=== PATIENT | female | born 1940 | race Caucasian/White ===

== ENCOUNTER → 2021-09-03 | Outpatient (CLI) | payer MEDICARE, OTHER ==
--- NOTE | 2021-09-03 11:10 | Diagnostic Imaging Report ---
Indication: Abdominal aortic aneurysm screening The proximal aorta measures 2.5 x 2.8 cm. The mid aorta measures 2.6 x 1.7 cm. The distal aorta measures 1.6 x 1.6 cm. Iliac arteries measure approximately 1 cm. There is mild atherosclerotic disease present. There is no aneurysm, stenosis or dissection seen. IMPRESSION: There is no aneurysm present. Dictated by: Dictated on workstation # [id number]
--- NOTE | 2021-09-03 12:27 | Diagnostic Imaging Report ---
CT CHEST WO TECHNIQUE: Multiple contiguous axial images were obtained through the chest without the use of intravenous contrast. All CT scans use one or more of the following dose optimizing techniques: automated exposure control, MA and/or KvP adjustment based on a patient size and exam type, or iterative reconstruction. INDICATION: Shortness of breath and COPD COMPARISON: None available. FINDINGS: Lungs and airway: Severe centrilobular emphysema is present. Near total consolidation the left lower lobe with volume loss associated with the pleural effusion is likely due to compressive atelectasis. The lingula also has some compressive atelectasis within it. Minimal subpleural atelectasis in right lung base. No suspicious pulmonary nodules. Smooth septal lines within the lung bases are likely due to interstitial edema. Pleura: Moderate sized left and small right pleural effusion. No features of loculation. Heart and mediastinum: Thyroid is normal. No supraclavicular or axillary lymphadenopathy. There are a few mildly enlarged mediastinal lymph nodes, with passenger relations representative being a 1.2 cm lower right paratracheal lymph node. Assessment for hilar lymphadenopathy is limited without IV contrast. Heart is mildly enlarged without pericardial effusion. Normal caliber thoracic aorta. Upper abdomen: No features of acute abnormality in the upper abdomen. Cholecystectomy. Musculoskeletal: Multiple old healed left-sided rib fractures are present. No acute rib fracture on either side. Instrumented posterior fusion in the thoracic spine. Underlying infection. IMPRESSION: 1. Moderate left and small right pleural effusions are nonloculated. 2. There is associated atelectasis within the lingula and majority of the left lower lobe from the pleural effusion. Mild pulmonary edema is present. 3. There are a few mildly enlarged mediastinal lymph nodes which are likely reactive in nature. 4. Severe emphysema. Dictated by: Dictated on workstation # [id number]
== END ==
LOC: RAD 09:52
PROVIDERS: ATTEND Family Medicine
DX: Z13.6 Encounter for screening for cardiovascular disorders (principal); J43.9 Emphysema, unspecified; J90 Pleural effusion, not elsewhere classified; J98.11 Atelectasis; J81.1 Chronic pulmonary edema; R59.0 Localized enlarged lymph nodes
CPT/HCPCS: 71250; 76775

== ENCOUNTER 2021-09-22 13:51 | Inpatient (IN) | payer MEDICARE, OTHER ==
[~2021-09-22] VITALS: Ht 160 cm; Wt 52.7 kg
--- OUTSIDE RECORDS SUMMARY | 2021-09-22 13:58 | XMS REPORT | CCD ---
Author Author Tere Leonard Organization Pippa Leonard MD, [facility] Address [address] [place] [address] Phone Care Team Providers Care Resin Coater Name Role Phone Pippa Leonard PP Unavailable CCM Unavailable Summary Purpose Interface Exchange Insurance Providers Payer name Policy type / Coverage type Covered republican ID Effective Begin Date Effective End Date WPS Medicare Part B Medicare Part B [id number] Unknown Unkno wn humana Gold Choice Medicare Part B [id number] Unknown Unknow n Family history Mother Diagnosis Age At Onset Heart Attack Unknown Arthritis Unknown Osteoporosis Unknown Alcoholism Unknown Sister Diagnosis Age At Onset Hypertension Unknown Stroke Unknown Hyperlipidemia Unknown Arthritis Unknown Father Diagnosis Age At Onset Alcoholism Unknown Brother Diagnosis Age At Onset Hyperlipidemia Unknown Asthma Unknown Arthritis Unknown Hypertension Unknown Social History Social History Element Codes Description Effective Dates Marital status Unknown 08/19/2021 Number of children Unknown 7 08/19/2021 Employment Unknown Retired 08/19/[address]: 4244076 Quit over 10 years ago 2020 Allergies, Adverse Reactions, Alerts Substance Reaction Codes Entered Date Inactivated Date Status MORPHINE SULFATE RxNorm: 6648743 08/19/2021 No Inactive Da te Active Problems Condition Codes Effective Dates Condition Status Centrilobular emphysema ICD-10: J43.2 ICD-9: 492.8 08/19/2021 Active Cough in adult ICD-10: R05.9 ICD-9: 786.2 08/19/2021 Active Essential (primary) hypertension ICD-10: I10 ICD-9: 401.1 08/19/2021 Active Medications Medication Codes Instructions Start Date Stop Date Status Fill Instructions Yupelri 175 mcg/3 mL solution for nebulization RxNorm: 05647 84 1 inhale Inhalation every day 08/22/2021 09/20/2021 Active qty suffici ent for 1 month supply Yupelri 175 mcg/3 mL solution for nebulization RxNorm: 34035 84 1 inhale Inhalation every day 08/22/2021 08/22/2021 Inactive magnesium oxide 500 mg capsule RxNorm: 421963 1 Capsule(s) Oral every day 08/19/2021 No Stop Date Active Jesus Alberto 128 5 % eye drops RxNorm: 247529 1 Drop(s) ophthal tenzin (eye) two times a day 08/19/2021 No Stop Date Active Potassium gluconate 99 mg RxNorm: 1 Oral 08/19/2021 No Stop Date Active valsartan 160 mg tablet RxNorm: 453927 Take 1 Tablet(s) Oral ev marybel day 08/19/2021 12/16/2021 Active furosemide 40 mg tablet RxNorm: 566763 1 Tablet(s) Oral every day 1 10/19/2020 No Stop Date Active oxybutynin chloride ER 10 mg tablet,extended release 24 hr R xNorm: 136995 1 Tablet(s) Oral every day 08/19/2021 No Stop Date Active Calcium RxNorm: 1 Oral every day 08/19/2021 No Stop Date Active vitamin E 400 unit capsule RxNorm: 673938 1 Capsule(s) Oral lakisha ry day 08/19/2021 No Stop Date Active Combivent Respimat 20 mcg-100 mcg/actuation solution f or inhalation RxNorm: 3665521 2 Inhalation three times a day 08/19/2021 No Stop Date Active Ecotrin Low Strength 81 mg tablet,enteric coated RxNorm: 118 9781 1 Tablet(s) Oral every day 08/19/2021 No Stop Date Active simvastatin 20 mg tablet RxNorm: 993644 1 Tablet(s) Oral every day 08/19/2021 No Stop Date Active metoprolol succinate ER 25 mg tablet,extended release 24 hr RxNorm: 588402 1/2 Tablet(s) Oral every day 08/19/2021 08/19/2021 Inactive lisinopril 20 mg tablet RxNorm: 951171 1/2 Tablet(s) Oral every day 08/19/2021 08/19/2021 Inactive PreserVision AREDS oral RxNorm: 539593 oral 08/19/2021 Active Medication Administered No Medication Administered data Immunizations No Immunization data Results No Results data Procedures No Procedures data Vital Signs Date Vital 08/19/2021 Blood Pressure 1: 144/88 Code: 8480-6 BMI: 22.5 Code: 85431-8 Heart Rate 1: 74 bpm Height: 5'3" Code: 8302-2 SpO2: 92% Temperature: 3 6.2 (C) / 97.2 (F) Weight: 129 lbs Code: 17088-6 Functional Status No Functional Status data Reason For Visit Reason For Visit Effective Dates Notes headache 08/19/2021 Encounters Encounter Performer Location Codes Date () OFFICE VISIT, NEW - LEVEL 4 Diagnosis: Essential (primary) hypertension[ICD10: I10] Diagnosis: Centrilobular emphysema[ICD10: J43.2] Diagnosis: Cough in adult[ICD10: R05.9] Pippa Leonard MD, Melissa CPT-4: [id number] 08/19/2021 Plan of Care Planned Activity Notes Codes Status Date Visit Plan: Cough - Chronic - worsening per patient and her DTR - I have recommended as follows: - stop the lisinopril - this may be contributing to your cough - it will take about 2 weeks for the cough to go away or improve - and about another 2 weeks to resolve completely. COPD with Emphysema - recommended pt needs to use continuous oxygen - Oxygen concentrator for continuous use at 2.5 liters - pt is mobile and needs the continuous oxygen when using your home oxygen concentrator - you will need to bump up the oxygen at home to 3 liters and then at night go back down to 2 liters of oxygen continuously Extensive history of Tobaccoism - pt no longer smoking - - however with her extensive history - I want her to be set up for the CT of the chest and Abd aortic US. 08/19/2021 Appointment: Pippa Leonard WPtel[id number] [facility] Patient 08/19/2021 Patient Education: Patient Medication Summary Completed 08/19/2021 Instructions Comment oxygen concentrator for continuous use a t 2.5 liters - pt is mobile and needs the continuous oxygen when using your home oxygen concentrator - you will need to bump up the oxygen at home to 3 liters and then at night go back down to 2 liters of oxygen continuously stop the lisinopril - this may be contributing to your cough - it will take about 2 weeks for the cough to go away or improve - and about another 2 weeks to resolve completely. We will get you set up for CT of the Chest and Abd aorta ultrasound . Cough - Chronic - worsening per maria eugenia fuentes and her DTR - I have recommended as follows: - stop the lisinopril - this may be contributing to your cough - it will take about 2 weeks for the cough to go away or improve - and about another 2 weeks to resolve completely. COPD with Emphysema - recommended pt needs to use continuous oxygen - Oxygen concentrator for continuous use at 2.5 liters - pt is mobile and needs the continuous oxygen when using your home oxygen concentrator - you will need to bump up the oxygen at home to 3 liters and then at night go back down to 2 liters of oxygen continuously Extensive history of Tobaccoism - pt no longer smoking - - however with her extensive history - I want her to be set up for the CT of the chest and Abd aortic US. Medical Equipment No Medical Equipment data Health Concerns Section Health Concerns data not found Goals Section Goals data not found Interventions Section Interventions data not found Health Status Evaluations/Outcomes Section Health Status Evaluations/Outcomes data not found Advance Directives No Advance Directive data
[2021-09-22 14:42] LABS: BASOPHILS % (AUTO) 1 % (0-10); EOSINOPHILS # (AUTO) 0.2 10^3/uL (0.0-0.3); EOSINOPHILS % (AUTO) 3 % (0-10); HEMATOCRIT 43 % (35-52); HEMOGLOBIN 13.6 g/dL (11.5-16.0); LYMPHOCYTES # (AUTO) 1.1 X 10^3 (1.0-4.0); LYMPHOCYTES % (AUTO) 20 % (12-44); MEAN CORPUSCULAR HEMOGLOBIN 29 pg (25-34); MEAN CORPUSCULAR HGB CONC 32 g/dL (32-36); MEAN CORPUSCULAR VOLUME 92 fL (80-99); MEAN PLATELET VOLUME 10.1 fL (9.0-12.2); MONOCYTES # (AUTO) 0.4 X 10^3 (0.0-1.0); MONOCYTES % (AUTO) 8 % (0-12); NEUTROPHILS # (AUTO) 3.9 X 10^3 (1.8-7.8); NEUTROPHILS % (AUTO) 69 % (42-75); PLATELET COUNT 189 10^3/uL (130-400); WHITE BLOOD COUNT 5.7 10^3/uL (4.3-11.0)
[2021-09-22] MEDS: dilTIAZem DRIP PRE-MIX 125 ML IV SCH (14:48)
[2021-09-22 15:07] LABS: INR 1.1 (0.8-1.4); PROTHROMBIN TIME PATIENT 14.9 SEC (12.2-14.7)
[2021-09-22 15:08] LABS: ALBUMIN 3.6 GM/DL (3.2-4.5); POTASSIUM 3.1 MMOL/L (3.6-5.0)
[2021-09-22 15:09] LABS: CALCIUM 8.8 MG/DL (8.5-10.1)
[2021-09-22 15:10] LABS: TOTAL PROTEIN 6.4 GM/DL (6.4-8.2)
[2021-09-22 15:12] LABS: BILIRUBIN,TOTAL 1.8 MG/DL (0.1-1.0)
[2021-09-22 15:14] LABS: CREATININE SERUM 0.96 MG/DL (0.60-1.30)
[2021-09-22 15:17] LABS: MAGNESIUM 2.2 MG/DL (1.6-2.4)
--- NOTE | 2021-09-22 15:26 | Diagnostic Imaging Report ---
HISTORY: Chest pain, weakness. COMPARISON: CT from 09/03/2021. TECHNIQUE: Frontal view of the chest. FINDINGS: There is a moderate left pleural effusion which appears similar to the prior CT given differences in modality. There is a small right pleural effusion. There is bibasilar atelectasis. The cardiac silhouette is partially obscured. No pneumothorax is seen. Fusion hardware is seen in the thoracolumbar spine. There is diffuse osteopenia. IMPRESSION: 1. Moderate left and small right pleural effusions with associated atelectasis. Dictated by: Dictated on workstation # [id number]
[2021-09-22 15:59] LABS: BILIRUBIN,URINE NEGATIVE (NEGATIVE); CLARITY,URINE CLEAR; COLOR,URINE ORANGE; GLUCOSE, URINE (UA) NEGATIVE (NEGATIVE); KETONES,URINE NEGATIVE (NEGATIVE); LEUKOCYTE ESTERASE ,URINE 1+ (NEGATIVE); NITRITE,URINE NEGATIVE (NEGATIVE); PROTEIN,URINE 1+ (NEGATIVE)
[2021-09-22 16:09] LABS: BACTERIA,URINE TRACE /HPF; RENAL EPITHELIAL CELLS,URINE 0-2 /HPF
[2021-09-22] MEDS ORDERED: KCL 10 MEQ TAB (MICRO K) PO ONE ×2 (17:00→18:30)
[2021-09-22] MEDS ORDERED: APIXABAN 2.5 MG (ELIQUIS) TABLET PO ONE (17:15)
[2021-09-22] MEDS ORDERED: cefTRIAXone 1 GM PRE-MIX 50 ML IV STA (18:21)
--- NOTE | 2021-09-22 18:28 | ED General ---
General Chief Complaint: Respiratory Problems Stated Complaint: WEAKNESS,SOB Nursing Triage Note: PT TO RM 5 VIA WC. PT REPORTS SOA, COUGH, AND "HEART FLUTTERS WHEN I COUGH AND LAY DOWN" X 1 MONTH. PT WEARS 3L NC AT ALL TIMES D/T COPD AND CHF. PT CALLED DR. STANFORD OFFICE WHO ADVISED HER TO GO TO ED FOR FURTHER EVALUATION. PT A&OX4, DENIES PAIN. Source of Information: Patient Exam Limitations: No Limitations History of Present Illness Date Seen by Provider: Sep 22, 2021 Time Seen by Provider: 14:08 Initial Comments This 80-year-old woman presents to the emergency room with complaints of shortness of breath, fluttering palpitations, and fatigue worsened from baseline over the past month. She has COPD and usually wears oxygen at 3 L. She was noted to have hypoxia with oxygen saturations in the low 80s on her usual 3 L by nasal cannula on arrival. She has had some nausea as well. Shortness of air is exacerbated by ambulation. 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 Dr. Leonard is her primary care provider. She is noted to have atrial fibrillation with RVR on the monitor with a heart rate in the 130s. She has no prior history of atrial fibrillation and is not anticoagulated. Allergies and Home Medications Allergies Coded Allergies: bacitracin (Verified Allergy, Severe, 09/22/21) morphine (Verified Allergy, Severe, 09/22/21) nickel (Verified Allergy, Severe, 09/22/21) Patient Home Medication List Home Medication List Reviewed: Yes Review of Systems Review of Systems Constitutional: see HPI EENTM: no symptoms reported Respiratory: see HPI Cardiovascular: see HPI Gastrointestinal: no symptoms reported : No Musculoskeletal: no symptoms reported Skin: no symptoms reported Psychiatric/Neurological: No Symptoms Reported Hematologic/Lymphatic: No Symptoms Reported Immunological/Allergic: no symptoms reported Past Htnlgrf-Ibuwnc-Seikrp Hx Patient Social History Tobacco Use?: No Smoking Status: Former Smoker Use of E-Cig and/or Vaping dev: No Substance use?: No Alcohol Use?: No Immunizations Up To Date Influenza Vaccine Up-to-Date: Yes; Up-to-Date First/Initial COVID19 Vaccinat: 2020 Second COVID19 Vaccination Javier: 2020 COVID19 Vaccine 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 oz. 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 as Tested Skin: Normal Color, Warm/Dry Focused Exam Lactate Level 09/22/21 14:30: Lactic Acid Level 1.01 Lactic Acid Level Laboratory Tests Test 09/22/21 14:30 Lactic Acid Level 1.01 MMOL/L (0.50-2.00) Progress/Results/Core Measures Suspected Sepsis SIRS Temperature: Pulse: 148 Respiratory Rate: 24 Laboratory Tests 09/22/21 14:30: White Blood Count 5.7 Blood Pressure 144 /132 Mean: 136 09/22/21 14:30: Lactic Acid Level 1.01 Laboratory Tests 09/22/21 14:30: Creatinine 0.96, INR Comment 1.1, Platelet Count 189, Total Bilirubin 1.8H Results/Orders Lab Results Laboratory Tests Test 09/22/21 14:20 09/22/21 14:30 09/22/21 15:51 Range/Units Influenza Type A (RT-PCR) Not Detected Not Detecte Influenza Type B (RT-PCR) Not Detected Not Detecte SARS-CoV-2 RNA (RT-PCR) Not Detected Not Detecte White Blood Count 5.7 4.3-11.0 10^3/uL Red Blood Count 4.64 3.80-5.11 10^6/uL Hemoglobin 13.6 11.5-16.0 g/dL Hematocrit 43 35-52 % Mean Corpuscular Volume 92 80-99 fL Mean Corpuscular Hemoglobin 29 25-34 pg Mean Corpuscular Hemoglobin Concent 32 32-36 g/dL Red Cell Distribution Width 15.0 H 10.0-14.5 % Platelet Count 189 130-400 10^3/uL Mean Platelet Volume 10.1 9.0-12.2 fL Immature Granulocyte % (Auto) 0 % Neutrophils (%) (Auto) 69 42-75 % Lymphocytes (%) (Auto) 20 12-44 % Monocytes (%) (Auto) 8 0-12 % Eosinophils (%) (Auto) 3 0-10 % Basophils (%) (Auto) 1 0-10 % Neutrophils # (Auto) 3.9 1.8-7.8 X 10^3 Lymphocytes # (Auto) 1.1 1.0-4.0 X 10^3 Monocytes # (Auto) 0.4 0.0-1.0 X 10^3 Eosinophils # (Auto) 0.2 0.0-0.3 10^3/uL Basophils # (Auto) 0.0 0.0-0.1 10^3/uL Immature Granulocyte # (Auto) 0.0 0.0-0.1 10^3/uL Prothrombin Time 14.9 H 12.2-14.7 SEC INR Comment 1.1 0.8-1.4 Activated Partial Thromboplast Time 30 24-35 SEC Sodium Level 141 135-145 MMOL/L Potassium Level 3.1 L 3.6-5.0 MMOL/L Chloride Level 100 98-107 MMOL/L Carbon Dioxide Level 30 21-32 MMOL/L Anion Gap 11 5-14 MMOL/L Blood Urea Nitrogen 15 7-18 MG/DL Creatinine 0.96 0.60-1.30 MG/DL Estimat Glomerular Filtration Rate 56 BUN/Creatinine Ratio 16 Glucose Level 119 H 70-105 MG/DL Lactic Acid Level 1.01 0.50-2.00 MMOL/L Calcium Level 8.8 8.5-10.1 MG/DL Corrected Calcium 9.1 8.5-10.1 MG/DL Magnesium Level 2.2 1.6-2.4 MG/DL Total Bilirubin 1.8 H 0.1-1.0 MG/DL Aspartate Amino Transf (AST/SGOT) 33 5-34 U/L Alanine Aminotransferase (ALT/SGPT) 29 0-55 U/L Alkaline Phosphatase 106 40-136 U/L Myoglobin 42.5 10.0-92.0 NG/ML Troponin I < 0.028 <0.028 NG/ML C-Reactive Protein High Sensitivity 0.07 0.00-0.50 MG/DL B-Type Natriuretic Peptide 326.1 H <100.0 PG/ML Total Protein 6.4 6.4-8.2 GM/DL Albumin 3.6 3.2-4.5 GM/DL Procalcitonin 0.02 <0.10 NG/ML Urine Color ORANGE Urine Clarity CLEAR Urine pH 6.0 5-9 Urine Specific [place] 1.020 1.016-1.022 Urine Protein 1+ H NEGATIVE Urine Glucose (UA) NEGATIVE NEGATIVE Urine Ketones NEGATIVE NEGATIVE Urine Nitrite NEGATIVE NEGATIVE Urine Bilirubin NEGATIVE NEGATIVE Urine Urobilinogen 0.2 < = 1.0 MG/DL Urine Leukocyte Esterase 1+ H NEGATIVE Urine RBC (Auto) NEGATIVE NEGATIVE Urine RBC NONE /HPF Urine WBC 5-10 H /HPF Urine Squamous Epithelial Cells 2-5 /HPF Urine Renal Epithelial Cells 0-2 /HPF Urine Crystals NONE /LPF Urine Bacteria TRACE /HPF Urine Casts NONE /LPF Urine Mucus SMALL H /LPF Urine Culture Indicated YES My Orders Orders - OMID YOU MD Cbc With Automated Diff (09/22/21 14:08) Comprehensive Metabolic Panel (09/22/21 14:08) Hs C Reactive Protein (09/22/21 14:08) Magnesium (09/22/21 14:08) Ua Culture If Indicated (09/22/21 14:08) Ed Iv/Invasive Line Start (09/22/21 14:08) Procalcitonin (Pct) (09/22/21 14:08) Influenza A And B By Pcr (09/22/21 14:08) Covid 19 Inhouse Test (09/22/21 14:08) Chest 1 View, Ap/Pa Only (09/22/21 14:37) Ekg Tracing (09/22/21 14:37) Myoglobin Serum (09/22/21 14:37) Protime With Inr (09/22/21 14:37) Partial Thromboplastin Time (09/22/21 14:37) O2 (09/22/21 14:37) Monitor-Rhythm Ecg Trace Only (09/22/21 14:37) Lipid Panel (09/23/21 06:00) Troponin I Jessica (09/22/21 14:37) Diltiazem Drip Pre-Mix (Cardizem Drip Pr (09/22/21 14:45) Diltiazem Injection (Cardizem Injection) (09/22/21 14:45) Blood Culture (09/22/21 14:39) Sputum Culture (09/22/21 14:39) Vital Signs Adult Sepsis Patie Q15M (09/22/21 14:39) Remove Rings In Anticipation O (09/22/21 14:39) Lactic Acid Analyzer (09/22/21 14:39) Bnp Rapides (09/22/21 14:39) Urine Culture (09/22/21 15:51) Potassium Chloride (Tablet) (Klor Con Ta (09/22/21 17:00) Apixaban Tablet (Eliquis Tablet) (09/22/21 17:15) Ceftriaxone 1 Gm Pre-Mix (Rocephin 1 Gm (09/22/21 18:21) Potassium Chloride (Tablet) (Klor Con Ta (09/22/21 18:30) Medications Given in ED Current Medications Medications Dose Ordered Sig/Matias Route Start Time Stop Time Status Last Admin Dose Admin Apixaban 2.5 mg ONCE ONCE PO 09/22/21 17:15 09/22/21 17:16 DC 09/22/21 21:00 2.5 MG Diltiazem HCl 5 mg ONCE ONCE IVP 09/22/21 14:45 09/22/21 14:46 DC 09/22/21 14:46 5 MG Vital Signs/I&O 09/22/21 09/22/21 09/22/21 09/22/21 14:03 14:03 14:10 15:48 Temp 36.4 Pulse 148 Resp 24 B/P (MAP) 144/132 (136) Pulse Ox 92 94 95 O2 Delivery OxyMask Nasal Cannula High Flow N/C Vapotherm O2 Flow Rate 15.00 3.00 35.00 FiO2 80 Capillary Refill : Less Than 3 Seconds Blood Pressure Mean: 136 Progress Note : Progress Note Patient was started on Cardizem with good results and good rate control. She was also started on Vapotherm for her hypoxia. This resolved her tachypnea and relaxed her breathing. She was started on Eliquis 2.5 mg for stroke prophylaxis. Potassium was replaced orally. Patient was treated for finding of urinary tract infection. ECG Initial ECG Impression Date: Sep 22, 2021 Initial ECG Impression Time: 14:31 Initial ECG Rate: 136 Initial ECG Rhythm: A Fib/Flutter Initial ECG Impression: Atrial Fibrillation w/RVR Comment Atrial fibrillation with RVR. No ST elevation or depression. Diagnostic Imaging Diagonstic Imaging: Xray Plain Films/CT/US/NM/MRI: chest Comments NAME: JESSE MONREAL [facility] REC#: [id number] PT STATUS: REG ER : 1940 PHYSICIAN: OMID YOU MD ADMIT DATE: 09/22/21/ER Signed Date of Exam:09/22/21 CHEST 1 VIEW, AP/PA ONLY HISTORY: Chest pain, weakness. COMPARISON: CT from 09/03/2021. TECHNIQUE: Frontal view of the chest. FINDINGS: There is a moderate left pleural effusion which appears similar to the prior CT given differences in modality. There is a small right pleural effusion. There is bibasilar atelectasis. The cardiac silhouette is partially obscured. No pneumothorax is seen. Fusion hardware is seen in the thoracolumbar spine. There is diffuse osteopenia. IMPRESSION: 1. Moderate left and small right pleural effusions with associated atelectasis. Dictated by: Dictated on workstation # [id number] Dict: 09/22/21 1523 Trans: 09/22/21 1641 [id number] Interpreted by: SHIN ROSENTHAL MD Electronically signed by: SHIN ROSENTHAL MD 09/22/21 1641 Departure Communication (Admissions) Time/Spoke to Admitting Phy: 17:23 Dr. Leonard Time/Spoke to Consulting Phy: 17:15 Dr. Dill Impression Primary Impression: Atrial fibrillation with RVR Additional Impressions: Hypokalemia Hypoxia Urinary tract infection Qualified Codes: N39.0 - Urinary tract infection, site not specified Disposition: ADMITTED INPATIENT Condition: Improved Admissions Decision to Admit Reason: Admit from ER (General) Decision to Admit/Date: Sep 22, 2021 Time/Decision to Admit Time: 14:15 Departure-Patient Inst. Referrals: ALTAGRACIA LEONARD MD (PCP/Family) Primary Care Physician Copy Copies To 1: ALTAGRACIA LEONARD MD, JOSHUA T MD Sep 22, 2021 18:28
[2021-09-22 20:23] VITALS: BP 128/92
[2021-09-22 20:50] VITALS: BP 144/132
[2021-09-22] MEDS ORDERED: RT-ALBUTEROL/IPRATROPIUM 3 ML (DUONEB) VIAL ONE (21:13)
[2021-09-22] MEDS ORDERED: ONDANSETRON 4 MG/2 ML (SDV) Z0FRAN IV PRN (21:15)
[2021-09-22] MEDS: LACTATED RINGERS 1,000 ML IV SCH (21:46)
[2021-09-23] MEDS: dilTIAZem DRIP PRE-MIX 125 ML IV SCH ×2 (04:53→15:18)
[2021-09-23] MEDS: LACTATED RINGERS 1,000 ML IV SCH (05:57)
[2021-09-23 06:33] LABS: TRIGLYCERIDES 77 MG/DL (<150); VLDL CHOLESTEROL 15 MG/DL (5-40)
[2021-09-23 06:38] LABS: CHOLESTEROL 122 MG/DL (< 200)
[2021-09-23 06:39] LABS: HDL CHOLESTEROL 39 MG/DL (40-60)
--- NOTE | 2021-09-23 07:13 | Diagnostic Imaging Report ---
INDICATION: Atrial fibrillation with rapid ventricular response, hypoxia. TECHNIQUE: Single view chest 3:51 AM. CORRELATION STUDY: 09/22/2021 FINDINGS: Heart size enlarged. Vasculature is increased with perihilar edema. Moderate left pleural effusion and small right pleural effusion, stable. Associated infiltrate or edema about both lung bases appears slightly increased at the right lung base. IMPRESSION: 1. Cardiac enlargement with increasing severity pulmonary vascular congestion and perihilar edema. 2. Moderate left and small right pleural effusion. Increasing edema or infiltrate at the right lung base. Dictated by: Dictated on workstation # [id number]
[2021-09-23] MEDS ORDERED: RT-ALBUTEROL/IPRATROPIUM 3 ML (DUONEB) VIAL INH SCH (08:00)
[2021-09-23 08:32] VITALS: BP 114/93
--- NOTE | 2021-09-23 08:36 | Consultation-Cardiology ---
HPI-Cardiology Cardiology Consultation: Date of Consultation 09/23/21 Time Seen by a Provider: 08:20 Date of Admission 09-22-21 Attending Physician Altagracia Leonard MD Admitting Physician Altagracia Leonard MD Consulting Physician Joaquin Dill MD HPI: Chief Complaint: A-fib with RVR (newly diagnosed) Ms. Monreal is an 80 yr old female admitted to [facility] from the ED with increasing SOB. She reports she moved to the area about 6 months ago from [place] to be closer to family. She reports she drove herself. She states she recently lost 20-30 lbs since moving to the area d/t decreased appetite. She reports increasing SOB over the course of the last week with freq cough of thick sputum. No c/o CP. She reports she has had palpitations for "quite some time" unable to specify, but reports they have been much worse over the last month, lasting for several minutes and worse with exertion. She reports increasing bilat LE swelling. She reports she saw a processing assistant in [place] who told her she had CHF, but she never f/u with him. She reports diarrhea and GERD. No report of fever or chills. She feels her breathing is better this morning. Review of Systems-Cardiology Review of Systems Constitutional: No chills, No fever; malaise Eyes: No vision change Ears/Nose/Throat: No epistaxis, No recent hearing loss Respiratory: As described under HPI Cardiovascular: As described under HPI Gastrointestinal: As described under HPI Genitourinary: No dysuria, No hematuria : No Musculoskeletal: back pain (chronic) Skin: No rash on exposed areas, No ulcerations on exposed areas Psychiatric/Neurological: No anxiety, No depression, No seizure, No focal weakness Hematologic: No bleeding abnormalities IFJ-Sbqpvy-Rkfdbi Hx Patient Social History Smoking Status: Former Smoker Have you traveled recently?: No Alcohol Use?: No Pt feels they are or have been: No Past Medical History PMH As described under Assessment. Family Medical History Family Medical History: She reports her mother had heart disease, but does not know the details. She reports her brother had CHF. Allergies and Home Medications Allergies Coded Allergies: bacitracin (Verified Allergy, Severe, 09/22/21) morphine (Verified Allergy, Severe, 09/22/21) nickel (Verified Allergy, Severe, 09/22/21) Patient Home Medication List Aspirin (Aspirin EC) 81 Mg Tablet.dr, 81 MG PO DAILY, (Reported) Entered as Reported by: JUAN FRANCISCO HUA on 09/23/211138 Last Action: Reviewed Calcium Carbonate (Calcium) 600 Mg Tablet, 600 MG PO BID, (Reported) Entered as Reported by: JUAN FRANCISCO HUA on 09/23/211138 Last Action: Reviewed Fluticasone Propionate (Fluticasone Propionate) 16 Gm [place].susp, 2 SPRAYS NSEACH DAILY, (Reported) Entered as Reported by: JUAN FRANCISCO HUA on 09/23/211138 Last Action: Reviewed Oxybutynin Chloride (Oxybutynin Chloride ER) 10 Mg Tab.er.24, 10 MG PO DAILY, (Reported) Entered as Reported by: JUAN FRANCISCO HUA on 09/23/211138 Last Action: Reviewed Revefenacin (Yupelri) 175 Mcg/3 Ml Vial.neb, 3 ML NEB DAILY, (Reported) Entered as Reported by: JUAN FRANCISCO HUA on 09/23/211138 Last Action: Reviewed Simvastatin (Simvastatin) 20 Mg Tablet, 20 MG PO DAILY, (Reported) Entered as Reported by: JUAN FRANCISCO HUA on 09/23/211138 Last Action: Reviewed Sodium Chloride (Jesus Alberto-128) 15 Ml Drops, 1-2 DROPS OU BID, (Reported) Entered as Reported by: JUAN FRANCISCO HUA on 09/23/211138 Last Action: Reviewed Valsartan (Valsartan) 160 Mg Tablet, 160 MG PO DAILY, (Reported) Entered as Reported by: JUAN FRANCISCO HUA on 09/23/211138 Last Action: Reviewed Vit C/E/Zn/Coppr/Lutein/Zeaxan (Preservision Areds 2 Softgel) 1 Each Capsule, 1 EACH PO BID, (Reported) Entered as Reported by: JUAN FRANCISCO HUA on 09/23/211138 Last Action: Reviewed Physical Exam-Cardiology Physical Exam Vital Signs/I&O 09/24/21 09/24/21 09/24/21 09/24/21 20:00 21:28 21:41 23:59 Pulse Ox 86 90 O2 Delivery Vapotherm Vapotherm Vapotherm Vapotherm O2 Flow Rate 30.00 30.00 40.00 40.00 100.00 FiO2 100 100 100 09/25/21 09/25/21 09/25/21 09/25/21 00:00 01:00 03:16 04:00 Temp 36.3 36.9 Pulse 120 100 76 Resp 22 21 B/P (MAP) 138/100 108/89 Pulse Ox 87 89 89 O2 Delivery Vapotherm Vapotherm Vapotherm O2 Flow Rate 40.00 40.00 40.00 100.00 100.00 FiO2 100 09/25/21 09/25/21 04:00 07:50 Temp 36.9 Pulse 109 Resp 21 B/P (MAP) 128/81 Pulse Ox 90 91 O2 Delivery Vapotherm Vapotherm O2 Flow Rate 40.00 40.00 100.00 FiO2 100 09/25/21 00:00 Intake Total 2800 ml Output Total 550 ml Balance 2250 ml Capillary Refill : Less Than 3 Seconds Constitutional: AAO x 3, well-developed, well-nourished HEENT: PERRL, hearing is well preserved, oral hygience is good Neck: No carotid bruit; carotid pulses are 2 + bilaterally Respiratory: No accessory muscle use, No respiratory distress; chest expansion is symmetric, chest is bilaterally symmetric, rhonchi (scattered), other (coarse lower lobes bilat) Cardiovascular: irregularly irregular; No JVD; S1 and S2, systolic murmur Gastrointestinal: No tender; soft, round, audible bowel sounds Extremities: other (mild LE swelling bilat) Neurologic/Psychiatric: grossly intact (moves all extremities) Skin: No rash on exposed areas, No ulcerations on exposed areas Data Review Labs Laboratory Tests 09/25/21 04:50: Sodium Level 135, Potassium Level 4.3, Chloride Level 98, Carbon Dioxide Level 24, Anion Gap 13, Blood Urea Nitrogen 15, Creatinine 0.82, Estimat Glomerular Filtration Rate 67, BUN/Creatinine Ratio 18, Glucose Level 110H, Calcium Level 8.9, Magnesium Level 2.0 Microbiology 09/22/21 Urine Culture - Final, Complete 3 or more isolates 09/22/21 Blood Culture - Preliminary, Resulted No growth Radiology NAME: JESSE MONREAL Jacob [facility] REC#: [id number] PT STATUS: ADM IN : 1940 PHYSICIAN: ALTAGRACIA LEONARD MD ADMIT DATE: 09/22/21/[facility] Draft Date of Exam:09/23/21 CHEST 1 VIEW, AP/PA ONLY INDICATION: Atrial fibrillation with rapid ventricular response, hypoxia. TECHNIQUE: Single view chest 3:51 AM. CORRELATION STUDY: 09/22/2021 FINDINGS: Heart size enlarged. Vasculature is increased with perihilar edema. Moderate left pleural effusion and small right pleural effusion, stable. Associated infiltrate or edema about both lung bases appears slightly increased at the right lung base. IMPRESSION: 1. Cardiac enlargement with increasing severity pulmonary vascular congestion and perihilar edema. 2. Moderate left and small right pleural effusion. Increasing edema or infiltrate at the right lung base. Dictated on workstation # [id number] Dict: 09/23/21699 Trans: 09/23/21712 [facility] [id number] Interpreted by: VICKY NI DO Electronically signed by: ECG Impression ECG Initial ECG Impression: Atrial Fibrillation A/P-Cardiology Assessment/Admission Diagnosis UTI - management per medical services Pneumonia - management per medical services A-fib with RVR - diagnosed on EKG of 09-22-21 in the ED - undetermined length of time - rate controlled on Cardizem gtt - OAC initiated Reports h/o CHF (dx following stress test in [place] 2-3 yrs ago) HTN HLD GERD COPD 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 Chronic back pain - h/o extensive back surgeries in 2014 following a fall Discussion and Recomendations A-fib with RVR of undetermined length of time - rate controlled on Cardizem gtt - change to oral - continue OAC with Eliquis - low dose d/t weight of 60kg and age greater than 78 yrs Echocardiogram today Acute on chronic CHF - tx with diuretics Replace electrolytes as indicated Management of pneumonia and UTI per medical services Further recs will be based on her hospital course We would like to thank medical services for this consult EVANGELISTA REDD Sep 23, 2021 08:36
[2021-09-23] MEDS ORDERED: FUROSEMIDE 40 MG/4 ML INJ (LASIX) IVP NR (08:55)
[2021-09-23] MEDS ORDERED: KCL 20 MEQ TAB (K-DUR) PO NR ×2 (09:01→12:00)
--- NOTE | 2021-09-23 09:17 | History & Physical ---
History of Present Illness History of Present Illness Reason for visit/HPI PT IS AN 80 Y/O FEMALE WHO IS A NEW PATIENT TO MY PRACTICE. JESSE MOVED FROM [facility] TO [place] IN THE PAST FEW MONTHS. SHE HAS CHRONIC COPD AND IS OXYGEN DEPENDENT WITH A 3 LITER OXYGEN REQUIREMENT AT BASELINE. PT'S DTR CALLED THE OFFICE WITH REPORT THAT HER MOM WAS COMPLAINING OF SEVERE SHORTNESS OF BREATH, CHEST DISCOMFORT, AND PALPITATIONS IN HER CHEST. THEY WERE ADVISED TO TAKE HER TO THE ER FOR ACUTE EVALUATION FOR HER LUNGS AND HEART. SHE WAS FOUND TO BE IN NEW ONSET ATRIAL FIBRILLATION WITH RESPIRATORY DISTRESS. PT WAS ADMITTED TO THE CARDIAC STEPDOWN UNIT AND CARDIOLOGY WAS CONSULTED ON THE PT ON ADMISSION. Date of Admission Sep 22, 2021 at 18:23 Date Seen by a Provider: Sep 23, 2021 Time Seen by a Provider: 09:00 I consulted on this patient on 09/23/21 09:17 Attending Physician Altagracia Leonard MD Admitting Physician Altagracia Leonard MD Consult CARDIOLOGY Allergies and Home Medications Allergies Coded Allergies: bacitracin (Verified Allergy, Severe, 09/22/21) morphine (Verified Allergy, Severe, 09/22/21) nickel (Verified Allergy, Severe, 09/22/21) Patient Home Medication List Home Medication List Reviewed: Yes Aspirin (Aspirin EC) 81 Mg Tablet.dr, 81 MG PO DAILY, (Reported) Entered as Reported by: JUAN FRANCISCO HUA on 09/23/211138 Last Action: Held Calcium Carbonate (Calcium) 600 Mg Tablet, 600 MG PO BID, (Reported) Entered as Reported by: JUAN FRANCISCO HUA on 09/23/211138 Last Action: Held Fluticasone Propionate (Fluticasone Propionate) 16 Gm [place].susp, 2 SPRAYS NSEACH DAILY, (Reported) Entered as Reported by: JUAN FRANCISCO HUA on 09/23/211138 Last Action: Held Oxybutynin Chloride (Oxybutynin Chloride ER) 10 Mg Tab.er.24, 10 MG PO DAILY, (Reported) Entered as Reported by: JUAN FRANCISCO HUA on 09/23/211138 Last Action: Held Revefenacin (Yupelri) 175 Mcg/3 Ml Vial.neb, 3 ML NEB DAILY, (Reported) Entered as Reported by: JUAN FRANCISCO HUA on 09/23/211138 Last Action: Held Simvastatin (Simvastatin) 20 Mg Tablet, 20 MG PO DAILY, (Reported) Entered as Reported by: JUAN FRANCISCO HUA on 09/23/211138 Last Action: Held Sodium Chloride (Jesus Alberto-128) 15 Ml Drops, 1-2 DROPS OU BID, (Reported) Entered as Reported by: JUAN FRANCISCO HUA on 09/23/211138 Last Action: Held Valsartan (Valsartan) 160 Mg Tablet, 160 MG PO DAILY, (Reported) Entered as Reported by: JUAN FRANCISCO HUA on 09/23/211138 Last Action: Held Vit C/E/Zn/Coppr/Lutein/Zeaxan (Preservision Areds 2 Softgel) 1 Each Capsule, 1 EACH PO BID, (Reported) Entered as Reported by: JUAN FRANCISCO HUA on 09/23/211138 Last Action: Held Past Faezfba-Rkwghc-Dsetyu Hx Patient Social History Living Status: MOVED TO [facility] IN 2020 Employed/Student: retired Tobacco Use?: No Tobacco type used: Cigarettes (PREVIOUSLY OVER 50PACK YEAR HX OF SMOKING) Smoking Status: Former Smoker Use of E-Cig and/or Vaping dev: No Substance use?: No Alcohol Use?: No Pt feels they are or have been: No Immunizations Up To Date First/Initial COVID19 Vaccinat: 2020 Second COVID19 Vaccination Javier: 2020 Current Status Advance Directives: Yes Communicates: Verbally Primary Language: Danish Preferred Spoken Language: Danish Is interpretation needed?: No Sensory deficits: Vision impairment, Hearing impairment Implanted or Applied Medical D: Other (OXYGEN) Past Medical History Surgeries: Joint Replacement (Hip), Orthopedic (Bunionectomy, trauma surgery for fractured ribs and spine) COPD Currently Using CPAP: No Currently Using BIPAP: No High Cholesterol, Hypertension Sexually Transmitted Disease: No HIV/AIDS: No Arthritis, Fractures Are Your Blood Sugars Over 250: No Loss of Vision: Denies Hearing Impairment: Denies URGE INCONTINENCE Family Medical History Reviewed and Corrections made Hypertension Review of Systems Constitutional: No chills, No diaphoresis, No fever; malaise, weakness EENTM: no symptoms reported Respiratory: cough, dyspnea on exertion, orthopnea, short of breath Cardiovascular: palpitations Gastrointestinal: No abdominal pain, No constipation, No diarrhea Genitourinary: frequency Musculoskeletal: muscle weakness Skin: no symptoms reported Psychiatric/Neurological: Anxiety, Weakness Physical Exam Vital Signs Vital Signs - First Documented 09/22/21 15:48 FiO2 80 Capillary Refill : Less Than 3 Seconds Height, Weight, BMI Height: '" Weight: lbs. oz. kg; 23.47 BMI Method: General Appearance: Moderate Distress, Thin HEENT: PERRL/EOMI, Pharynx Normal Neck: Full Range of Motion, Non Tender, Supple Respiratory: Chest Non Tender, Accessory Muscle Use, Decreased Breath Sounds, Wheezing Cardiovascular: No Edema, Normal Peripheral Pulses, Systolic Murmur, Irregularly Irregular Gastrointestinal: Normal Bowel Sounds, No Organomegaly, No Pulsatile Mass, Non Tender, Soft Rectal: Deferred Extremity: Normal Capillary Refill, Non Tender, No Calf Tenderness, Pedal Edema (TRACE AT ANKLES) Neurologic/Psychiatric: Alert, Oriented x3, No Motor/Sensory Deficits, 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 Skin: Normal Color, Warm/Dry Lymphatic: No Adenopathy Assessment/Plan Assessment and Plan Problems: (1) Atrial fibrillation with RVR Status: Acute Assessment & Plan: - CONSULT PLACED TO CARDIOLOGY - PT ON CARDIZEM DRIP, ANTICOAGULATION, AND WILL CONTINUE WITH TELEMETRY. (2) Urinary tract infection Status: Acute Assessment & Plan: ON ROCEPHIN, MONITOR CULTURE FOR SENSITIVITY (3) Hypokalemia Status: Acute Assessment & Plan: REPLACE PER PROTOCOL MONITOR LABS IN MORNING. (4) Hypoxia Status: Acute Assessment & Plan: DUE TO COPD, OXYGEN SUPPORT WITH VAPOTHERM (5) COPD with acute exacerbation Assessment & Plan: DUE TO COPD, OXYGEN SUPPORT WITH VAPOTHERM MAT PROTOCOL, VAPOTHERM TO BE WEANED ABLE, MONITOR SYMPTOMS CLOSELY (6) Oxygen dependent Status: Chronic (7) Hyperlipidemia Assessment & Plan: HOLD CURRENT HOME REGIMEN AT THIS TIME Admission Diagnosis ACUTE ATRIAL FIBRILLATION URINARY TRACT INFECTION RESPIRATORY FAILURE CHRONIC OXYGEN DEPENDENCE COPD EXACERBATION HYPERLIPIDEMIA HYPOKALEMIA Admission Status: Inpatient Order (span 2 midnights) Reason for Inpatient Admission: INPT ADMISSiON for COPD EXACERBATION AND ACUTE AFIB NEW ONSET - WILL REQUIRE AT LEAST 72 OR MORE HOURS BEFORE STABILITY IS ATTAINED. Problem Qualifiers (1) Urinary tract infection: Urinary tract infection type: site unspecified Hematuria presence: without hematuria Qualified Codes: N39.0 - Urinary tract infection, site not specified ALTAGRACIA LEONARD MD Sep 23, 2021 09:17
[2021-09-23] MEDS: APIXABAN 2.5 MG (ELIQUIS) TABLET PO SCH ×2 (09:39→20:39)
[2021-09-23] MEDS ORDERED: RT-ALBUTEROL SULF 2.5 MG/3 ML PRE-MIX VIAL INH PRN (10:00)
[2021-09-23] MEDS ORDERED: FLUT16SP22 NSEACH (11:39)
[2021-09-23] MEDS ORDERED: ASPI-1238 PO (11:39)
[2021-09-23] MEDS ORDERED: SODI15DR7 OU (11:39)
[2021-09-23] MEDS ORDERED: SIMV20TA26 PO (11:39)
[2021-09-23] MEDS ORDERED: CALC600T91 PO (11:39)
[2021-09-23] MEDS ORDERED: VALS160T29 PO (11:39)
[2021-09-23] MEDS ORDERED: OXYB10TA29 PO (11:39)
[2021-09-23] MEDS ORDERED: REVE175V NEB (11:39)
[2021-09-23] MEDS ORDERED: VIT1CAPS44 PO (11:39)
[2021-09-23] MEDS: RT-ALBUTEROL/IPRATROPIUM 3 ML (DUONEB) VIAL INH SCH ×4 (11:46→23:10)
--- NOTE | 2021-09-23 13:33 | Consultation-Cardiology ---
HPI-Cardiology Cardiology Consultation: Date of Consultation 09/23/21 Time Seen by a Provider: 11:15 Date of Admission Attending Physician Pippa Leonard MD Admitting Physician Pippa Leonard MD Consulting Physician EKATERINA CALLES MD, MA, FACP, FACC, FSCAI, CCDS HPI: Chief Complaint: Reason for Cardiology consult: A-fib with RVR (newly diagnosed) Ms. Corrales is an 80 yr old female admitted to [facility] from the ED with increasing SOB. She reports she moved to the area about 6 months ago from [place] to be closer to family. She reports she drove herself. She states she recently lost 20-30 lbs since moving to the area d/t decreased appetite. She reports increasing SOB over the course of the last week with freq cough of thick sputum. No c/o CP. She reports she has had palpitations for "quite some time" unable to specify, but reports they have been much worse over the last month, lasting for several minutes and worse with exertion. She reports increasing bilat LE swelling. 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 She reports diarrhea and GERD. No report of fever or chills. She feels her breathing is better this morning. Review of Systems-Cardiology Review of Systems Constitutional: No chills, No fever; malaise Eyes: No vision change Ears/Nose/Throat: No epistaxis, No recent hearing loss Respiratory: As described under HPI Cardiovascular: As described under HPI Gastrointestinal: As described under HPI Genitourinary: No dysuria, No hematuria : No Musculoskeletal: back pain (chronic) Skin: No rash on exposed areas, No ulcerations on exposed areas Psychiatric/Neurological: No anxiety, No depression, No seizure, No focal weakness Hematologic: No bleeding abnormalities KXC-Obidcb-Crqrmz Hx Patient Social History Smoking Status: Former Smoker Have you traveled recently?: No Alcohol Use?: No Pt feels they are or have been: No Past Medical History PMH As described under Assessment. Family Medical History Family Medical History: She reports her mother had heart disease, but does not know the details. She reports her brother had CHF. Allergies and Home Medications Allergies Coded Allergies: bacitracin (Verified Allergy, Severe, 09/22/21) morphine (Verified Allergy, Severe, 09/22/21) nickel (Verified Allergy, Severe, 09/22/21) Patient Home Medication List Home Medication List Reviewed: Yes Aspirin (Aspirin EC) 81 Mg Tablet.dr, 81 MG PO DAILY, (Reported) Entered as Reported by: JUAN FRANCISCO HUA on 09/23/211138 Last Action: Reviewed Calcium Carbonate (Calcium) 600 Mg Tablet, 600 MG PO BID, (Reported) Entered as Reported by: JUAN FRANCISCO HUA on 09/23/211138 Last Action: Reviewed Fluticasone Propionate (Fluticasone Propionate) 16 Gm [place].susp, 2 SPRAYS NSEACH DAILY, (Reported) Entered as Reported by: JUAN FRANCISCO HUA on 09/23/211138 Last Action: Reviewed Oxybutynin Chloride (Oxybutynin Chloride ER) 10 Mg Tab.er.24, 10 MG PO DAILY, (Reported) Entered as Reported by: JUAN FRANCISCO HUA on 09/23/211138 Last Action: Reviewed Revefenacin (Yupelri) 175 Mcg/3 Ml Vial.neb, 3 ML NEB DAILY, (Reported) Entered as Reported by: JUAN FRANCISCO HUA on 09/23/211138 Last Action: Reviewed Simvastatin (Simvastatin) 20 Mg Tablet, 20 MG PO DAILY, (Reported) Entered as Reported by: JUAN FRANCISCO HUA on 09/23/211138 Last Action: Reviewed Sodium Chloride (Jesus Alberto-128) 15 Ml Drops, 1-2 DROPS OU BID, (Reported) Entered as Reported by: JUAN FRANCISCO HUA on 09/23/211138 Last Action: Reviewed Valsartan (Valsartan) 160 Mg Tablet, 160 MG PO DAILY, (Reported) Entered as Reported by: JUAN FRANCISCO HUA on 09/23/211138 Last Action: Reviewed Vit C/E/Zn/Coppr/Lutein/Zeaxan (Preservision Areds 2 Softgel) 1 Each Capsule, 1 EACH PO BID, (Reported) Entered as Reported by: JUAN FRANCISCO HUA on 09/23/211138 Last Action: Reviewed Physical Exam-Cardiology Physical Exam Vital Signs/I&O 09/23/21 09/23/21 09/23/21 09/23/21 02:00 03:03 04:00 04:00 Temp 37.1 Pulse 94 Resp 24 B/P (MAP) 105/72 Pulse Ox 93 94 94 O2 Delivery Vapotherm Vapotherm Vapotherm Vapotherm O2 Flow Rate 20.00 20.00 20.00 85.00 85.00 FiO2 70 85 09/23/21 09/23/21 09/23/21 09/23/21 07:00 08:00 08:00 08:26 Temp 37.0 Pulse 100 95 Resp 22 B/P (MAP) 114/93 Pulse Ox 92 92 O2 Delivery Vapotherm Vapotherm Vapotherm O2 Flow Rate 20.00 20.00 20.00 85.00 FiO2 80 80 09/23/21 09/23/21 09/23/21 09/23/21 08:32 08:34 11:46 11:50 Temp 37.0 Pulse 104 Pulse Ox 92 93 O2 Delivery Vapotherm Vapotherm Vapotherm O2 Flow Rate 20.00 20.00 20.00 80.00 70.00 FiO2 80 80 09/23/21 09/23/21 09/23/21 12:00 12:00 12:30 Temp 37.0 Pulse 112 96 Resp 20 B/P (MAP) 108/82 O2 Delivery Vapotherm Vapotherm O2 Flow Rate 20.00 20.00 70.00 FiO2 70 09/23/21 00:00 Intake Total 120 ml Balance 120 ml Capillary Refill : Less Than 3 Seconds Constitutional: AAO x 3, well-developed, well-nourished HEENT: PERRL, hearing is well preserved, oral hygience is good Neck: No carotid bruit; carotid pulses are 2 + bilaterally Respiratory: No accessory muscle use, No respiratory distress; chest expansion is symmetric, chest is bilaterally symmetric, rhonchi (scattered), other (coarse lower lobes bilat) Cardiovascular: irregularly irregular; No JVD; S1 and S2, systolic murmur Gastrointestinal: No tender; soft, round, audible bowel sounds Extremities: other (mild LE swelling bilat) Neurologic/Psychiatric: grossly intact (moves all extremities) Skin: No rash on exposed areas, No ulcerations on exposed areas Data Review Labs Laboratory Tests 09/22/21 14:20: Influenza Type A (RT-PCR) Not Detected, Influenza Type B (RT-PCR) Not Detected, SARS-CoV-2 RNA (RT-PCR) Not Detected 09/22/21 14:30: White Blood Count 5.7, Red Blood Count 4.64, Hemoglobin 13.6, Hematocrit 43, Mean Corpuscular Volume 92, Mean Corpuscular Hemoglobin 29, Mean Corpuscular Hemoglobin Concent 32, Red Cell Distribution Width 15.0H, Platelet Count 189, Mean Platelet Volume 10.1, Immature Granulocyte % (Auto) 0, Neutrophils (%) (Auto) 69, Lymphocytes (%) (Auto) 20, Monocytes (%) (Auto) 8, Eosinophils (%) (Auto) 3, Basophils (%) (Auto) 1, Neutrophils # (Auto) 3.9, Lymphocytes # (Auto) 1.1, Monocytes # (Auto) 0.4, Eosinophils # (Auto) 0.2, Basophils # (Auto) 0.0, Immature Granulocyte # (Auto) 0.0, Prothrombin Time 14.9H, INR Comment 1.1, Activated Partial Thromboplast Time 30, Sodium Level 141, Potassium Level 3.1L, Chloride Level 100, Carbon Dioxide Level 30, Anion Gap 11, Blood Urea Nitrogen 15, Creatinine 0.96, Estimat Glomerular Filtration Rate 56, BUN/Creatinine Ratio 16, Glucose Level 119H, Lactic Acid Level 1.01, Calcium Level 8.8, Corrected Calcium 9.1, Magnesium Level 2.2, Total Bilirubin 1.8H, Aspartate Amino Transf (AST/SGOT) 33, Alanine Aminotransferase (ALT/SGPT) 29, Alkaline Phosphatase 106, Myoglobin 42.5, Troponin I < 0.028, C-Reactive Protein High Sensitivity 0.07, B- Type Natriuretic Peptide 326.1H, Total Protein 6.4, Albumin 3.6, Procalcitonin 0.02 09/22/21 15:51: Urine Color ORANGE, Urine Clarity CLEAR, Urine pH 6.0, Urine Specific [place] 1.020, Urine Protein 1+H, Urine Glucose (UA) NEGATIVE, Urine Ketones NEGATIVE, Urine Nitrite NEGATIVE, Urine Bilirubin NEGATIVE, Urine Urobilinogen 0.2, Urine Leukocyte Esterase 1+H, Urine RBC (Auto) NEGATIVE, Urine RBC NONE, Urine WBC 5- 10H, Urine Squamous Epithelial Cells 2-5, Urine Renal Epithelial Cells 0-2, Urine Crystals NONE, Urine Bacteria TRACE, Urine Casts NONE, Urine Mucus SMALLH, Urine Culture Indicated YES 09/23/21 05:38: Triglycerides Level 77, Cholesterol Level 122, LDL Cholesterol Direct 76, VLDL Cholesterol 15, HDL Cholesterol 39L Microbiology 09/22/21 Urine Culture - Final, Complete 3 or more isolates A/P-Cardiology Assessment/Admission Diagnosis A-fib with RVR - diagnosed on EKG of 09-22-21 in the ED, age unknown - rate controlled on Cardizem gtt - OAC initiated UTI - management per Medical services Pneumonia - management per Medical services Reports h/o CHF (dx following stress test in [place] 2-3 yrs ago) HTN HLD GERD COPD 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 Chronic back pain - h/o extensive back surgeries in 2014 following a fall Discussion and Recomendations - AF rate controlled on Cardizem gtt - change to oral - Continue OAC with Eliquis - low dose d/t weight of 60kg and age greater than 78 yrs - Echocardiogram today - Acute on chronic CHF - tx with diuretics - Replace electrolytes as indicated - Management of pneumonia and UTI per Medical services - Further recs will be based on her hospital course - We would like to thank Medical services for this consult EKATERINA CALLES MD FACP FAC CCDS Sep 23, 2021 13:33
[2021-09-23] MEDS: cefTRIAXone 1 GM/50 ML (PRE-MIX) IV SCH (18:16)
[2021-09-24 06:43] LABS: CALCIUM 8.8 MG/DL (8.5-10.1)
[2021-09-24 06:47] LABS: CREATININE SERUM 0.8 MG/DL (0.60-1.30)
[2021-09-24] MEDS: RT-ALBUTEROL/IPRATROPIUM 3 ML (DUONEB) VIAL INH SCH ×2 (07:08→10:31)
[2021-09-24] MEDS: APIXABAN 2.5 MG (ELIQUIS) TABLET PO SCH ×2 (08:25→20:15)
[2021-09-24] MEDS ORDERED: dilTIAZem120 MG (CARDIZEM CD) CAP PO ONE (09:00)
--- NOTE | 2021-09-24 09:12 | Progress Note - Cardiology ---
Cardiology SOAP Progress Note Subjective: Shortness of breath improved but not resolved No cp or palp or syncope No n/v/d Gen malaise present Objective: I&O/Vital Signs 09/23/21 09/23/21 09/24/21 09/24/21 23:11 23:33 00:00 01:00 Temp 37.1 Pulse 112 111 Resp 25 B/P (MAP) 107/89 Pulse Ox 89 88 O2 Delivery Vapotherm Vapotherm Vapotherm O2 Flow Rate 20.00 30.00 20.00 100.00 FiO2 70 70 09/24/21 09/24/21 09/24/21 09/24/21 04:00 04:00 07:00 07:09 Temp 36.4 Pulse 109 Pulse Ox 94 O2 Delivery Vapotherm Vapotherm O2 Flow Rate 30.00 30.00 FiO2 100 100 09/24/21 00:00 Intake Total 1440 ml Output Total 1950 ml Balance -510 ml Constitutional: AAO x 3, well-developed, well-nourished Respiratory: No accessory muscle use, No respiratory distress; chest expansion is symmetric, chest is bilaterally symmetric, rhonchi (scattered), other (coarse lower lobes bilat) Cardiovascular: irregularly irregular; No JVD; S1 and S2, systolic murmur Gastrointestional: No tender; soft, round, audible bowel sounds Extremities: other (mild LE swelling bilat) Neurologic/Psychiatric: grossly intact (moves all extremities) Skin: No rash on exposed areas, No ulcerations on exposed areas Results/Procedures: Labs Laboratory Tests 09/24/21 06:00: Sodium Level 136, Potassium Level 4.0, Chloride Level 101, Carbon Dioxide Level 23, Anion Gap 12, Blood Urea Nitrogen 16, Creatinine 0.80, Estimat Glomerular Filtration Rate 69, BUN/Creatinine Ratio 20, Glucose Level 108H, Calcium Level 8.8, Magnesium Level 2.0 Microbiology 09/22/21 Urine Culture - Final, Complete 3 or more isolates 09/22/21 Blood Culture - Preliminary, Resulted No growth Laboratory Tests 09/22/21 14:30 09/24/21 06:00 A/P: Assessment: A-fib with RVR - diagnosed on EKG of 09-22-21 in the ED, age unknown - Oral long-acting dilt for vent rate control and apixaban for stroke prophylaxis 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 Raise dilt - Acute on chronic systolic and diastolic CHF - tx with diuretics - Low bp does not allow JACK-inhib or ARB or beta-shantanu - Replace electrolytes as indicated - Management of pneumonia and UTI per Medical services EKATERINA CALLES MD FACP FAC CCDS Sep 24, 2021 09:12
[2021-09-24] MEDS ORDERED: KCL 10 MEQ TAB (MICRO K) PO ONE (09:15)
[2021-09-24] MEDS ORDERED: FUROSEMIDE 40 MG (LASIX) TAB PO ONE (09:15)
[2021-09-24] MEDS: RT-LEVALBUTEROL (XOPENEX) 1.25 MG/3 ML NEB NON-FORMULARY INH SCH ×2 (14:57→21:28)
[2021-09-24] MEDS: cefTRIAXone 1 GM/50 ML (PRE-MIX) IV SCH (17:46)
[2021-09-25] MEDS: RT-LEVALBUTEROL (XOPENEX) 1.25 MG/3 ML NEB NON-FORMULARY INH SCH ×4 (02:10→18:37)
[2021-09-25 05:38] LABS: POTASSIUM 4.3 MMOL/L (3.6-5.0)
[2021-09-25 05:39] LABS: CALCIUM 8.9 MG/DL (8.5-10.1)
[2021-09-25 05:44] LABS: CREATININE SERUM 0.82 MG/DL (0.60-1.30)
[2021-09-25] MEDS: KCL 10 MEQ TAB (MICRO K) PO SCH (06:50)
[2021-09-25] MEDS: FUROSEMIDE 40 MG (LASIX) TAB PO SCH (08:25)
[2021-09-25] MEDS: APIXABAN 2.5 MG (ELIQUIS) TABLET PO SCH ×2 (08:25→20:35)
--- NOTE | 2021-09-25 08:38 | Progress Note - Cardiology ---
Cardiology SOAP Progress Note Subjective: Sitting up on the side of the bed HR in the 110's She feels her breathing is better Denies any palpitations Reports LE swelling Objective: I&O/Vital Signs 09/25/21 09/25/21 09/25/21 09/25/21 03:16 04:00 04:00 07:50 Temp 36.9 36.9 Pulse 76 109 Resp 21 21 B/P (MAP) 108/89 128/81 Pulse Ox 89 89 90 91 O2 Delivery Vapotherm Vapotherm Vapotherm Vapotherm O2 Flow Rate 40.00 40.00 40.00 40.00 100.00 100.00 FiO2 100 100 09/25/21 09/25/21 09/25/21 09/25/21 08:25 08:29 09:58 10:53 Pulse 113 Pulse Ox 93 91 90 O2 Delivery Vapotherm Vapotherm Vapotherm O2 Flow Rate 40.00 40.00 40.00 95.00 FiO2 100 100 09/25/21 09/25/21 09/25/21 09/25/21 11:56 12:00 12:04 13:00 Temp 36.6 Pulse 101 97 Resp 24 B/P (MAP) 118/79 Pulse Ox 93 91 90 O2 Delivery Vapotherm Vapotherm Vapotherm O2 Flow Rate 40.00 40.00 90.00 FiO2 90 09/25/21 14:34 Pulse 95 Resp 33 Pulse Ox 90 O2 Flow Rate 100.00 09/25/21 00:00 Intake Total 2800 ml Output Total 550 ml Balance 2250 ml Constitutional: AAO x 3, well-developed, well-nourished Respiratory: No accessory muscle use, No respiratory distress; chest expansion is symmetric, chest is bilaterally symmetric, rhonchi (scattered), other (coarse lower lobes bilat) Cardiovascular: irregularly irregular; No JVD; S1 and S2, systolic murmur Gastrointestional: No tender; soft, round, audible bowel sounds Extremities: other (mild LE swelling bilat) Neurologic/Psychiatric: grossly intact (moves all extremities) Skin: No rash on exposed areas, No ulcerations on exposed areas Results/Procedures: Labs Laboratory Tests 09/25/21 04:50: Sodium Level 135, Potassium Level 4.3, Chloride Level 98, Carbon Dioxide Level 24, Anion Gap 13, Blood Urea Nitrogen 15, Creatinine 0.82, Estimat Glomerular Filtration Rate 67, BUN/Creatinine Ratio 18, Glucose Level 110H, Calcium Level 8.9, Magnesium Level 2.0, Thyroid Stimulating Hormone (TSH) 3.43, Free Thyroxine 1.08 Microbiology 09/22/21 Urine Culture - Final, Complete 3 or more isolates 09/22/21 Blood Culture - Preliminary, Resulted No growth A/P: Assessment: A-fib with RVR - diagnosed on EKG of 09-22-21 in the ED, age unknown - Oral long-acting dilt for vent rate control and apixaban for stroke prophylaxis 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 - Echo on 09/23/21: LVEF 45-50%, mod to sev biatrial enlargement, mod to severe MR & TR, pulm htn with PASP approx 70 mmHg UTI - management per Medical services Pneumonia - management per Medical services HTN HLD GERD COPD 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
--- NOTE | 2021-09-25 08:45 | Progress Note ---
Subjective Subjective Date Seen by Provider: Sep 24, 2021 Time Seen by Provider: 08:55 LATE ENTRY NOTE PATIENT REPORTS THAT SHE IS BREATHING BETTER TODAY - BUT ALSO INSISTS THAT SHE IS BREATHING BETTER WHEN SEATED RATHER THAN RECLINING. Review of Systems General: Fatigue, Malaise Pulmonary: Dyspnea, Cough Gastrointestinal: No: Nausea, Vomiting, Abdominal Pain, Diarrhea, Constipation, Melena Neurological: Weakness Objective Exam Vital Signs Vital Signs Date Time Temp Pulse Resp B/P (MAP) Pulse Ox O2 Delivery O2 Flow Rate FiO2 09/25/21 08:29 93 Vapotherm 40.00 100 09/25/21 08:25 113 09/25/21 07:50 36.9 109 21 128/81 91 Vapotherm 40.00 100.00 09/25/21 04:00 90 Vapotherm 40.00 100 09/25/21 04:00 36.9 76 21 108/89 89 Vapotherm 40.00 100.00 09/25/21 03:16 89 Vapotherm 40.00 100 09/25/21 01:00 100 09/25/21 00:00 36.3 120 22 138/100 87 Vapotherm 40.00 100.00 09/24/21 23:59 90 Vapotherm 40.00 100 09/24/21 21:41 Vapotherm 40.00 100.00 09/24/21 21:28 86 Vapotherm 30.00 100 09/24/21 20:00 Vapotherm 30.00 100 09/24/21 19:38 36.8 116 22 117/81 91 Vapotherm 30.00 100.00 09/24/21 19:00 108 09/24/21 16:00 36.6 09/24/21 16:00 Vapotherm 30.00 100 09/24/21 14:58 88 Vapotherm 30.00 100 09/24/21 12:19 134 09/24/21 12:00 Vapotherm 30.00 100 09/24/21 12:00 36.7 135 23 122/84 93 Vapotherm 30.00 100.00 09/24/21 10:33 90 Vapotherm 30.00 100 I & O 09/25/21 06:59 Intake Total 3400 ml Output Total 550 ml Balance 2850 ml General Appearance: No Apparent Distress, WD/WN HEENT: PERRL/EOMI, Normal ENT Inspection Neck: Normal Inspection Respiratory: Lungs Clear, Normal Breath Sounds, No Accessory Muscle Use, Other (Tachypnea) Cardiovascular: No Edema, No Murmur, Irregularly Irregular, Tachycardia Gastrointestinal: Non Tender, Soft; No Distended Extremity: Normal Inspection, No Pedal Edema Neurologic/Psychiatric: Alert, Oriented x3, No Motor/Sensory Deficits, 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, 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 Skin: Normal Color, Warm/Dry Results Lab Laboratory Tests 09/25/21 04:50: Sodium Level 135, Potassium Level 4.3, Chloride Level 98, Carbon Dioxide Level 24, Anion Gap 13, Blood Urea Nitrogen 15, Creatinine 0.82, Estimat Glomerular Filtration Rate 67, BUN/Creatinine Ratio 18, Glucose Level 110H, Calcium Level 8.9, Magnesium Level 2.0 Microbiology 09/22/21 Urine Culture - Final, Complete 3 or more isolates 09/22/21 Blood Culture - Preliminary, Resulted No growth Assessment/Plan Assessment/Plan Assessment and Plan ACUTE ATRIAL FIBRILLATION URINARY TRACT INFECTION RESPIRATORY FAILURE CHRONIC OXYGEN DEPENDENCE COPD EXACERBATION HYPERLIPIDEMIA HYPOKALEMIA Problems: (1) Atrial fibrillation with RVR Assessment & Plan: DEFER TO DR. CALLES PT IS CURRENTLY ON CARDIZEM PT IS ON ANTICOAGULATION RATE IS STILL NOT OPTIMALLY CONTROLLED (2) Urinary tract infection Qualifiers: Qualified Codes: N39.0 - Urinary tract infection, site not specified Assessment & Plan: PT ON ROCEPHIN WAITING ON CULTURE/SENSITIVITY (3) COPD with acute exacerbation Assessment & Plan: PT ON VAPOTHERM AT 30LPM AND 100% - WILL NEED TO CONTINUE TO ATTEMPT WEANING, PT APPEARS VERY FATIGUED THIS MORNING. CHANGE MAT PROTOCOL TO QID INHALED NEBS (4) Oxygen dependent (5) Hypoxia ALTAGRACIA GILL MD Sep 25, 2021 08:45
--- NOTE | 2021-09-25 08:47 | Progress Note ---
Subjective Subjective Date Seen by Provider: Sep 25, 2021 Time Seen by Provider: 08:40 PT REPORTS THAT SHE IS FEELING BETTER TODAY - SHE FEELS THAT HER BREATHING IS BETTER THIS MORNING, SHE FEELS LIKE HER HEART RATE IS SLIGHTLY IMPROVED WELL. SHE DENIES ABDOMINAL PAIN, DIZZINESS, NAUSEA Review of Systems General: Fatigue, Malaise HEENT: No Head Aches, No Dysphasia Pulmonary: Dyspnea, Cough Cardiovascular: Palpitations Gastrointestinal: No: Nausea, Vomiting, Abdominal Pain, Diarrhea, Constipation Neurological: Weakness Objective Exam Vital Signs Vital Signs Date Time Temp Pulse Resp B/P (MAP) Pulse Ox O2 Delivery O2 Flow Rate FiO2 09/25/21 08:29 93 Vapotherm 40.00 100 09/25/21 08:25 113 09/25/21 07:50 36.9 109 21 128/81 91 Vapotherm 40.00 100.00 09/25/21 04:00 90 Vapotherm 40.00 100 09/25/21 04:00 36.9 76 21 108/89 89 Vapotherm 40.00 100.00 09/25/21 03:16 89 Vapotherm 40.00 100 09/25/21 01:00 100 09/25/21 00:00 36.3 120 22 138/100 87 Vapotherm 40.00 100.00 09/24/21 23:59 90 Vapotherm 40.00 100 09/24/21 21:41 Vapotherm 40.00 100.00 09/24/21 21:28 86 Vapotherm 30.00 100 09/24/21 20:00 Vapotherm 30.00 100 09/24/21 19:38 36.8 116 22 117/81 91 Vapotherm 30.00 100.00 09/24/21 19:00 108 09/24/21 16:00 36.6 09/24/21 16:00 Vapotherm 30.00 100 09/24/21 14:58 88 Vapotherm 30.00 100 09/24/21 12:19 134 09/24/21 12:00 Vapotherm 30.00 100 09/24/21 12:00 36.7 135 23 122/84 93 Vapotherm 30.00 100.00 09/24/21 10:33 90 Vapotherm 30.00 100 I & O 09/25/21 07:00 Intake Total 3400 ml Output Total 550 ml Balance 2850 ml General Appearance: Mild Distress, Thin HEENT: PERRL/EOMI, Normal ENT Inspection Neck: Normal Inspection Respiratory: Decreased Breath Sounds, Wheezing, Other (Tachypnea) Cardiovascular: No Edema, No Murmur, Irregularly Irregular, Tachycardia Gastrointestinal: Non Tender, Soft; No Distended Extremity: Normal Inspection, No Pedal Edema Neurologic/Psychiatric: Alert, Oriented x3, No Motor/Sensory Deficits, 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 Skin: Normal Color, Warm/Dry Results Lab Laboratory Tests 09/25/21 04:50: Sodium Level 135, Potassium Level 4.3, Chloride Level 98, Carbon Dioxide Level 24, Anion Gap 13, Blood Urea Nitrogen 15, Creatinine 0.82, Estimat Glomerular Filtration Rate 67, BUN/Creatinine Ratio 18, Glucose Level 110H, Calcium Level 8.9, Magnesium Level 2.0 Microbiology 09/22/21 Urine Culture - Final, Complete 3 or more isolates 09/22/21 Blood Culture - Preliminary, Resulted No growth Assessment/Plan Assessment/Plan Admission Dx ACUTE ATRIAL FIBRILLATION URINARY TRACT INFECTION RESPIRATORY FAILURE CHRONIC OXYGEN DEPENDENCE COPD EXACERBATION HYPERLIPIDEMIA HYPOKALEMIA Assessment and Plan ACUTE ATRIAL FIBRILLATION URINARY TRACT INFECTION RESPIRATORY FAILURE CHRONIC OXYGEN DEPENDENCE COPD EXACERBATION HYPERLIPIDEMIA HYPOKALEMIA ACUTE ATRIAL FIBRILLATION - PT ON CARDIZEM, ANTICOAGULATION - DEFER TO DR. CALLES - CARDIOLOGY - RATE IMPROVED SLIGHTLY THIS MORNING URINARY TRACT INFECTION - PT ON ROCEPHIN, WAITING ON CULTURE AND SENSITIVITY RESPIRATORY FAILURE WITH CHRONIC OXYGEN DEPENDENCE AND COPD EXACERBATION - PT ON VAPOTHERM AT 40LPM AND 100%, ADDED STEROIDS, ADVAIR, AND CONTINUE WITH SUPPORtive CARE, PT IS NOT WANTING TO BE PLACED ON BIPAP OR CPAP IF IT CAN BE AVOIDED. - PHONE CALL FROM STAFF THIS AFTERNOON - PT WAS PLACED ON BIPAP DUE TO HER RESPIRATORY DISTRESS. HYPERLIPIDEMIA - HOLD HOME MEDS FOR NOW HYPOKALEMIA - PT ON REPLACEMENT PROTOCOL DISCUSSED WITH PT AND HER FAMILY ([place]) SHE IS STILL VERY TENUOUS, HOWEVER HER COLOR IS BETTER FOR NOW, BUT HER OXYGEN NEED IS HIGHER - SHE IS STILL IN A MORE CRITICAL PHaSE OF ILLNESS, HOPEFULLY WITH IMPROVED HEART RATE WE WILL ALSO SEE PULMONARY IMPROVEMENT. ALTAGRACIA GILL MD Sep 25, 2021 08:47
[2021-09-25] MEDS ORDERED: ADVAIR HFA 115/21 MCG INHALER 8 GM IH SCH (09:00)
[2021-09-25] MEDS ORDERED: methylPREDNISolone 40 MG/ML (Solu-MEDROL) VIAL IV SCH (09:00)
[2021-09-25 09:25] LABS: FREE T4 (FREE THYROXINE) 1.08 NG/DL (0.70-1.48)
[2021-09-25] MEDS: methylPREDNISolone 40 MG/ML (Solu-MEDROL) VIAL IV SCH ×3 (10:51→23:31)
--- NOTE | 2021-09-25 12:03 | Progress Note - Cardiology ---
Cardiology SOAP Progress Note Subjective: Shortness of breath better but not resolved No cp or palp or syncope No swelling No n/v/d Gen malaise and weakness present Objective: I&O/Vital Signs 09/25/21 09/25/21 09/25/21 09/25/21 01:00 03:16 04:00 04:00 Temp 36.9 Pulse 100 76 Resp 21 B/P (MAP) 108/89 Pulse Ox 89 89 90 O2 Delivery Vapotherm Vapotherm Vapotherm O2 Flow Rate 40.00 40.00 40.00 100.00 FiO2 100 100 09/25/21 09/25/21 09/25/21 09/25/21 07:50 08:25 08:29 09:58 Temp 36.9 Pulse 109 113 Resp 21 B/P (MAP) 128/81 Pulse Ox 91 93 91 O2 Delivery Vapotherm Vapotherm Vapotherm O2 Flow Rate 40.00 40.00 40.00 100.00 FiO2 100 100 09/25/21 09/25/21 10:53 11:56 Pulse Ox 90 93 O2 Delivery Vapotherm Vapotherm O2 Flow Rate 40.00 40.00 95.00 90.00 09/25/21 00:00 Intake Total 2800 ml Output Total 550 ml Balance 2250 ml Constitutional: AAO x 3, well-developed, well-nourished Respiratory: No accessory muscle use, No respiratory distress; chest expansion is symmetric, chest is bilaterally symmetric, rhonchi (scattered), other (coarse lower lobes bilat) Cardiovascular: irregularly irregular; No JVD; S1 and S2, systolic murmur Gastrointestional: No tender; soft, round, audible bowel sounds Extremities: other (mild LE swelling bilat) Neurologic/Psychiatric: grossly intact (moves all extremities) Skin: No rash on exposed areas, No ulcerations on exposed areas Results/Procedures: Labs Laboratory Tests 09/25/21 04:50: Sodium Level 135, Potassium Level 4.3, Chloride Level 98, Carbon Dioxide Level 24, Anion Gap 13, Blood Urea Nitrogen 15, Creatinine 0.82, Estimat Glomerular Filtration Rate 67, BUN/Creatinine Ratio 18, Glucose Level 110H, Calcium Level 8.9, Magnesium Level 2.0, Thyroid Stimulating Hormone (TSH) 3.43, Free Thyroxine 1.08 Microbiology 09/22/21 Urine Culture - Final, Complete 3 or more isolates 09/22/21 Blood Culture - Preliminary, Resulted No growth Laboratory Tests 09/24/21 06:00 09/25/21 04:50 A/P: Assessment: A-fib with RVR - diagnosed on EKG of 09-22-21 in the ED, age unknown - Oral long-acting dilt for vent rate control and apixaban for stroke prophylaxis 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 - Echo on 09/23/21: LVEF 45-50%, mod to sev biatrial enlargement, mod to severe MR & TR, pulm htn with PASP approx 70 mmHg UTI - management per Medical services Pneumonia - management per Medical services HTN HLD GERD COPD 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 Chronic back pain - h/o extensive back surgeries in 2014 following a fall Plan: - Complex management due to multiple comorbidities - AF ventricular rate remains not well controlled - Cardizem increased on 09/24/21, add beta-shantanu on 09/25/21 - Acute on chronic systolic and diastolic CHF - tx with diuretics - Low bp does not allow JACK-inhib or ARB or beta-shantanu - Replace electrolytes as indicated - Management of pneumonia and UTI per Medical services EKATERINA CALLES MD FACP FAC CCDS Sep 25, 2021 12:03
[2021-09-25 14:34] VITALS: BP 118/79
[2021-09-25] MEDS ORDERED: LORazepam INJ 2 MG/ML (ATIVAN) VIAL IVP PRN (15:00)
[2021-09-25] MEDS ORDERED: LORazepam INJ 2 MG/ML (ATIVAN) VIAL ONE (15:13)
[2021-09-25] MEDS: cefTRIAXone 1 GM/50 ML (PRE-MIX) IV SCH (18:05)
[2021-09-25] MEDS: RT-LEVALBUTEROL (XOPENEX) 1.25 MG/3 ML NEB NON-FORMULARY INH PRN ×2 (18:37→19:26)
[2021-09-25] MEDS ORDERED: dilTIAZem120 MG (CARDIZEM CD) CAP PO SCH (21:00)
[2021-09-26] MEDS: RT-LEVALBUTEROL (XOPENEX) 1.25 MG/3 ML NEB NON-FORMULARY INH SCH ×4 (02:36→21:20)
[2021-09-26 05:18] LABS: HEMATOCRIT 41 % (35-52); HEMOGLOBIN 13.6 g/dL (11.5-16.0); MEAN CORPUSCULAR HEMOGLOBIN 29 pg (25-34); MEAN CORPUSCULAR HGB CONC 33 g/dL (32-36); MEAN CORPUSCULAR VOLUME 89 fL (80-99); MEAN PLATELET VOLUME 10.2 fL (9.0-12.2); PLATELET COUNT 186 10^3/uL (130-400); WHITE BLOOD COUNT 4.7 10^3/uL (4.3-11.0)
[2021-09-26 05:34] LABS: ALBUMIN 3.6 GM/DL (3.2-4.5); POTASSIUM 3.9 MMOL/L (3.6-5.0)
[2021-09-26 05:36] LABS: CALCIUM 9.3 MG/DL (8.5-10.1)
[2021-09-26 05:37] LABS: TOTAL PROTEIN 6.6 GM/DL (6.4-8.2)
[2021-09-26 05:39] LABS: BILIRUBIN,TOTAL 1.9 MG/DL (0.1-1.0)
[2021-09-26 05:40] LABS: CREATININE SERUM 0.8 MG/DL (0.60-1.30)
[2021-09-26] MEDS: methylPREDNISolone 40 MG/ML (Solu-MEDROL) VIAL IV SCH (05:57)
[2021-09-26] MEDS: KCL 10 MEQ TAB (MICRO K) PO SCH (05:57)
[2021-09-26] MEDS: RT--FLUTICASONE/SALMETEROL 113-14 (AIRDUO RespiCLICK) IH SCH ×2 (07:53→21:21)
[2021-09-26] MEDS: FUROSEMIDE 40 MG (LASIX) TAB PO SCH (09:20)
[2021-09-26] MEDS: APIXABAN 2.5 MG (ELIQUIS) TABLET PO SCH (09:20)
[2021-09-26] MEDS ORDERED: DIGOXIN 0.25 MG/ML (LANOXIN) 2 ML AMP IV NR ×2 (09:44→12:00)
--- NOTE | 2021-09-26 09:53 | Diagnostic Imaging Report ---
EXAMINATION: Chest 1 view HISTORY: Hypoxia. COMPARISON: 09/23/2021 FINDINGS: There is stable moderate left and small right pleural effusions with overlying atelectasis or pneumonia. No pneumothorax. Heart size is normal. There is a thoracic spine fusion. IMPRESSION: 1. Stable moderate left and small right pleural effusions with overlying atelectasis or pneumonia. Dictated by: Dictated on workstation # [id number]
--- NOTE | 2021-09-26 10:09 | Progress Note ---
Subjective Subjective Date Seen by Provider: Sep 26, 2021 Time Seen by Provider: 08:30 PT'S DTR IS IN THE ROOM TODAY. PT REPORTS THAT SHE IS FEELING BETTER THIS MORNING THAN YESTERDAY AFTERNOON. STAFF REPORTS THAT THE PATIENT WAS EXTREMELY RESISTANT TO KEEPING ON THE BIPAP YESTERDAY. AT ONE POINT SHE STATED THAT SHE JUST DID NOT CARE. THIS MORNING THE PATIENT REPORTS THAT PART OF THE REASON FOR NOT WANTING TO WEAR THE MASK WAS THAT HER NOSE WAS RUNNING AND HER MOUTH WAS DRY FROM THE MASK. SHE DENIES CHEST PAIN, BUT CAN FEEL THE PALPITATIONS, SHE IS ALSO COMPLAINING OF CONSTIPATION. Review of Systems General: Fatigue, Malaise HEENT: No Head Aches, No Dysphasia; Post Nasal Drip; No Sore Throat; Other (DRY MOUTH) Pulmonary: Dyspnea, Cough Cardiovascular: Palpitations Gastrointestinal: Constipation; No: Nausea, Vomiting, Abdominal Pain, Diarrhea Neurological: Weakness Objective Exam Vital Signs Vital Signs Date Time Temp Pulse Resp B/P (MAP) Pulse Ox O2 Delivery O2 Flow Rate FiO2 09/26/21 08:00 36.6 106 24 107/78 90 Vapotherm 40.00 100.00 09/26/21 07:53 90 Vapotherm 40.00 100 09/26/21 07:00 119 09/26/21 04:00 90 18 97/73 89 Vapotherm 40.00 100.00 09/26/21 04:00 84 Vapotherm 40.00 100 09/26/21 02:37 82 Vapotherm 40.00 100 09/26/21 01:00 98 09/26/21 00:00 35.9 104 22 116/81 83 Vapotherm 40.00 100.00 09/25/21 23:59 84 Vapotherm 40.00 100 09/25/21 20:01 94 22 87 Vapotherm 40.00 100.00 09/25/21 20:00 95 NIV Bilevel 100 09/25/21 20:00 36.6 102 28 128/81 87 09/25/21 19:27 91 Vapotherm 40.00 100 09/25/21 19:00 106 09/25/21 16:30 95 NIV Bilevel 100 09/25/21 16:00 NIV Bilevel 100.00 09/25/21 16:00 37.0 09/25/21 16:00 87 22 91/55 94 Vapotherm 40.00 90.00 09/25/21 15:00 96 22 94 Vapotherm 40.00 90.00 09/25/21 14:34 95 33 90 100.00 09/25/21 14:00 80 29 84 Vapotherm 40.00 90.00 09/25/21 13:00 111 33 87 Vapotherm 40.00 90.00 09/25/21 13:00 97 09/25/21 12:04 90 Vapotherm 40.00 90 09/25/21 12:00 36.6 101 24 118/79 91 Vapotherm 09/25/21 11:56 93 Vapotherm 40.00 90.00 09/25/21 10:53 90 Vapotherm 40.00 95.00 I & O 09/26/21 07:00 Intake Total 1475 ml Balance 1475 ml General Appearance: Mild Distress, Thin HEENT: PERRL/EOMI, Normal ENT Inspection (WITH EXCEPTION OF DRIPPING NOSE) Neck: Normal Inspection Respiratory: Decreased Breath Sounds, Wheezing, Other (TACHYPNEA) Cardiovascular: No Murmur, Irregularly Irregular, Tachycardia, Other (1+ PITTING AT ANKLES) Gastrointestinal: Normal Bowel Sounds, Non Tender, Soft; No Distended, No Tenderness Rectal: Deferred Extremity: Normal Inspection, Non Tender, Pedal Edema (1+ PITTING) Neurologic/Psychiatric: Alert, Oriented x3, No Motor/Sensory Deficits, 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 Skin: Normal Color, Warm/Dry Lymphatic: No Adenopathy Results Lab Laboratory Tests 09/26/21 04:52: White Blood Count 4.7, Red Blood Count 4.62, Hemoglobin 13.6, Hematocrit 41, Mean Corpuscular Volume 89, Mean Corpuscular Hemoglobin 29, Mean Corpuscular Hemoglobin Concent 33, Red Cell Distribution Width 15.1H, Platelet Count 186, Mean Platelet Volume 10.2, Sodium Level 133L, Potassium Level 3.9, Chloride Level 96L, Carbon Dioxide Level 23, Anion Gap 14, Blood Urea Nitrogen 16, Creatinine 0.80, Estimat Glomerular Filtration Rate 69, BUN/Creatinine Ratio 20, Glucose Level 151H, Calcium Level 9.3, Corrected Calcium 9.6, Total Bilirubin 1.9H, Aspartate Amino Transf (AST/SGOT) 61H, Alanine Aminotransferase (ALT/SGPT) 52, Alkaline Phosphatase 111, Total Protein 6.6, Albumin 3.6 Microbiology 09/22/21 Urine Culture - Final, Complete 3 or more isolates 09/22/21 Blood Culture - Preliminary, Resulted No growth Assessment/Plan Assessment/Plan Admission Dx ACUTE ATRIAL FIBRILLATION URINARY TRACT INFECTION RESPIRATORY FAILURE CHRONIC OXYGEN DEPENDENCE COPD EXACERBATION HYPERLIPIDEMIA HYPOKALEMIA Assessment and Plan ACUTE ATRIAL FIBRILLATION URINARY TRACT INFECTION RESPIRATORY FAILURE CHRONIC OXYGEN DEPENDENCE COPD EXACERBATION HYPERLIPIDEMIA HYPOKALEMIA ACUTE ATRIAL FIBRILLATION - DEFER TO DR. CALLES - CARDIOLOGY - DISCUSSED WITH DR. CALLES THIS MORNING - DUE TO PT NOT IMPROVING ON MULTIPLE DIFFERENT TREATMENT REGIMENS, WILL ADD IV DIGOXIN THIS MORNING AND TRANSITION TO ORAL DIGOXIN WHEN ABLE. - RATE CONTINUES TO BE UNCONTROLLED URINARY TRACT INFECTION - PT ON ROCEPHIN, URINE SHOWED MORE THAN THREE ISOLATES, FINISH ROCEPHIN DOSING TOMORROW. RESPIRATORY FAILURE WITH CHRONIC OXYGEN DEPENDENCE AND COPD EXACERBATION PT ON VAPOTHERM AT 40LPM AND 100% CONSULT PLACED TO TELE PULMONARY CONSULT SERVICE PT ON SOLUMEDROL AT 80MG IV Q6 HOURS, ADVAIR, XOPENEX NEBULIZER TREATMENT PT HAS AGREED TO A MODIFIED BIPAP SCHEDULE - SHE IS WILLING TO USE THE MACHINE FOR 2 HOURS AT A TIME - HOPEFULLY THIS WILL ALLOW HER TO HAVE IMPROVED PULMONARY FUNCTION WITH SOME REST OF RESPIRATORY MUSCLES TO PREVENT MUSCLE FATIGUE FROM WORSENING HER PULMONARY PICTURE. HYPERLIPIDEMIA - HOLD HOME MEDS FOR NOW HYPOKALEMIA - PT ON REPLACEMENT PROTOCOL DISCUSSED WITH PT AND HER DTR - JESSE IS STILL VERY TENUOUS, HER OXYGEN NEED IS HIGHER THAN ON ADMISSION, AND SHE IS STILL IN A CRITICAL PHASE OF ILLNESS, HOPEFULLY WITH IMPROVED HEART RATE WE WILL ALSO SEE PULMONARY IMPROVEMENT. PT IS AT A HIGH RISK OF IN HOSPITAL DUE TO HER PULMONARY STATUS. Problems: (1) Atrial fibrillation with RVR (2) Urinary tract infection Qualifiers: Qualified Codes: N39.0 - Urinary tract infection, site not specified (3) COPD with acute exacerbation (4) Oxygen dependent (5) Hypoxia Admission Dx ACUTE ATRIAL FIBRILLATION URINARY TRACT INFECTION RESPIRATORY FAILURE CHRONIC OXYGEN DEPENDENCE COPD EXACERBATION HYPERLIPIDEMIA HYPOKALEMIA Clinical Quality Measures Admission Status Admission Dx ACUTE ATRIAL FIBRILLATION URINARY TRACT INFECTION RESPIRATORY FAILURE CHRONIC OXYGEN DEPENDENCE COPD EXACERBATION HYPERLIPIDEMIA HYPOKALEMIA ALTAGRACIA GILL MD Sep 26, 2021 10:09
[2021-09-26] MEDS ORDERED: KCL 20 MEQ TAB (K-DUR) PO PRN (12:00)
--- NOTE | 2021-09-26 12:04 | Pulmonary Consultation ---
History of Present Illness History of Present Illness Date Seen by Provider: Sep 26, 2021 Time Seen by Provider: 11:59 Date of Admission 09/25/21 Reason for Visit: dyspnea History of Present Illness She is a 80-year-old female with a past medical history of hypertension, congestive heart failure, questionable COPD he apparently moved from [facility] to this area to live with her family. Lately she has been experiencing worsening shortness of breath associated with some weight gain and the leg edema. She was told in [place] that she had a congestive heart failure. She does not know what medications were prescribed for that but review of medications shows that she is on valsartan, furosemide Combivent simvastatin metoprolol lisinopril she is not sure whether she has any atrial fibrillation before. Now in the emergency room she is found to have atrial fibrillation with rapid ventricular rate and she was not on any anticoagulant therapy. She is admitted to cardiac floor and started on Cardizem drip. She is also started on Lasix and the steroids. Pulmonary consultation is requested today. I have made a video visit interviewed the patient with telemetry ICU camera in the presence of the nurse. She has a occasional paroxysmal nocturnal dyspnea. Also has a wheezing on and off. Review of her legs revealed a moderate edema bilaterally. I have reviewed her chest x-ray which showed bilateral pleural effusion left more than the right. Upon auscultating the patient with the echo she has a bilateral diminished breath sounds at the bases with a few rales present. Rest of the exam is per RN. She apparently quit smoking about 10 years ago. Echocardiogram revealed a severe pulmonary hypertension associated with moderate to severe mitral, moderate to severe tricuspid regurgitation and biatrial enlargement. IVC is dilated most likely due to venous hypertension. Patient is seen by cardiology service and managing the atrial fibrillation and anticoagulant therapy. Allergies and Home Medications Allergies Coded Allergies: bacitracin (Verified Allergy, Severe, 09/22/21) morphine (Verified Allergy, Severe, 09/22/21) nickel (Verified Allergy, Severe, 09/22/21) Home Medications Aspirin 81 Mg Tablet.dr, 81 MG PO DAILY, (Reported) Calcium Carbonate 600 Mg Tablet, 600 MG PO BID, (Reported) Fluticasone Propionate 16 Gm Barrett.susp, 2 SPRAYS NSEACH DAILY, (Reported) Oxybutynin Chloride 10 Mg Tab.er.24, 10 MG PO DAILY, (Reported) Revefenacin 175 Mcg/3 Ml Vial.neb, 3 ML NEB DAILY, (Reported) Simvastatin 20 Mg Tablet, 20 MG PO DAILY, (Reported) Sodium Chloride 15 Ml Drops, 1-2 DROPS OU BID, (Reported) Valsartan 160 Mg Tablet, 160 MG PO DAILY, (Reported) Vit C/E/Zn/Coppr/Lutein/Zeaxan 1 Each Capsule, 1 EACH PO BID, (Reported) Past Medical/Social/Family Hx Patient Social History Living Status: MOVED TO [facility] IN 2020 Employed/Student: retired Tobacco Use?: No Tobacco type used: Cigarettes (PREVIOUSLY OVER 50PACK YEAR HX OF SMOKING) Smoking Status: Former Smoker Use of E-Cig and/or Vaping dev: No Substance use?: No Alcohol Use?: No Pt stated abuse/neglect: No Immunizations Up To Date Influenza Vaccine Up-to-Date: Yes; Up-to-Date First/Initial COVID19 Vaccinat: 2020 Second COVID19 Vaccination Javier: 2020 Current Status Advance Directives: Yes Communicates: Verbally Primary Language: Uruguayan Preferred Spoken Language: Uruguayan Is interpretation needed?: No Sensory deficits: Vision impairment, Hearing impairment Implanted or Applied Medical D: Other (OXYGEN) Past Medical History URGE INCONTINENCE Review of Systems Constitutional: see HPI Other ros per rn Sepsis Event Evaluation Height, Weight, BMI Height: '" Weight: lbs. oz. kg; 23.47 BMI Method: Exam Exam Patient acknowledged, consented, and participated in this virtual visit which was conducted using real time audio/video Vital Signs Date Time Temp Pulse Resp B/P (MAP) Pulse Ox O2 Delivery O2 Flow Rate FiO2 09/26/21 11:48 36.6 98 20 111/77 90 Vapotherm 40.00 100.00 09/26/21 08:00 36.6 106 24 107/78 90 Vapotherm 40.00 100.00 09/26/21 07:53 90 Vapotherm 40.00 100 09/26/21 07:00 119 09/26/21 04:00 90 18 97/73 89 Vapotherm 40.00 100.00 09/26/21 04:00 84 Vapotherm 40.00 100 09/26/21 02:37 82 Vapotherm 40.00 100 09/26/21 01:00 98 09/26/21 00:00 35.9 104 22 116/81 83 Vapotherm 40.00 100.00 09/25/21 23:59 84 Vapotherm 40.00 100 09/25/21 20:01 94 22 87 Vapotherm 40.00 100.00 09/25/21 20:00 95 NIV Bilevel 100 09/25/21 20:00 36.6 102 28 128/81 87 09/25/21 19:27 91 Vapotherm 40.00 100 09/25/21 19:00 106 09/25/21 16:30 95 NIV Bilevel 100 09/25/21 16:00 NIV Bilevel 100.00 09/25/21 16:00 37.0 09/25/21 16:00 87 22 91/55 94 Vapotherm 40.00 90.00 09/25/21 15:00 96 22 94 Vapotherm 40.00 90.00 09/25/21 14:34 95 33 90 100.00 09/25/21 14:00 80 29 84 Vapotherm 40.00 90.00 09/25/21 13:00 111 33 87 Vapotherm 40.00 90.00 09/25/21 13:00 97 09/25/21 12:04 90 Vapotherm 40.00 90 09/25/21 12:00 36.6 101 24 118/79 91 Vapotherm I & O 09/26/21 07:00 Intake Total 1475 ml Balance 1475 ml Height & Weight Height: '" Weight: lbs. oz. kg; 23.47 BMI Method: General Appearance: Mild Distress, Thin HEENT: PERRL/EOMI, Normal ENT Inspection (WITH EXCEPTION OF DRIPPING NOSE) Neck: Normal Inspection Respiratory: Decreased Breath Sounds, Wheezing, Other (TACHYPNEA) Cardiovascular: No Murmur, Irregularly Irregular, Tachycardia, Other (1+ PITTING AT ANKLES) Capillary Refill: Less Than 3 Seconds Extremity: Normal Inspection, Non Tender, Pedal Edema (1+ PITTING) Neurologic/Psychiatric: Alert, Oriented x3, No Motor/Sensory Deficits, 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 Skin: Normal Color, Warm/Dry Lymphatic: No Adenopathy Other comments PE PER RN. SHE HOW EVER HAS DECREASED BREATH SOUNDS AT BOTH BASES L>R, WITH FEW RALES Results Lab Laboratory Tests 09/25/21 04:50 09/26/21 04:52 Meds REVIEWED Radiology NAME: JESSE MONREAL [facility] REC#: [id number] PT STATUS: ADM IN : 1940 PHYSICIAN: ALTAGRACIA GILL MD ADMIT DATE: 09/22/21/[facility] Signed Date of Exam:09/26/21 CHEST 1 VIEW, AP/PA ONLY EXAMINATION: Chest 1 view HISTORY: Hypoxia. COMPARISON: 09/23/2021 FINDINGS: There is stable moderate left and small right pleural effusions with overlying atelectasis or pneumonia. No pneumothorax. Heart size is normal. There is a thoracic spine fusion. IMPRESSION: 1. Stable moderate left and small right pleural effusions with overlying atelectasis or pneumonia. Dictated by: Dictated on workstation # [id number] Dict: 09/26/2147 Trans: 09/26/2154 [id number] Interpreted by: JUAN ANTONIO VARGAS MD Electronically signed by: JUAN ANTONIO VARGAS MD 09/26/21 0954 Assessment/Plan Assessment/Plan 1. Patient has a severe pulmonary hypertension associated with moderate to severe mitral regurgitation, tricuspid regurgitation and biatrial enlargement. 2. Congestive heart failure with bilateral pleural effusion left more than the right. 3. Atrial fibrillation with rapid ventricular rate probably chronic being managed by cardiology service 4. She has possible underlying COPD which may be contributing to her pulmonary hypertension. Recommendations 1. I would suggest to optimize diuretic therapy with Lasix IV twice a day and monitor electrolytes and replace potassium as needed 2. Suggest to get a left thoracentesis is done after holding apixaban for 12 to 24 hours and send pleural fluid for cultures. 3. Decrease Solu-Medrol as she does not have much of her bronchospasm. 4. IV antibiotics in case patient has acute bronchitis. I doubt any pneumonia at this time. 5. Supplemental oxygen and bronchodilator therapy as needed. 6. I made a video visit and discussed with the patient and RN. Available data/labs/x-rays reviewed by me. 7.OAC per cardiology service Critical Care: Critically Ill Patient Time spent with patient (mins): 50 ARMEN RIZZO MD Sep 26, 2021 12:04
[2021-09-26] MEDS: SENNA W/DOCUSATE (SENOKOT S) TABLET PO SCH ×2 (12:23→20:58)
--- NOTE | 2021-09-26 13:03 | Progress Note - Cardiology ---
Cardiology SOAP Progress Note Subjective: Continues to have shortness of breath with minimal activity No cp or palp or syncope No n/v/d Gen malaise and weakness Objective: I&O/Vital Signs 09/26/21 09/26/21 09/26/21 09/26/21 02:37 04:00 04:00 07:00 Pulse 90 119 Resp 18 B/P (MAP) 97/73 Pulse Ox 82 84 89 O2 Delivery Vapotherm Vapotherm Vapotherm O2 Flow Rate 40.00 40.00 40.00 100.00 FiO2 100 100 09/26/21 09/26/21 09/26/21 07:53 08:00 11:48 Temp 36.6 36.6 Pulse 106 98 Resp 24 20 B/P (MAP) 107/78 111/77 Pulse Ox 90 90 90 O2 Delivery Vapotherm Vapotherm Vapotherm O2 Flow Rate 40.00 40.00 40.00 100.00 100.00 FiO2 100 09/26/21 00:00 Intake Total 1150 ml Balance 1150 ml Constitutional: AAO x 3, well-developed, well-nourished Respiratory: No accessory muscle use, No respiratory distress; chest expansion is symmetric, chest is bilaterally symmetric, rhonchi (scattered), other (coarse lower lobes bilat) Cardiovascular: irregularly irregular; No JVD; S1 and S2, systolic murmur Gastrointestional: No tender; soft, round, audible bowel sounds Extremities: other (mild LE swelling bilat) Neurologic/Psychiatric: grossly intact (moves all extremities) Skin: No rash on exposed areas, No ulcerations on exposed areas Results/Procedures: Labs Laboratory Tests 09/26/21 04:52: White Blood Count 4.7, Red Blood Count 4.62, Hemoglobin 13.6, Hematocrit 41, Mean Corpuscular Volume 89, Mean Corpuscular Hemoglobin 29, Mean Corpuscular Hemoglobin Concent 33, Red Cell Distribution Width 15.1H, Platelet Count 186, Mean Platelet Volume 10.2, Sodium Level 133L, Potassium Level 3.9, Chloride Level 96L, Carbon Dioxide Level 23, Anion Gap 14, Blood Urea Nitrogen 16, Creatinine 0.80, Estimat Glomerular Filtration Rate 69, BUN/Creatinine Ratio 20, Glucose Level 151H, Calcium Level 9.3, Corrected Calcium 9.6, Total Bilirubin 1.9H, Aspartate Amino Transf (AST/SGOT) 61H, Alanine Aminotransferase (ALT/SGPT) 52, Alkaline Phosphatase 111, Total Protein 6.6, Albumin 3.6 Microbiology 09/22/21 Urine Culture - Final, Complete 3 or more isolates 09/22/21 Blood Culture - Preliminary, Resulted No growth Laboratory Tests 09/25/21 04:50 09/26/21 04:52 A/P: Assessment: A-fib with RVR - diagnosed on EKG of 09-22-21 in the ED, age unknown - Oral long-acting dilt for vent rate control and apixaban for stroke prophylaxis 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 - Echo on 09/23/21: LVEF 45-50%, mod to sev biatrial enlargement, mod to severe MR & TR, pulm htn with PASP approx 70 mmHg UTI - management per Medical services Pneumonia - management per Medical services HTN HLD GERD COPD 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 Chronic back pain - h/o extensive back surgeries in 2014 following a fall Plan: - Complex management due to multiple comorbidities - AF ventricular rate remains not well controlled - Cardizem increased on 09/24/21 - Acute on chronic systolic and diastolic CHF - tx with diuretics - Low bp does not allow JACK-inhib or ARB or beta-shantanu - Add dig for better vent rate control - Replace electrolytes as indicated - Management of pneumonia and UTI per Medical services - Discussed with EKATERINA Sinha am, MD FACP [facility] Sep 26, 2021 13:03
--- NOTE | 2021-09-26 13:18 | Consultation - Surgery ---
MICHELA KENT 09/26/21 1318: History of Present Illness History of Present Illness Patient Consulted On(shelby/time) 09/26/21 13:05 Date Seen by Provider: Sep 26, 2021 Time Seen by Provider: 12:28 Reason for Visit: dyspnea History of Present Illness Previous HPI from ED: This 80-year-old woman presents to the emergency room with complaints of shortness of breath, fluttering palpitations, and fatigue worsened from baseline over the past month. She has COPD and usually wears oxygen at 3 L. She was noted to have hypoxia with oxygen saturations in the low 80s on her usual 3 L by nasal cannula on arrival. She has had some nausea as well. Shortness of air is exacerbated by ambulation. 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 Dr. Leonard is her primary care provider. She is noted to have atrial fibrillation with RVR on the monitor with a heart rate in the 130s. She has no prior history of atrial fibrillation and is not anticoagulated. Today surgery was consulted for possible thoracentesis due to developing pleural effusion. Pt was sitting up in bed and enjoying her lunch when I arrived, she is in a very pleasant mood. Pt states that her breathing is much better today compared to when she first arrived at the ED 4 days ago, but states that she just can not take a full breath and feels restricted in her chest. She also states that she can feel a fullness in her lower lung area on the right side, she had a thoracentesis done in 2013 due to a plural effusion which developed during her post-op recovery from spine surgery. She states that this feels the same today, as when she had the same issue in 2013. She very favorable towards a thoracentesis and feels that the procedure will help her to return home more quickly. Pt also states that she sahu lie down on her right side at night and that it makes it very difficult for her to breath. She also states that just before coming to the ED she was having to sleep upright to help with her breathing. She states that she does not feel any plural pain, but does complain of mild abdominal pain which she localizes just above and to the right of her umbilicus, she states that she felt this pain prior to arrival and believes it to be a pulled muscle. She states that she lives a very active lifestyle which includes gardening and is frequently getting up and down, she feels that this caused the onset of her abd pain. Pt is urinating normally & frequently using the bedside commode and states that she is having a little constipation, but recently received a laxative and feels that it is working. Pt has an Incentive spirometer at bedside but state that she has only used it once and does not like it. She states that using it makes her cough, and would be more likely to use it if it didn't make her cough. She also complains of mild sore throat which she attributes to her breathing treatments. Allergies and Home Medications Allergies Coded Allergies: bacitracin (Verified Allergy, Severe, 09/22/21) morphine (Verified Allergy, Severe, 09/22/21) nickel (Verified Allergy, Severe, 09/22/21) Patient Home Medication List Aspirin (Aspirin EC) 81 Mg Tablet.dr, 81 MG PO DAILY, (Reported) Entered as Reported by: JUAN FRANCISCO HUA on 09/23/211138 Last Action: Held Calcium Carbonate (Calcium) 600 Mg Tablet, 600 MG PO BID, (Reported) Entered as Reported by: JUAN FRANCISCO HUA on 09/23/211138 Last Action: Held Fluticasone Propionate (Fluticasone Propionate) 16 Gm [place].susp, 2 SPRAYS NSEACH DAILY, (Reported) Entered as Reported by: JUAN FRANCISCO HUA on 09/23/211138 Last Action: Held Oxybutynin Chloride (Oxybutynin Chloride ER) 10 Mg Tab.er.24, 10 MG PO DAILY, (Reported) Entered as Reported by: JUAN FRANCISCO HUA on 09/23/211138 Last Action: Held Revefenacin (Yupelri) 175 Mcg/3 Ml Vial.neb, 3 ML NEB DAILY, (Reported) Entered as Reported by: JUAN FRANCISCO HUA on 09/23/211138 Last Action: Held Simvastatin (Simvastatin) 20 Mg Tablet, 20 MG PO DAILY, (Reported) Entered as Reported by: JUAN FRANCISCO HUA on 09/23/211138 Last Action: Held Sodium Chloride (Jesus Alberto-128) 15 Ml Drops, 1-2 DROPS OU BID, (Reported) Entered as Reported by: JUAN FRANCISCO HUA on 09/23/211138 Last Action: Held Valsartan (Valsartan) 160 Mg Tablet, 160 MG PO DAILY, (Reported) Entered as Reported by: JUAN FRANCISCO HUA on 09/23/211138 Last Action: Held Vit C/E/Zn/Coppr/Lutein/Zeaxan (Preservision Areds 2 Softgel) 1 Each Capsule, 1 EACH PO BID, (Reported) Entered as Reported by: JUAN FRANCISCO HUA on 09/23/211138 Last Action: Held Past Yqxvkss-Jxhgpv-Kzgbzb Hx Patient Social History Smoking Status: Former Smoker Alcohol Use?: No Have you traveled recently?: No Surgeries History of Surgeries: Yes Surgeries: Joint Replacement (Hip), Orthopedic (Bunionectomy, trauma surgery for fractured ribs and spine) Respiratory History of Respiratory Disorde: Yes Respiratory Disorders: COPD Cardiovascular History of Cardiac Disorders: Yes (Congestive heart failure) Cardiac Disorders: High Cholesterol, Hypertension Neurological History of Neurological Disord: No Reproductive System : No Hx Reproductive Disorders: No Sexually Transmitted Disease: No HIV/AIDS: No Genitourinary History of Genitourinary Disor: No Gastrointestinal History of Gastrointestinal Di: No Musculoskeletal History of Musculoskeletal Dis: Yes Musculoskeletal Disorders: Arthritis, Fractures Endocrine History of Endocrine Disorders: No HEENT History of HEENT Disorders: No Loss of Vision: Denies Hearing Impairment: Denies Cancer History of Cancer: No Family Medical History Significant Family History: Heart Disease (Mom & Brother), COPD (Brother), Hypertension Review of Systems-General Constitutional: No chills, No diaphoresis, No dizziness, No fever; malaise; No weakness EENTM: No ear pain, No blurred vision, No double vision, No mouth pain, No mouth swelling, No throat pain, No throat swelling Respiratory: dyspnea on exertion; No hemoptysis; orthopnea; No phlegm; short of breath; No wheezing Cardiovascular: No chest pain; edema, palpitations (Chronic A-Fib); No syncope Gastrointestinal: abdominal pain (MSK pain to right of umbilicus); No diarrhea, No dysphagia, No hematemesis; loss of appetite; No melena; nausea; No vomiting Genitourinary: No discharge, No dysuria; frequency; No hematuria, No incontinence, No pain Musculoskeletal: No back pain, No gout, No joint pain, No joint swelling; muscle pain (abdominal); No muscle twitching, No muscle weakness, No neck pain Skin: No change in color, No change in hair/nails, No dryness, No pruritus, No rash Psychiatric/Neurological: Denies Headache, Denies Numbness, Denies Paresthesia, Denies Tingling, Denies Tremors, Denies Weakness Physical Exam-General Problems Physical Exam Vital Signs Vital Signs - First Documented 09/22/21 15:48 FiO2 80 Capillary Refill : Less Than 3 Seconds General Appearance: WD/WN, no apparent distress Eyes: Bilateral Eye PERRL, Bilateral Eye EOMI HEENT: PERRL/EOMI, pharynx normal Neck: non-tender, full range of motion, supple Respiratory: chest non-tender, lungs clear, no respiratory distress, no accessory muscle use, decreased breath sounds (Right base and middle lobe); No crackles, No rhonchi, No wheezing Cardiovascular: no gallop, no murmur, irregularly irregular Peripheral Pulses: 2+ Carotid (R), 2+ Carotid (L) Gastrointestinal: normal bowel sounds, non tender, soft, no organomegaly, no pulsatile mass Back: no CVA tenderness, no vertebral tenderness Extremities: normal range of motion, non-tender, no calf tenderness, normal capillary refill, pedal edema Neurologic/Psychiatric: 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, no motor/sensory deficits, alert, normal mood/affect, oriented x 3 Reflexes: 2+ Bicep (R), 2+ Bicep (L) Skin: normal color, warm/dry Lymphatic: no adenopathy (cervical and axillary) Data Review Labs Laboratory Tests 09/26/21 04:52: White Blood Count 4.7, Red Blood Count 4.62, Hemoglobin 13.6, Hematocrit 41, Mean Corpuscular Volume 89, Mean Corpuscular Hemoglobin 29, Mean Corpuscular Hemoglobin Concent 33, Red Cell Distribution Width 15.1H, Platelet Count 186, Mean Platelet Volume 10.2, Sodium Level 133L, Potassium Level 3.9, Chloride Level 96L, Carbon Dioxide Level 23, Anion Gap 14, Blood Urea Nitrogen 16, Creatinine 0.80, Estimat Glomerular Filtration Rate 69, BUN/Creatinine Ratio 20, Glucose Level 151H, Calcium Level 9.3, Corrected Calcium 9.6, Total Bilirubin 1.9H, Aspartate Amino Transf (AST/SGOT) 61H, Alanine Aminotransferase (ALT/SGPT) 52, Alkaline Phosphatase 111, Total Protein 6.6, Albumin 3.6 Microbiology 09/22/21 Urine Culture - Final, Complete 3 or more isolates 09/22/21 Blood Culture - Preliminary, Resulted No growth Radiology [facility]. [place], [place] NAME: JESSE MONREAL [facility] REC#: [id number] PT STATUS: ADM IN : 1940 PHYSICIAN: ALTAGRACIA LEONARD MD ADMIT DATE: 09/22/21/[facility] Signed Date of Exam:09/26/21 CHEST 1 VIEW, AP/PA ONLY EXAMINATION: Chest 1 view HISTORY: Hypoxia. COMPARISON: 09/23/2021 FINDINGS: There is stable moderate left and small right pleural effusions with overlying atelectasis or pneumonia. No pneumothorax. Heart size is normal. There is a thoracic spine fusion. IMPRESSION: 1. Stable moderate left and small right pleural effusions with overlying atelectasis or pneumonia. Dictated by: Dictated on workstation # [id number] Dict: 09/26/21 0947 Trans: 09/26/21 0954 [id number] Interpreted by: JUAN ANTONIO VARGAS MD Electronically signed by: JUAN ANTONIO VARGAS MD 09/26/21 0954 Assessment/Plan Assessment/Plan Assessment/Plan COPD exacerbation - O2 dependent - 3L baseline CHF UTI Chronic A-Fib Developing plural effusion Plan: Sierial CXR demonstrates developing B/L plural effusions which is complicated by cardiomegaly resulting in deminished left sided lung volume. U/S chest to asses if enough fluid is present to justify thoracentesis - otherwise supportive care with ambulation and use of incentive spiriometry. Being followed by cardiology and medicine MADDIE LIRIANO DO 09/26/211914: History of Present Illness History of Present Illness History of Present Illness Patient is a 1-year-old female who has been having issues with respiratory status. Patient has had increasing dyspnea and had to be admitted inpatient has bilateral pleural effusions that are been stable at this time. Patient continues to have issues with BiPAP and compliance. Patient states that any activity causes worsening of her breathing. Laying still does help some but difficulty taking deep breath. Patient had ultrasound demonstrating bilateral pleural effusions. Patient is on anticoagulation which currently on hold. Patient currently denies any nausea vomiting fever sweats chills or chest pain at this time. Allergies and Home Medications Allergies Coded Allergies: bacitracin (Verified Allergy, Severe, 09/22/21) morphine (Verified Allergy, Severe, 09/22/21) nickel (Verified Allergy, Severe, 09/22/21) Patient Home Medication List Home Medication List Reviewed: Yes Aspirin (Aspirin EC) 81 Mg Tablet.dr, 81 MG PO DAILY, (Reported) Entered as Reported by: JUAN FRANCISCO HUA on 09/23/211138 Last Action: Held Calcium Carbonate (Calcium) 600 Mg Tablet, 600 MG PO BID, (Reported) Entered as Reported by: JUAN FRANCISCO HUA on 09/23/211138 Last Action: Held Fluticasone Propionate (Fluticasone Propionate) 16 Gm [place].susp, 2 SPRAYS NSEACH DAILY, (Reported) Entered as Reported by: JUAN FRANCISCO HUA on 09/23/211138 Last Action: Held Oxybutynin Chloride (Oxybutynin Chloride ER) 10 Mg Tab.er.24, 10 MG PO DAILY, (Reported) Entered as Reported by: JUAN FRANCISCO HUA on 09/23/211138 Last Action: Held Revefenacin (Yupelri) 175 Mcg/3 Ml Vial.neb, 3 ML NEB DAILY, (Reported) Entered as Reported by: JUAN FRANCISCO HUA on 09/23/211138 Last Action: Held Simvastatin (Simvastatin) 20 Mg Tablet, 20 MG PO DAILY, (Reported) Entered as Reported by: JUAN FRANCISCO HUA on 09/23/211138 Last Action: Held Sodium Chloride (Jesus Alberto-128) 15 Ml Drops, 1-2 DROPS OU BID, (Reported) Entered as Reported by: JUAN FRANCISCO HUA on 09/23/211138 Last Action: Held Valsartan (Valsartan) 160 Mg Tablet, 160 MG PO DAILY, (Reported) Entered as Reported by: JUAN FRANCISCO HUA on 09/23/211138 Last Action: Held Vit C/E/Zn/Coppr/Lutein/Zeaxan (Preservision Areds 2 Softgel) 1 Each Capsule, 1 EACH PO BID, (Reported) Entered as Reported by: JUAN FRANCISCO HUA on 09/23/211138 Last Action: Held Past Lxcaeax-Xytxfc-Ioisvx Hx Reviewed Nursing Assessment Reviewed/Agree w Nursing PMH: Yes Family Medical History Significant Family History: Heart Disease (Mom & Brother), COPD (Brother), Hypertension Review of Systems-General Constitutional: No chills, No diaphoresis, No dizziness, No weakness EENTM: No ear pain, No blurred vision, No double vision, No mouth pain, No mouth swelling, No throat pain, No throat swelling Respiratory: No hemoptysis; short of breath; No wheezing Cardiovascular: edema, palpitations (Chronic A-Fib); No syncope Gastrointestinal: No diarrhea; loss of appetite; No melena, No vomiting Genitourinary: No dysuria Musculoskeletal: No back pain, No joint pain, No joint swelling, No muscle twitching, No muscle weakness, No neck pain Skin: No change in color, No pruritus, No rash Psychiatric/Neurological: Denies Headache, Denies Weakness All Other Systems Reviewed Negative Unless Noted: Yes (Negative excepted noted.) Physical Exam-General Problems Physical Exam General Appearance: no apparent distress, other (elderly appearing) HEENT: PERRL/EOMI, normal ENT inspection Neck: non-tender, full range of motion, supple Respiratory: chest non-tender, other (difficulty taking deep breath) Cardiovascular: No no gallop; irregularly irregular Gastrointestinal: non tender, soft Rectal: deferred Back: no CVA tenderness, no vertebral tenderness Extremities: normal range of motion, non-tender Neurologic/Psychiatric: no motor/sensory deficits, alert, normal mood/affect Skin: normal color, warm/dry Lymphatic: no adenopathy (cervical and axillary) Assessment/Plan Assessment/Plan Assessment/Plan COPD exacerbation - O2 dependent - 3L baseline CHF UTI Chronic A-Fib Bilateral plural effusion Current anticoagulation Patient with bilateral pleural effusions. Patient with difficulty breathing which I think is partly due to the bilateral effusions. Patient if we drain 1 would likely benefit. We discussed risk and benefits and she understands and wishes to proceed. Anticoagulant is on hold. We will plan on thoracentesis to marquez left or right depending on which one has the better pocket. Patient understands higher risk due to anticoagulation even though it is on hold. Continue current medical management. Supervisory-Addendum Brief Verification & Attestation Participated in pt care: history, MDM, physical Personally performed: exam, history, MDM, supervision of care Care discussed with: Medical Student Procedures: n/a Results interpretation: Verified all documentation Verification and Attestation of Medical Student E/M Service A medical student performed and documented this service in my presence. I reviewed and verified all information documented by the medical student and made modifications to such information, when appropriate. I personally performed the physical exam and medical decision making. Maddie Liriano, Sep 26, 2021,19:20 MICHELA KENT Sep 26, 2021 13:18 MADDIE LIRIANO DO Sep 26, 2021 19:15
--- NOTE | 2021-09-26 14:38 | Diagnostic Imaging Report ---
INDICATION: Pleural effusions. FINDINGS: Sonographic interrogation of the right and left chest was performed. There appears to be a moderate amount of bilateral effusions, slightly greater on the left. IMPRESSION: Bilateral pleural effusions. Dictated by: Dictated on workstation # [id number]
[2021-09-26] MEDS: FUROSEMIDE 40 MG/4 ML INJ (LASIX) IVP SCH (17:10)
[2021-09-26] MEDS: cefTRIAXone 1 GM/50 ML (PRE-MIX) IV SCH (17:11)
[2021-09-27] MEDS: RT-LEVALBUTEROL (XOPENEX) 1.25 MG/3 ML NEB NON-FORMULARY INH SCH ×4 (02:39→21:18)
[2021-09-27 04:51] LABS: POTASSIUM 3.2 MMOL/L (3.6-5.0)
[2021-09-27 04:52] LABS: CALCIUM 8.7 MG/DL (8.5-10.1)
[2021-09-27 04:57] LABS: CREATININE SERUM 0.92 MG/DL (0.60-1.30)
[2021-09-27 04:59] LABS: MAGNESIUM 2.2 MG/DL (1.6-2.4)
[2021-09-27] MEDS ORDERED: NS IV 500 ML 500 ML ONE (05:37)
[2021-09-27] MEDS: POTASSIUM CL 10MEQ/50ML IVPB 50 ML IV SCH ×2 (05:50→06:01)
[2021-09-27] MEDS: FUROSEMIDE 40 MG/4 ML INJ (LASIX) IVP SCH ×2 (06:01→18:00)
[2021-09-27] MEDS: KCL 10 MEQ TAB (MICRO K) PO SCH (06:01)
[2021-09-27] MEDS: RT--FLUTICASONE/SALMETEROL 113-14 (AIRDUO RespiCLICK) IH SCH ×2 (07:43→21:18)
--- NOTE | 2021-09-27 07:44 | Progress Note - Surgery ---
JOSUESAMINAMICHELA JESUS 09/27/21 0744: Subjective Date Seen by a Provider: Sep 27, 2021 Time Seen by a Provider: 07:16 Subjective/Events-last exam When I visited the pt today she was sleeping in bed and roused easily. She states that she continues to feel better and breath better. She also states that she was able to sleep on her right side last night without causing breathing difficulty. She confirms using her ICS more regularly yesterday. Her lung sounds also are improved over yesterday. She remains constipated but feels the a BM is coming soon. Encouraged the pt to ambulate today as tolerated and request assistance as needed. Pt is still anticipating a throacentesis planned for later today. (Yoandy held for today) Also discussed her new chronic A-fib and the need for longterm anti- coagulation, pt understands and agrees. She reports no new changes or concerns overnight. Review of Systems General: No Chills, No Night Sweats, No Fatigue, No Malaise; Appetite HEENT: No Head Aches, No Visual Changes, No Eye Pain, No Dysphasia, No Sore Throat Pulmonary: Dyspnea; No Cough, No Pleuritic Chest Pain Cardiovascular: No: Chest Pain, Palpitations, Orthopnea, Paroxysmal Noc. Dyspnea, Edema, Lt Headedness Gastrointestinal: Constipation; No: Nausea, Vomiting, Abdominal Pain, Diarrhea, Melena, Hematochezia Genitourinary: No Dysuria; Frequency; No Incontinence, No Hematuria Musculoskeletal: No: neck pain, shoulder pain, back pain, hand pain, leg pain, foot pain Neurological: No: Weakness, Numbness, Change in speech, Confusion, Seizures Objective Exam Vital Signs Date Time Temp Pulse Resp B/P (MAP) Pulse Ox O2 Delivery O2 Flow Rate FiO2 09/27/21 04:00 36.6 78 19 113/74 86 Vapotherm 40.00 80.00 09/27/21 04:00 86 Vapotherm 40.00 80 09/27/21 02:40 70 Vapotherm 40.00 80 09/27/21 02:31 80 09/27/21 00:00 36.7 98 24 100/88 90 Vapotherm 40.00 80.00 09/26/21 23:59 91 Vapotherm 40.00 80 09/26/21 21:21 97 Vapotherm 40.00 80 09/26/21 20:00 92 Vapotherm 40.00 80 09/26/21 20:00 36.6 76 22 135/65 85 Vapotherm 40.00 80.00 09/26/21 19:12 Vapotherm 40.00 80.00 09/26/21 19:00 70 09/26/21 16:12 36.6 74 18 106/70 90 Vapotherm 40.00 90.00 09/26/21 15:27 90 Vapotherm 40.00 90 09/26/21 15:20 Vapotherm 40.00 90.00 09/26/21 14:25 89 Vapotherm 40.00 95 09/26/21 13:00 94 09/26/21 12:00 90 Vapotherm 40.00 95 09/26/21 11:48 36.6 98 20 111/77 90 Vapotherm 40.00 100.00 09/26/21 08:00 92 Vapotherm 40.00 100 09/26/21 08:00 36.6 106 24 107/78 90 Vapotherm 40.00 100.00 09/26/21 07:53 90 Vapotherm 40.00 100 I & O 09/27/21 06:59 Intake Total 1730 ml Output Total 1740 ml Balance -10 ml Capillary Refill : Less Than 3 Seconds General Appearance: No Apparent Distress, WD/WN HEENT: PERRL/EOMI, Pharynx Normal Neck: Full Range of Motion, Non Tender, Supple Respiratory: Chest Non Tender, Lungs Clear, Normal Breath Sounds, No Accessory Muscle Use, No Respiratory Distress Cardiovascular: No Gallop, No Murmur, Normal Peripheral Pulses, Irregularly Irregular (chronic A-Fib) Peripheral Pulses: 2+ Radial Pulses (R), 2+ Radial Pulses (L) Gastrointestinal: normal bowel sounds, non tender, soft, no organomegaly, no pulsatile mass Extremity: Normal Capillary Refill, Normal Range of Motion, Non Tender, No Calf Tenderness, Pedal Edema (1+ PITTING) Neurologic/Psychiatric: Alert, Oriented x3, No Motor/Sensory Deficits, 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, 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 as Tested Skin: Normal Color, Warm/Dry Lymphatic: No Adenopathy (cervical and axillary) Results Lab Laboratory Tests 09/27/21 04:28: Sodium Level 137, Potassium Level 3.2L, Chloride Level 98, Carbon Dioxide Level 26, Anion Gap 13, Blood Urea Nitrogen 26H, Creatinine 0.92, Estimat Glomerular Filtration Rate 58, BUN/Creatinine Ratio 28, Glucose Level 133H, Calcium Level 8.7, Magnesium Level 2.2 Microbiology 09/22/21 Urine Culture - Final, Complete 3 or more isolates 09/22/21 Blood Culture - Preliminary, Resulted No growth Assessment/Plan Assessment/Plan Assessment/Plan COPD exacerbation - O2 dependent - 3L baseline CHF UTI Chronic A-Fib Bilateral plural effusion Current anticoagulation Plan: Thoracentesis today to sided with largest pocket - anticoagulant is on hold. Patient understands higher risk due to anticoagulation even though it is on hold. Continue current medical management. MADDIE HILL DO 09/27/21 1327: Subjective Subjective/Events-last exam Patient breathing easier she states. Still difficulty though overall. Patient on Vapotherm. Patient without any other complaints at this time. Denies nausea vomiting fever sweats chills or chest pain. Objective Exam General Appearance: No Apparent Distress, WD/WN, Chronically ill HEENT: PERRL/EOMI, Normal ENT Inspection Neck: Full Range of Motion Respiratory: Chest Non Tender, No Accessory Muscle Use, No Respiratory Distress Cardiovascular: No JVD, Irregularly Irregular Gastrointestinal: non tender, soft Extremity: Non Tender, Pedal Edema (1+ PITTING) Neurologic/Psychiatric: Alert, Oriented x3 Skin: Normal Color, Warm/Dry Lymphatic: No Adenopathy (cervical and axillary) Assessment/Plan Assessment/Plan Assessment/Plan COPD exacerbation - O2 dependent - 3L baseline CHF UTI Chronic A-Fib Bilateral plural effusion Current anticoagulation Patient discussed risk and benefits of thoracentesis. She understands and wishes to proceed. This will help her overall breathing. Ultrasound used to guide. Left side the largest. Procedure left ultrasound-guided thoracentesis Ultrasound used to isolate the largest pocket of effusion on the left chest. The areas marked the area was prepped and draped in a sterile fashion timeout was performed 3 mL of 1% lidocaine was used anesthetize the area. 11 blade scalpel was used to make a small skin incision. The safety centesis needle and catheter were then advanced through the incision into the left chest until straw-colored fluid was withdrawn. The needle was removed and the catheter was advanced. A total of 1000 mL of straw-colored fluid was withdrawn and the cath eter was removed. Sterile bandage was applied. Patient tolerated procedure well with any complications chest x-ray pending. Supervisory-Addendum Brief Verification & Attestation Participated in pt care: history, MDM, physical Personally performed: exam, history, MDM, supervision of care Care discussed with: Medical Student Procedures: other (Performed by me) Results interpretation: Verified all documentation Verification and Attestation of Medical Student E/M Service A medical student performed and documented this service in my presence. I reviewed and verified all information documented by the medical student and made modifications to such information, when appropriate. I personally performed the physical exam and medical decision making. Maddie Hill, Sep 27, 2021,13:27 MICHELA KENT Sep 27, 2021 07:44 MADDIE HILL DO Sep 27, 2021 13:27
[2021-09-27] MEDS ORDERED: KCL 20 MEQ TAB (K-DUR) PO ONE (08:00)
[2021-09-27] MEDS: SENNA W/DOCUSATE (SENOKOT S) TABLET PO SCH ×2 (08:31→20:12)
[2021-09-27] MEDS: methylPREDNISolone 40 MG/ML (Solu-MEDROL) VIAL IV SCH (08:32)
[2021-09-27] MEDS: DIGOXIN 0.25 MG (LANOXIN) TAB PO SCH (08:32)
--- NOTE | 2021-09-27 09:05 | Cardiology Progress Note ---
Subjective Date Seen by Provider: Sep 27, 2021 Time Seen by Provider: 09:02 Subjective/Events-last exam Patient is laying down in bed, feeling better, maintained on Vapotherm Review of Systems General: No Chills, No Night Sweats, No Fatigue, No Malaise, No Appetite, No Other HEENT: No Head Aches, No Visual Changes, No Eye Pain, No Ear Pain, No Dysphasia, No Sinus Congestion, No Post Nasal Drip, No Sore Throat, No Other Pulmonary: Dyspnea; No Cough, No Pleuritic Chest Pain, No Other Cardiovascular: No: Chest Pain, Palpitations, Orthopnea, Paroxysmal Noc. Dyspnea, Edema, Lt Headedness, Other Objective-Cardiology Exam Last Set of Vital Signs Vital Signs 09/27/21 09/27/21 07:44 08:25 Temp 36.5 Pulse 77 Resp 16 B/P (MAP) 121/62 Pulse Ox 86 O2 Delivery Nasal Cannula O2 Flow Rate 40.00 FiO2 80 I&O l Intake and Output 09/27/21 00:00 Intake Total 2055 ml Output Total 990 ml Balance 1065 ml Intake Oral 2055 ml Output Urine Total 990 ml # Voids 6 # Bowel Movements 1 General: Alert, Oriented X3, Cooperative HEENT: Atraumatic, PERRLA Neck: Supple, No JVD, No Thyromegaly Lungs: Normal Air Movement, Other (Bilateral rhonchi) Heart: Regular Rate, Normal S1, Normal S2, No Murmurs Abdomen: Normal Bowel Sounds, Soft, No Tenderness, No Hepatosplenomegaly, No Masses Extremities: No Clubbing, No Cyanosis, No Edema, Normal Pulses, No Tenderness/Swelling Skin: No Rashes, No Breakdown, No Significant Lesion Neuro: Normal Gait, Normal Speech, Strength at 5/5 X4 Ext, Normal Tone, Sensation Intact Psych/Mental Status: Mental Status NL, Mood NL Results Lab Laboratory Tests 09/27/21 04:28 A/P-Cardiology Admission Diagnosis Acute respiratory failure Atrial fibrillation Pneumonia Urinary tract infection Assessment/Plan Acute respiratory failure maintained on Vapotherm. 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
--- NOTE | 2021-09-27 10:31 | Progress Note ---
Subjective Subjective Date Seen by Provider: Sep 27, 2021 Time Seen by Provider: 10:00 PT REPORTS THAT SHE IS FEELING ABOUT THE SAME YESTERDAY - SHE REPORTS THAT SHE WAS ABLE TO SLEEP ON HER RIGHT SIDE FOR THE FIRST TIME IN WEEKS AND THAT MADE HER FEEL LIKE SHE WAS IMPROVING. PER STAFF, THE PATIENT CONTINUED TO REFUSE TO USE BIPAP YESTERDAY. Review of Systems General: No Chills, No Night Sweats; Fatigue; No Malaise, No Appetite HEENT: No Head Aches, No Visual Changes, No Eye Pain, No Ear Pain, No Dysphasia, No Sinus Congestion, No Post Nasal Drip, No Sore Throat Pulmonary: Dyspnea, Cough; No Pleuritic Chest Pain Cardiovascular: No: Chest Pain, Palpitations, Orthopnea, Paroxysmal Noc. Dyspnea, Edema, Lt Headedness Gastrointestinal: Constipation; No: Nausea, Vomiting, Abdominal Pain, Diarrhea, Melena Genitourinary: No Dysuria; Frequency; No Incontinence, No Hematuria Musculoskeletal: No: neck pain, shoulder pain, back pain, hand pain Neurological: Weakness; No: Numbness, Confusion All Other Systems Reviewed All Other Systems Reviewed: Yes (Negative excepted noted.) Objective Exam Vital Signs Vital Signs Date Time Temp Pulse Resp B/P (MAP) Pulse Ox O2 Delivery O2 Flow Rate FiO2 09/27/21 09:00 86 Vapotherm 40.00 80 09/27/21 08:25 36.5 77 16 121/62 86 Nasal Cannula 09/27/21 07:44 89 Vapotherm 40.00 80 09/27/21 07:00 71 09/27/21 04:00 36.6 78 19 113/74 86 Vapotherm 40.00 80.00 09/27/21 04:00 86 Vapotherm 40.00 80 09/27/21 02:40 70 Vapotherm 40.00 80 09/27/21 02:31 80 09/27/21 00:00 36.7 98 24 100/88 90 Vapotherm 40.00 80.00 09/26/21 23:59 91 Vapotherm 40.00 80 09/26/21 21:21 97 Vapotherm 40.00 80 09/26/21 20:00 92 Vapotherm 40.00 80 09/26/21 20:00 36.6 76 22 135/65 85 Vapotherm 40.00 80.00 09/26/21 19:12 Vapotherm 40.00 80.00 09/26/21 19:00 70 09/26/21 16:12 36.6 74 18 106/70 90 Vapotherm 40.00 90.00 09/26/21 15:27 90 Vapotherm 40.00 90 09/26/21 15:20 Vapotherm 40.00 90.00 09/26/21 14:25 89 Vapotherm 40.00 95 09/26/21 13:00 94 09/26/21 12:00 90 Vapotherm 40.00 95 09/26/21 11:48 36.6 98 20 111/77 90 Vapotherm 40.00 100.00 I & O 09/27/21 07:00 Intake Total 1730 ml Output Total 1740 ml Balance -10 ml General Appearance: No Apparent Distress, WD/WN Eyes: Bilateral Eye PERRL, Bilateral Eye EOMI HEENT: PERRL/EOMI, Pharynx Normal Neck: Full Range of Motion, Non Tender, Supple Respiratory: Chest Non Tender, Decreased Breath Sounds, Wheezing Cardiovascular: No Gallop, No Murmur, Normal Peripheral Pulses, Irregularly Irregular (chronic A-Fib) Gastrointestinal: Normal Bowel Sounds, Non Tender, Soft; No Distended, No Tenderness Rectal: Deferred Extremity: Normal Capillary Refill, Normal Range of Motion, Non Tender, No Calf Tenderness, Pedal Edema (1+ PITTING) Neurologic/Psychiatric: Alert, Oriented x3, No Motor/Sensory Deficits, 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 Reflexes: 2+ Bicep (R), 2+ Bicep (L) Skin: Normal Color, Warm/Dry Lymphatic: No Adenopathy (cervical and axillary) Results Lab Laboratory Tests 09/27/21 04:28: Sodium Level 137, Potassium Level 3.2L, Chloride Level 98, Carbon Dioxide Level 26, Anion Gap 13, Blood Urea Nitrogen 26H, Creatinine 0.92, Estimat Glomerular Filtration Rate 58, BUN/Creatinine Ratio 28, Glucose Level 133H, Calcium Level 8.7, Magnesium Level 2.2 Microbiology 09/22/21 Urine Culture - Final, Complete 3 or more isolates 09/22/21 Blood Culture - Preliminary, Resulted No growth Assessment/Plan Assessment/Plan Admission Dx ACUTE ATRIAL FIBRILLATION URINARY TRACT INFECTION RESPIRATORY FAILURE CHRONIC OXYGEN DEPENDENCE COPD EXACERBATION HYPERLIPIDEMIA HYPOKALEMIA Assessment and Plan ACUTE ATRIAL FIBRILLATION URINARY TRACT INFECTION RESPIRATORY FAILURE CHRONIC OXYGEN DEPENDENCE COPD EXACERBATION HYPERLIPIDEMIA HYPOKALEMIA ACUTE ATRIAL FIBRILLATION - DEFER TO DR. CALLES - CARDIOLOGY - PT WAS STARTED ON DIGOXIN YESTERDAY WITH EXCELLENT RESULTS FROM A RATE CONTROL PERSPECTIVE, CONTINUE REGIMEN AND MONITOR DIG LEVEL NEXT WEEK. URINARY TRACT INFECTION - PT ON ROCEPHIN, URINE SHOWED MORE THAN THREE ISOLATES, FINISHED ROCEPHIN DOSING 09/27/2021 RESPIRATORY FAILURE WITH CHRONIC OXYGEN DEPENDENCE AND COPD EXACERBATION AND PLEURAL EFFUSION PT ON VAPOTHERM AT 40LPM AND 80% (DOWN FROM 40LPM AND 100% ON 09/26/2021) CONSULT PLACED TO TELE PULMONARY CONSULT SERVICE PT ON SOLUMEDROL AT 80MG IV Q6 HOURS, - DECREASED TO 40MG DAILY BY PULMONOLOGY ON 09/26/2021, ADVAIR, XOPENEX NEBULIZER TREATMENT THORACENTESIS TODAY, MONITOR CXR HYPERLIPIDEMIA - HOLD HOME MEDS FOR NOW HYPOKALEMIA - PT ON REPLACEMENT PROTOCOL DISCUSSED WITH PT AND HER DTR ON 09/26/2021- JESSE IS STILL VERY TENUOUS, HER OXYGEN NEED IS HIGHER THAN ON ADMISSION, AND SHE IS STILL IN A CRITICAL PHASE OF ILLNESS, HOPEFULLY WITH IMPROVED HEART RATE WE WILL ALSO SEE PULMONARY IMPROVEMENT. PT IS AT A HIGH RISK OF IN HOSPITAL DUE TO HER PULMONARY STATUS. Problems: (1) Atrial fibrillation with RVR (2) Urinary tract infection Qualifiers: Qualified Codes: N39.0 - Urinary tract infection, site not specified (3) COPD with acute exacerbation (4) Oxygen dependent (5) Hypoxia Admission Dx ACUTE ATRIAL FIBRILLATION URINARY TRACT INFECTION RESPIRATORY FAILURE CHRONIC OXYGEN DEPENDENCE COPD EXACERBATION HYPERLIPIDEMIA HYPOKALEMIA Clinical Quality Measures Admission Status Admission Dx ACUTE ATRIAL FIBRILLATION URINARY TRACT INFECTION RESPIRATORY FAILURE CHRONIC OXYGEN DEPENDENCE COPD EXACERBATION HYPERLIPIDEMIA HYPOKALEMIA ALTAGRACIA GILL MD Sep 27, 2021 10:31
--- NOTE | 2021-09-27 12:42 | Diagnostic Imaging Report ---
CHEST 1 VIEW, AP/PA ONLY Indication: Surveillance imaging post thoracentesis. Comparison: 09/26/2021 Findings: Left-sided pleural effusion has significantly decreased in size. No left-sided pneumothorax. Small right pleural effusion is unchanged. Stable mild enlargement of cardiac silhouette. Right basilar pulmonary opacities persist. Improved aeration left lung base. Impression: 1. No pneumothorax status post left-sided thoracentesis. Dictated by: Dictated on workstation # [id number]
--- NOTE | 2021-09-27 13:32 | Diagnostic Imaging Report ---
[facility] [id number] INDICATION: Bilateral pleural effusions COMPARISON: Chest radiograph of 09/26/2021 .FINDINGS AND IMPRESSION: Left-sided pleural effusion is present. This was marked for thoracentesis. Postthoracentesis demonstrates minimal residual fluid. Please see procedure report for details. Dictated by: Dictated on workstation # [id number]
[2021-09-27 13:46] LABS: GLUCOSE,BODY FLUID 137 MG/DL; LDH,BODY FLUID 75 U/L; TOTAL PROTEIN,BODY FLUID 1.5 G/DL
[2021-09-27 14:07] LABS: BODY FLUID COLOR YELLOW; BODY FLUID SOURCE PLEURAL
[2021-09-27 14:08] LABS: BF OTHER CELLS 81 %; BODY FLUID APPEARENCE CLEAR; BODY FLUID RBC COUNT 372 /uL; BODY FLUID WBC TOTAL COUNT 157 /uL; LYMPHOCYTES,BODY FLUID 6 %
[2021-09-27 14:17] LABS: BODY FLUID PH 7.5
[2021-09-27 15:35] VITALS: BP 114/93
--- NOTE | 2021-09-27 17:37 | Pulmonary Progress Note ---
Subjective Date Seen by a Provider: Sep 27, 2021 Time Seen by a Provider: 16:30 Subjective/Events-last exam Patient earlier today underwent a left thoracentesis and removed around 1000 cc of fluid. Patient states that she is breathing better. Postprocedure chest x- ray showed right-sided moderate pleural effusion left side is almost resolved. Pleural fluid analysis suggestive so for of transudate. Cultures are pending. I have made a video visit and discussed with the patient and her RN. Via telemetry ICU camera I made assessment. On listening to the lungs with the EKO of the left side breath sounds improved and right side base decreased breath sounds present. Review of Systems ROS PER RN Sepsis Event Evaluation Height, Weight, BMI Height: '" Weight: lbs. oz. kg; 23.47 BMI Method: Exam Exam Patient acknowledged, consented, and participated in this virtual visit which was conducted using real time audio/video Vital Signs Date Time Temp Pulse Resp B/P (MAP) Pulse Ox O2 Delivery O2 Flow Rate FiO2 09/27/21 16:00 36.1 69 25 109/53 95 Vapotherm 40.00 80.00 09/27/21 15:35 37.0 104 92 80 09/27/21 15:15 89 Vapotherm 40.00 80 09/27/21 13:00 83 09/27/21 12:14 36.7 73 23 124/74 87 Nasal Cannula 09/27/21 11:15 90 Vapotherm 40.00 80 09/27/21 09:00 86 Vapotherm 40.00 80 09/27/21 08:25 36.5 77 16 121/62 86 Nasal Cannula 09/27/21 07:44 89 Vapotherm 40.00 80 09/27/21 07:00 71 09/27/21 04:00 36.6 78 19 113/74 86 Vapotherm 40.00 80.00 09/27/21 04:00 86 Vapotherm 40.00 80 09/27/21 02:40 70 Vapotherm 40.00 80 09/27/21 02:31 80 09/27/21 00:00 36.7 98 24 100/88 90 Vapotherm 40.00 80.00 09/26/21 23:59 91 Vapotherm 40.00 80 09/26/21 21:21 97 Vapotherm 40.00 80 09/26/21 20:00 92 Vapotherm 40.00 80 09/26/21 20:00 36.6 76 22 135/65 85 Vapotherm 40.00 80.00 09/26/21 19:12 Vapotherm 40.00 80.00 09/26/21 19:00 70 I & O 09/27/21 07:00 Intake Total 1730 ml Output Total 1740 ml Balance -10 ml Height & Weight Height: '" Weight: lbs. oz. kg; 23.47 BMI Method: General Appearance: No Apparent Distress, WD/WN, Chronically ill HEENT: PERRL/EOMI, Normal ENT Inspection Neck: Full Range of Motion Respiratory: Chest Non Tender, No Accessory Muscle Use, No Respiratory Distress Cardiovascular: No JVD, Irregularly Irregular Capillary Refill: Less Than 3 Seconds Peripheral Pulses: 2+ Radial Pulses (R), 2+ Radial Pulses (L) Gastrointestinal: non tender, soft Extremity: Non Tender, Pedal Edema (1+ PITTING) Neurologic/Psychiatric: Alert, Oriented x3 Skin: Normal Color, Warm/Dry Lymphatic: No Adenopathy (cervical and axillary) Other comments PE PER RN Results Lab Laboratory Tests 09/26/21 04:52 09/27/21 04:28 Radiology NAME: JESSE MONREAL [facility] REC#: [id number] PT STATUS: ADM IN : 1940 PHYSICIAN: MADDIE LIRIANO DO ADMIT DATE: 09/22/21/[facility] Signed Date of Exam:09/27/21 CHEST 1 VIEW, AP/PA ONLY CHEST 1 VIEW, AP/PA ONLY Indication: Surveillance imaging post thoracentesis. Comparison: 09/26/2021 Findings: Left-sided pleural effusion has significantly decreased in size. No left-sided pneumothorax. Small right pleural effusion is unchanged. Stable mild enlargement of cardiac silhouette. Right basilar pulmonary opacities persist. Improved aeration left lung base. Impression: 1. No pneumothorax status post left-sided thoracentesis. Dictated by: Dictated on workstation # [id number] Dict: 09/27/21 1238 Trans: 09/27/21 1452 CVB [id number] Interpreted by: RUBEN MARTIN MD Electronically signed by: RUBEN MARTIN MD 09/27/21 4843 Assessment/Plan Assessment/Plan 1. Patient has a severe pulmonary hypertension associated with moderate to severe mitral regurgitation, tricuspid regurgitation and biatrial enlargement. 2. Congestive heart failure with bilateral pleural effusion left more than the right.S/P LEFT THORACENTESIS 3. Atrial fibrillation with rapid ventricular rate now controlled, probably chronic being managed by cardiology service 4. She has possible underlying COPD which may be contributing to her pulmonary hypertension. Recommendations 1. I would suggest to optimize diuretic therapy with Lasix IV twice a day and monitor electrolytes and replace potassium as needed 2. may resume eliquis this evening 3. Decrease Solu-Medrol as she does not have much of her bronchospasm. 4. IV antibiotics in case patient has acute bronchitis. I doubt any pneumonia at this time. 5. Supplemental oxygen and bronchodilator therapy as needed. 6. will repeat cxr on wednesday, if right pleural continues have significantly suggest rt thoracentesis also. 7. treatment plan discussed with patient in detail. Critical Care: Critically Ill Patient Time spent with patient (mins): 20 AMREN RIZZO MD Sep 27, 2021 17:37
[2021-09-28] MEDS: RT-LEVALBUTEROL (XOPENEX) 1.25 MG/3 ML NEB NON-FORMULARY INH SCH ×2 (02:10→09:00)
[2021-09-28 04:55] LABS: HEMATOCRIT 39 % (35-52); HEMOGLOBIN 12.7 g/dL (11.5-16.0); MEAN CORPUSCULAR HEMOGLOBIN 30 pg (25-34); MEAN CORPUSCULAR HGB CONC 33 g/dL (32-36); MEAN CORPUSCULAR VOLUME 90 fL (80-99); MEAN PLATELET VOLUME 9.9 fL (9.0-12.2); PLATELET COUNT 175 10^3/uL (130-400); WHITE BLOOD COUNT 7.9 10^3/uL (4.3-11.0)
[2021-09-28 05:07] LABS: ALBUMIN 3.3 GM/DL (3.2-4.5)
[2021-09-28 05:08] LABS: POTASSIUM 3.2 MMOL/L (3.6-5.0)
[2021-09-28 05:09] LABS: CALCIUM 8.4 MG/DL (8.5-10.1)
[2021-09-28 05:10] LABS: TOTAL PROTEIN 5.9 GM/DL (6.4-8.2)
[2021-09-28 05:12] LABS: BILIRUBIN,TOTAL 1.4 MG/DL (0.1-1.0)
[2021-09-28 05:14] LABS: CREATININE SERUM 0.9 MG/DL (0.60-1.30)
[2021-09-28 05:16] LABS: MAGNESIUM 2.2 MG/DL (1.6-2.4)
--- NOTE | 2021-09-28 05:34 | Diagnostic Imaging Report ---
HISTORY: COPD, pleural effusions, dyspnea TECHNIQUE: Frontal view of the chest COMPARISON: 09/27/2021 FINDINGS: There is a small right pleural effusion with right basilar airspace consolidation. The cardiac silhouette is normal in size. There is aortic atherosclerosis. There are old left-sided rib fractures. No pneumothorax is seen. There is diffuse osteopenia. Lumbar fusion hardware is noted. IMPRESSION: 1. Small right pleural effusion with right basilar airspace opacity. Overall aeration appears similar to the prior exam. Dictated by: Dictated on workstation # [id number]
--- NOTE | 2021-09-28 05:52 | Progress Note - Surgery ---
[facility] 09/28/21 0552: Subjective Date Seen by a Provider: Sep 28, 2021 Time Seen by a Provider: 06:30 Subjective/Events-last exam POD Day 1 S/P Left Thoracentesis Patient saturating at 96% on vapotherm (80% and 40LPM) MICHAEL, Afebrile Patient reports feeling much better and being able to take deeper breaths. She states that she feels as if she will be able to walk around the hospital During conversation she would saturate down to 87% Has minimal tenderness at the thoracentesis site. Review of Systems General: No Chills, No Other (fevers) Pulmonary: No Dyspnea; Cough Cardiovascular: No: Chest Pain, Palpitations Gastrointestinal: No: Nausea, Vomiting Objective Exam Vital Signs Date Time Temp Pulse Resp B/P (MAP) Pulse Ox O2 Delivery O2 Flow Rate FiO2 09/28/21 04:00 36.8 70 14 110/56 96 Vapotherm 40.00 80.00 09/28/21 02:10 93 Vapotherm 40.00 80 09/28/21 01:00 80 09/28/21 01:00 82 09/28/21 00:00 36.4 84 24 90/67 93 Vapotherm 40.00 80.00 09/27/21 21:18 93 Vapotherm 40.00 80 09/27/21 21:00 92 Vapotherm 40.00 80 09/27/21 20:00 36.6 63 26 100/62 90 Vapotherm 40.00 80.00 09/27/21 19:00 80 09/27/21 16:00 36.1 69 25 109/53 95 Vapotherm 40.00 80.00 09/27/21 15:35 37.0 104 92 80 09/27/21 15:15 89 Vapotherm 40.00 80 09/27/21 13:00 83 09/27/21 12:14 36.7 73 23 124/74 87 Nasal Cannula 09/27/21 11:15 90 Vapotherm 40.00 80 09/27/21 09:00 86 Vapotherm 40.00 80 09/27/21 08:25 36.5 77 16 121/62 86 Nasal Cannula 09/27/21 07:44 89 Vapotherm 40.00 80 09/27/21 07:00 71 I & O 09/28/21 07:00 Intake Total 1350 ml Output Total 2550 ml Balance -1200 ml Capillary Refill : Less Than 3 Seconds General Appearance: No Apparent Distress, WD/WN, Chronically ill HEENT: Normal ENT Inspection (No scleral injection, gross deformities of ears or nose) Neck: Full Range of Motion Respiratory: Chest Non Tender, No Accessory Muscle Use, No Respiratory Distress, Other (Requiring Oxygen) Cardiovascular: No JVD, Irregularly Irregular Peripheral Pulses: 2+ Radial Pulses (R), 2+ Radial Pulses (L) Gastrointestinal: non tender, soft Extremity: Non Tender, Pedal Edema (1+ PITTING) Neurologic/Psychiatric: Alert, Oriented x3 Skin: Normal Color, Warm/Dry Lymphatic: No Adenopathy Results Lab Laboratory Tests 09/28/21 04:23: White Blood Count 7.9, Red Blood Count 4.29, Hemoglobin 12.7, Hematocrit 39, Mean Corpuscular Volume 90, Mean Corpuscular Hemoglobin 30, Mean Corpuscular Hemoglobin Concent 33, Red Cell Distribution Width 15.1H, Platelet Count 175, Mean Platelet Volume 9.9, Sodium Level 137, Potassium Level 3.2L, Chloride Level 97L, Carbon Dioxide Level 30, Anion Gap 10, Blood Urea Nitrogen 28H, Creatinine 0.90, Estimat Glomerular Filtration Rate 60, BUN/Creatinine Ratio 31, Glucose Level 129H, Calcium Level 8.4L, Corrected Calcium 9.0, Magnesium Level 2.2, Total Bilirubin 1.4H, Aspartate Amino Transf (AST/SGOT) 241H, Alanine Aminotransferase (ALT/SGPT) 268H, Alkaline Phosphatase 108, Total Protein 5.9L, Albumin 3.3 Microbiology 09/22/21 Urine Culture - Final, Complete 3 or more isolates 09/22/21 Blood Culture - Preliminary, Resulted No growth Assessment/Plan Assessment/Plan Assessment/Plan Left side pleural effusion appears stable S/P Left Side thoracentesis Right side pleural effusion COPD exacerbation - O2 dependent - 3L baseline CHF UTI Chronic A-Fib Continue to hold Eliquis AM chest x-ray on 09/29 Will possibly plan for Right side thoracentesis today (09/29) or tomorrow (09/30). MADDIE HILL DO 09/28/21 1106: Subjective Subjective/Events-last exam Breathing better. States back pain she was having is gone. More comfortable. Denies fever sweats chills or chest pain. Chest x ray better aeration of the left lung with small right effusion, no pneumo. Objective Exam General Appearance: No Apparent Distress, Chronically ill HEENT: PERRL/EOMI, Normal ENT Inspection (No scleral injection, gross deformiti es of ears or nose) Neck: Full Range of Motion, Non Tender Respiratory: Chest Non Tender, No Accessory Muscle Use, No Respiratory Distress, Other (Requiring Oxygen) Cardiovascular: No JVD, Irregularly Irregular Gastrointestinal: non tender, soft Extremity: Non Tender, Pedal Edema (1+ PITTING) Neurologic/Psychiatric: Alert, Oriented x3 Skin: Normal Color, Warm/Dry Lymphatic: No Adenopathy Assessment/Plan Assessment/Plan Assessment/Plan left pleural effusion resolved s/p u/s guided thoracentesis small right pleural effusion copd CHF UTI Chonic Afib. Patient breathing easier today and small right pleural effusion. On Vapotherm. Continue medical management. Continue to follow, if right effusion increases in size would do thoracentesis. Supervisory-Addendum Brief Verification & Attestation Participated in pt care: history, MDM, physical Personally performed: exam, history, MDM, supervision of care Care discussed with: Medical Student Procedures: n/a Results interpretation: Verified all documentation Verification and Attestation of Medical Student E/M Service A medical student performed and documented this service in my presence. I reviewed and verified all information documented by the medical student and made modifications to such information, when appropriate. I personally performed the physical exam and medical decision making. Maddie Hill, Sep 28, 2021,11:07 [facility] Sep 28, 2021 05:52 MADDIE HILL DO Sep 28, 2021 11:06
--- NOTE | 2021-09-28 05:57 | Cardiology Progress Note ---
Subjective Date Seen by Provider: Sep 28, 2021 Time Seen by Provider: 05:55 Subjective/Events-last exam Patient was seen at bedside, complaining of dyspnea, had thoracentesis done yesterday Review of Systems General: No Chills, No Night Sweats; Fatigue, Malaise; No Appetite, No Other HEENT: No Head Aches, No Visual Changes, No Eye Pain, No Ear Pain, No Dysphasia, No Sinus Congestion, No Post Nasal Drip, No Sore Throat, No Other Pulmonary: Dyspnea; No Cough, No Pleuritic Chest Pain, No Other Cardiovascular: No: Chest Pain, Palpitations, Orthopnea, Paroxysmal Noc. Dyspnea, Edema, Lt Headedness, Other Objective-Cardiology Exam Last Set of Vital Signs Vital Signs 09/28/21 09/28/21 02:10 04:00 Temp 36.8 Pulse 70 Resp 14 B/P (MAP) 110/56 Pulse Ox 96 O2 Delivery Vapotherm O2 Flow Rate 40.00 80.00 FiO2 80 I&O Intake and Output 09/28/21 00:00 Intake Total 1050 ml Output Total 2575 ml Balance -1525 ml Intake Oral 950 ml IV Total 100 ml Output Urine Total 2575 ml General: Alert, Oriented X3, Cooperative HEENT: Atraumatic, PERRLA Neck: Supple, No JVD, No Thyromegaly Lungs: Normal Air Movement, Other (Bilateral rhonchi) Heart: Regular Rate, Normal S1, Normal S2, No Murmurs Abdomen: Normal Bowel Sounds, Soft, No Tenderness, No Hepatosplenomegaly, No Masses Extremities: No Clubbing, No Cyanosis, No Edema, Normal Pulses, No Tenderness/Swelling Skin: No Rashes, No Breakdown, No Significant Lesion Neuro: Normal Gait, Normal Speech, Strength at 5/5 X4 Ext, Normal Tone, Sensation Intact Psych/Mental Status: Mental Status NL, Mood NL Results Lab Laboratory Tests 09/28/21 04:23 A/P-Cardiology Admission Diagnosis Acute respiratory failure Atrial fibrillation Pneumonia Urinary tract infection Assessment/Plan Acute respiratory failure maintained on Vapotherm. 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
[2021-09-28] MEDS ORDERED: KCL 20 MEQ TAB (K-DUR) PO ONE (06:00)
[2021-09-28] MEDS: FUROSEMIDE 40 MG/4 ML INJ (LASIX) IVP SCH ×2 (06:18→16:31)
[2021-09-28] MEDS: KCL 10 MEQ TAB (MICRO K) PO SCH (06:18)
[2021-09-28] MEDS: methylPREDNISolone 40 MG/ML (Solu-MEDROL) VIAL IV SCH (08:42)
[2021-09-28] MEDS: SENNA W/DOCUSATE (SENOKOT S) TABLET PO SCH ×2 (08:42→21:34)
[2021-09-28] MEDS: DIGOXIN 0.25 MG (LANOXIN) TAB PO SCH (08:42)
[2021-09-28] MEDS: RT--FLUTICASONE/SALMETEROL 113-14 (AIRDUO RespiCLICK) IH SCH ×2 (09:00→21:03)
--- NOTE | 2021-09-28 09:18 | Progress Note ---
Subjective Subjective Date Seen by Provider: Sep 28, 2021 Time Seen by Provider: 09:18 PT REPORTS THAT SINCE SHE REFUSED HER XOPENEX, HER NASAL DRAINAGE IS MUCH IMPROVED. SHE STATES THAT SHE IS BREATHING BETTER. SHE DENIES CHEST PAIN, SHE DOES HAVE A COUGH. SHE DENIES ABDOMINAL PAIN, NAUSEA, DIZZINESS. Review of Systems General: No Chills; Fatigue HEENT: No Head Aches, No Visual Changes, No Eye Pain, No Ear Pain, No Dysphasia, No Sinus Congestion, No Post Nasal Drip, No Sore Throat, No Other Pulmonary: No Dyspnea; Cough Cardiovascular: No: Chest Pain, Palpitations Gastrointestinal: No: Nausea, Vomiting Genitourinary: No Dysuria; Frequency; No Incontinence, No Hematuria Musculoskeletal: No: neck pain, shoulder pain, back pain, hand pain Neurological: Weakness; No: Numbness, Confusion All Other Systems Reviewed All Other Systems Reviewed: Yes (Negative excepted noted.) Objective Exam Vital Signs Vital Signs Date Time Temp Pulse Resp B/P (MAP) Pulse Ox O2 Delivery O2 Flow Rate FiO2 09/28/21 08:54 94 Vapotherm 40.00 80 09/28/21 08:00 36.8 80 21 127/80 96 Nasal Cannula 09/28/21 07:00 63 09/28/21 04:00 36.8 70 14 110/56 96 Vapotherm 40.00 80.00 09/28/21 02:10 93 Vapotherm 40.00 80 09/28/21 01:00 80 09/28/21 01:00 82 09/28/21 00:00 36.4 84 24 90/67 93 Vapotherm 40.00 80.00 09/27/21 21:18 93 Vapotherm 40.00 80 09/27/21 21:00 92 Vapotherm 40.00 80 09/27/21 20:00 36.6 63 26 100/62 90 Vapotherm 40.00 80.00 09/27/21 19:00 80 09/27/21 16:00 36.1 69 25 109/53 95 Vapotherm 40.00 80.00 09/27/21 15:35 37.0 104 92 80 09/27/21 15:15 89 Vapotherm 40.00 80 09/27/21 13:00 83 09/27/21 12:14 36.7 73 23 124/74 87 Nasal Cannula 09/27/21 11:15 90 Vapotherm 40.00 80 l I & O 09/28/21 07:00 Intake Total 1350 ml Output Total 2550 ml Balance -1200 ml General Appearance: No Apparent Distress, WD/WN, Chronically ill Eyes: Bilateral Eye PERRL, Bilateral Eye EOMI HEENT: Normal ENT Inspection (No scleral injection, gross deformities of ears or nose) Neck: Full Range of Motion Respiratory: Chest Non Tender, No Accessory Muscle Use, No Respiratory Distress, Decreased Breath Sounds (BASES), Other (Requiring Oxygen) Cardiovascular: No JVD, Irregularly Irregular Gastrointestinal: Normal Bowel Sounds, Non Tender, Soft; No Distended, No Tenderness Rectal: Deferred Extremity: Non Tender, Pedal Edema (1+ PITTING) Neurologic/Psychiatric: Alert, Oriented x3 Reflexes: 2+ Bicep (R), 2+ Bicep (L) Skin: Normal Color, Warm/Dry Lymphatic: No Adenopathy Results Lab Laboratory Tests 09/28/21 04:23: White Blood Count 7.9, Red Blood Count 4.29, Hemoglobin 12.7, Hematocrit 39, Mean Corpuscular Volume 90, Mean Corpuscular Hemoglobin 30, Mean Corpuscular Hemoglobin Concent 33, Red Cell Distribution Width 15.1H, Platelet Count 175, Mean Platelet Volume 9.9, Sodium Level 137, Potassium Level 3.2L, Chloride Level 97L, Carbon Dioxide Level 30, Anion Gap 10, Blood Urea Nitrogen 28H, Creatinine 0.90, Estimat Glomerular Filtration Rate 60, BUN/Creatinine Ratio 31, Glucose Level 129H, Calcium Level 8.4L, Corrected Calcium 9.0, Magnesium Level 2.2, Total Bilirubin 1.4H, Aspartate Amino Transf (AST/SGOT) 241H, Alanine Aminotransferase (ALT/SGPT) 268H, Alkaline Phosphatase 108, Total Protein 5.9L, Albumin 3.3 Microbiology 09/27/21 Gram Stain - Final, Resulted 09/27/21 Body Fluid Culture - Preliminary, Resulted No growth 09/22/21 Urine Culture - Final, Complete 3 or more isolates 09/22/21 Blood Culture - Preliminary, Resulted No growth Assessment/Plan Assessment/Plan Admission Dx ACUTE ATRIAL FIBRILLATION URINARY TRACT INFECTION RESPIRATORY FAILURE CHRONIC OXYGEN DEPENDENCE COPD EXACERBATION HYPERLIPIDEMIA HYPOKALEMIA Assessment and Plan ACUTE ATRIAL FIBRILLATION URINARY TRACT INFECTION RESPIRATORY FAILURE CHRONIC OXYGEN DEPENDENCE COPD EXACERBATION HYPERLIPIDEMIA HYPOKALEMIA MUSCLE WEAKNESS CONSTIPATION ACUTE ATRIAL FIBRILLATION - DEFER TO DR. CALLES - CARDIOLOGY - PT WAS STARTED ON DIGOXIN YESTERDAY WITH EXCELLENT RESULTS FROM A RATE CONTROL PERSPECTIVE, CONTINUE REGIMEN AND MONITOR DIG LEVEL NEXT WEEK. URINARY TRACT INFECTION - PT ON ROCEPHIN, URINE SHOWED MORE THAN THREE ISOLATES, FINISHED ROCEPHIN DOSING 09/27/2021 RESPIRATORY FAILURE WITH CHRONIC OXYGEN DEPENDENCE AND COPD EXACERBATION AND PLEURAL EFFUSION PT ON VAPOTHERM AT 40LPM AND 80% (DOWN FROM 40LPM AND 100% ON 09/26/2021) - WEAK ABLE CONSULT PLACED TO TELE PULMONARY CONSULT SERVICE PT ON SOLUMEDROL AT 80MG IV Q6 HOURS, - DECREASED TO 40MG DAILY BY PULMONOLOGY ON 09/26/2021, ADVAIR, - CHANGED TO ALBUTEROL NEBULIZER TREATMENT (PT REFUSED XOPENEX DUE TO NASAL DISCHARGE) THORACENTESIS ON 09/27/2021 - CXR (REPORT FROM 09/28/2021 - 1. Small right pleural effusion with right basilar airspace opacity. Overall aeration appears similar to the prior exam. MUSCLE WEAKNESS - PHYSICAL THERAPY CONSULT TOMORROW CONSTIPATION - SENNA S AND MIRALAX TODAY HYPERLIPIDEMIA - HOLD HOME MEDS FOR NOW HYPOKALEMIA - PT ON REPLACEMENT PROTOCOL PT IS AT A HIGH RISK OF IN HOSPITAL DUE TO HER PULMONARY STATUS. Problems: (1) Atrial fibrillation with RVR (2) Urinary tract infection Qualifiers: Qualified Codes: N39.0 - Urinary tract infection, site not specified (3) COPD with acute exacerbation (4) Oxygen dependent (5) Hypoxia Admission Dx ACUTE ATRIAL FIBRILLATION URINARY TRACT INFECTION RESPIRATORY FAILURE CHRONIC OXYGEN DEPENDENCE COPD EXACERBATION HYPERLIPIDEMIA HYPOKALEMIA Clinical Quality Measures Admission Status Admission Dx ACUTE ATRIAL FIBRILLATION URINARY TRACT INFECTION RESPIRATORY FAILURE CHRONIC OXYGEN DEPENDENCE COPD EXACERBATION HYPERLIPIDEMIA HYPOKALEMIA ALTAGRACIA GILL MD Sep 28, 2021 09:18
[2021-09-28] MEDS: FLUTICASONE NASAL SPRAY (FLONASE) 16 GM BTL NS SCH (11:15)
[2021-09-28] MEDS ORDERED: SENNA W/DOCUSATE (SENOKOT S) TABLET PO PRN (11:30)
[2021-09-28] MEDS ORDERED: SENNA W/DOCUSATE (SENOKOT S) TABLET PO ONE (11:30)
[2021-09-28] MEDS ORDERED: RT-ALBUTEROL SULF 2.5 MG/3 ML PRE-MIX VIAL INH PRN (14:15)
[2021-09-28] MEDS: RT-ALBUTEROL SULF 2.5 MG/3 ML PRE-MIX VIAL INH SCH ×2 (15:33→21:03)
[2021-09-28] MEDS: polyethylene glycoL POWDER 17 GM (MIRALAX) PACK PO SCH (21:34)
[2021-09-29] MEDS: RT-ALBUTEROL SULF 2.5 MG/3 ML PRE-MIX VIAL INH SCH ×3 (02:15→21:33)
[2021-09-29 05:24] LABS: ALBUMIN 3.6 GM/DL (3.2-4.5)
[2021-09-29 05:25] LABS: POTASSIUM 3.8 MMOL/L (3.6-5.0)
[2021-09-29 05:26] LABS: CALCIUM 8.9 MG/DL (8.5-10.1)
[2021-09-29 05:27] LABS: TOTAL PROTEIN 6.5 GM/DL (6.4-8.2)
[2021-09-29 05:29] LABS: BILIRUBIN,TOTAL 1.4 MG/DL (0.1-1.0)
[2021-09-29 05:31] LABS: CREATININE SERUM 0.99 MG/DL (0.60-1.30)
--- NOTE | 2021-09-29 06:50 | Diagnostic Imaging Report ---
INDICATION: Pleural effusion, cardiac enlargement. COMPARISON: 09/28/2021. FINDINGS: Single view of the chest demonstrates persistent but decreasing right-sided effusion with dependent atelectasis. Minimal atelectasis seen in the left base. The heart remains enlarged. There is no pulmonary edema. No pneumothorax. IMPRESSION: Persistent but decreasing right-sided effusion. Dictated by: Dictated on workstation # [id number]
--- NOTE | 2021-09-29 07:20 | Progress Note - Surgery ---
MICHELA KENT 09/29/21 0720: Subjective Date Seen by a Provider: Sep 29, 2021 Time Seen by a Provider: 06:46 Subjective/Events-last exam Today when I visited the pt she was sleeping in bed and roused easily. She states that breathing has become much easier for her now and is asking about when she can go home. She did have a short coughing spell, which sounded loose, but did not produce sputum. She does demonstrate the ability to take a nice deep breath. She is currently on 30/70 vapotherm, with O2 saturation at 97% while talking with me in the room. She did complain about upper respiratory irritation during her breathing treatments and has refused some of them. She is not experiencing any pain and reports uncomplicated urination and bowel function. She reports a normal appetite and no difficulty with foods. I encouraged the pt to continue using her ICS, 10x every 1hr, and explain the importance of this exercise, she acknowledges the importance and agrees to use it. Review of Systems General: No Chills, No Night Sweats, No Fatigue, No Malaise, No Appetite HEENT: No Head Aches, No Visual Changes, No Dysphasia, No Sore Throat Pulmonary: No Dyspnea; Cough; No Pleuritic Chest Pain Cardiovascular: No: Chest Pain, Orthopnea, Paroxysmal Noc. Dyspnea, Lt Headedness Gastrointestinal: No: Nausea, Vomiting, Abdominal Pain, Diarrhea, Constipation Genitourinary: No Dysuria, No Incontinence, No Retention Musculoskeletal: No: neck pain, shoulder pain, back pain, hand pain, leg pain, foot pain Neurological: No: Weakness, Numbness, Confusion, Seizures Objective Exam Vital Signs Date Time Temp Pulse Resp B/P (MAP) Pulse Ox O2 Delivery O2 Flow Rate FiO2 09/29/21 04:00 36.5 68 22 116/68 96 Vapotherm 30.00 70.00 09/29/21 02:15 93 Vapotherm 30.00 70 09/29/21 01:01 81 09/29/21 00:00 36.4 83 22 126/74 97 Vapotherm 30.00 70.00 09/28/21 21:03 91 Vapotherm 30.00 70 09/28/21 21:00 94 Vapotherm 40.00 80 09/28/21 20:00 36.4 87 25 106/64 93 Vapotherm 30.00 70.00 09/28/21 19:00 84 09/28/21 16:00 36.6 86 18 115/60 96 Vapotherm 40.00 80.00 09/28/21 15:34 93 Vapotherm 30.00 70 09/28/21 12:48 89 09/28/21 12:00 36.4 92 16 142/81 94 Nasal Cannula 09/28/21 08:54 94 Vapotherm 40.00 80 09/28/21 08:00 36.8 80 21 127/80 96 Nasal Cannula I & O 09/29/21 07:00 Intake Total 1685 ml Output Total 2375 ml Balance -690 ml Capillary Refill : Less Than 3 Seconds General Appearance: No Apparent Distress, WD/WN, Chronically ill HEENT: PERRL/EOMI, Pharynx Normal Neck: Full Range of Motion, Non Tender, Supple Respiratory: Chest Non Tender, Lungs Clear, Normal Breath Sounds, No Accessory Muscle Use, No Respiratory Distress, Other (Requiring Oxygen) Cardiovascular: No Gallop, No Murmur, Normal Peripheral Pulses, Irregularly Irregular Peripheral Pulses: 2+ Radial Pulses (R), 2+ Radial Pulses (L) Gastrointestinal: non tender, soft, no organomegaly Extremity: Normal Capillary Refill, Normal Range of Motion, Non Tender, No Calf Tenderness, Pedal Edema (1+ PITTING) Neurologic/Psychiatric: Alert, Oriented x3, No Motor/Sensory Deficits, 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, 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 Skin: Normal Color, Warm/Dry Lymphatic: No Adenopathy (cervical and axillary) Results Lab Laboratory Tests 09/29/21 04:47: Sodium Level 138, Potassium Level 3.8, Chloride Level 96L, Carbon Dioxide Level 28, Anion Gap 14, Blood Urea Nitrogen 32H, Creatinine 0.99, Estimat Glomerular Filtration Rate 54, BUN/Creatinine Ratio 32, Glucose Level 124H, Calcium Level 8.9, Corrected Calcium 9.2, Total Bilirubin 1.4H, Aspartate Amino Transf (AST/SGOT) 198H, Alanine Aminotransferase (ALT/SGPT) 309H, Alkaline Phosphatase 112, Total Protein 6.5, Albumin 3.6, Digoxin Level 0.85 Microbiology 09/27/21 Gram Stain - Final, Resulted 09/27/21 Body Fluid Culture - Preliminary, Resulted No growth 09/22/21 Urine Culture - Final, Complete 3 or more isolates 09/22/21 Blood Culture - Final, Complete No growth Assessment/Plan Assessment/Plan Assessment/Plan left pleural effusion resolved s/p u/s guided thoracentesis small right pleural effusion - reducing in size copd CHF UTI Chonic Afib. Plan: Restart Eliquis ICS use, PT&OT Patient breathing easier today and decreasing small right pleural effusion. On Vapotherm. Continue medical management. Continue to follow, if right effusion increases in size would do thoracentesis. MADDIE HILL DO 09/29/212041: Subjective Subjective/Events-last exam Patient breathing improving. Still on Vapotherm but decreasing needs. Patient breathing significantly easier she states. Able to take deep breaths better. Nonproductive cough. Patient chest x-ray demonstrating improvement of the right pleural effusion and resolution of the left after thoracentesis. Objective Exam General Appearance: No Apparent Distress, Chronically ill HEENT: PERRL/EOMI, Normal ENT Inspection Neck: Full Range of Motion, Non Tender Respiratory: Chest Non Tender, No Accessory Muscle Use, No Respiratory Distress Cardiovascular: No JVD, Irregularly Irregular Gastrointestinal: non tender, soft, no organomegaly Extremity: Non Tender, No Calf Tenderness Neurologic/Psychiatric: Alert, Oriented x3, 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 Skin: Normal Color, Warm/Dry Lymphatic: No Adenopathy (cervical and axillary) Assessment/Plan Assessment/Plan Assessment/Plan left pleural effusion resolved s/p u/s guided thoracentesis small right pleural effusion - reducing in size copd CHF UTI Chonic Afib. Patient breathing improved. Decreasing right pleural effusion. She does not need a right thoracentesis at this time and likely will not as long as it continues to improve. Will sign off please call if needed. Supervisory-Addendum Brief Verification & Attestation Participated in pt care: history, MDM, physical Personally performed: exam, history, MDM, supervision of care Care discussed with: Medical Student Procedures: n/a Results interpretation: Verified all documentation Verification and Attestation of Medical Student E/M Service A medical student performed and documented this service in my presence. I reviewed and verified all information documented by the medical student and made modifications to such information, when appropriate. I personally performed the physical exam and medical decision making. Maddie Hill, Sep 29, 2021,20:40 MICHELA KENT Sep 29, 2021 07:20 MADDIE HILL DO Sep 29, 2021 20:42
--- NOTE | 2021-09-29 08:45 | Progress Note - Cardiology ---
Cardiology SOAP Progress Note Subjective: Sitting up on the side of the bed HR improved She feels her breathing is doing better No c/o CP or palpitations Objective: I&O/Vital Signs 09/30/21 09/30/21 09/30/21 09/30/21 00:00 01:00 02:15 04:00 Temp 36.2 36.6 Pulse 78 82 67 Resp 14 17 B/P (MAP) 143/80 129/82 Pulse Ox 92 93 95 O2 Delivery Vapotherm Vapotherm Vapotherm O2 Flow Rate 30.00 30.00 30.00 70.00 70.00 FiO2 70 09/30/21 09/30/21 09/30/21 09/30/21 07:00 07:42 08:00 08:40 Temp 36.6 Pulse 70 74 Resp 23 B/P (MAP) 134/89 Pulse Ox 90 94 99 O2 Delivery Vapotherm Vapotherm O2 Flow Rate 30.00 30.00 25.00 70.00 70.00 FiO2 70 09/30/21 09/30/21 09/30/21 08:55 09:06 09:38 Pulse Ox 100 99 91 O2 Delivery Vapotherm O2 Flow Rate 20.00 15.00 15.00 60.00 50.00 FiO2 50 09/29/21 23:59 Intake Total 1350 ml Output Total 2400 ml Balance -1050 ml Constitutional: AAO x 3, well-developed, well-nourished Respiratory: No accessory muscle use, No respiratory distress; chest expansion is symmetric, chest is bilaterally symmetric, rhonchi (scattered), other (diminished lower lobes bilat) Cardiovascular: irregularly irregular; No JVD; S1 and S2, systolic murmur Gastrointestional: No tender; soft, round, audible bowel sounds Extremities: other (mild LE swelling bilat) Neurologic/Psychiatric: grossly intact (moves all extremities) Skin: No rash on exposed areas, No ulcerations on exposed areas Results/Procedures: Labs Laboratory Tests 09/30/21 04:59: Sodium Level 137, Potassium Level 4.2, Chloride Level 96L, Carbon Dioxide Level 29, Anion Gap 12, Blood Urea Nitrogen 30H, Creatinine 0.78, Estimat Glomerular Filtration Rate 71, BUN/Creatinine Ratio 38, Glucose Level 106H, Calcium Level 8.8, Corrected Calcium 9.2, Total Bilirubin 1.4H, Aspartate Amino Transf (AST/SGOT) 145H, Alanine Aminotransferase (ALT/SGPT) 287H, Alkaline Phosphatase 108, Total Protein 6.4, Albumin 3.5 Microbiology 09/27/21 Gram Stain - Final, Resulted 09/27/21 Body Fluid Culture - Preliminary, Resulted No growth 09/22/21 Urine Culture - Final, Complete 3 or more isolates 09/22/21 Blood Culture - Final, Complete No growth Procedures NAME: JESSE MONREAL [facility] REC#: [id number] PT STATUS: ADM IN : 1940 PHYSICIAN: ALTAGRACIA LEONARD MD ADMIT DATE: 09/22/21/[facility] Signed Date of Exam:09/29/21 CHEST 1 VIEW, AP/PA ONLY INDICATION: Pleural effusion, cardiac enlargement. COMPARISON: 09/28/2021. FINDINGS: Single view of the chest demonstrates persistent but decreasing right-sided effusion with dependent atelectasis. Minimal atelectasis seen in the left base. The heart remains enlarged. There is no pulmonary edema. No pneumothorax. IMPRESSION: Persistent but decreasing right-sided effusion. Dictated by: Dictated on workstation # [id number] Dict: 09/29/21 0634 Trans: 09/29/21 0741 [id number] Interpreted by: BROCK BENITES Electronically signed by: BROCK BENITES 09/29/21 0741 A/P: Assessment: A-fib with RVR - diagnosed on EKG of 09-22-21 in the ED, age unknown - Oral long-acting dilt for vent rate control and apixaban for stroke prop hylaxis 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 - Echo on 09/23/21: LVEF 45-50%, mod to sev biatrial enlargement, mod to severe MR & TR, pulm htn with PASP approx 70 mmHg UTI - management per Medical services Pneumonia - management per Medical services HTN HLD GERD COPD 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 Chronic back pain - h/o extensive back surgeries in 2014 following a fall Plan: - Complex management due to multiple comorbidities - AF ventricular rate improved with addition of Dig - Acute on chronic systolic and diastolic CHF - tx with diuretics - Low bp does not allow JACK-inhib or ARB or beta-shantanu - Replace electrolytes as indicated - S/P thoracentesis on 09-27-21 - restart OAC - Elevated liver enzymes - management per medical services - Change IV lasix to oral - Discussed with Dr Leonard this am EVANGELISTA REDD Sep 29, 2021 08:45
--- NOTE | 2021-09-29 08:50 | Progress Note ---
Subjective Subjective Date Seen by Provider: Sep 29, 2021 Time Seen by Provider: 08:30 PT CONTINUES TO FEEL IF SHE IS IMPROVING. SHE REPORTS THAT SHE FEELS BETTER, IS BREATHING EASIER AND HAS LESS DISCOMFORT WITH BREATHING THAN ON PREVIOUS DAYS. SHE DENIES ABDOMINAL PAIN OR NAUSEA. JESSE IS WANTING TO GO HOME SISI. Review of Systems General: No Chills, No Night Sweats; Fatigue; No Malaise, No Appetite HEENT: No Head Aches, No Visual Changes, No Dysphasia, No Sore Throat Pulmonary: No Dyspnea; Cough; No Pleuritic Chest Pain Cardiovascular: No: Chest Pain, Orthopnea, Paroxysmal Noc. Dyspnea, Lt Headedness Gastrointestinal: No: Nausea, Vomiting, Abdominal Pain, Diarrhea, Constipation Genitourinary: No Dysuria, No Incontinence, No Retention Musculoskeletal: No: neck pain, shoulder pain, back pain, hand pain, leg pain, foot pain Neurological: Weakness; No: Numbness, Confusion, Seizures All Other Systems Reviewed All Other Systems Reviewed: Yes (Negative excepted noted.) Objective Exam Vital Signs Vital Signs Date Time Temp Pulse Resp B/P (MAP) Pulse Ox O2 Delivery O2 Flow Rate FiO2 09/29/21 07:51 36.6 62 21 131/76 92 Vapotherm 30.00 70.00 09/29/21 07:00 76 09/29/21 04:00 36.5 68 22 116/68 96 Vapotherm 30.00 70.00 09/29/21 02:15 93 Vapotherm 30.00 70 09/29/21 01:01 81 09/29/21 00:00 36.4 83 22 126/74 97 Vapotherm 30.00 70.00 09/28/21 21:03 91 Vapotherm 30.00 70 09/28/21 21:00 94 Vapotherm 40.00 80 09/28/21 20:00 36.4 87 25 106/64 93 Vapotherm 30.00 70.00 09/28/21 19:00 84 09/28/21 16:00 36.6 86 18 115/60 96 Vapotherm 40.00 80.00 09/28/21 15:34 93 Vapotherm 30.00 70 09/28/21 12:48 89 09/28/21 12:00 36.4 92 16 142/81 94 Nasal Cannula 09/28/21 08:54 94 Vapotherm 40.00 80 I & O 09/29/21 07:00 Intake Total 1685 ml Output Total 2375 ml Balance -690 ml General Appearance: No Apparent Distress, WD/WN, Chronically ill Eyes: Bilateral Eye PERRL, Bilateral Eye EOMI HEENT: PERRL/EOMI, Pharynx Normal Neck: Full Range of Motion, Non Tender, Supple Respiratory: Chest Non Tender, No Respiratory Distress, Decreased Breath So unds, Other (Requiring Oxygen) Cardiovascular: No Gallop, No Murmur, Normal Peripheral Pulses, Irregularly Irregular Gastrointestinal: Normal Bowel Sounds, Non Tender, Soft; No Distended, No Tenderness Rectal: Deferred Extremity: Normal Capillary Refill, Normal Range of Motion, Non Tender, No Calf Tenderness, Pedal Edema (1+ PITTING) Neurologic/Psychiatric: Alert, Oriented x3, No Motor/Sensory Deficits, 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, 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 Reflexes: 2+ Bicep (R), 2+ Bicep (L) Skin: Normal Color, Warm/Dry Lymphatic: No Adenopathy (cervical and axillary) Results Lab Laboratory Tests 09/29/21 04:47: Sodium Level 138, Potassium Level 3.8, Chloride Level 96L, Carbon Dioxide Level 28, Anion Gap 14, Blood Urea Nitrogen 32H, Creatinine 0.99, Estimat Glomerular Filtration Rate 54, BUN/Creatinine Ratio 32, Glucose Level 124H, Calcium Level 8.9, Corrected Calcium 9.2, Total Bilirubin 1.4H, Aspartate Amino Transf (AST/SGOT) 198H, Alanine Aminotransferase (ALT/SGPT) 309H, Alkaline Phosphatase 112, Total Protein 6.5, Albumin 3.6, Digoxin Level 0.85 Microbiology 09/27/21 Gram Stain - Final, Resulted 09/27/21 Body Fluid Culture - Preliminary, Resulted No growth 09/22/21 Urine Culture - Final, Complete 3 or more isolates 09/22/21 Blood Culture - Final, Complete No growth Assessment/Plan Assessment/Plan Admission Dx ACUTE ATRIAL FIBRILLATION URINARY TRACT INFECTION RESPIRATORY FAILURE CHRONIC OXYGEN DEPENDENCE COPD EXACERBATION HYPERLIPIDEMIA HYPOKALEMIA Assessment and Plan ACUTE ATRIAL FIBRILLATION URINARY TRACT INFECTION RESPIRATORY FAILURE CHRONIC OXYGEN DEPENDENCE COPD EXACERBATION HYPERLIPIDEMIA HYPOKALEMIA MUSCLE WEAKNESS CONSTIPATION ELEVATED LIVER ENZYMES ACUTE ATRIAL FIBRILLATION - DEFER TO DR. CALLES - CARDIOLOGY - PT WAS STARTED ON DIGOXIN WITH EXCELLENT RESULTS FROM A RATE CONTROL PERSPECTIVE, CONTINUE REGIMEN - DIGOXIN LEVEL WITHIN THERAPEUTIC RANGE URINARY TRACT INFECTION - PT ON ROCEPHIN, URINE SHOWED MORE THAN THREE ISOLATES, FINISHED ROCEPHIN DOSING 09/27/2021 RESPIRATORY FAILURE WITH CHRONIC OXYGEN DEPENDENCE AND COPD EXACERBATION AND PLEURAL EFFUSION PT ON VAPOTHERM AT 40LPM AND 80% (DOWN FROM 40LPM AND 100% ON 09/26/2021) - WEAK ABLE CONSULT PLACED TO TELE PULMONARY CONSULT SERVICE PT ON SOLUMEDROL AT 80MG IV Q6 HOURS, - DECREASED TO 40MG DAILY BY PULMONOLOGY ON 09/26/2021, ADVAIR, - CHANGED TO ALBUTEROL NEBULIZER TREATMENT (PT REFUSED XOPENEX DUE TO NASAL DISCHARGE) THORACENTESIS ON 09/27/2021 MUSCLE WEAKNESS - PHYSICAL THERAPY CONSULT TOMORROW CONSTIPATION - SENNA S AND MIRALAX TODAY HYPERLIPIDEMIA - HOLD HOME MEDS FOR NOW HYPOKALEMIA - PT ON REPLACEMENT PROTOCOL ELEVATED LIVER ENZYMES - SLIGHTLY IMPROVED - SUSPECT DUE TO HYPOXIC LIVER INJURY/SHOCK. CONTINUE WITH SUPPORTIVE CARE AND MONITOR LABS. ADVISED PT WE WOULD NOT DISCHARGE TO HOME UNTIL HER OXYGEN REQUIREMENT IMPROVED. PT IS AT A HIGH RISK OF IN HOSPITAL DUE TO HER PULMONARY STATUS. Problems: (1) Atrial fibrillation with RVR (2) Urinary tract infection Qualifiers: Qualified Codes: N39.0 - Urinary tract infection, site not specified (3) COPD with acute exacerbation (4) Oxygen dependent (5) Hypoxia Admission Dx ACUTE ATRIAL FIBRILLATION URINARY TRACT INFECTION RESPIRATORY FAILURE CHRONIC OXYGEN DEPENDENCE COPD EXACERBATION HYPERLIPIDEMIA HYPOKALEMIA Clinical Quality Measures Admission Status Admission Dx ACUTE ATRIAL FIBRILLATION URINARY TRACT INFECTION RESPIRATORY FAILURE CHRONIC OXYGEN DEPENDENCE COPD EXACERBATION HYPERLIPIDEMIA HYPOKALEMIA ALTAGRACIA GILL MD Sep 29, 2021 08:50
[2021-09-29] MEDS: KCL 10 MEQ TAB (MICRO K) PO SCH (08:51)
[2021-09-29] MEDS: DIGOXIN 0.25 MG (LANOXIN) TAB PO SCH (08:52)
[2021-09-29] MEDS: methylPREDNISolone 40 MG/ML (Solu-MEDROL) VIAL IV SCH (08:52)
[2021-09-29] MEDS: FUROSEMIDE 40 MG/4 ML INJ (LASIX) IVP SCH ×2 (08:52→17:51)
[2021-09-29] MEDS: SENNA W/DOCUSATE (SENOKOT S) TABLET PO SCH ×2 (08:52→20:20)
[2021-09-29] MEDS: APIXABAN 2.5 MG (ELIQUIS) TABLET PO SCH ×2 (08:56→20:20)
--- NOTE | 2021-09-29 09:47 | Physical Therapy Evaluation ---
PT Evaluation-General Medical Diagnosis Admission Date Sep 22, 2021 at 18:23 Medical Diagnosis: COPD with acute exacerbation Onset Date: Sep 22, 2021 Therapy Diagnosis Therapy Diagnosis: SOB with activity Precautions Precautions/Isolations: Fall Prevention, Standard Precautions Referral Physician: Horacio Reason for Referral: Evaluation/Treatment Medical History Additional Medical History Past Medical History Surgeries: Joint Replacement (Hip), Orthopedic (Bunionectomy, trauma surgery for fractured ribs and spine) COPD Currently Using CPAP: No Currently Using BIPAP: No High Cholesterol, Hypertension Sexually Transmitted Disease: No HIV/AIDS: No Arthritis, Fractures Are Your Blood Sugars Over 250: No Loss of Vision: Denies Hearing Impairment: Denies Reviewed History: Yes Social History Current Living Status: Alone Entry Into Home: Stairs With Railing PT Steps Into Home: 2 Prior Prior Level of Function SCALE: Activities may be completed with or without assistive devices. 6-Vmiyiejgez-nuikzfz completes the activity by him/herself with no assistance from a helper. 5-Set-up or Clean-up Assistance-helper sets up or cleans up; patient completes activity. [place] assists only prior to or following the activity. 4-Supervision or Touching Assistance-helper provides verbal cues and/or touching/steadying and/or contact guard assistance as patient completes activity. Assistance may be provided throughout the activity or intermittently. 3-Partial/Moderate Assistance-helper does LESS THAN HALF the effort. [place] lifts, holds or supports trunk or limbs, but provides less than half the effort. 2-Substantial/Maximal Assistance-helper does MORE THAN HALF the effort. [place] lifts or holds trunk or limbs and provides more than half the effort. 2-Fnlfkczty-zvdwxq does ALL the effort. Patient does none of the effort to complete the activity. Or, the assistance of 2 or more helpers is required for the patient to complete the activity. If activity was not attempted, code reason: 7-Patient Refused. 9-Not Applicable-not attempted and the patient did not perform the activity before the current illness, exacerbation or injury. 10-Not Attempted due to Environmental Limitations-(lack of equipment, weather restraints, etc.). 88-Not Attempted due to Medical Conditions or Safety Concerns. Bed Mobility: 6 Transfers (B,C,W/C): 6 Gait: 6 Stairs: 6 Indoor Mobility (Ambulation): Independent Stairs: Independent PT Evaluation-Current Subjective Patient sitting EOB pre tx, agrees to PT, has no complaints of pain Pt/Family Goals "to go home" Objective Patient Orientation: Person, Place, Situation Attachments: Oxygen ROM/Strength ROM Lower Extremities WNL Strength Lower Extremities LLE (hip flexion 3+/5, knee flexion 4+/5, knee extension 4+/5, dorsiflexion 4+/5), RLE (hip flexion 3+/5, knee flexion 4+/5, knee extension 4+/5, dorsiflexion 4+/5) Sensory Vision: Wears Glasses Hearing: Functional Sensation Right Lower Extremit: Intact Sensation Left Lower Extremity: Intact Transfers Sit to Stand (QC): 6 Patient was able to stand for about 30 seconds, her O2 dropped to mid 80's with only this activity Balance Sitting Static: Normal Sitting Dynamic: Normal Standing Static: Normal Treatment BLE seated exercises x20 (AP, LAQ) Assessment/Needs Patient in bed post tx with nurse call, phone, tray, all needs met. Patient has SOB and drop in O2 with minimal activity. Rehab Potential: Fair PT Chcf Goals Preparing Box Tender Goals PT Preparing Box Tender Goals Time Frame: Oct 06, 2021 Roll Left & Right (QC): 6 Sit to Lying (QC): 6 Lying-Sitting on Side/Bed(QC): 6 Sit to Stand (QC): 6 Chair/Vyn-js-Vogjj Xfer(QC): 6 Walk 10 feet (QC): 6 Walk 50ft with 2 Turns (QC): 6 PT Plan Problem List Problem List: Activity Tolerance, Functional Strength, Safety, Balance, Gait, Transfer, ROM Treatment/Plan Treatment Plan: Continue Plan of Care Treatment Plan: Education, Functional Activity Laura, Functional Strength, Gait, Safety, Therapeutic Exercise, Transfers Treatment Duration: Oct 06, 2021 Frequency: 6 times per week Estimated Hrs Per Day: .25 hour per day Patient and/or Family Agrees t: Yes Safety Risks/Education Patient Education: Correct Positioning, Safety Issues Teaching Recipient: Patient Teaching Methods: Demonstration, Discussion Response to Teaching: Reinforcement Needed Discharge Recommendations Plan Patient will perform bed mobility and transfer training, balance and endurance training, functional strengthening, stair training, gait training, and educ ation, to improve functional mobility and independence at home. Therapy Discharge Recommendati: Scheduled Assistance, Home & Family Time/GCodes Time In: 904 Time Out: 914 Total Billed Treatment Time: 10 Total Billed Treatment 1 visit EVL 10' KHOA CHANDLER PT Sep 29, 2021 09:47
--- NOTE | 2021-09-29 16:12 | Pulmonary Progress Note ---
Subjective Date Seen by a Provider: Sep 29, 2021 Time Seen by a Provider: 16:07 Sepsis Event Evaluation Height, Weight, BMI Height: '" Weight: lbs. oz. kg; 25.19 BMI Method: Exam Exam PATIENT IS FEELING BETTER LESS DYSPNEA ON VT 30L 75% CAN AMBULATE IN ROOM MINIMAL COUGH APPETITE IS GOOD, PO INTAKE ADEQUATE Patient acknowledged, consented, and participated in this virtual visit which was conducted using real time audio/video Vital Signs Date Time Temp Pulse Resp B/P (MAP) Pulse Ox O2 Delivery O2 Flow Rate FiO2 09/29/21 15:19 66 93 70 09/29/21 13:54 93 Vapotherm 30.00 70 09/29/21 12:02 82 09/29/21 12:00 36.9 73 23 111/64 95 Vapotherm 30.00 70.00 09/29/21 09:33 93 Vapotherm 30.00 70 09/29/21 09:00 95 Vapotherm 30.00 09/29/21 07:51 36.6 62 21 131/76 92 Vapotherm 30.00 70.00 09/29/21 07:00 76 09/29/21 04:00 36.5 68 22 116/68 96 Vapotherm 30.00 70.00 09/29/21 02:15 93 Vapotherm 30.00 70 09/29/21 01:01 81 09/29/21 00:00 36.4 83 22 126/74 97 Vapotherm 30.00 70.00 09/28/21 21:03 91 Vapotherm 30.00 70 09/28/21 21:00 94 Vapotherm 40.00 80 09/28/21 20:00 36.4 87 25 106/64 93 Vapotherm 30.00 70.00 09/28/21 19:00 84 I & O 09/29/21 07:00 Intake Total 1685 ml Output Total 2375 ml Balance -690 ml Height & Weight Height: '" Weight: lbs. oz. kg; 25.19 BMI Method: General Appearance: No Apparent Distress, WD/WN, Chronically ill HEENT: PERRL/EOMI, Pharynx Normal Neck: Full Range of Motion, Non Tender, Supple Respiratory: Chest Non Tender, No Respiratory Distress, Decreased Breath Sounds, Other (Requiring Oxygen) Cardiovascular: No Gallop, No Murmur, Normal Peripheral Pulses, Irregularly Irregular Capillary Refill: Less Than 3 Seconds Peripheral Pulses: 2+ Radial Pulses (R), 2+ Radial Pulses (L) Gastrointestinal: non tender, soft, no organomegaly Extremity: Normal Capillary Refill, Normal Range of Motion, Non Tender, No Calf Tenderness, Pedal Edema (1+ PITTING) Neurologic/Psychiatric: Alert, Oriented x3, No Motor/Sensory Deficits, 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, 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 Patient has a severe pulmonary hypertension associated with moderate to severe mitral regurgitation, tricuspid regurgitation and biatrial enlargement. - cont diuretic therapy with Lasix IV - cards follow 2. Congestive heart failure with bilateral pleural effusion L>>R - S/P LEFT THORACENTESIS- transudate -RIGHT effusion is not enlarging on cxr 09/29 =- no need for thora , monitor 3. Atrial fibrillation with rapid ventricular rate now controlled, - managed by cardiology service - back on eliquis 4. She has possible underlying COPD which may be contributing to her pulmonary hypertension. - cont iv solumedrol for today - re-eval tomorrow OFF abx , follow Elv LFT - follow NELDA ESPINOZA MD Sep 29, 2021 16:12
--- NOTE | 2021-09-29 16:27 | Progress Note - Cardiology ---
Cardiology SOAP Progress Note Subjective: No cp or palp or syncope Gen weakness improving Shortness of breath improving No n/v/d Objective: I&O/Vital Signs 09/29/21 09/29/21 09/29/21 09/29/21 07:00 07:51 09:00 09:33 Temp 36.6 Pulse 76 62 Resp 21 B/P (MAP) 131/76 Pulse Ox 92 95 93 O2 Delivery Vapotherm Vapotherm Vapotherm O2 Flow Rate 30.00 30.00 30.00 70.00 FiO2 70 09/29/21 09/29/21 09/29/21 09/29/21 12:00 12:02 13:54 15:19 Temp 36.9 Pulse 73 82 66 Resp 23 B/P (MAP) 111/64 Pulse Ox 95 93 93 O2 Delivery Vapotherm Vapotherm O2 Flow Rate 30.00 30.00 70.00 FiO2 70 70 09/29/21 00:00 Intake Total 1185 ml Output Total 1575 ml Balance -390 ml Constitutional: AAO x 3, well-developed, well-nourished Respiratory: No accessory muscle use, No respiratory distress; chest expansion is symmetric, chest is bilaterally symmetric, rhonchi (scattered), other (diminished lower lobes bilat) Cardiovascular: irregularly irregular; No JVD; S1 and S2, systolic murmur Gastrointestional: No tender; soft, round, audible bowel sounds Extremities: other (mild LE swelling bilat) Neurologic/Psychiatric: grossly intact (moves all extremities) Skin: No rash on exposed areas, No ulcerations on exposed areas Results/Procedures: Labs Laboratory Tests 09/29/21 04:47: Sodium Level 138, Potassium Level 3.8, Chloride Level 96L, Carbon Dioxide Level 28, Anion Gap 14, Blood Urea Nitrogen 32H, Creatinine 0.99, Estimat Glomerular Filtration Rate 54, BUN/Creatinine Ratio 32, Glucose Level 124H, Calcium Level 8.9, Corrected Calcium 9.2, Total Bilirubin 1.4H, Aspartate Amino Transf (AST/SGOT) 198H, Alanine Aminotransferase (ALT/SGPT) 309H, Alkaline Phosphatase 112, Total Protein 6.5, Albumin 3.6, Digoxin Level 0.85 Microbiology 09/27/21 Gram Stain - Final, Resulted 09/27/21 Body Fluid Culture - Preliminary, Resulted No growth 09/22/21 Urine Culture - Final, Complete 3 or more isolates 09/22/21 Blood Culture - Final, Complete No growth Laboratory Tests 09/28/21 04:23 09/29/21 04:47 A/P: Assessment: A-fib with RVR - diagnosed on EKG of 09-22-21 in the ED, age unknown - Oral long-acting dilt for vent rate control and apixaban for stroke prophylaxis 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 - Echo on 09/23/21: LVEF 45-50%, mod to sev biatrial enlargement, mod to severe MR & TR, pulm htn with PASP approx 70 mmHg UTI - management per Medical services Pneumonia - management per Medical services HTN HLD GERD COPD 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 Chronic back pain - h/o extensive back surgeries in 2014 following a fall Plan: - Complex management due to multiple comorbidities - AF ventricular rate improved with addition of Dig - Acute on chronic systolic and diastolic CHF - tx with diuretics - Low bp does not allow JACK-inhib or ARB or beta-shantanu - Replace electrolytes as indicated - S/P thoracentesis on 09-27-21 - restart OAC - Elevated liver enzymes - management per medical services - Change IV lasix to oral EKATERINA CALLES MD FACP [facility] Sep 29, 2021 16:27
[2021-09-29] MEDS: polyethylene glycoL POWDER 17 GM (MIRALAX) PACK PO SCH (20:20)
[2021-09-29] MEDS: RT--FLUTICASONE/SALMETEROL 113-14 (AIRDUO RespiCLICK) IH SCH (21:33)
[2021-09-30] MEDS: RT-ALBUTEROL SULF 2.5 MG/3 ML PRE-MIX VIAL INH SCH ×4 (02:15→20:31)
[2021-09-30 05:35] LABS: ALBUMIN 3.5 GM/DL (3.2-4.5); POTASSIUM 4.2 MMOL/L (3.6-5.0)
[2021-09-30 05:37] LABS: CALCIUM 8.8 MG/DL (8.5-10.1)
[2021-09-30 05:38] LABS: TOTAL PROTEIN 6.4 GM/DL (6.4-8.2)
[2021-09-30 05:39] LABS: BILIRUBIN,TOTAL 1.4 MG/DL (0.1-1.0)
[2021-09-30 05:41] LABS: CREATININE SERUM 0.78 MG/DL (0.60-1.30)
[2021-09-30] MEDS: KCL 10 MEQ TAB (MICRO K) PO SCH (06:43)
[2021-09-30] MEDS: FUROSEMIDE 40 MG (LASIX) TAB PO SCH ×2 (06:43→17:47)
[2021-09-30] MEDS: DIGOXIN 0.25 MG (LANOXIN) TAB PO SCH (08:11)
[2021-09-30] MEDS: FLUTICASONE NASAL SPRAY (FLONASE) 16 GM BTL NS SCH (08:11)
[2021-09-30] MEDS: methylPREDNISolone 40 MG/ML (Solu-MEDROL) VIAL IV SCH (08:11)
[2021-09-30] MEDS: APIXABAN 2.5 MG (ELIQUIS) TABLET PO SCH ×2 (08:11→20:05)
[2021-09-30] MEDS: SENNA W/DOCUSATE (SENOKOT S) TABLET PO SCH ×2 (08:11→20:05)
--- NOTE | 2021-09-30 09:03 | Progress Note ---
Subjective Subjective PT CONTINUES TO FEEL IF SHE IS IMPROVING. SHE REPORTS THAT SHE FEELS BETTER, IS BREATHING EASIER AND HAS LESS DISCOMFORT WITH BREATHING THAN ON PREVIOUS DAYS. SHE REPORTS THAT SHE WAS ABLE TO MOVE IN THE ROOM WITH THERAPY WITHOUT HER OXYGEN DROPPING MUCH BELOW 95, HOWEVER THERAPY REPORTS DROPS TO THE 91% RANGE Review of Systems General: No Chills, No Night Sweats; Fatigue; No Malaise, No Appetite HEENT: No Head Aches, No Visual Changes, No Dysphasia, No Sore Throat Pulmonary: No Dyspnea; Cough; No Pleuritic Chest Pain Cardiovascular: No: Chest Pain, Orthopnea, Paroxysmal Noc. Dyspnea, Lt Headedness Gastrointestinal: No: Nausea, Vomiting, Abdominal Pain, Diarrhea, Constipation Genitourinary: No Dysuria, No Incontinence, No Retention Musculoskeletal: No: neck pain, shoulder pain, back pain, hand pain, leg pain, foot pain Neurological: Weakness; No: Numbness, Confusion, Seizures All Other Systems Reviewed All Other Systems Reviewed: Yes (Negative excepted noted.) Objective Exam Vital Signs Vital Signs Date Time Temp Pulse Resp B/P (MAP) Pulse Ox O2 Delivery O2 Flow Rate FiO2 09/30/21 08:48 99 Vapotherm 25.00 70.00 09/30/21 08:00 94 Vapotherm 30.00 70 09/30/21 07:42 36.6 74 23 134/89 90 Vapotherm 30.00 70.00 09/30/21 04:00 36.6 67 17 129/82 95 Vapotherm 30.00 70.00 09/30/21 02:15 93 Vapotherm 30.00 70 09/30/21 01:00 82 09/30/21 00:00 36.2 78 14 143/80 92 Vapotherm 30.00 70.00 09/29/21 21:33 90 Vapotherm 30.00 70 09/29/21 21:00 94 Vapotherm 30.00 70 09/29/21 20:00 36.6 69 18 138/75 95 Vapotherm 30.00 70.00 09/29/21 19:00 87 09/29/21 16:00 36.9 66 23 111/64 93 Vapotherm 30.00 30.00 09/29/21 15:19 66 93 70 09/29/21 13:54 93 Vapotherm 30.00 70 09/29/21 12:02 82 09/29/21 12:00 36.9 73 23 111/64 95 Vapotherm 30.00 70.00 09/29/21 09:33 93 Vapotherm 30.00 70 I & O 09/30/21 07:00 Intake Total 2000 ml Output Total 3225 ml Balance -1225 ml General Appearance: No Apparent Distress, Chronically ill Eyes: Bilateral Eye PERRL, Bilateral Eye EOMI HEENT: PERRL/EOMI, Normal ENT Inspection Neck: Full Range of Motion, Non Tender Respiratory: Chest Non Tender, No Accessory Muscle Use, No Respiratory Distress Cardiovascular: No JVD, Irregularly Irregular Gastrointestinal: Normal Bowel Sounds, Non Tender, Soft; No Distended, No Tenderness Rectal: Deferred Extremity: Non Tender, No Calf Tenderness Neurologic/Psychiatric: Alert, Oriented x3, 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 Reflexes: 2+ Bicep (R), 2+ Bicep (L) Skin: Normal Color, Warm/Dry Lymphatic: No Adenopathy (cervical and axillary) Results Lab Laboratory Tests 09/30/21 04:59: Sodium Level 137, Potassium Level 4.2, Chloride Level 96L, Carbon Dioxide Level 29, Anion Gap 12, Blood Urea Nitrogen 30H, Creatinine 0.78, Estimat Glomerular Filtration Rate 71, BUN/Creatinine Ratio 38, Glucose Level 106H, Calcium Level 8.8, Corrected Calcium 9.2, Total Bilirubin 1.4H, Aspartate Amino Transf (AST/SGOT) 145H, Alanine Aminotransferase (ALT/SGPT) 287H, Alkaline Phosphatase 108, Total Protein 6.4, Albumin 3.5 Microbiology 09/27/21 Gram Stain - Final, Resulted 09/27/21 Body Fluid Culture - Preliminary, Resulted No growth 09/22/21 Urine Culture - Final, Complete 3 or more isolates 09/22/21 Blood Culture - Final, Complete No growth Assessment/Plan Assessment/Plan Admission Dx ACUTE ATRIAL FIBRILLATION URINARY TRACT INFECTION RESPIRATORY FAILURE CHRONIC OXYGEN DEPENDENCE COPD EXACERBATION HYPERLIPIDEMIA HYPOKALEMIA Assessment and Plan ACUTE ATRIAL FIBRILLATION URINARY TRACT INFECTION RESPIRATORY FAILURE CHRONIC OXYGEN DEPENDENCE COPD EXACERBATION HYPERLIPIDEMIA HYPOKALEMIA MUSCLE WEAKNESS CONSTIPATION ELEVATED LIVER ENZYMES ACUTE ATRIAL FIBRILLATION - DEFER TO DR. CALLES - CARDIOLOGY - PT WAS STARTED ON DIGOXIN WITH EXCELLENT RESULTS FROM A RATE CONTROL PERSPECTIVE, CONTINUE REGIMEN - DIGOXIN LEVEL WITHIN THERAPEUTIC RANGE URINARY TRACT INFECTION - PT ON ROCEPHIN, URINE SHOWED MORE THAN THREE ISOLATES, FINISHED ROCEPHIN DOSING 09/27/2021 RESPIRATORY FAILURE WITH CHRONIC OXYGEN DEPENDENCE AND COPD EXACERBATION AND PLEURAL EFFUSION PT ON VAPOTHERM AT 40LPM AND 80% (DOWN FROM 40LPM AND 100% ON 09/26/2021) - WEAK ABLE CONSULT PLACED TO TELE PULMONARY CONSULT SERVICE PT ON SOLUMEDROL AT 80MG IV Q6 HOURS, - DECREASED TO 40MG DAILY BY PULMONOLOGY ON 09/26/2021, ADVAIR, - CHANGED TO ALBUTEROL NEBULIZER TREATMENT (PT REFUSED XOPENEX DUE TO NASAL DISCHARGE) THORACENTESIS ON 09/27/2021 MUSCLE WEAKNESS - PHYSICAL THERAPY CONSULT TOMORROW CONSTIPATION - SENNA S AND MIRALAX TODAY HYPERLIPIDEMIA - HOLD HOME MEDS FOR NOW HYPOKALEMIA - PT ON REPLACEMENT PROTOCOL ELEVATED LIVER ENZYMES - SLIGHTLY IMPROVED - SUSPECT DUE TO HYPOXIC LIVER INJURY/SHOCK. CONTINUE WITH SUPPORTIVE CARE AND MONITOR LABS. ADVISED PT WE WOULD NOT DISCHARGE TO HOME UNTIL HER OXYGEN REQUIREMENT IMPROVED. PT IS AT A HIGH RISK OF IN HOSPITAL DUE TO HER PULMONARY STATUS. Problems: (1) Atrial fibrillation with RVR (2) Urinary tract infection Qualifiers: Qualified Codes: N39.0 - Urinary tract infection, site not specified (3) COPD with acute exacerbation (4) Oxygen dependent (5) Hypoxia Admission Dx ACUTE ATRIAL FIBRILLATION URINARY TRACT INFECTION RESPIRATORY FAILURE CHRONIC OXYGEN DEPENDENCE COPD EXACERBATION HYPERLIPIDEMIA HYPOKALEMIA Clinical Quality Measures Admission Status Admission Dx ACUTE ATRIAL FIBRILLATION URINARY TRACT INFECTION RESPIRATORY FAILURE CHRONIC OXYGEN DEPENDENCE COPD EXACERBATION HYPERLIPIDEMIA HYPOKALEMIA ALTAGRACIA GILL MD Sep 30, 2021 09:03
[2021-09-30] MEDS: RT--FLUTICASONE/SALMETEROL 113-14 (AIRDUO RespiCLICK) IH SCH (09:38)
--- NOTE | 2021-09-30 09:50 | Progress Note - Cardiology ---
Cardiology SOAP Progress Note Subjective: Sitting up in bed States she feels much better No c/o CP, palpitations, syncope or near syncope Objective: I&O/Vital Signs 10/01/21 10/01/21 10/01/21 00:00 03:58 08:00 Temp 36.6 36.6 36.8 Pulse 91 60 61 Resp 17 17 18 B/P (MAP) 139/73 133/77 150/87 Pulse Ox 94 96 93 O2 Delivery High Flow N/C High Flow N/C High Flow N/C O2 Flow Rate 4.00 4.00 3.00 10/01/21 00:00 Intake Total 640 ml Balance 640 ml Constitutional: AAO x 3, well-developed, well-nourished Respiratory: No accessory muscle use, No respiratory distress; chest expansion is symmetric, chest is bilaterally symmetric, rhonchi (scattered), other (diminished lower lobes bilat) Cardiovascular: irregularly irregular; No JVD; S1 and S2, systolic murmur Gastrointestional: No tender; soft, round, audible bowel sounds Extremities: other (mild LE swelling bilat) Neurologic/Psychiatric: grossly intact (moves all extremities) Skin: No rash on exposed areas, No ulcerations on exposed areas Results/Procedures: Labs Laboratory Tests 10/01/21 05:46: Total Bilirubin 1.4H, Direct Bilirubin 0.5H, Indirect Bilirubin 0.9, Aspartate Amino Transf (AST/SGOT) 108H, Alanine Aminotransferase (ALT/SGPT) 251H, Alkaline Phosphatase 111, Total Protein 6.3L, Albumin 3.6 10/01/21 05:49: Sodium Level 139, Potassium Level 3.8, Chloride Level 96L, Carbon Dioxide Level 29, Anion Gap 14, Blood Urea Nitrogen 29H, Creatinine 0.88, Estimat Glomerular Filtration Rate 62, BUN/Creatinine Ratio 33, Glucose Level 102, Calcium Level 9.1, Digoxin Level 1.02 Microbiology 09/27/21 Gram Stain - Final, Complete 09/27/21 Body Fluid Culture - Final, Complete No growth 09/22/21 Urine Culture - Final, Complete 3 or more isolates 09/22/21 Blood Culture - Final, Complete No growth A/P: Assessment: A-fib with RVR - diagnosed on EKG of 09-22-21 in the ED, age unknown - Oral long-acting dilt for vent rate control and apixaban for stroke prophylaxis 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 - Echo on 09/23/21: LVEF 45-50%, mod to sev biatrial enlargement, mod to severe MR & TR, pulm htn with PASP approx 70 mmHg UTI - management per Medical services Pneumonia - management per Medical services HTN HLD GERD COPD 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 Chronic back pain - h/o extensive back surgeries in 2014 following a fall Plan: - Complex management due to multiple comorbidities - AF ventricular rate improved with addition of Dig - Acute on chronic systolic and diastolic CHF - tx with diuretics - Low bp does not allow JACK-inhib or ARB or beta-shantanu - Replace electrolytes as indicated - Continue OAC - Elevated liver enzymes - management per medical services - Change IV lasix to oral - Check dig level in the morning EVANGELISTA REDD Sep 30, 2021 09:49
--- NOTE | 2021-09-30 13:19 | Physical Therapy Daily Note ---
PT Daily Note-Current Subjective Pt sitting EOB upon my arrival. Pt denies pain and states "I am ready to go home!" Pt agreeable to treatment. Mental Status Patient Orientation: Person, Place, Situation Attachments: Oxygen, Coe Catheter, Other-See Comments, IV vapotherm Transfers SCALE: Activities may be completed with or without assistive devices. 3-Mgrvjtiyhb-ikfyafe completes the activity by him/herself with no assistance from a helper. 5-Set-up or Clean-up Assistance-helper sets up or cleans up; patient completes activity. [place] assists only prior to or following the activity. 4-Supervision or Touching Assistance-helper provides verbal cues and/or touching/steadying and/or contact guard assistance as patient completes activity. Assistance may be provided throughout the activity or intermittently. 3-Partial/Moderate Assistance-helper does LESS THAN HALF the effort. [place] lifts, holds or supports trunk or limbs, but provides less than half the effort. 2-Substantial/Maximal Assistance-helper does MORE THAN HALF the effort. [place] lifts or holds trunk or limbs and provides more than half the effort. 8-Xiqavfejj-vswdph does ALL the effort. Patient does none of the effort to complete the activity. Or, the assistance of 2 or more helpers is required for the patient to complete the activity. If activity was not attempted, code reason: 7-Patient Refused. 9-Not Applicable-not attempted and the patient did not perform the activity before the current illness, exacerbation or injury. 10-Not Attempted due to Environmental Limitations-(lack of equipment, weather restraints, etc.). 88-Not Attempted due to Medical Conditions or Safety Concerns. Transitions sit to stand easily Exercises Seated Therapy Exercises: Ankle pumps, Long arc quads Seated Reps: 20 Treatments Pt stood at bedside with FWW for support and performed walking in place 3 bouts 30 steps each with 1-2 min rest between bouts. O2 sats monitored 91%-100% th roughout standing ther ex. Assessment Current Status: Good Progress O2 sats >91% throughout the treatment session and without c/o fatigue. Pt resting on EOB with call light and all needs met post therapy. PT Machine Stemmer Goals Machine Stemmer Goals PT Machine Stemmer Goals Time Frame: Oct 06, 2021 Roll Left & Right (QC): 6 Sit to Lying (QC): 6 Lying-Sitting on Side/Bed(QC): 6 Sit to Stand (QC): 6 Chair/Ebb-rm-Ckcaj Xfer(QC): 6 Walk 10 feet (QC): 6 Walk 50ft with 2 Turns (QC): 6 PT Plan Treatment/Plan Treatment Plan: Continue Plan of Care Treatment Plan: Education, Functional Activity Laura, Functional Strength, Gait, Safety, Therapeutic Exercise, Transfers Treatment Duration: Oct 06, 2021 Frequency: 6 times per week Estimated Hrs Per Day: .25 hour per day Patient and/or Family Agrees t: Yes Time/GCodes Time In: 820 Time Out: 838 Total Billed Treatment Time: 18 Total Billed Treatment 1, ther ex 18' CHAO MORAN CPTA Sep 30, 2021 13:19
--- NOTE | 2021-09-30 14:42 | Progress Note - Cardiology ---
Cardiology SOAP Progress Note Subjective: No cp or palp or syncope or shortness of breath No n/v/d Feels tired and weak, but improving Objective: I&O/Vital Signs 09/30/21 09/30/21 09/30/21 09/30/21 04:00 07:00 07:42 08:00 Temp 36.6 36.6 Pulse 67 70 74 Resp 17 23 B/P (MAP) 129/82 134/89 Pulse Ox 95 90 94 O2 Delivery Vapotherm Vapotherm Vapotherm O2 Flow Rate 30.00 30.00 30.00 70.00 70.00 FiO2 70 09/30/21 09/30/21 09/30/21 09/30/21 08:40 08:55 09:06 09:38 Pulse Ox 99 100 99 91 O2 Delivery Vapotherm O2 Flow Rate 25.00 20.00 15.00 15.00 70.00 60.00 50.00 FiO2 50 09/30/21 11:19 Temp 36.8 Pulse 84 Resp 22 B/P (MAP) 130/57 Pulse Ox 94 O2 Delivery High Flow N/C O2 Flow Rate 5.00 09/30/21 00:00 Intake Total 1350 ml Output Total 2400 ml Balance -1050 ml Constitutional: AAO x 3, well-developed, well-nourished Respiratory: No accessory muscle use, No respiratory distress; chest expansion is symmetric, chest is bilaterally symmetric, rhonchi (scattered), other ( diminished lower lobes bilat) Cardiovascular: irregularly irregular; No JVD; S1 and S2, systolic murmur Gastrointestional: No tender; soft, round, audible bowel sounds Extremities: other (mild LE swelling bilat) Neurologic/Psychiatric: grossly intact (moves all extremities) Skin: No rash on exposed areas, No ulcerations on exposed areas Results/Procedures: Labs Laboratory Tests 09/30/21 04:59: Sodium Level 137, Potassium Level 4.2, Chloride Level 96L, Carbon Dioxide Level 29, Anion Gap 12, Blood Urea Nitrogen 30H, Creatinine 0.78, Estimat Glomerular Filtration Rate 71, BUN/Creatinine Ratio 38, Glucose Level 106H, Calcium Level 8.8, Corrected Calcium 9.2, Total Bilirubin 1.4H, Aspartate Amino Transf (AST/SGOT) 145H, Alanine Aminotransferase (ALT/SGPT) 287H, Alkaline Phosphatase 108, Total Protein 6.4, Albumin 3.5 Microbiology 09/27/21 Gram Stain - Final, Resulted 09/27/21 Body Fluid Culture - Preliminary, Resulted No growth 09/22/21 Urine Culture - Final, Complete 3 or more isolates 09/22/21 Blood Culture - Final, Complete No growth Laboratory Tests 09/29/21 04:47 09/30/21 04:59 A/P: Assessment: A-fib with RVR - diagnosed on EKG of 09-22-21 in the ED, age unknown - Oral long-acting dilt for vent rate control and apixaban for stroke prophylaxis 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 - Echo on 09/23/21: LVEF 45-50%, mod to sev biatrial enlargement, mod to severe MR & TR, pulm htn with PASP approx 70 mmHg UTI - management per Medical services Pneumonia - management per Medical services HTN HLD GERD COPD 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
--- NOTE | 2021-09-30 15:32 | Physical Therapy Daily Note ---
PT Daily Note-Current Subjective Patient sitting at edge of bed upon PT arrival, agreeable to treatment. Patient rates 0/10 pain. Mental Status Patient Orientation: Person, Place, Time, Situation Transfers SCALE: Activities may be completed with or without assistive devices. 6-Jtgnlmrnpj-szilygz completes the activity by him/herself with no assistance from a helper. 5-Set-up or Clean-up Assistance-helper sets up or cleans up; patient completes activity. [place] assists only prior to or following the activity. 4-Supervision or Touching Assistance-helper provides verbal cues and/or touching/steadying and/or contact guard assistance as patient completes ac tivity. Assistance may be provided throughout the activity or intermittently. 3-Partial/Moderate Assistance-helper does LESS THAN HALF the effort. [place] lifts, holds or supports trunk or limbs, but provides less than half the effort. 2-Substantial/Maximal Assistance-helper does MORE THAN HALF the effort. [place] lifts or holds trunk or limbs and provides more than half the effort. 9-Wtlgrbxqg-amayzj does ALL the effort. Patient does none of the effort to complete the activity. Or, the assistance of 2 or more helpers is required for the patient to complete the activity. If activity was not attempted, code reason: 7-Patient Refused. 9-Not Applicable-not attempted and the patient did not perform the activity before the current illness, exacerbation or injury. 10-Not Attempted due to Environmental Limitations-(lack of equipment, weather restraints, etc.). 88-Not Attempted due to Medical Conditions or Safety Concerns. Roll Left & Right (QC): 5 Sit to Lying (QC): 5 Lying to Sitting/Side of Bed(Q: 5 Sit to Stand (QC): 5 Chair/Rgj-bb-Bwgun Xfer(QC): 5 Gait Training Does the Patient Walk?: Yes Distance: 200 feet Walk 10 feet (QC): 4 Walk 50 ft with 2 Turns(QC): 4 Walk 150 ft (QC): 4 Gait Persons Needed: 1 Gait Assistive Device: FWW Assessment Current Status: Good Progress Patient tolerated treatment well. Demonstrates good improvement in gait distance and tolerance to activity. Patient performs all observed bed mobility and transfers with setup. Patient ambulates 200 feet with FWW with SBA and verbal cues for safety, progression, posture and conservation of energy. Patient in bed post treatment with all needs met, nursing notified, call light in hand. PT Economic Development Manager Goals Senior Care Goals PT Economic Development Manager Goals Time Frame: Oct 06, 2021 Roll Left & Right (QC): 6 Sit to Lying (QC): 6 Lying-Sitting on Side/Bed(QC): 6 Sit to Stand (QC): 6 Chair/Nuu-lo-Tfmwy Xfer(QC): 6 Walk 10 feet (QC): 6 Walk 50ft with 2 Turns (QC): 6 PT Plan Treatment/Plan Treatment Plan: Continue Plan of Care Treatment Plan: Education, Functional Activity Laura, Functional Strength, Gait, Safety, Therapeutic Exercise, Transfers Treatment Duration: Oct 06, 2021 Frequency: 6 times per week Estimated Hrs Per Day: .25 hour per day Patient and/or Family Agrees t: Yes Safety Risks/Education Patient Education: Gait Training Teaching Recipient: Patient Teaching Methods: Demonstration, Discussion Response to Teaching: Verbalize Understanding, Return Demonstration Time/GCodes Time In: 1452 Time Out: 1507 Total Billed Treatment Time: 15 Total Billed Treatment Visit, Gait JUAN ANTONIO REHMAN PT Sep 30, 2021 15:32
--- NOTE | 2021-09-30 16:24 | Pulmonary Progress Note ---
Subjective Date Seen by a Provider: Sep 30, 2021 Time Seen by a Provider: 10:40 Sepsis Event Evaluation Height, Weight, BMI Height: '" Weight: lbs. oz. kg; 25.19 BMI Method: Exam Exam Patient acknowledged, consented, and participated in this virtual visit which was conducted using real time audio/video Vital Signs Date Time Temp Pulse Resp B/P (MAP) Pulse Ox O2 Delivery O2 Flow Rate FiO2 09/30/21 15:14 High Flow N/C 4.00 09/30/21 15:08 94 High Flow N/C 5.00 09/30/21 11:19 36.8 84 22 130/57 94 High Flow N/C 5.00 09/30/21 09:38 91 Vapotherm 15.00 50 09/30/21 09:06 99 15.00 50.00 09/30/21 08:55 100 20.00 60.00 09/30/21 08:40 99 25.00 70.00 09/30/21 08:00 94 Vapotherm 30.00 70 09/30/21 07:42 36.6 74 23 134/89 90 Vapotherm 30.00 70.00 09/30/21 07:00 70 09/30/21 04:00 36.6 67 17 129/82 95 Vapotherm 30.00 70.00 09/30/21 02:15 93 Vapotherm 30.00 70 09/30/21 01:00 82 09/30/21 00:00 36.2 78 14 143/80 92 Vapotherm 30.00 70.00 09/29/21 21:33 90 Vapotherm 30.00 70 09/29/21 21:00 94 Vapotherm 30.00 70 09/29/21 20:00 36.6 69 18 138/75 95 Vapotherm 30.00 70.00 09/29/21 19:00 87 I & O 09/30/21 07:00 Intake Total 2000 ml Output Total 3225 ml Balance -1225 ml Height & Weight Height: '" Weight: lbs. oz. kg; 25.19 BMI Method: General Appearance: No Apparent Distress, Chronically ill HEENT: PERRL/EOMI, Normal ENT Inspection Neck: Full Range of Motion, Non Tender Respiratory: Chest Non Tender, No Accessory Muscle Use, No Respiratory Distress Cardiovascular: No JVD, Irregularly Irregular Capillary Refill: Less Than 3 Seconds Peripheral Pulses: 2+ Radial Pulses (R), 2+ Radial Pulses (L) Gastrointestinal: non tender, soft, no organomegaly Extremity: Non Tender, No Calf Tenderness Neurologic/Psychiatric: Alert, Oriented x3, 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 Skin: Normal Color, Warm/Dry Lymphatic: No Adenopathy (cervical and axillary) Results Lab Laboratory Tests 09/29/21 04:47 09/30/21 04:59 Assessment/Plan Assessment/Plan late entry , discussed with RN in 509 - patients is being transferred PATIENT IS FEELING BETTER LESS DYSPNEA OFF VT- ON 5L NC CAN AMBULATE IN ROOM MINIMAL COUGH GOOD APPETITE ,PO INTAKE ADEQUATE 1. Patient has a severe pulmonary hypertension associated with moderate to severe mitral regurgitation, tricuspid regurgitation and biatrial enlargement. - cont diuretic therapy with Lasix PO now - cards follow 2. Congestive heart failure with bilateral pleural effusion L>>R - S/P LEFT THORACENTESIS- transudate -RIGHT effusion is not enlarging on cxr 09/29 =- no need for thora , monitor 3. Atrial fibrillation with rapid ventricular rate now controlled, - managed by cardiology service - back on eliquis 4. She has possible underlying COPD which may be contributing to her pulmonary hypertension. - change iv solumedrol to prednisone 40 today OFF abx , follow Elv LFT - follow NELDA ESPINOZA MD Sep 30, 2021 16:24
[2021-09-30] MEDS: polyethylene glycoL POWDER 17 GM (MIRALAX) PACK PO SCH (19:45)
[2021-10-01] MEDS: RT-ALBUTEROL SULF 2.5 MG/3 ML PRE-MIX VIAL INH SCH ×2 (05:17→09:04)
[2021-10-01] MEDS: KCL 10 MEQ TAB (MICRO K) PO SCH (06:07)
[2021-10-01] MEDS: FUROSEMIDE 40 MG (LASIX) TAB PO SCH (06:07)
[2021-10-01 06:33] LABS: CALCIUM 9.1 MG/DL (8.5-10.1); CREATININE SERUM 0.88 MG/DL (0.60-1.30); POTASSIUM 3.8 MMOL/L (3.6-5.0)
[2021-10-01] MEDS ORDERED: predniSONE 20 MG TAB PO SCH (07:00)
[2021-10-01 08:24] LABS: ALBUMIN 3.6 GM/DL (3.2-4.5); BILIRUBIN,DIRECT 0.5 MG/DL (0.0-0.3); BILIRUBIN,INDIRECT 0.9 MG/DL; BILIRUBIN,TOTAL 1.4 MG/DL (0.1-1.0); TOTAL PROTEIN 6.3 GM/DL (6.4-8.2)
--- NOTE | 2021-10-01 08:28 | Discharge Summary ---
Diagnosis/Chief Complaint Date of Admission Sep 22, 2021 at 18:23 Date of Discharge Discharge Date: Oct 01, 2021 Discharge Time: 08:30 Admission Diagnosis Admission Diagnosis ACUTE ATRIAL FIBRILLATION URINARY TRACT INFECTION RESPIRATORY FAILURE CHRONIC OXYGEN DEPENDENCE COPD EXACERBATION HYPERLIPIDEMIA HYPOKALEMIA Assessment and Plan ACUTE ATRIAL FIBRILLATION URINARY TRACT INFECTION RESPIRATORY FAILURE CHRONIC OXYGEN DEPENDENCE COPD EXACERBATION HYPERLIPIDEMIA HYPOKALEMIA MUSCLE WEAKNESS CONSTIPATION Discharge Diagnosis ACUTE ATRIAL FIBRILLATION URINARY TRACT INFECTION RESPIRATORY FAILURE CHRONIC OXYGEN DEPENDENCE COPD EXACERBATION HYPERLIPIDEMIA HYPOKALEMIA Assessment and Plan ACUTE ATRIAL FIBRILLATION URINARY TRACT INFECTION RESPIRATORY FAILURE CHRONIC OXYGEN DEPENDENCE COPD EXACERBATION HYPERLIPIDEMIA HYPOKALEMIA MUSCLE WEAKNESS CONSTIPATION Reason Hospital Visit PT IS AN 80 Y/O FEMALE WHO IS A NEW PATIENT TO MY PRACTICE. JESSE MOVED FROM [facility] TO [facility] IN THE PAST FEW MONTHS. SHE HAS CHRONIC COPD AND IS OXYGEN DEPENDENT WITH A 3 LITER OXYGEN REQUIREMENT AT BASELINE. PT'S DTR CALLED THE OFFICE WITH REPORT THAT HER MOM WAS COMPLAINING OF SEVERE SHORTNESS OF BREATH, CHEST DISCOMFORT, AND PALPITATIONS IN HER CHEST. THEY WERE ADVISED TO TAKE HER TO THE ER FOR ACUTE EVALUATION FOR HER LUNGS AND HEART. SHE WAS FOUND TO BE IN NEW ONSET ATRIAL FIBRILLATION WITH RESPIRATORY DISTRESS. PT WAS ADMITTED TO THE CARDIAC STEPDOWN UNIT AND CARDIOLOGY WAS CONSULTED ON THE PT ON ADMISSION. Discharge Summary Consultations dr. waldron Discharge Physical Examination Allergies: Coded Allergies: bacitracin (Verified Allergy, Severe, 09/22/21) morphine (Verified Allergy, Severe, 09/22/21) nickel (Verified Allergy, Severe, 09/22/21) Vitals & I&Os Vital Signs Date Time Temp Pulse Resp B/P (MAP) Pulse Ox O2 Delivery O2 Flow Rate FiO2 10/01/21 08:00 36.8 61 18 150/87 93 High Flow N/C 3.00 09/30/21 09:38 50 General Appearance: Alert, Oriented X3, Cooperative, No Acute Distress HEENT: Atraumatic, PERRLA, Mucous Memb Moist/[place] Respiratory: Clear to Auscultation, Other (diffusely decreased) Cardiovascular: Other (IRREGULARLY IRREGULAR RHYTHM BUT REGULAR RATE) Abdominal: Normal Bowel Sounds, Soft, No Tenderness Extremities: No Cyanosis, Normal Pulses Skin: No Rashes, No Breakdown, No Significant Lesion Neuro: Normal Speech, Cranial Nerves 3-12 NL Psych/Mental Status: Mental Status NL, Mood NL Hospital Course Was the Problem List Reviewed?: Yes ACUTE ATRIAL FIBRILLATION URINARY TRACT INFECTION RESPIRATORY FAILURE CHRONIC OXYGEN DEPENDENCE COPD EXACERBATION HYPERLIPIDEMIA HYPOKALEMIA Assessment and Plan ACUTE ATRIAL FIBRILLATION URINARY TRACT INFECTION RESPIRATORY FAILURE CHRONIC OXYGEN DEPENDENCE COPD EXACERBATION HYPERLIPIDEMIA HYPOKALEMIA MUSCLE WEAKNESS CONSTIPATION ACUTE ATRIAL FIBRILLATION - DEFER TO DR. WALDRON - CARDIOLOGY - PT WAS STARTED ON DIGOXIN WITH EXCELLENT RESULTS FROM A RATE CONTROL PERSPECTIVE, CONTINUE REGIMEN AND MONITOR DIG LEVEL NEXT WEEK. - PT ON ELIQUIS IN HOSPITAL, BUT TOO EXPENSIVE, DR. WALDRON OR HIS LINING CLEANER - EVANGELISTA, WILL SEND A SCRIPT FOR XARELTO 20MG HS TO [facility] URINARY TRACT INFECTION - PT ON ROCEPHIN, URINE SHOWED MORE THAN THREE ISOLATES, FINISHED ROCEPHIN DOSING 09/27/2021 RESPIRATORY FAILURE WITH CHRONIC OXYGEN DEPENDENCE AND COPD EXACERBATION AND PLEURAL EFFUSION PT ON VAPOTHERM AT 40LPM AND 80% (DOWN FROM 40LPM AND 100% ON 09/26/2021), WEANED FURTHER AND NOW ON 3 LITERS OF OXYGEN CONSULT PLACED TO TELE PULMONARY CONSULT SERVICE PT ON SOLUMEDROL AT 80MG IV Q6 HOURS, - DECREASED TO 40MG DAILY BY PULMONOLOGY ON 09/26/2021, ADVAIR, - CHANGED TO ALBUTEROL NEBULIZER TREATMENT (PT REFUSED XOPENEX DUE TO NASAL DISCHARGE) THORACENTESIS ON 09/27/2021 - DC ON HOME REGIMEN AND ADVAIR - TAPER DOWN OFF OF STEROIDS OVER THE NEXT 10 DAYS MUSCLE WEAKNESS - PHYSICAL THERAPY OUTPATIENT CONSTIPATION - SENNA S AND MIRALAX PRODUCED BOWEL MOVEMENT HYPERLIPIDEMIA - RESTARTED HOME MEDS ON DC HYPOKALEMIA - PT ON REPLACEMENT, MONITOR LABS IN 1 WK Pending Labs Laboratory Tests 10/01/21 05:46: Total Bilirubin 1.4, Direct Bilirubin 0.5, Indirect Bilirubin 0.9, Aspartate Amino Transf (AST/SGOT) 108, Alanine Aminotransferase (ALT/SGPT) 251, Alkaline Phosphatase 111, Total Protein 6.3, Albumin 3.6 10/01/21 05:49: Sodium Level 139, Potassium Level 3.8, Chloride Level 96, Carbon Dioxide Level 29, Anion Gap 14, Blood Urea Nitrogen 29, Creatinine 0.88, Estimat Glomerular Filtration Rate 62, BUN/Creatinine Ratio 33, Glucose Level 102, Calcium Level 9.1, Digoxin Level 1.02 Discharge Condition at discharge IMPROVED Instructions to patient/family Please see electronic discharge instructions given to patient. Discharge Medications Reviewed and agree with Discharge Medication list on patient's Discharge Instruction sheet ALTAGRACIA GILL MD Oct 01, 2021 08:28
[2021-10-01] MEDS ORDERED: FURO40TA4 PO (08:35)
[2021-10-01] MEDS ORDERED: PRD20T PO (08:35)
[2021-10-01] MEDS ORDERED: POTA-160 PO (08:35)
[2021-10-01] MEDS ORDERED: FLUT1AER4 IH (08:35)
[2021-10-01] MEDS ORDERED: DILT240C91 PO (08:35)
[2021-10-01] MEDS ORDERED: DIGO125T3 PO (08:35)
--- NOTE | 2021-10-01 08:36 | Discharge Inst-Simple/Standard ---
Discharge Inst-Standard Reconcile Patient Problems Problems Reviewed?: Yes Discharge Medications New, Converted or Re-Newed RX: Transmitted to Pharmacy Patient Instructions/Follow Up Plan of Care/Instructions/FU: 1 wk [facility] [address] waldron 1 wk with physical therapy as outpt to via [facility] Activity as Tolerated: Yes Discharge Diet: Regular Diet Health Concerns: afib copd Return to The Hospital For: any signs of uncontrolled heart rate, chest pain, worsening shortness of breath or any other acute concerns or lifethreatening illness or injury Medication List: Active Scripts Active Prednisone 20 Mg Tab 40 Mg PO UD 2 pills daily x 2 days then 1 pill daily x 2 days then 1/2 pill daily x 4 days then stop Digoxin 125 Mcg Tablet 125 Mcg PO DAILY Fluticasone-Salmeterol 113-14 (Fluticasone/Salmeterol) 1 Each Aer.pow.ba 0 Each IH RTBID Klor-Con 10 (Potassium Chloride) 10 Meq Tablet.er 10 Meq PO BID Furosemide 40 Mg Tablet 40 Mg PO DAILY@07,17 Diltiazem 24Hr ER (Diltiazem HCl) 240 Mg Cap.er.24h 240 Mg PO DAILY Reported Jesus Alberto-128 (Sodium Chloride) 15 Ml Drops 1-2 Drops OU BID Calcium (Calcium Carbonate) 600 Mg Tablet 600 Mg PO BID Preservision Areds 2 Softgel (Vit C/E/Zn/Coppr/Lutein/Zeaxan) 1 Each Capsule 1 Each PO BID Aspirin EC (Aspirin) 81 Mg Tablet.dr 81 Mg PO DAILY Simvastatin 20 Mg Tablet 20 Mg PO DAILY Oxybutynin Chloride ER (Oxybutynin Chloride) 10 Mg Tab.er.24 10 Mg PO DAILY Yupelri (Revefenacin) 175 Mcg/3 Ml Vial.neb 3 Ml NEB DAILY Fluticasone Propionate 16 Gm Cascade.susp 2 Sprays NSEACH DAILY Lab results: Laboratory Tests Test 10/01/21 05:46 10/01/21 05:49 Range/Units Total Bilirubin 1.4 H 0.1-1.0 MG/DL Direct Bilirubin 0.5 H 0.0-0.3 MG/DL Indirect Bilirubin 0.9 MG/DL Aspartate Amino Transf (AST/SGOT) 108 H 5-34 U/L Alanine Aminotransferase (ALT/SGPT) 251 H 0-55 U/L Alkaline Phosphatase 111 40-136 U/L Total Protein 6.3 L 6.4-8.2 GM/DL Albumin 3.6 3.2-4.5 GM/DL Sodium Level 139 135-145 MMOL/L Potassium Level 3.8 3.6-5.0 MMOL/L Chloride Level 96 L 98-107 MMOL/L Carbon Dioxide Level 29 21-32 MMOL/L Anion Gap 14 5-14 MMOL/L Blood Urea Nitrogen 29 H 7-18 MG/DL Creatinine 0.88 0.60-1.30 MG/DL Estimat Glomerular Filtration Rate 62 BUN/Creatinine Ratio 33 Glucose Level 102 70-105 MG/DL Calcium Level 9.1 8.5-10.1 MG/DL Digoxin Level 1.02 0.80-2.00 NG/ML My orders: Orders - ALTAGRACIA GILL MD Cpoe Transfer Order Process (09/30/21 09:01) Physical Therapy Order (09/30/21 09:01) Transfer - Bed/Room/Location (09/30/21 12:07) Patient Visit (09/30/21 ) Gait Training, Ea 15 Min (09/30/21 ) Liver Panel (10/01/21 08:03) Comprehensive Metabolic Panel (10/02/21 05:00) Chest Pa/Lat (2 View) (10/01/21 08:03) Attending Discharge Inpt/Inobs (10/01/21 08:28) ALTAGRACIA GILL MD Oct 01, 2021 08:36
[2021-10-01] MEDS ORDERED: RIVA20TA PO (08:42)
--- NOTE | 2021-10-01 08:49 | Progress Note - Cardiology ---
Cardiology SOAP Progress Note Subjective: Sitting up on the side of the bed Wants to go home today No c/o CP, palpitations Feels her breathing has improved a lot Objective: I&O/Vital Signs 10/01/21 10/01/21 10/01/21 00:00 03:58 08:00 Temp 36.6 36.6 36.8 Pulse 91 60 61 Resp 17 17 18 B/P (MAP) 139/73 133/77 150/87 Pulse Ox 94 96 93 O2 Delivery High Flow N/C High Flow N/C High Flow N/C O2 Flow Rate 4.00 4.00 3.00 10/01/21 00:00 Intake Total 640 ml Balance 640 ml Constitutional: AAO x 3, well-developed, well-nourished Respiratory: No accessory muscle use, No respiratory distress; chest expansion is symmetric, chest is bilaterally symmetric, rhonchi (scattered), other (diminished lower lobes bilat) Cardiovascular: irregularly irregular; No JVD; S1 and S2, systolic murmur Gastrointestional: No tender; soft, round, audible bowel sounds Extremities: other (mild LE swelling bilat) Neurologic/Psychiatric: grossly intact (moves all extremities) Skin: No rash on exposed areas, No ulcerations on exposed areas Results/Procedures: Labs Laboratory Tests 10/01/21 05:46: Total Bilirubin 1.4H, Direct Bilirubin 0.5H, Indirect Bilirubin 0.9, Aspartate Amino Transf (AST/SGOT) 108H, Alanine Aminotransferase (ALT/SGPT) 251H, Alkaline Phosphatase 111, Total Protein 6.3L, Albumin 3.6 10/01/21 05:49: Sodium Level 139, Potassium Level 3.8, Chloride Level 96L, Carbon Dioxide Level 29, Anion Gap 14, Blood Urea Nitrogen 29H, Creatinine 0.88, Estimat Glomerular Filtration Rate 62, BUN/Creatinine Ratio 33, Glucose Level 102, Calcium Level 9.1, Digoxin Level 1.02 Microbiology 09/27/21 Gram Stain - Final, Complete 09/27/21 Body Fluid Culture - Final, Complete No growth 09/22/21 Urine Culture - Final, Complete 3 or more isolates 09/22/21 Blood Culture - Final, Complete No growth Laboratory Tests 09/30/21 04:59 10/01/21 05:49 A/P: Assessment: A-fib with RVR - diagnosed on EKG of 09-22-21 in the ED, age unknown - Oral long-acting dilt for vent rate control and apixaban for stroke prophylaxis 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 - Echo on 09/23/21: LVEF 45-50%, mod to sev biatrial enlargement, mod to severe MR & TR, pulm htn with PASP approx 70 mmHg UTI - management per Medical services Pneumonia - management per Medical services HTN HLD GERD COPD 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 Chronic back pain - h/o extensive back surgeries in 2014 following a fall Plan: - Complex management due to multiple comorbidities - AF ventricular rate improved with addition of Dig - Chronic systolic and diastolic CHF - clinically compensated - continue diuretics - Intermittently low bp has not allow JACK-inhib or ARB or beta-shantanu - Replace electrolytes as indicated - Continue OAC - Plan is to discharge home today - advise out pt f/u in a week with Dig and BMP EVANGELISTA REDD Oct 01, 2021 08:49
[2021-10-01] MEDS: RT--FLUTICASONE/SALMETEROL 113-14 (AIRDUO RespiCLICK) IH SCH (09:05)
[2021-10-01] MEDS: APIXABAN 2.5 MG (ELIQUIS) TABLET PO SCH (09:22)
[2021-10-01] MEDS: DIGOXIN 0.25 MG (LANOXIN) TAB PO SCH (09:22)
[2021-10-01] MEDS: FLUTICASONE NASAL SPRAY (FLONASE) 16 GM BTL NS SCH (09:23)
[2021-10-01] MEDS: SENNA W/DOCUSATE (SENOKOT S) TABLET PO SCH (09:26)
--- NOTE | 2021-10-01 10:26 | Physical Therapy Daily Note ---
PT Daily Note-Current Subjective Pt sitting EOB upon arrival and agrees to PT. Says she is excited because she gets to go home today. No reported pain. Mental Status Patient Orientation: Person, Place, Time, Situation Attachments: Oxygen (2L) Transfers SCALE: Activities may be completed with or without assistive devices. 6-Wubgofiwzl-eewkmgl completes the activity by him/herself with no assistance from a helper. 5-Set-up or Clean-up Assistance-helper sets up or cleans up; patient completes activity. [place] assists only prior to or following the activity. 4-Supervision or Touching Assistance-helper provides verbal cues and/or touchi ng/steadying and/or contact guard assistance as patient completes activity. Assistance may be provided throughout the activity or intermittently. 3-Partial/Moderate Assistance-helper does LESS THAN HALF the effort. [place] lifts, holds or supports trunk or limbs, but provides less than half the effort. 2-Substantial/Maximal Assistance-helper does MORE THAN HALF the effort. [place] lifts or holds trunk or limbs and provides more than half the effort. 4-Ubyosbxpo-vqjvfq does ALL the effort. Patient does none of the effort to complete the activity. Or, the assistance of 2 or more helpers is required for the patient to complete the activity. If activity was not attempted, code reason: 7-Patient Refused. 9-Not Applicable-not attempted and the patient did not perform the activity before the current illness, exacerbation or injury. 10-Not Attempted due to Environmental Limitations-(lack of equipment, weather restraints, etc.). 88-Not Attempted due to Medical Conditions or Safety Concerns. Sit to Stand (QC): 6 Gait Training Does the Patient Walk?: Yes Distance: 400' Walk 10 feet (QC): 6 Walk 50 ft with 2 Turns(QC): 5 Walk 150 ft (QC): 5 Gait Assistive Device: FWW Pt able to ambulate independently but only requires cues for energy conservation and positioning within FWW during turns. Exercises Standing: Sit to Stand Standing Reps: 4 Treatments Pt performs sit to stand and then amb 400' in becerra and then TFs back to bed. Pt sitting EOB upon departure of PT all needs met and call light nearby. Assessment Current Status: Good Progress Pt able to amb independently besides requires cues for energy conservation and to stay within FWW while making turns. PT Fpc Goals Fpc Goals PT 411 Directory Assistance Operator Goals Time Frame: Oct 06, 2021 Roll Left & Right (QC): 6 Sit to Lying (QC): 6 Lying-Sitting on Side/Bed(QC): 6 Sit to Stand (QC): 6 Chair/Wqa-mq-Jtlzh Xfer(QC): 6 Walk 10 feet (QC): 6 Walk 50ft with 2 Turns (QC): 6 PT Plan Problem List Problem List: Activity Tolerance, Safety Treatment/Plan Treatment Plan: Continue Plan of Care Treatment Plan: Education, Functional Activity Laura, Functional Strength, Gait, Safety, Therapeutic Exercise, Transfers Treatment Duration: Oct 06, 2021 Frequency: 6 times per week Estimated Hrs Per Day: .25 hour per day Patient and/or Family Agrees t: Yes Safety Risks/Education Patient Education: Correct Positioning Teaching Recipient: Patient Teaching Methods: Discussion Time/GCodes Time In: 928 Time Out: 943 Total Billed Treatment Time: 15 Total Billed Treatment 1, GT KENDALL DAMON SQL SERVER DBA DEVELOPER Oct 01, 2021 10:26
[2021-10-01 12:45] VITALS: BP 104/66
--- NOTE | 2021-10-01 17:05 | Progress Note - Cardiology ---
Cardiology SOAP Progress Note Subjective: No cp or palp or syncope or shortness of breath No n/v/d No weakness or focal weakness No groin or leg discomfort or discoloration Objective: I&O/Vital Signs 10/01/21 10/01/21 10/01/21 10/01/21 08:00 08:00 09:05 12:00 Temp 36.8 37.0 Pulse 61 86 Resp 18 20 B/P (MAP) 150/87 104/66 Pulse Ox 93 94 94 94 O2 Delivery High Flow N/C High Flow N/C High Flow N/C High Flow N/C O2 Flow Rate 3.00 3.00 3.00 3.00 10/01/21 12:45 Temp 37.0 Pulse 86 Resp 20 B/P (MAP) 104/66 Pulse Ox 94 O2 Delivery High Flow N/C O2 Flow Rate 3.00 10/01/21 00:00 Intake Total 640 ml Balance 640 ml Constitutional: AAO x 3, well-developed, well-nourished Respiratory: No accessory muscle use, No respiratory distress; chest expansion is symmetric, chest is bilaterally symmetric, rhonchi (scattered), other (diminished lower lobes bilat) Cardiovascular: irregularly irregular; No JVD; S1 and S2, systolic murmur Gastrointestional: No tender; soft, round, audible bowel sounds Extremities: other (mild LE swelling bilat) Neurologic/Psychiatric: grossly intact (moves all extremities) Skin: No rash on exposed areas, No ulcerations on exposed areas Results/Procedures: Labs Laboratory Tests 10/01/21 05:46: Total Bilirubin 1.4H, Direct Bilirubin 0.5H, Indirect Bilirubin 0.9, Aspartate Amino Transf (AST/SGOT) 108H, Alanine Aminotransferase (ALT/SGPT) 251H, Alkaline Phosphatase 111, Total Protein 6.3L, Albumin 3.6 10/01/21 05:49: Sodium Level 139, Potassium Level 3.8, Chloride Level 96L, Carbon Dioxide Level 29, Anion Gap 14, Blood Urea Nitrogen 29H, Creatinine 0.88, Estimat Glomerular Filtration Rate 62, BUN/Creatinine Ratio 33, Glucose Level 102, Calcium Level 9.1, Digoxin Level 1.02 Microbiology 09/27/21 Gram Stain - Final, Complete 09/27/21 Body Fluid Culture - Final, Complete No growth 09/22/21 Urine Culture - Final, Complete 3 or more isolates 09/22/21 Blood Culture - Final, Complete No growth Laboratory Tests 09/30/21 04:59 10/01/21 05:49 A/P: Assessment: A-fib with RVR - diagnosed on EKG of 09-22-21 in the ED, age unknown - Oral long-acting dilt for vent rate control and apixaban for stroke prophylaxis 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 - Echo on 09/23/21: LVEF 45-50%, mod to sev biatrial enlargement, mod to severe MR & TR, pulm htn with PASP approx 70 mmHg UTI - management per Medical services Pneumonia - management per Medical services HTN HLD GERD COPD 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 Chronic back pain - h/o extensive back surgeries in 2014 following a fall Plan: - Complex management due to multiple comorbidities - AF ventricular rate improved with addition of Dig - Chronic systolic and diastolic CHF - clinically compensated - continue diuretics - Intermittently low bp has not allow JACK-inhib or ARB or beta-shantanu - Reduce dig to 0.125 mg daily - Continue OAC - I discussed the case with Dr Leonard whose plan is to discharge home today - advise out pt f/u in a week with Dig and BMP EKATERINA CALLES MD FACP FAC CCDS Oct 01, 2021 17:05
== END 2021-10-01 12:45 | disposition home or self-care (01) | DRG 308 ==
LOC: EDUNIT# 13:51 → ER 13:54 → CSD 18:23 → 4TH 09-30 11:00 → EDPENDDISTM 10-01 08:30
PROVIDERS: ADMIT Family Medicine; ATTEND Family Medicine
PROC: 0W9B3ZZ Drainage of Left Pleural Cavity, Percutaneous Approach (ICD-10-PCS; principal; 2021-09-27)
DX: I48.19 Other persistent atrial fibrillation (principal); K72.00 Acute and subacute hepatic failure without coma; I50.43 Acute on chronic combined systolic (congestive) and diastolic (congestive) heart failure; J18.9 Pneumonia, unspecified organism; J96.00 Acute respiratory failure, unspecified whether with hypoxia or hypercapnia; N39.0 Urinary tract infection, site not specified; J44.1 Chronic obstructive pulmonary disease with (acute) exacerbation; J90 Pleural effusion, not elsewhere classified; J44.0 Chronic obstructive pulmonary disease with (acute) lower respiratory infection; E87.6 Hypokalemia; Z99.81 Dependence on supplemental oxygen; E78.5 Hyperlipidemia, unspecified; Z96.649 Presence of unspecified artificial hip joint; E78.00 Pure hypercholesterolemia, unspecified; M19.90 Unspecified osteoarthritis, unspecified site; Z87.891 Personal history of nicotine dependence; Z79.82 Long term (current) use of aspirin; Z20.822 Contact with and (suspected) exposure to COVID-19; Z79.899 Other long term (current) drug therapy; I27.20 Pulmonary hypertension, unspecified; I08.1 Rheumatic disorders of both mitral and tricuspid valves; I11.0 Hypertensive heart disease with heart failure; M62.81 Muscle weakness (generalized); K59.00 Constipation, unspecified; K21.9 Gastro-esophageal reflux disease without esophagitis; G89.29 Other chronic pain; M54.9 Dorsalgia, unspecified
CPT/HCPCS: 36415; 71045; 76604; 76942; 80048; 80053; 80061; 80076; 80162; 81000; 82945; 83605; 83615; 83735; 83874; 83880; 83986; 84145; 84157; 84439; 84443; 84484; 85025; 85027; 85610; 85730; 86141; 87040; 87070; 87088; 87205; 87636; 88112; 88305; 89051; 93005; 93041; 93306; 94640; 94660; 94760; 96374; 96375

== ENCOUNTER 2021-10-02 14:50 | Outpatient (RCR) | payer MEDICARE, OTHER ==
[~2021-10-02 14:50] MED LIST: ASPI-1238 PO; CALC600T91 PO; DIGO125T3 PO; DILT240C91 PO; FLUT16SP22 NSEACH; FLUT1AER4 IH; FURO40TA4 PO; OXYB10TA29 PO; POTA-160 PO; PRD20T PO; REVE175V NEB; RIVA20TA PO; SIMV20TA26 PO; SODI15DR7 OU; VALS160T29 PO; VIT1CAPS44 PO
== END 2021-10-17 | disposition home or self-care (01) ==
PROVIDERS: ATTEND Family Medicine
DX: R53.1 Weakness (principal)

== ENCOUNTER → 2021-12-03 | Outpatient (CLI) | payer MEDICARE, OTHER ==
[~2021-12-03] VITALS: Ht 160 cm; Wt 52.7 kg
[~2021-12-03] MED LIST changes: +IRON DEXTRAN 1,000 MG/NS 250 ML IVPB IV ONE; +IRON DEXTRAN 25 MG/NS 6.25 ML TOTAL VOLUME IV ONE; +NS IV 1000 ML 1,000 ML IV SCH
[2021-12-03 16:00] VITALS: BP 84/64
== END ==
LOC: SDC 12:58
PROVIDERS: ATTEND Family Medicine
DX: D50.9 Iron deficiency anemia, unspecified (principal)

== ENCOUNTER 2022-03-06 15:01 | Outpatient (RCR) | payer MEDICARE, OTHER ==
[~2022-03-06 15:01] MED LIST changes: -IRON DEXTRAN 1,000 MG/NS 250 ML IVPB IV ONE; -IRON DEXTRAN 25 MG/NS 6.25 ML TOTAL VOLUME IV ONE; -NS IV 1000 ML 1,000 ML IV SCH
[2022-03-17] MEDS ORDERED: IPRA3AMP31 (09:53)
[2022-03-17] MEDS ORDERED: FURO40TA4 PO (10:04)
[2022-03-17] MEDS ORDERED: DIGO125T3 PO (10:04)
[2022-03-17] MEDS ORDERED: ALBU18HF2 PO (10:04)
[2022-03-17] MEDS ORDERED: PANT40TA52 PO (10:04)
[2022-03-17] MEDS ORDERED: DILT240C91 PO (10:04)
[2022-03-17] MEDS ORDERED: POTA10TA PO (10:04)
[2022-03-17] MEDS ORDERED: RIVA20TA PO (10:04)
[2022-03-17] MEDS ORDERED: VITA400C64 PO (10:10)
[2022-03-17] MEDS ORDERED: CHOL500050 PO (10:11)
[2022-03-17] MEDS ORDERED: REVE175V PO (10:37)
== END 2022-03-17 | disposition home or self-care (01) ==
PROVIDERS: ATTEND Family Medicine
DX: J44.9 Chronic obstructive pulmonary disease, unspecified (principal); I11.0 Hypertensive heart disease with heart failure; I50.9 Heart failure, unspecified; Z86.16 Personal history of COVID-19

== ENCOUNTER 2022-03-16 14:10 | Inpatient (IN) | payer MEDICARE, OTHER ==
[~2022-03-16] VITALS: Ht 152 cm; Wt 62.5 kg
[2022-03-16 14:43] LABS: BASOPHILS % (AUTO) 0 % (0-10); EOSINOPHILS # (AUTO) 0.2 10^3/uL (0.0-0.3); EOSINOPHILS % (AUTO) 3 % (0-10); HEMATOCRIT 42 % (35-52); HEMOGLOBIN 12.9 g/dL (11.5-16.0); LYMPHOCYTES % (AUTO) 13 % (12-44); MEAN CORPUSCULAR HEMOGLOBIN 29 pg (25-34); MEAN CORPUSCULAR HGB CONC 31 g/dL (32-36); MEAN CORPUSCULAR VOLUME 93 fL (80-99); MEAN PLATELET VOLUME 9.2 fL (9.0-12.2); MONOCYTES # (AUTO) 0.6 10^3/uL (0.0-1.0); MONOCYTES % (AUTO) 8 % (0-12); NEUTROPHILS # (AUTO) 5.7 10^3/uL (1.8-7.8); NEUTROPHILS % (AUTO) 76 % (42-75); PLATELET COUNT 339 10^3/uL (130-400); WHITE BLOOD COUNT 7.6 10^3/uL (4.3-11.0)
[2022-03-16 14:53] LABS: ALBUMIN 3.8 GM/DL (3.2-4.5); INR 1.9 (0.8-1.4); PROTHROMBIN TIME PATIENT 22.4 SEC (12.2-14.7)
[2022-03-16 14:54] LABS: POTASSIUM 3.5 MMOL/L (3.6-5.0)
[2022-03-16 14:55] LABS: CALCIUM 8.8 MG/DL (8.5-10.1)
[2022-03-16 14:56] LABS: TOTAL PROTEIN 6.5 GM/DL (6.4-8.2)
[2022-03-16 14:58] LABS: BILIRUBIN,TOTAL 1.3 MG/DL (0.1-1.0)
[2022-03-16 15:00] LABS: CREATININE SERUM 1.1 MG/DL (0.60-1.30)
[2022-03-16] MEDS ORDERED: FUROSEMIDE 40 MG/4 ML INJ (LASIX) IVP ONE (15:00)
--- NOTE | 2022-03-16 15:01 | Diagnostic Imaging Report ---
INDICATION: Chest pain. COMPARISON is made with prior exam of 09/29/2021 FINDINGS: There are bibasilar infiltrates. There is a left pleural effusion. There is cardiomegaly mild venous congestion. There is no pneumothorax. The mediastinum is unremarkable IMPRESSION: 1. Bibasilar infiltrates and left pleural effusion 2. Cardiomegaly and mild central pulmonary venous congestion. Dictated by: Dictated on workstation # [id number]
[2022-03-16 15:03] LABS: MAGNESIUM 2.2 MG/DL (1.6-2.4)
[2022-03-16 15:07] LABS: BILIRUBIN,URINE NEGATIVE (NEGATIVE); CLARITY,URINE CLEAR; COLOR,URINE YELLOW; GLUCOSE, URINE (UA) NEGATIVE (NEGATIVE); KETONES,URINE NEGATIVE (NEGATIVE); LEUKOCYTE ESTERASE ,URINE NEGATIVE (NEGATIVE); NITRITE,URINE NEGATIVE (NEGATIVE); PH,URINE 5.5 (5-9); PROTEIN,URINE NEGATIVE (NEGATIVE)
[2022-03-16 15:13] LABS: BACTERIA,URINE NEGATIVE /HPF
--- NOTE | 2022-03-16 15:29 | ED General ---
General Chief Complaint: Upper Extremity Stated Complaint: R SHOULD LUMP/PAIN History of Present Illness Date Seen by Provider: March 16, 2022 Time Seen by Provider: 14:50 Initial Comments 81 year old female with history of COPD, Afib w/ RVR, and heart failure presents to the ED for lump on right shoulder and acute worsening of pain. She reports chronic right shoulder pain which she gets steroid shots for, with the most recent injection being 1.5 years ago. Upon arrival to her room, it was reported by nursing that her O2 saturation was 83% on 4L 02, which she is chronically on at home. She was in afib with rvr at this time. When questioned by me she reports chronic shortness of breath, but acute worsening in the past 2 weeks. She denies recent sick exposures. She denies chest pain at rest or with exertion but does report leg pain,tingling, knee weakness with walking from her garage door to the car (approximately 20 steps). She denies recent fevers, chills, abdominal pain, nausea or vomiting, or recent sick exposures. (CONCETTA YU) Allergies and Home Medications Allergies Coded Allergies: bacitracin (Verified Allergy, Severe, 09/22/21) morphine (Verified Allergy, Severe, 09/22/21) nickel (Verified Allergy, Severe, 09/22/21) Patient Home Medication List Home Medication List Reviewed: Yes (NORMA PAPPAS MD) Albuterol Sulfate (Ventolin Hfa) 90 Mcg Hfa.aer.ad, 1 PUFF PO BID PRN for SHORTNESS OF BREATH, (Reported) Entered as Reported by: CRISTINE JOHNSON on 03/17/22 1004 Last Action: Reviewed Aspirin (Aspirin EC) 81 Mg Tablet.dr, 81 MG PO DAILY, (Reported) Entered as Reported by: JUAN FRANCISCO HUA on 09/23/21 113 Last Action: Reviewed Calcium Carbonate (Calcium) 600 Mg Tablet, 600 MG PO BID, (Reported) Entered as Reported by: JUAN FRANCISCO HUA on 09/23/211138 Last Action: Held Diltiazem HCl (Diltiazem 24Hr ER) 240 Mg Cap.er.24h, 240 MG PO DAILY, (Reported) Entered as Reported by: CRISTINE JOHNSON on 03/17/22 1004 Last Action: Reviewed Furosemide (Furosemide) 40 Mg Tablet, 40 MG PO DAILY, (Reported) Entered as Reported by: CRISTINE JOHNSON on 03/17/22 100 Last Action: Held Ipratropium/Albuterol Sulfate (Iprat-Albut 0.5-3(2.5) mg/3 ml) 0.5 Mg-3 Mg (2.5 Mg Base)/3 Ml Ampul.neb, 1 VIAL Q6H PRN for SHORTNESS OF BREATH, (Reported) Entered as Reported by: CRISTINE JOHNSON on 03/17/22 0953 Last Action: Reviewed Oxybutynin Chloride (Oxybutynin Chloride ER) 10 Mg Tab.er.24, 10 MG PO DAILY, (Reported) Entered as Reported by: JUAN FRANCISCO HUA on 09/23/211138 Last Action: Held Pantoprazole Sodium (Pantoprazole Sodium) 40 Mg Tablet.dr, 40 MG PO DAILY, (Reported) Entered as Reported by: CRISTINE JOHNSON on 03/17/221003 Last Action: Continued Potassium Chloride (K-Tab ER) 10 Meq Tablet.er, 10 MEQ PO BID, (Reported) Entered as Reported by: CRISTINE JOHNSON on 03/17/221003 Last Action: Held Revefenacin (Yupelri) 175 Mcg/3 Ml Vial.neb, 1 VIAL PO DAILY, (Reported) Entered as Reported by: CRISTINE JOHNSON on 03/17/22 1037 Last Action: Held Rivaroxaban (Xarelto) 20 Mg Tablet, 20 MG PO HS, (Reported) Entered as Reported by: CRISTINE JOHNSON on 03/17/221003 Last Action: Reviewed Simvastatin (Simvastatin) 20 Mg Tablet, 20 MG PO DAILY, (Reported) Entered as Reported by: JUAN FRANCISCO HUA on 09/23/211138 Last Action: Converted Sodium Chloride (Jesus Alberto-128) 15 Ml Drops, 1-2 DROPS OU BID, (Reported) Entered as Reported by: JUAN FRANCISCO HUA on 09/23/211138 Last Action: Held Vit C/E/Zn/Coppr/Lutein/Zeaxan (Preservision Areds 2 Softgel) 1 Each Capsule, 1 EACH PO BID, (Reported) Entered as Reported by: JUAN FRANCISCO HUA on 09/23/211138 Last Action: Held Review of Systems Review of Systems Constitutional: No chills, No fever, No malaise EENTM: No hearing loss, No vision loss, No throat pain Respiratory: No cough; dyspnea on exertion, short of breath Cardiovascular: No chest pain; palpitations (chronically) Gastrointestinal: No abdominal pain; constipation; No diarrhea, No nausea, No vomiting Genitourinary: No dysuria; frequency (normal); No hematuria Musculoskeletal: other (right sided shoulder pain) Skin: No change in color, No lesions, No rash Psychiatric/Neurological: No Symptoms Reported Hematologic/Lymphatic: No Symptoms Reported Immunological/Allergic: no symptoms reported (CONCETTA YU) Past Kxtoiyx-Qwsiwi-Dexlcs Hx Patient Social History Tobacco Use?: Yes Smoking Status: Former Smoker Use of E-Cig and/or Vaping dev: No Substance use?: No Alcohol Use?: No Pt feels they are or have been: No (CONCETTA YU) Immunizations Up To Date First/Initial COVID19 Vaccinat: 2020 Second COVID19 Vaccination Javier: 2020 (CONCETTA YU) Past Medical History Surgery/Hospitalization HX: COPD Surgeries: Yes Joint Replacement, Orthopedic Respiratory: Yes COPD Currently Using CPAP: No Currently Using BIPAP: No Cardiac: Yes (Congestive heart failure) High Cholesterol, Hypertension Neurological: No Reproductive Disorders: No Sexually Transmitted Disease: No HIV/AIDS: No Genitourinary: No Gastrointestinal: No Musculoskeletal: Yes Arthritis, Fractures Endocrine: No HEENT: No Loss of Vision: Denies Hearing Impairment: Denies Cancer: No (CONCETTA YU) Family Medical History Heart Disease, COPD, Hypertension (CONCETTA YU) Physical Exam Vital Signs Vital Signs - First Documented 03/16/22 14:18 Temp 36.1 Pulse 130 Resp 28 B/P (MAP) 125/77 (93) Pulse Ox 82 O2 Delivery Nasal Cannula O2 Flow Rate 4.00 (NORMA PAPPAS MD) Vital Signs Capillary Refill : Less Than 3 Seconds (CONCETTA YU) Height, Weight, BMI Height: '" Weight: lbs. oz. kg; 25.19 BMI Method: General Appearance: Mild Distress (appears short of breath while on 4L oxygen), Thin Eyes: Bilateral Eye PERRL, Bilateral Eye EOMI HEENT: PERRL/EOMI, Pharynx Normal Neck: Non Tender, Supple Respiratory: Chest Non Tender, No Accessory Muscle Use, Crackles (mild crackles present in RLL), Decreased Breath Sounds (RLL and LLL.); No Wheezing Cardiovascular: Normal Peripheral Pulses, Irregularly Irregular, Tachycardia Gastrointestinal: Normal Bowel Sounds, Non Tender, Soft Back: Normal Inspection, No Vertebral Tenderness Extremity: Normal Range of Motion, Pedal Edema (2+ pitting edema bilaterally), Other (tenderness to palpation at medial margin of scapular spine of right shoulder. No lumps, erythema, or dkin punctures apreciated on exam. pain with abduction against resistance of right arm.) Neurologic/Psychiatric: Alert, Oriented x3, No Motor/Sensory Deficits, 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 Skin: Normal Color, Warm/Dry Lymphatic: No Adenopathy (CONCETTA YU) Progress/Results/Core Measures Suspected Sepsis SIRS Temperature: Pulse: Respiratory Rate: Laboratory Tests 03/16/22 14:34: White Blood Count 7.6 Blood Pressure / Mean: Laboratory Tests 03/16/22 14:34: Creatinine 1.10, INR Comment 1.9H, Platelet Count 339, Total Bilirubin 1.3H (CONCETTA YU) Results/Orders Lab Results Laboratory Tests Test 03/16/22 14:34 03/16/22 15:03 Range/Units White Blood Count 7.6 4.3-11.0 10^3/uL Red Blood Count 4.49 3.80-5.11 10^6/uL Hemoglobin 12.9 11.5-16.0 g/dL Hematocrit 42 35-52 % Mean Corpuscular Volume 93 80-99 fL Mean Corpuscular Hemoglobin 29 25-34 pg Mean Corpuscular Hemoglobin Concent 31 L 32-36 g/dL Red Cell Distribution Width 16.0 H 10.0-14.5 % Platelet Count 339 130-400 10^3/uL Mean Platelet Volume 9.2 9.0-12.2 fL Immature Granulocyte % (Auto) 1 % Neutrophils (%) (Auto) 76 H 42-75 % Lymphocytes (%) (Auto) 13 12-44 % Monocytes (%) (Auto) 8 0-12 % Eosinophils (%) (Auto) 3 0-10 % Basophils (%) (Auto) 0 0-10 % Neutrophils # (Auto) 5.7 1.8-7.8 10^3/uL Lymphocytes # (Auto) 1.0 1.0-4.0 10^3/uL Monocytes # (Auto) 0.6 0.0-1.0 10^3/uL Eosinophils # (Auto) 0.2 0.0-0.3 10^3/uL Basophils # (Auto) 0.0 0.0-0.1 10^3/uL Immature Granulocyte # (Auto) 0.0 0.0-0.1 10^3/uL Prothrombin Time 22.4 H 12.2-14.7 SEC INR Comment 1.9 H 0.8-1.4 Activated Partial Thromboplast Time 36 H 24-35 SEC Sodium Level 140 135-145 MMOL/L Potassium Level 3.5 L 3.6-5.0 MMOL/L Chloride Level 102 98-107 MMOL/L Carbon Dioxide Level 23 21-32 MMOL/L Anion Gap 15 H 5-14 MMOL/L Blood Urea Nitrogen 26 H 7-18 MG/DL Creatinine 1.10 0.60-1.30 MG/DL Estimat Glomerular Filtration Rate 50 BUN/Creatinine Ratio 24 Glucose Level 132 H 70-105 MG/DL Calcium Level 8.8 8.5-10.1 MG/DL Corrected Calcium 9.0 8.5-10.1 MG/DL Magnesium Level 2.2 1.6-2.4 MG/DL Total Bilirubin 1.3 H 0.1-1.0 MG/DL Aspartate Amino Transf (AST/SGOT) 46 H 5-34 U/L Alanine Aminotransferase (ALT/SGPT) 110 H 0-55 U/L Alkaline Phosphatase 121 40-136 U/L Myoglobin 83.5 10.0-92.0 NG/ML Troponin I < 0.028 <0.028 NG/ML B-Type Natriuretic Peptide 361.2 H <100.0 PG/ML Total Protein 6.5 6.4-8.2 GM/DL Albumin 3.8 3.2-4.5 GM/DL Urine Color YELLOW Urine Clarity CLEAR Urine pH 5.5 5-9 Urine Specific [place] 1.015 L 1.016-1.022 Urine Protein NEGATIVE NEGATIVE Urine Glucose (UA) NEGATIVE NEGATIVE Urine Ketones NEGATIVE NEGATIVE Urine Nitrite NEGATIVE NEGATIVE Urine Bilirubin NEGATIVE NEGATIVE Urine Urobilinogen 0.2 < = 1.0 MG/DL Urine Leukocyte Esterase NEGATIVE NEGATIVE Urine RBC (Auto) NEGATIVE NEGATIVE Urine RBC NONE /HPF Urine WBC NONE /HPF Urine Crystals NONE /LPF Urine Bacteria NEGATIVE /HPF Urine Casts NONE /LPF Urine Mucus SMALL H /LPF Urine Culture Indicated NO (NORMA PAPPAS MD) My Orders Orders - NORMA PAPPAS MD Cbc With Automated Diff (03/16/22 14:28) Magnesium (03/16/22 14:28) Chest 1 View, Ap/Pa Only (03/16/22 14:28) Ekg Tracing (03/16/22 14:28) Comprehensive Metabolic Panel (03/16/22 14:28) Myoglobin Serum (03/16/22 14:28) Protime With Inr (03/16/22 14:28) Partial Thromboplastin Time (03/16/22 14:28) O2 (03/16/22 14:28) Monitor-Rhythm Ecg Trace Only (03/16/22 14:28) Ed Iv/Invasive Line Start (03/16/22 14:28) Troponin I [place] (03/16/22 14:28) Ua Culture If Indicated (03/16/22 14:28) Bnp Jessica (03/16/22 14:56) Furosemide Injection (Lasix Injection) (03/16/22 15:00) Diltiazem Injection (Cardizem Injection) (03/16/22 15:00) Tramadol Tablet (Ultram Tablet) (03/16/22 15:45) (NORMA PAPPAS MD) Medications Given in ED (NORMA PAPPAS MD) Vital Signs/I&O 03/16/22 03/16/22 14:18 14:20 Temp 36.1 Pulse 130 Resp 28 B/P (MAP) 125/77 (93) Pulse Ox 82 89 O2 Delivery Nasal Cannula Nasal Cannula O2 Flow Rate 4.00 4.00 (NORMA PAPPAS MD) Vital Signs/I&O Capillary Refill : Less Than 3 Seconds (CONCETTA YU) Progress Note : Progress Note 15:30 upon arrival patient was short of breath with diminished breath sounds and mild crackles on exam as well as pitting pedal edema. When paired with her history of heart failure of unknown EF at this time, this presentation was concerning for acute heart failure exacerbation and work up was started for this including EKG, Chest xray, CBC, Mag, myoglobin, troponin, coagulation studies, UA, and lipids. Her ekg and heart monitor has shown afib with RVR. Digoxin 20mg IV has been ordered since patient reports recently having digoxin discontinued by Dr. Dill and patient is tachycardic at this time. Chest x ray findings as well as elvated BNP were consistent with acute heart failure exacerbation and furosemide 40mg has been ordered for diuresis of excess fluid. No troponin elevation at this time. Will monitor vitals for now with inpatient admission likely. (CONCETTA YU) Progress Note #1: Time: 15:59 Progress Note #2: Time: 15:59 Progress Note I have seen and evaluated the patient, I have reviewed and agree with the medical student's documentation of history and physical examination. 81-year-old female who presents with right shoulder pain but also complains of worsening shortness of breath over the last 2 weeks with increasing edema. Profoundly hypoxic on her normal 4 L of oxygen per nasal cannula. Cardiac work- up ensued with a UA and BNP. BNP is found to be similar to most recent hospitalization in September 2021. She did have an echo at that time which showed systolic function reduced, moderate to severe tricuspid and mitral valve regurg. EF was 45 to 50%. No coronary artery disease history. She denies recent illnesses. She has had previous right shoulder injections for previous injury. 2+ pitting edema to her lower extremities. JVD noted on physical examination. Chest x-ray consistent with CHF with a moderate sized left pleural effusion. Daughter reports that she has had thoracentesis in the past. No history of malignancy. Former smoker having quit 10 years ago. Case was discussed with Dr. Blair who accepts the patient for inpatient admission to the ICU [facility]. She has had a 20 mg bolus of Cardizem which did result in a short run of 10 beats of V. tach that spontaneously resolved. Her heart rate is from 90-1 10 currently. Blood pressure is 120 systolic. I also talked to Dr. Voss about the case. She is a Dr. Dill patient. I advised him I gave her a second dose of her 40 mg of Lasix this afternoon. I advised him that I did give her the 20 mg of Cardizem. He did not indicate at this time starting a drip. I will go ahead and put her Cardizem per home med on her admitting orders. (NORMA PAPPAS MD) ECG Initial ECG Impression Date: March 16, 2022 Initial ECG Impression Time: 14:46 Initial ECG Rate: 131 Initial ECG Rhythm: A Fib/Flutter Initial ECG Impression: Atrial Fibrillation w/RVR (NORMA PAPPAS MD) Diagnostic Imaging Diagonstic Imaging: Xray Plain Films/CT/US/NM/MRI: chest Comments Preliminary Chest x ray report can be seen below: NAME: JESSE MONREAL [facility] REC#: [id number] PT STATUS: REG ER : 1940 PHYSICIAN: NORMA PAPPAS MD ADMIT DATE: 03/16/22/ER Draft Date of Exam:03/16/22 CHEST 1 VIEW, AP/PA ONLY INDICATION: Chest pain. COMPARISON is made with prior exam of 09/29/2021 FINDINGS: There are bibasilar infiltrates. There is a left pleural effusion. There is cardiomegaly mild venous congestion. There is no pneumothorax. The mediastinum is unremarkable IMPRESSION: 1. Bibasilar infiltrates and left pleural effusion 2. Cardiomegaly and mild central pulmonary venous congestion. Dictated on workstation # [id number] Dict: 03/16/22 1459 Trans: 03/16/22 1501 [facility] [id number] Interpreted by: ADONAY JOSHI MD Electronically signed by: (CONCETTA YU) Critical Care Note Critical Care Start Time: 14:50 Stop Time: 16:04 Total Time (minutes) 40 minutes critical care time in the evaluation and management of this 81-year-old with hypoxia, atrial fibrillation with rapid ventricular response. Time includes initial management of hypoxia with supplemental oxygen, administration of IV Cardizem to help with rate control. Review and interpretation of labs, review and interpretation of imaging studies. Review of the medical record, discussion with admitting provider as well as consulting retail assistant store manager. (NORMA PAPPAS MD) Departure Communication (Admissions) Time/Spoke to Admitting Phy: 15:[address] Blair Time/Spoke to Consulting Phy: 15:[address] Voss (NORMA PAPPAS MD) Impression Primary Impression: Acute exacerbation of CHF (congestive heart failure) Qualified Codes: I50.43 - Acute on chronic combined systolic (congestive) and diastolic (congestive) heart failure Additional Impressions: Hypoxia History of COPD Disposition: ADMITTED INPATIENT Condition: Critical Admissions Decision to Admit Reason: Admit from ER (General) Decision to Admit/Date: March 16, 2022 Time/Decision to Admit Time: 16:04 (NORMA PAPPAS MD) Departure-Patient Inst. Referrals: ALTAGRACIA GILL MD (PCP/Family) Primary Care Physician Verification and Attestation of Medical Student E/M Service A medical student performed and documented this service in my presence. I reviewed and verified all information documented by the medical student and made modifications to such information, when appropriate. I personally performed the physical exam and medical decision making. oNrma Pappas, Mar 18, 2022,06:39 (NORMA PAPPAS MD) Copy Copies To 1: ALTAGRACIA GILL MD, CARSON March 16, 2022 15:28 NORMA PAPPAS MD March 16, 2022 16:02
[2022-03-16] MEDS ORDERED: dilTIAZem DRIP PRE-MIX 125 ML IV ONE (16:42)
--- NOTE | 2022-03-16 16:43 | Tele-ICU Progress Note ---
Subjective Date Seen by a Provider: March 16, 2022 Time Seen by a Provider: 16:05 Subjective/Events-last exam This virtual visit was conducted using real time audio/video. Thank you for asking us to see this patient for respiratory insufficiency due to acute CHF exac., afib/RVR Recent events: Os sat 82% on 4 LPM in ER. PMH: COPD/ 4 L home O2, afib/RVR, HTN., HL. SH: smoking history: former FH: Non-contributory ROS: limited by patient's clinical condition, but as in HPI PE: VSS. HR 110-120 irreg. O2 sat 91% on 4 LPM NC. HEENT: No obvious masses, adenopathy or JVD. Chest: Dimished BS with crackles on auscultation. CV: Irreg. S1 S2 No murmur or added sounds. Abd: Non-tender. Bowel sounds Y. : Unremarkable. Coe Y. TUBE FITTER/psychiatric: Grossly intact. No obvious focal findings. Extremities: 1-2+ edema. Capillary refill < 3 seconds. Skin: unremarkable. Results: Elevated BUN 26, INR 1.9, BNP 361.2. Decreased K 3.5. CXR: Hyperinlated, cardiomegaly, bibasilar infilts., L pleural eff.. Available chart/ vitals / labs / images reviewed. Video assessment done using teleICU camera, rest of exam as per RN. A/P: Respiratory insufficiency: Continue present management with NC, PRN BDs Monitor for increasing oxygenation needs and/or need for intubation. Critical Care: critically ill patient. Cont. Lasix, dilt., coumadin. Discussed with FLY Reid. Asked RN to reach out to eICU if any questions or concerns later. Time spent with patient/coordination of care with other health professionals (mins): 27 Sepsis Event Evaluation Height, Weight, BMI Height: '" Weight: lbs. oz. kg; 22.00 BMI Method: Exam Exam Patient acknowledged, consented, and participated in this virtual visit which was conducted using real time audio/video Vital Signs Date Time Temp Pulse Resp B/P (MAP) Pulse Ox O2 Delivery O2 Flow Rate FiO2 03/16/22 14:20 89 Nasal Cannula 4.00 03/16/22 14:18 36.1 130 28 125/77 (93) 82 Nasal Cannula 4.00 Height & Weight Height: '" Weight: lbs. oz. kg; 22.00 BMI Method: General Appearance: Mild Distress (appears short of breath while on 4L oxygen), Thin HEENT: PERRL/EOMI, Pharynx Normal Neck: Non Tender, Supple Respiratory: Chest Non Tender, No Accessory Muscle Use, Crackles (mild crackles present in RLL), Decreased Breath Sounds (RLL and LLL.); No Wheezing Cardiovascular: Normal Peripheral Pulses, Irregularly Irregular, Tachycardia Capillary Refill: Less Than 3 Seconds Extremity: Normal Range of Motion, Pedal Edema (2+ pitting edema bilaterally), Other (tenderness to palpation at medial margin of scapular spine of right shoulder. No lumps, erythema, or dkin punctures apreciated on exam. pain with abduction against resistance of right arm.) Neurologic/Psychiatric: Alert, Oriented x3, No Motor/Sensory Deficits, 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 Skin: Normal Color, Warm/Dry Lymphatic: No Adenopathy Results Lab Laboratory Tests 03/16/22 14:34 Assessment/Plan Assessment/Plan See free text. Critical Care: Critically Ill Patient SUDHEER WILHELM MD March 16, 2022 16:43
[2022-03-16 16:59] VITALS: BP 125/77
[2022-03-16] MEDS: dilTIAZem DRIP PRE-MIX 125 ML IV SCH (17:03)
[2022-03-16] MEDS: KCL 10 MEQ TAB (MICRO K) PO SCH (17:35)
[2022-03-16] MEDS: RIVAROXABAN 20 MG TABLET (XARELTO) PO SCH (17:35)
[2022-03-16] MEDS: RT-ALBUTEROL/IPRATROPIUM 3 ML (DUONEB) VIAL INH SCH ×2 (19:14→21:48)
[2022-03-16] MEDS ORDERED: RT-ALBUTEROL/IPRATROPIUM 3 ML (DUONEB) VIAL INH PRN (20:00)
[2022-03-16] MEDS ORDERED: CATHETER FLUSH 10 ML SYR IVP PRN (23:00)
[2022-03-17] MEDS: RT-ALBUTEROL/IPRATROPIUM 3 ML (DUONEB) VIAL INH SCH ×6 (02:25→22:23)
[2022-03-17 04:53] LABS: BASOPHILS # (AUTO) 0.1 10^3/uL (0.0-0.1); BASOPHILS % (AUTO) 1 % (0-10); EOSINOPHILS # (AUTO) 0.3 10^3/uL (0.0-0.3); EOSINOPHILS % (AUTO) 4 % (0-10); HEMATOCRIT 39 % (35-52); LYMPHOCYTES # (AUTO) 1.3 10^3/uL (1.0-4.0); LYMPHOCYTES % (AUTO) 16 % (12-44); MEAN CORPUSCULAR HEMOGLOBIN 28 pg (25-34); MEAN CORPUSCULAR HGB CONC 31 g/dL (32-36); MEAN CORPUSCULAR VOLUME 93 fL (80-99); MEAN PLATELET VOLUME 9.3 fL (9.0-12.2); MONOCYTES # (AUTO) 0.7 10^3/uL (0.0-1.0); MONOCYTES % (AUTO) 9 % (0-12); NEUTROPHILS # (AUTO) 5.5 10^3/uL (1.8-7.8); NEUTROPHILS % (AUTO) 69 % (42-75); PLATELET COUNT 261 10^3/uL (130-400); WHITE BLOOD COUNT 7.9 10^3/uL (4.3-11.0)
[2022-03-17 05:18] LABS: ALBUMIN 3.4 GM/DL (3.2-4.5); POTASSIUM 3.5 MMOL/L (3.6-5.0)
[2022-03-17 05:19] LABS: CALCIUM 8.7 MG/DL (8.5-10.1)
[2022-03-17] MEDS: KCL 10 MEQ TAB (MICRO K) PO SCH ×3 (05:19→16:59)
[2022-03-17] MEDS: CATHETER FLUSH 10 ML SYR IVP SCH ×3 (05:19→22:54)
[2022-03-17 05:21] LABS: TOTAL PROTEIN 5.7 GM/DL (6.4-8.2)
[2022-03-17 05:22] LABS: BILIRUBIN,TOTAL 0.9 MG/DL (0.1-1.0)
[2022-03-17 05:24] LABS: CREATININE SERUM 1.06 MG/DL (0.60-1.30); PHOSPHORUS 4.6 MG/DL (2.3-4.7)
[2022-03-17 05:28] LABS: MAGNESIUM 2.1 MG/DL (1.6-2.4)
[2022-03-17] MEDS: FUROSEMIDE 40 MG/4 ML INJ (LASIX) IV SCH (05:28)
[2022-03-17] MEDS ORDERED: HYDROcodone/APAP 5 MG/325 MG (LORTAB) TAB PO ONE (05:30)
[2022-03-17] MEDS: ASPIRIN 81 MG CHEW (CHILDREN'S ASA) PO SCH (08:01)
--- NOTE | 2022-03-17 08:03 | Consultation-Cardiology ---
HPI-Cardiology Cardiology Consultation: Date of Consultation 03/17/22 Time Seen by a Provider: 08:30 Date of Admission 03-16-22 Attending Physician Pippa Leonard MD Admitting Physician Admitting Physician: Paola Blair MD Attending Physician: Paola Blair MD Consulting Physician Joaquin Dill MD HPI: Chief Complaint: Progressive dyspnea Progressive LE swelling Ms. Monreal is an 81 yr old female admitted to ICU 3 from the ED with c/o increasing SOB, palpitations and LE swelling. She reports she had been to [place] for a few days and had forgotten to take her diuretics with her. She reports upon returning home she noted her SOB to be increasingly worse. She reports bilat LE swelling and abd distention prompting her to come to the ED. She was found to be in a-fib with RVR. She was given Lasix IV and started on a Cardizem gtt. The Cardizem gtt was stopped overnight d/t low BP. She is currently a-fib rate in the 100's to 120's. LE swelling has resolved and her SOB is much better. No c/o n/v/d. No c/o fever or chills. No c/o CP. Review of Systems-Cardiology Review of Systems Constitutional: No chills, No fever; malaise Eyes: No vision change Ears/Nose/Throat: No epistaxis, No recent hearing loss Respiratory: As described under HPI Cardiovascular: As described under HPI Gastrointestinal: No constipation, No diarrhea, No nausea, No vomiting Genitourinary: No dysuria Musculoskeletal: back pain (chronic) Skin: No rash on exposed areas, No ulcerations on exposed areas Psychiatric/Neurological: No anxiety, No depression, No seizure, No focal weakness, No syncope Hematologic: No bleeding abnormalities ZHI-Kmfpij-Eunone Hx Patient Social History Smoking Status: Former Smoker Have you traveled recently?: Yes Alcohol Use?: No Pt feels they are or have been: No Past Medical History PMH As described under Assessment. Family Medical History Family Medical History: She reports her mother had heart disease, but does not know the details. She reports her brother had CHF. Allergies and Home Medications Allergies Coded Allergies: bacitracin (Verified Allergy, Severe, 09/22/21) morphine (Verified Allergy, Severe, 09/22/21) nickel (Verified Allergy, Severe, 09/22/21) Patient Home Medication List Albuterol Sulfate (Ventolin Hfa) 90 Mcg Hfa.aer.ad, 1 PUFF PO BID PRN for SHORTNESS OF BREATH, (Reported) Entered as Reported by: CRISTINE JOHNSON on 03/17/221003 Last Action: Reviewed Aspirin (Aspirin EC) 81 Mg Tablet.dr, 81 MG PO DAILY, (Reported) Entered as Reported by: JUAN FRANCISCO HUA on 09/23/211138 Last Action: Reviewed Calcium Carbonate (Calcium) 600 Mg Tablet, 600 MG PO BID, (Reported) Entered as Reported by: JUAN FRANCISCO HUA on 09/23/211138 Last Action: Reviewed Diltiazem HCl (Diltiazem 24Hr ER) 240 Mg Cap.er.24h, 240 MG PO DAILY, (Reported) Entered as Reported by: CRISTINE JOHNSON on 03/17/221003 Last Action: Reviewed Furosemide (Furosemide) 40 Mg Tablet, 40 MG PO DAILY, (Reported) Entered as Reported by: CRISTINE JOHNSON on 03/17/221003 Last Action: Reviewed Ipratropium/Albuterol Sulfate (Iprat-Albut 0.5-3(2.5) mg/3 ml) 0.5 Mg-3 Mg (2.5 Mg Base)/3 Ml Ampul.neb, 1 VIAL Q6H PRN for SHORTNESS OF BREATH, (Reported) Entered as Reported by: CRISTINE JOHNSON on 03/17/22 0953 Last Action: Reviewed Oxybutynin Chloride (Oxybutynin Chloride ER) 10 Mg Tab.er.24, 10 MG PO DAILY, (Reported) Entered as Reported by: JUAN FRANCISCO HUA on 09/23/211138 Last Action: Reviewed Pantoprazole Sodium (Pantoprazole Sodium) 40 Mg Tablet.dr, 40 MG PO DAILY, (R eported) Entered as Reported by: CRISTINE JOHNSON on 03/17/221003 Last Action: Reviewed Potassium Chloride (K-Tab ER) 10 Meq Tablet.er, 10 MEQ PO BID, (Reported) Entered as Reported by: CRISTINE JOHNSON on 03/17/221003 Last Action: Reviewed Revefenacin (Yupelri) 175 Mcg/3 Ml Vial.neb, 1 VIAL PO DAILY, (Reported) Entered as Reported by: CRISTINE JOHNSON on 03/17/22 1037 Last Action: Reviewed Rivaroxaban (Xarelto) 20 Mg Tablet, 20 MG PO HS, (Reported) Entered as Reported by: CRISTINE JOHNSON on 03/17/22 1004 Last Action: Reviewed Simvastatin (Simvastatin) 20 Mg Tablet, 20 MG PO DAILY, (Reported) Entered as Reported by: JUAN FRANCISCO HUA on 09/23/21 113 Last Action: Reviewed Sodium Chloride (Jesus Alberto-128) 15 Ml Drops, 1-2 DROPS OU BID, (Reported) Entered as Reported by: JUAN FRANCISCO HUA on 09/23/211138 Last Action: Reviewed Vit C/E/Zn/Coppr/Lutein/Zeaxan (Preservision Areds 2 Softgel) 1 Each Capsule, 1 EACH PO BID, (Reported) Entered as Reported by: JUAN FRANCISCO HUA on 09/23/211138 Last Action: Reviewed Physical Exam-Cardiology Physical Exam Vital Signs/I&O 03/17/22 03/17/22 03/17/22 03/17/22 01:04 01:30 02:25 02:30 Pulse 91 90 92 B/P (MAP) 86/59 98/61 104/72 Pulse Ox 91 93 90 95 O2 Delivery Nasal Cannula Nasal Cannula Nasal Cannula Nasal Cannula O2 Flow Rate 6.00 6.00 8.00 6.00 03/17/22 03/17/22 03/17/22 03/17/22 03:00 04:00 04:00 04:01 Temp 36.0 Pulse 104 108 B/P (MAP) 99/63 107/56 Pulse Ox 94 87 O2 Delivery Nasal Cannula Nasal Cannula Nasal Cannula O2 Flow Rate 6.00 6.00 6.00 03/17/22 03/17/22 03/17/22 03/17/22 04:44 05:00 06:00 07:00 Pulse 112 101 105 97 B/P (MAP) 110/73 113/87 Pulse Ox 95 90 92 O2 Delivery Nasal Cannula Nasal Cannula Nasal Cannula O2 Flow Rate 10.00 10.00 10.00 03/17/22 03/17/22 03/17/22 03/17/22 07:00 07:41 07:48 08:00 Temp 36.4 Pulse 110 107 B/P (MAP) 111/83 125/92 Pulse Ox 93 91 91 O2 Delivery Nasal Cannula Nasal Cannula Nasal Cannula Nasal Cannula O2 Flow Rate 10.00 10.00 10.00 10.00 03/17/22 03/17/22 03/17/22 03/17/22 09:00 09:12 10:00 11:00 Pulse 102 102 134 Resp 16 18 B/P (MAP) 132/88 122/65 115/93 Pulse Ox 95 93 94 92 O2 Delivery Nasal Cannula Nasal Cannula Nasal Cannula Nasal Cannula O2 Flow Rate 10.00 10.00 10.00 10.00 03/17/22 03/17/22 03/17/22 12:00 12:15 12:41 Pulse 125 125 120 Resp 26 38 B/P (MAP) 85/59 99/80 Pulse Ox 90 89 O2 Delivery Nasal Cannula Nasal Cannula O2 Flow Rate 10.00 10.00 03/17/22 00:00 Intake Total 980 ml Output Total 2575 ml Balance -1595 ml Capillary Refill : Less Than 3 Seconds Constitutional: AAO x 3, well-developed, well-nourished HEENT: PERRL, hearing is well preserved, oral hygience is good Neck: No carotid bruit; carotid pulses are 2 + bilaterally Respiratory: No accessory muscle use, No respiratory distress; chest expansion is symmetric, chest is bilaterally symmetric, lungs clear to auscultation Cardiovascular: irregularly irregular; No JVD, No edema; tachycardia, S1 and S2 Gastrointestinal: No tender; soft, round; No distended; audible bowel sounds Extremities: no lower extremity edema bilateral Neurologic/Psychiatric: grossly intact (moves all extremities) Skin: No rash on exposed areas, No ulcerations on exposed areas Data Review Labs Laboratory Tests 03/16/22 14:34: White Blood Count 7.6, Red Blood Count 4.49, Hemoglobin 12.9, Hematocrit 42, Mean Corpuscular Volume 93, Mean Corpuscular Hemoglobin 29, Mean Corpuscular Hemoglobin Concent 31L, Red Cell Distribution Width 16.0H, Platelet Count 339, Mean Platelet Volume 9.2, Immature Granulocyte % (Auto) 1, Neutrophils (%) (Auto) 76H, Lymphocytes (%) (Auto) 13, Monocytes (%) (Auto) 8, Eosinophils (%) (Auto) 3, Basophils (%) (Auto) 0, Neutrophils # (Auto) 5.7, Lymphocytes # (Auto) 1.0, Monocytes # (Auto) 0.6, Eosinophils # (Auto) 0.2, Basophils # (Auto) 0.0, Immature Granulocyte # (Auto) 0.0, Prothrombin Time 22.4H, INR Comment 1.9H, Activated Partial Thromboplast Time 36H, Sodium Level 140, Potassium Level 3.5L, Chloride Level 102, Carbon Dioxide Level 23, Anion Gap 15H, Blood Urea Nitrogen 26H, Creatinine 1.10, Estimat Glomerular Filtration Rate 50, BUN/Creatinine Ratio 24, Glucose Level 132H, Calcium Level 8.8, Corrected Calcium 9.0, Magnesi um Level 2.2, Total Bilirubin 1.3H, Aspartate Amino Transf (AST/SGOT) 46H, Alanine Aminotransferase (ALT/SGPT) 110H, Alkaline Phosphatase 121, Myoglobin 83.5, Troponin I < 0.028, B-Type Natriuretic Peptide 361.2H, Total Protein 6.5, Albumin 3.8 03/16/22 15:03: Urine Color YELLOW, Urine Clarity CLEAR, Urine pH 5.5, Urine Specific [place] 1.015L, Urine Protein NEGATIVE, Urine Glucose (UA) NEGATIVE, Urine Ketones NEGATIVE, Urine Nitrite NEGATIVE, Urine Bilirubin NEGATIVE, Urine Urobilinogen 0.2, Urine Leukocyte Esterase NEGATIVE, Urine RBC (Auto) NEGATIVE, Urine RBC NONE, Urine WBC NONE, Urine Crystals NONE, Urine Bacteria NEGATIVE, Urine Casts NONE, Urine Mucus SMALLH, Urine Culture Indicated NO 03/17/22 04:24: White Blood Count 7.9, Red Blood Count 4.23, Hemoglobin 12.0, Hematocrit 39, Mean Corpuscular Volume 93, Mean Corpuscular Hemoglobin 28, Mean Corpuscular Hemoglobin Concent 31L, Red Cell Distribution Width 16.0H, Platelet Count 261, Mean Platelet Volume 9.3, Immature Granulocyte % (Auto) 0, Neutrophils (%) (Auto) 69, Lymphocytes (%) (Auto) 16, Monocytes (%) (Auto) 9, Eosinophils (%) (Auto) 4, Basophils (%) (Auto) 1, Neutrophils # (Auto) 5.5, Lymphocytes # (Auto) 1.3, Monocytes # (Auto) 0.7, Eosinophils # (Auto) 0.3, Basophils # (Auto) 0.1, Immature Granulocyte # (Auto) 0.0, Sodium Level 142, Potassium Level 3.5L, Chloride Level 102, Carbon Dioxide Level 25, Anion Gap 15H, Blood Urea Nitrogen 25H, Creatinine 1.06, Estimat Glomerular Filtration Rate 52, BUN/Creatinine Ratio 24, Glucose Level 119H, Calcium Level 8.7, Corrected Calcium 9.2, Magnesium Level 2.1, Total Bilirubin 0.9, Aspartate Amino Transf (AST/SGOT) 34, Alanine Aminotransferase (ALT/SGPT) 86H, Alkaline Phosphatase 102, Total Protein 5.7L, Albumin 3.4, Phosphorus Level 4.6, Triglycerides Level 58, Cholesterol Level 130, LDL Cholesterol Direct 67, VLDL Cholesterol 12, HDL Cholesterol 51 Radiology NAME: JESSE MONREAL [facility] REC#: [id number] PT STATUS: ADM IN : 1940 PHYSICIAN: NORMA PAPPAS MD ADMIT DATE: 03/16/22/ICU Signed Date of Exam:03/16/22 CHEST 1 VIEW, AP/PA ONLY INDICATION: Chest pain. COMPARISON is made with prior exam of 09/29/2021 FINDINGS: There are bibasilar infiltrates. There is a left pleural effusion. There is cardiomegaly mild venous congestion. There is no pneumothorax. The mediastinum is unremarkable IMPRESSION: 1. Bibasilar infiltrates and left pleural effusion 2. Cardiomegaly and mild central pulmonary venous congestion. 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 - Echo on 09/23/21: LVEF 45-50%, mod to sev biatrial enlargement, mod to severe MR & TR, pulm htn with PASP approx 70 mmHg HTN - controlled - somewhat low BP - asymptomatic HLD - statin tx GI - GERD COPD - managed by PCP 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 Chronic back pain - h/o extensive back surgeries in 2015 following a fall Chronic, bilat leg swelling due to venous insuff - controlled with daytime use of compression stocking Discussion and Recomendations Acute on chronic systolic CHF - treat with diuretics A-fib with RVR - start oral cardizem (home dose) Restart Xarelto for stroke prophylaxis Discussed importance of compliance with medications Monitor lab closely Replace electrolytes as indicated Further recs will be based on her hospital course We would like to thank medical services for this consult EVANGELISTA REDD March 17, 2022 08:03
--- NOTE | 2022-03-17 08:33 | History & Physical ---
History of Present Illness History of Present Illness Reason for visit/HPI PT IS AN 81 Y/O FEMALE WHO IS KNOWN TO ME FROM CLINIC A NEW PATIENT. She reports that the only reason she came into the ER was for neck and upper back pain on the right - she was requesting a shot to her shoulder/neck region. She reports that she was up in [place] working on her family member's [employer] and she forgot her heart medications, and pulmonary medications. She reports that she started taking her meds when she got back home, but realized she made a mistake in not taking her meds due to feeling short of breath and having a rapid heart beat. She denies chest pain, abdominal pain, nausea, dizziness. Date of Admission March 16, 2022 at 16:05 Date Seen by a Provider: March 17, 2022 Time Seen by a Provider: 08:30 Attending Physician Altagracia Leonard MD Admitting Physician Altagracia Leonard MD Consult Cardiology - Dr. Fuentes LOZANO Allergies and Home Medications Allergies Coded Allergies: bacitracin (Verified Allergy, Severe, 09/22/21) morphine (Verified Allergy, Severe, 09/22/21) nickel (Verified Allergy, Severe, 09/22/21) Patient Home Medication List Home Medication List Reviewed: Yes Albuterol Sulfate (Ventolin Hfa) 90 Mcg Hfa.aer.ad, 1 PUFF PO BID PRN for SHORTNESS OF BREATH, (Reported) Entered as Reported by: CRISTINE JOHNSON on 03/17/22 100 Last Action: Reviewed Aspirin (Aspirin EC) 81 Mg Tablet.dr, 81 MG PO DAILY, (Reported) Entered as Reported by: JUAN FRANCISCO HUA on 09/23/21 113 Last Action: Reviewed Calcium Carbonate (Calcium) 600 Mg Tablet, 600 MG PO BID, (Reported) Entered as Reported by: JUAN FRANCISCO HUA on 09/23/21 113 Last Action: Held Diltiazem HCl (Diltiazem 24Hr ER) 240 Mg Cap.er.24h, 240 MG PO DAILY, (Reported) Entered as Reported by: CRISTINE JOHNSON on 03/17/22 100 Last Action: Reviewed Furosemide (Furosemide) 40 Mg Tablet, 40 MG PO DAILY, (Reported) Entered as Reported by: CRISTINE JOHNSON on 03/17/22 100 Last Action: Held Ipratropium/Albuterol Sulfate (Iprat-Albut 0.5-3(2.5) mg/3 ml) 0.5 Mg-3 Mg (2.5 Mg Base)/3 Ml Ampul.neb, 1 VIAL Q6H PRN for SHORTNESS OF BREATH, (Reported) Entered as Reported by: CRISTINE JOHNSON on 03/17/22 0953 Last Action: Reviewed Oxybutynin Chloride (Oxybutynin Chloride ER) 10 Mg Tab.er.24, 10 MG PO DAILY, (Reported) Entered as Reported by: JUAN FRANCISCO HUA on 09/23/211138 Last Action: Held Pantoprazole Sodium (Pantoprazole Sodium) 40 Mg Tablet.dr, 40 MG PO DAILY, (Reported) Entered as Reported by: CRISTINE JOHNSON on 03/17/22 100 Last Action: Continued Potassium Chloride (K-Tab ER) 10 Meq Tablet.er, 10 MEQ PO BID, (Reported) Entered as Reported by: CRISTINE JOHNSON on 03/17/221003 Last Action: Held Revefenacin (Yupelri) 175 Mcg/3 Ml Vial.neb, 1 VIAL PO DAILY, (Reported) Entered as Reported by: CRISTINE JOHNSON on 03/17/22 1037 Last Action: Held Rivaroxaban (Xarelto) 20 Mg Tablet, 20 MG PO HS, (Reported) Entered as Reported by: CRISTINE JOHNSON on 03/17/221003 Last Action: Reviewed Simvastatin (Simvastatin) 20 Mg Tablet, 20 MG PO DAILY, (Reported) Entered as Reported by: JUAN FRANCISCO HUA on 09/23/211138 Last Action: Converted Sodium Chloride (Jesus Alberto-128) 15 Ml Drops, 1-2 DROPS OU BID, (Reported) Entered as Reported by: JUAN FRANCISCO HUA on 09/23/211138 Last Action: Held Vit C/E/Zn/Coppr/Lutein/Zeaxan (Preservision Areds 2 Softgel) 1 Each Capsule, 1 EACH PO BID, (Reported) Entered as Reported by: JUAN FRANCISCO HUA on 09/23/211138 Last Action: Held Past Ctwjavt-Ehfztl-Gocbhw Hx Patient Social History Marrital Status: Number of Children: 7 Tobacco Use?: No Smoking Status: Former Smoker (1+ppd for over 40 years - quit in 2011) Use of E-Cig and/or Vaping dev: No Use of E-Cig and/or Vaping Ferny: Never a User Substance use?: No Alcohol Use?: No Pt feels they are or have been: No Immunizations Up To Date First/Initial COVID19 Vaccinat: 2020 Second COVID19 Vaccination Javier: 2020 Current Status Advance Directives: Yes Advance Directive Location: Family to bring in copy Communicates: Verbally Primary Language: Citizen Of [place] Preferred Spoken Language: Citizen Of [place] Is interpretation needed?: No Sensory deficits: Vision impairment Implanted or Applied Medical D: None Past Medical History Surgeries: Joint Replacement, Orthopedic (hip surgery Performed: 2010, bunionectomy 2011, carpal tunnel 1975) COPD Currently Using CPAP: No Currently Using BIPAP: No Atrial Fibrillation, High Cholesterol, Hypertension 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 Sexually Transmitted Disease: No HIV/AIDS: No Gastroesophageal Reflux Arthritis, Fractures Loss of Vision: Denies Hearing Impairment: Denies URGE INCONTINENCE Family Medical History Heart Disease, COPD, Hypertension Review of Systems Constitutional: No chills, No diaphoresis, No dizziness, No fever, No malaise, No weakness EENTM: No hearing loss, No throat pain Respiratory: dyspnea on exertion, orthopnea, short of breath, wheezing Cardiovascular: No chest pain, No palpitations, No syncope Gastrointestinal: No RUQ, No LUQ, No RLQ, No LLQ, No abdominal pain, No constipation, No diarrhea, No heartburn, No loss of appetite, No nausea Genitourinary: no symptoms reported Musculoskeletal: back pain, neck pain (on right) Skin: no symptoms reported; No dryness, No lesions, No rash Psychiatric/Neurological: No Symptoms Reported All Other Systems Reviewed Negative Unless Noted: Yes Physical Exam Vital Signs Vital Signs - First Documented 03/16/22 03/16/22 14:18 16:59 Temp 36.1 Pulse 130 Resp 28 B/P (MAP) 125/77 (93) Pulse Ox 82 O2 Delivery Nasal Cannula O2 Flow Rate 4.00 FiO2 36 Capillary Refill : Less Than 3 Seconds Height, Weight, BMI Height: '" Weight: lbs. oz. kg; 20.77 BMI Method: General Appearance: Mild Distress, Thin HEENT: PERRL/EOMI, Pharynx Normal Neck: Full Range of Motion, Supple, Other (ttp over right upper neck, upper shoulder and upper back region) Respiratory: Chest Non Tender, Crackles (in bases bilaterally), Decreased Breath Sounds, Wheezing Cardiovascular: Irregularly Irregular, Tachycardia Gastrointestinal: Normal Bowel Sounds, No Organomegaly, No Pulsatile Mass, Non Tender, Soft Rectal: Deferred Back: Other (tender to palpation over upper neck, trapezius muscle on right) Extremity: Normal Capillary Refill, Normal Inspection, Normal Range of Motion, Non Tender, No Calf Tenderness, No Pedal Edema Neurologic/Psychiatric: Alert, Oriented x3, No Motor/Sensory Deficits, 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 Skin: Normal Color, Warm/Dry Lymphatic: No Adenopathy Assessment/Plan Assessment and Plan Acute on chronic atrial fibrillation, rate uncontrolled Chronic NOAC anticoagulation Pneumonia Chronic COPD with exacerbation Chronic oxygen dependence Medication noncompliance Hypertension Esophageal reflux Urge incontinence Hypokalemia Elevated liver enzymes Acute on chronic atrial fibrillation, rate uncontrolled - pt is on Chronic NOAC anticoagulation with Xarelto - Pt on cardizem drip on admission - Consult to Dr. Dill - resume home regimen Pneumonia with Chronic COPD with exacerbation, Chronic oxygen dependence - pt to start on Rocephin and Azithromycin - MAT protocol - oxygen started, will taper back to home regimen as able. Medication noncompliance - pt inadvertently left her medications at home while on a trip. Hypertension - resume home regimen - monitor bp Esophageal reflux - resumed PPI therapy Urge incontinence - hold home medications - pt has shaikh in place Hypokalemia - replenish through icu protocols Elevated liver enzymes - improved with hydration - suspect shock from her rapid afib. Right upper back and shoulder pain - - prn tylenol and pain medication, use voltaren gel topically GI prophylaxis with PPI DVT prophylaxis with NOAC and scd's Admission Diagnosis Acute on chronic atrial fibrillation, rate uncontrolled Chronic NOAC anticoagulation Pneumonia Chronic COPD with exacerbation Chronic oxygen dependence Medication noncompliance Hypertension Esophageal reflux Urge incontinence Hypokalemia Elevated liver enzymes Admission Status: Inpatient Order (span 2 midnights) Reason for Inpatient Admission: inpatient admission for afib rvr, pneumonia, hypoxia, will require at least 2-3 midnights for medication adjustments and stabilization ALTAGRACIA LEONARD MD March 17, 2022 08:33
[2022-03-17] MEDS ORDERED: AZITHROMYCIN INJECTION 500 MG in NS (IVPB) 250 ML IV NR (09:19)
[2022-03-17] MEDS ORDERED: KCL 20 MEQ TAB (K-DUR) PO NR (09:22)
[2022-03-17] MEDS ORDERED: cefTRIAXone 1 GM PRE-MIX 50 ML IV NR (09:22)
[2022-03-17] MEDS ORDERED: IPRA3AMP31 (09:53)
--- NOTE | 2022-03-17 10:02 | Diagnostic Imaging Report ---
EXAMINATION: Chest, 2 views. HISTORY: Pneumonia. Chest pain. Followup. COMPARISON: 03/16/2022. FINDINGS: Stable moderate left pleural effusion. Persistent left basilar opacities are seen. There is improved aeration in the right lung base. No pneumothorax. Stable cardiac silhouette. There is calcified aortic atherosclerotic plaque. Posterior fusion changes are visualized in the lower thoracic spine extending into the lumbar spine. IMPRESSION: 1. Improved aeration in the right lung base which may represent improving atelectasis, infection, and/or edema. 2. Stable moderate left pleural effusion with left basilar opacities. Dictated by: Dictated on workstation # [id number]
[2022-03-17] MEDS ORDERED: FURO40TA4 PO (10:04)
[2022-03-17] MEDS ORDERED: ALBU18HF2 PO (10:04)
[2022-03-17] MEDS ORDERED: DIGO125T3 PO (10:04)
[2022-03-17] MEDS ORDERED: RIVA20TA PO (10:04)
[2022-03-17] MEDS ORDERED: DILT240C91 PO (10:04)
[2022-03-17] MEDS ORDERED: POTA10TA PO (10:04)
[2022-03-17] MEDS ORDERED: PANT40TA52 PO (10:04)
[2022-03-17] MEDS ORDERED: VITA400C64 PO (10:10)
[2022-03-17] MEDS ORDERED: CHOL500050 PO (10:11)
[2022-03-17] MEDS: DICLOFENAC 1% GEL 100 GM (VOLTAREN) TUBE TOP SCH ×4 (10:24→21:32)
[2022-03-17] MEDS ORDERED: dilTIAZem120 MG (CARDIZEM CD) CAP PO SCH (10:30)
[2022-03-17] MEDS ORDERED: REVE175V PO (10:37)
--- NOTE | 2022-03-17 10:48 | Consultation-Cardiology ---
HPI-Cardiology Cardiology Consultation: Date of Consultation 03/17/22 Time Seen by a Provider: 10:15 Date of Admission Attending Physician Pippa Leonard MD Admitting Physician Admitting Physician: Paola Blair MD Attending Physician: Paola Blair MD Consulting Physician EKATERINA CALLES MD, FACP, FACC HPI: Chief Complaint: Progressive dyspnea Progressive LE swelling Ms. Corrales is an 81 yr old female admitted to ICU 3 from the ED with c/o incre asing SOB, palpitations and LE swelling. She reports she had been to [place] for a few days and had forgotten to take her diuretics with her. She reports upon returning home she noted her SOB to be increasingly worse. She reports bilat LE swelling and abd distention prompting her to come to the ED. She was found to be in a-fib with RVR. She was given Lasix IV and started on a Cardizem gtt. The Cardizem gtt was stopped overnight d/t low BP. She is currently a-fib rate in the 100's to 120's. LE swelling has resolved and her SOB is much better. No c/o n/v/d. No c/o fever or chills. No c/o CP. Review of Systems-Cardiology Review of Systems Constitutional: No chills, No fever; malaise Eyes: No vision change Ears/Nose/Throat: No epistaxis, No recent hearing loss Respiratory: As described under HPI Cardiovascular: As described under HPI Gastrointestinal: No constipation, No diarrhea, No nausea, No vomiting Genitourinary: No dysuria Musculoskeletal: back pain (chronic) Skin: No rash on exposed areas, No ulcerations on exposed areas Psychiatric/Neurological: No anxiety, No depression, No seizure, No focal weakness, No syncope Hematologic: No bleeding abnormalities JRU-[id number]-Fexiue Hx Patient Social History Smoking Status: Former Smoker Have you traveled recently?: Yes Alcohol Use?: No Pt feels they are or have been: No Past Medical History PMH As described under Assessment. Family Medical History Family Medical History: She reports her mother had heart disease, but does not know the details. She reports her brother had CHF. Allergies and Home Medications Allergies Coded Allergies: bacitracin (Verified Allergy, Severe, 09/22/21) morphine (Verified Allergy, Severe, 09/22/21) nickel (Verified Allergy, Severe, 09/22/21) Patient Home Medication List Home Medication List Reviewed: Yes Albuterol Sulfate (Ventolin Hfa) 90 Mcg Hfa.aer.ad, 1 PUFF PO BID PRN for SHORTNESS OF BREATH, (Reported) Entered as Reported by: CRISTINE JOHNSON on 03/17/221003 Last Action: Reviewed Aspirin (Aspirin EC) 81 Mg Tablet.dr, 81 MG PO DAILY, (Reported) Entered as Reported by: JUAN FRANCISCO HUA on 09/23/211138 Last Action: Reviewed Calcium Carbonate (Calcium) 600 Mg Tablet, 600 MG PO BID, (Reported) Entered as Reported by: JUAN FRANCISCO HUA on 09/23/211138 Last Action: Reviewed Diltiazem HCl (Diltiazem 24Hr ER) 240 Mg Cap.er.24h, 240 MG PO DAILY, (Reported) Entered as Reported by: CRISTINE JOHNSON on 03/17/221003 Last Action: Reviewed Furosemide (Furosemide) 40 Mg Tablet, 40 MG PO DAILY, (Reported) Entered as Reported by: CRISTINE JOHNSON on 03/17/221003 Last Action: Reviewed Ipratropium/Albuterol Sulfate (Iprat-Albut 0.5-3(2.5) mg/3 ml) 0.5 Mg-3 Mg (2.5 Mg Base)/3 Ml Ampul.neb, 1 VIAL Q6H PRN for SHORTNESS OF BREATH, (Reported) Entered as Reported by: CRISTINE JOHNSON on 03/17/22 0953 Last Action: Reviewed Oxybutynin Chloride (Oxybutynin Chloride ER) 10 Mg Tab.er.24, 10 MG PO DAILY, (Reported) Entered as Reported by: JUAN FRANCISCO HUA on 09/23/211138 Last Action: Reviewed Pantoprazole Sodium (Pantoprazole Sodium) 40 Mg Tablet.dr, 40 MG PO DAILY, (Reported) Entered as Reported by: CRISTINE JOHNSON on 03/17/221003 Last Action: Reviewed Potassium Chloride (K-Tab ER) 10 Meq Tablet.er, 10 MEQ PO BID, (Reported) Entered as Reported by: CRISTINE JOHNSON on 03/17/221003 Last Action: Reviewed Revefenacin (Yupelri) 175 Mcg/3 Ml Vial.neb, 1 VIAL PO DAILY, (Reported) Entered as Reported by: CRISTINE JOHNSON on 03/17/22 1037 Last Action: New Order Rivaroxaban (Xarelto) 20 Mg Tablet, 20 MG PO HS, (Reported) Entered as Reported by: CRISTINE JOHNSON on 03/17/22 1004 Last Action: New Order Simvastatin (Simvastatin) 20 Mg Tablet, 20 MG PO DAILY, (Reported) Entered as Reported by: JUAN FRANCISCO HUA on 09/23/21 113 Last Action: Reviewed Sodium Chloride (Jesus Alberto-128) 15 Ml Drops, 1-2 DROPS OU BID, (Reported) Entered as Reported by: JUAN FRANCISCO HUA on 09/23/211138 Last Action: Reviewed Vit C/E/Zn/Coppr/Lutein/Zeaxan (Preservision Areds 2 Softgel) 1 Each Capsule, 1 EACH PO BID, (Reported) Entered as Reported by: JUAN FRANCISCO HUA on 09/23/211138 Last Action: Reviewed Physical Exam-Cardiology Physical Exam Vital Signs/I&O 03/16/22 03/16/22 03/17/22 03/17/22 23:00 23:59 00:00 00:15 Temp 36.5 Pulse 81 86 B/P (MAP) 107/74 98/53 Pulse Ox 90 92 O2 Delivery Nasal Cannula Nasal Cannula Nasal Cannula O2 Flow Rate 6.00 6.00 6.00 03/17/22 03/17/22 03/17/22 03/17/22 01:00 01:00 01:04 01:30 Pulse 99 101 91 90 B/P (MAP) 89/35 86/59 98/61 Pulse Ox 89 91 93 O2 Delivery Nasal Cannula Nasal Cannula Nasal Cannula O2 Flow Rate 6.00 6.00 6.00 03/17/22 03/17/22 03/17/22 03/17/22 02:25 02:30 03:00 04:00 Pulse 92 104 108 B/P (MAP) 104/72 99/63 107/56 Pulse Ox 90 95 94 87 O2 Delivery Nasal Cannula Nasal Cannula Nasal Cannula Nasal Cannula O2 Flow Rate 8.00 6.00 6.00 6.00 03/17/22 03/17/22 03/17/22 03/17/22 04:00 04:01 04:44 05:00 Temp 36.0 Pulse 112 101 B/P (MAP) 110/73 Pulse Ox 95 90 O2 Delivery Nasal Cannula Nasal Cannula Nasal Cannula O2 Flow Rate 6.00 10.00 10.00 03/17/22 03/17/22 03/17/22 03/17/22 06:00 07:00 07:00 07:41 Temp 36.4 Pulse 105 97 110 B/P (MAP) 113/87 111/83 Pulse Ox 92 93 91 O2 Delivery Nasal Cannula Nasal Cannula Nasal Cannula O2 Flow Rate 10.00 10.00 10.00 03/17/22 03/17/22 03/17/22 03/17/22 07:48 08:00 09:00 09:12 Pulse 107 102 B/P (MAP) 125/92 132/88 Pulse Ox 91 95 93 O2 Delivery Nasal Cannula Nasal Cannula Nasal Cannula Nasal Cannula O2 Flow Rate 10.00 10.00 10.00 10.00 03/17/22 00:00 Intake Total 980 ml Output Total 2575 ml Balance -1595 ml Capillary Refill : Less Than 3 Seconds Constitutional: AAO x 3, well-developed, well-nourished HEENT: PERRL, hearing is well preserved, oral hygience is good Neck: No carotid bruit; carotid pulses are 2 + bilaterally Respiratory: No accessory muscle use, No respiratory distress; chest expansion is symmetric, chest is bilaterally symmetric, lungs clear to auscultation Cardiovascular: irregularly irregular; No JVD, No edema; tachycardia, S1 and S2 Gastrointestinal: No tender; soft, round; No distended; audible bowel sounds Extremities: no lower extremity edema bilateral Neurologic/Psychiatric: grossly intact (moves all extremities) Skin: No rash on exposed areas, No ulcerations on exposed areas Data Review Labs Laboratory Tests 03/16/22 14:34: White Blood Count 7.6, Red Blood Count 4.49, Hemoglobin 12.9, Hematocrit 42, Mean Corpuscular Volume 93, Mean Corpuscular Hemoglobin 29, Mean Corpuscular Hemoglobin Concent 31L, Red Cell Distribution Width 16.0H, Platelet Count 339, Mean Platelet Volume 9.2, Immature Granulocyte % (Auto) 1, Neutrophils (%) (Auto) 76H, Lymphocytes (%) (Auto) 13, Monocytes (%) (Auto) 8, Eosinophils (%) (Auto) 3, Basophils (%) (Auto) 0, Neutrophils # (Auto) 5.7, Lymphocytes # (Auto) 1.0, Monocytes # (Auto) 0.6, Eosinophils # (Auto) 0.2, Basophils # (Auto) 0.0, Immature Granulocyte # (Auto) 0.0, Prothrombin Time 22.4H, INR Comment 1.9H, Activated Partial Thromboplast Time 36H, Sodium Level 140, Potassium Level 3.5L, Chloride Level 102, Carbon Dioxide Level 23, Anion Gap 15H, Blood Urea Nitrogen 26H, Creatinine 1.10, Estimat Glomerular Filtration Rate 50, BUN/Creatinine Ratio 24, Glucose Level 132H, Calcium Level 8.8, Corrected Calcium 9.0, Magnesium Level 2.2, Total Bilirubin 1.3H, Aspartate Amino Transf (AST/SGOT) 46H , Alanine Aminotransferase (ALT/SGPT) 110H, Alkaline Phosphatase 121, Myoglobin 83.5, Troponin I < 0.028, B-Type Natriuretic Peptide 361.2H, Total Protein 6.5, Albumin 3.8 03/16/22 15:03: Urine Color YELLOW, Urine Clarity CLEAR, Urine pH 5.5, Urine Specific [place] 1.015L, Urine Protein NEGATIVE, Urine Glucose (UA) NEGATIVE, Urine Ketones NEGATIVE, Urine Nitrite NEGATIVE, Urine Bilirubin NEGATIVE, Urine Urobilinogen 0.2, Urine Leukocyte Esterase NEGATIVE, Urine RBC (Auto) NEGATIVE, Urine RBC NONE, Urine WBC NONE, Urine Crystals NONE, Urine Bacteria NEGATIVE, Urine Casts NONE, Urine Mucus SMALLH, Urine Culture Indicated NO 03/17/22 04:24: White Blood Count 7.9, Red Blood Count 4.23, Hemoglobin 12.0, Hematocrit 39, Mean Corpuscular Volume 93, Mean Corpuscular Hemoglobin 28, Mean Corpuscular Hemoglobin Concent 31L, Red Cell Distribution Width 16.0H, Platelet Count 261, Mean Platelet Volume 9.3, Immature Granulocyte % (Auto) 0, Neutrophils (%) (Auto) 69, Lymphocytes (%) (Auto) 16, Monocytes (%) (Auto) 9, Eosinophils (%) (Auto) 4, Basophils (%) (Auto) 1, Neutrophils # (Auto) 5.5, Lymphocytes # (Auto) 1.3, Monocytes # (Auto) 0.7, Eosinophils # (Auto) 0.3, Basophils # (Auto) 0.1, Immature Granulocyte # (Auto) 0.0, Sodium Level 142, Potassium Level 3.5L, Chloride Level 102, Carbon Dioxide Level 25, Anion Gap 15H, Blood Urea Nitrogen 25H, Creatinine 1.06, Estimat Glomerular Filtration Rate 52, BUN/Creatinine Ratio 24, Glucose Level 119H, Calcium Level 8.7, Corrected Calcium 9.2, Magnesium Level 2.1, Total Bilirubin 0.9, Aspartate Amino Transf (AST/SGOT) 34, Alanine Aminotransferase (ALT/SGPT) 86H, Alkaline Phosphatase 102, Total Protein 5.7L, Albumin 3.4, Phosphorus Level 4.6, Triglycerides Level 58, Cholesterol Level 130, LDL Cholesterol Direct 67, VLDL Cholesterol 12, HDL Cholesterol 51 A/P-Cardiology Assessment/Admission Diagnosis A-fib with RVR - diagnosed on EKG of 09-22-21 in the ED, age unknown - Xarelto for stroke prophylaxis 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 Titrate as needed and as tolerated Restart Xarelto for stroke prophylaxis Discussed importance of compliance with medications Monitor lab closely Replace electrolytes as indicated Further recs will be based on her hospital course We would like to thank medical services for this consult EKATERINA CALLES MD FACP FAC CCDS March 17, 2022 10:48
--- NOTE | 2022-03-17 10:56 | Tele-ICU Progress Note ---
Subjective Date Seen by a Provider: March 17, 2022 Time Seen by a Provider: 10:55 Subjective/Events-last exam (Tele-ICU Physician , Progress Note ) Available chart/ vitals / labs / Images reviewed Video assessment done using teleICU camera, rest of exam as per RN Discussed with RN , EXAM PER RN Events overnight : Afebrile FiO2 - 10 L I/O = neg Drips: Pressors: , hemodynamically stable Consultants: Hospital course: (03/16) 81F Admitted with Acute CHF exac and Afib RVR. 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 Discussed with RN to reach out if any questions or concerns A total of 33 minutes of critical care time was devoted to this patient today, required to treat and/or prevent further deterioration of critical care condition ( as above) . Sepsis Event Evaluation Height, Weight, BMI Height: '" Weight: lbs. oz. kg; 20.77 BMI Method: Exam Exam Patient acknowledged, consented, and participated in this virtual visit which was conducted using real time audio/video Vital Signs Date Time Temp Pulse Resp B/P (MAP) Pulse Ox O2 Delivery O2 Flow Rate FiO2 03/17/22 10:00 102 16 122/65 94 Nasal Cannula 10.00 03/17/22 09:12 93 Nasal Cannula 10.00 03/17/22 09:00 102 132/88 95 Nasal Cannula 10.00 03/17/22 08:00 107 125/92 91 Nasal Cannula 10.00 03/17/22 07:48 Nasal Cannula 10.00 03/17/22 07:41 36.4 91 Nasal Cannula 10.00 03/17/22 07:00 110 111/83 93 Nasal Cannula 10.00 03/17/22 07:00 97 03/17/22 06:00 105 113/87 92 Nasal Cannula 10.00 03/17/22 05:00 101 110/73 90 Nasal Cannula 10.00 03/17/22 04:44 112 95 Nasal Cannula 10.00 03/17/22 04:01 36.0 03/17/22 04:00 Nasal Cannula 6.00 03/17/22 04:00 108 107/56 87 Nasal Cannula 6.00 03/17/22 03:00 104 99/63 94 Nasal Cannula 6.00 03/17/22 02:30 92 104/72 95 Nasal Cannula 6.00 03/17/22 02:25 90 Nasal Cannula 8.00 03/17/22 01:30 90 98/61 93 Nasal Cannula 6.00 03/17/22 01:04 91 86/59 91 Nasal Cannula 6.00 03/17/22 01:00 101 89/35 89 Nasal Cannula 6.00 03/17/22 01:00 99 03/17/22 00:15 86 98/53 92 Nasal Cannula 6.00 03/17/22 00:00 Nasal Cannula 6.00 03/16/22 23:59 36.5 03/16/22 23:00 81 107/74 90 Nasal Cannula 6.00 03/16/22 22:00 90 106/70 91 Nasal Cannula 6.00 03/16/22 21:49 92 Nasal Cannula 6.00 03/16/22 21:00 86 97/79 90 Nasal Cannula 6.00 03/16/22 20:00 Nasal Cannula 6.00 03/16/22 20:00 102 17 102/75 94 Nasal Cannula 6.00 03/16/22 20:00 37.0 03/16/22 19:00 95 03/16/22 19:00 95 22 118/73 89 Nasal Cannula 6.00 03/16/22 18:00 120 18 125/82 90 Nasal Cannula 6.00 03/16/22 17:47 90 Nasal Cannula 6.00 03/16/22 17:45 112 26 112/104 89 Nasal Cannula 4.00 03/16/22 17:15 Nasal Cannula 6.00 03/16/22 17:12 87 Nasal Cannula 5.00 03/16/22 17:00 24 107/89 89 Nasal Cannula 4.00 03/16/22 16:59 36.1 130 89 36 03/16/22 16:45 19 114/79 92 Nasal Cannula 8.00 03/16/22 16:43 98 03/16/22 16:30 119/89 92 Nasal Cannula 8.00 03/16/22 16:11 98 24 112/76 91 Nasal Cannula 03/16/22 14:20 89 Nasal Cannula 4.00 03/16/22 14:18 36.1 130 28 125/77 (93) 82 Nasal Cannula 4.00 I & O 03/17/22 07:00 Intake Total 1105 ml Output Total 2825 ml Balance -1720 ml Height & Weight Height: '" Weight: lbs. oz. kg; 20.77 BMI Method: General Appearance: Mild Distress (appears short of breath while on 4L oxygen), Thin HEENT: PERRL/EOMI, Pharynx Normal Neck: Non Tender, Supple Respiratory: Chest Non Tender, No Accessory Muscle Use, Crackles (mild crackles present in RLL), Decreased Breath Sounds (RLL and LLL.); No Wheezing Cardiovascular: Normal Peripheral Pulses, Irregularly Irregular, Tachycardia Capillary Refill: Less Than 3 Seconds Extremity: Normal Range of Motion, Pedal Edema (2+ pitting edema bilaterally), Other (tenderness to palpation at medial margin of scapular spine of right shoulder. No lumps, erythema, or dkin punctures apreciated on exam. pain with abduction against resistance of right arm.) Neurologic/Psychiatric: Alert, Oriented x3, No Motor/Sensory Deficits, 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 Skin: Normal Color, Warm/Dry Lymphatic: No Adenopathy Results Lab Laboratory Tests 03/16/22 14:34 03/17/22 04:24 Assessment/Plan Assessment/Plan ` NELDA ESPINOZA MD March 17, 2022 10:56
[2022-03-17] MEDS ORDERED: ONDANSETRON 4 MG/2 ML (SDV) Z0FRAN ONE (12:14)
[2022-03-17] MEDS ORDERED: fentaNYL INJ 100 MCG/2 ML AMP ONE (12:14)
[2022-03-17] MEDS ORDERED: fentaNYL INJ 100 MCG/2 ML AMP IVP ONE (12:15)
[2022-03-17] MEDS ORDERED: ONDANSETRON 4 MG/2 ML (SDV) Z0FRAN IVP PRN (12:15)
[2022-03-17] MEDS ORDERED: FUROSEMIDE 40 MG/4 ML INJ (LASIX) IVP ONE (14:30)
[2022-03-17] MEDS: ALPRAZolam 0.25 MG (XANAX) TAB PO PRN (16:55)
[2022-03-17] MEDS: RIVAROXABAN 20 MG TABLET (XARELTO) PO SCH (16:55)
[2022-03-17] MEDS: dilTIAZem DRIP PRE-MIX 125 ML IV SCH (18:48)
[2022-03-17] MEDS ORDERED: PANTOPRAZOLE 40 MG (PROTONIX) TAB PO ONE (21:29)
[2022-03-17] MEDS: PANTOPRAZOLE 40 MG (PROTONIX) TAB PO SCH (21:33)
[2022-03-17] MEDS: AtorvaSTATin TABLET 10 MG TABLET PO SCH (22:54)
[2022-03-18] MEDS: HYDROcodone/APAP 5 MG/325 MG (LORTAB) TAB PO PRN ×2 (00:52→18:56)
[2022-03-18] MEDS: RT-ALBUTEROL/IPRATROPIUM 3 ML (DUONEB) VIAL INH SCH ×6 (02:31→22:43)
[2022-03-18 04:30] LABS: BASOPHILS % (AUTO) 0 % (0-10); EOSINOPHILS # (AUTO) 0.4 10^3/uL (0.0-0.3); EOSINOPHILS % (AUTO) 5 % (0-10); HEMATOCRIT 40 % (35-52); LYMPHOCYTES # (AUTO) 1.1 10^3/uL (1.0-4.0); LYMPHOCYTES % (AUTO) 13 % (12-44); MEAN CORPUSCULAR HEMOGLOBIN 28 pg (25-34); MEAN CORPUSCULAR HGB CONC 30 g/dL (32-36); MEAN CORPUSCULAR VOLUME 94 fL (80-99); MEAN PLATELET VOLUME 9.6 fL (9.0-12.2); MONOCYTES # (AUTO) 0.7 10^3/uL (0.0-1.0); MONOCYTES % (AUTO) 8 % (0-12); NEUTROPHILS # (AUTO) 6.3 10^3/uL (1.8-7.8); NEUTROPHILS % (AUTO) 73 % (42-75); PLATELET COUNT 280 10^3/uL (130-400); WHITE BLOOD COUNT 8.5 10^3/uL (4.3-11.0)
[2022-03-18 04:42] LABS: ALBUMIN 3.4 GM/DL (3.2-4.5); POTASSIUM 4.3 MMOL/L (3.6-5.0)
[2022-03-18 04:44] LABS: CALCIUM 8.6 MG/DL (8.5-10.1)
[2022-03-18 04:45] LABS: TOTAL PROTEIN 5.7 GM/DL (6.4-8.2)
[2022-03-18 04:47] LABS: BILIRUBIN,TOTAL 0.8 MG/DL (0.1-1.0)
[2022-03-18 04:48] LABS: PHOSPHORUS 4.5 MG/DL (2.3-4.7)
[2022-03-18 04:51] LABS: MAGNESIUM 2.1 MG/DL (1.6-2.4)
[2022-03-18] MEDS: CATHETER FLUSH 10 ML SYR IVP SCH ×3 (06:04→23:16)
--- NOTE | 2022-03-18 07:56 | Diagnostic Imaging Report ---
INDICATION: Chest pain. Comparison with 03/16/2022. FINDINGS: Cardiomegaly again noted. Bilateral infiltrates remain present. Moderate left pleural effusion unchanged. IMPRESSION: Persistent bilateral infiltrates with moderate left pleural effusion and cardiomegaly. No significant overall change. Dictated by: Dictated on workstation # [id number]
[2022-03-18] MEDS: PANTOPRAZOLE 40 MG (PROTONIX) TAB PO SCH (08:03)
[2022-03-18] MEDS: FUROSEMIDE 40 MG/4 ML INJ (LASIX) IV SCH (08:03)
[2022-03-18] MEDS: ASPIRIN 81 MG CHEW (CHILDREN'S ASA) PO SCH (08:03)
[2022-03-18] MEDS: KCL 10 MEQ TAB (MICRO K) PO SCH ×2 (08:03→17:27)
[2022-03-18] MEDS: cefTRIAXone 1 GM PRE-MIX 50 ML IV SCH (08:04)
--- NOTE | 2022-03-18 08:29 | Progress Note - Cardiology ---
Cardiology SOAP Progress Note Subjective: Sitting up in bed Increasing SOB overnight Requiring Vapo-therm No c/o CP or palpitations Objective: I&O/Vital Signs 03/18/22 03/18/22 03/18/22 03/18/22 20:00 20:00 20:00 21:00 Temp 36.6 Pulse 101 85 Resp 17 14 B/P (MAP) 94/68 108/63 Pulse Ox 92 92 92 O2 Delivery Vapotherm Vapotherm Vapotherm O2 Flow Rate 20.00 20.00 20.00 90.00 90.00 03/18/22 03/18/22 03/18/22 03/18/22 22:00 22:43 23:00 23:59 Pulse 90 92 B/P (MAP) 90/44 97/60 Pulse Ox 93 90 94 92 O2 Delivery Vapotherm Vapotherm Vapotherm Vapotherm O2 Flow Rate 20.00 20.00 20.00 20.00 90.00 90.00 FiO2 90 03/19/22 03/19/22 03/19/22 03/19/22 00:00 00:00 01:00 01:00 Temp 36.6 Pulse 92 88 90 B/P (MAP) 85/50 109/60 Pulse Ox 91 91 O2 Delivery Vapotherm Vapotherm O2 Flow Rate 20.00 20.00 90.00 90.00 03/19/22 03/19/22 03/19/22 03/19/22 02:00 03:00 03:07 03:51 Temp 36.7 Pulse 96 84 92 B/P (MAP) 91/54 93/59 Pulse Ox 90 92 92 90 O2 Delivery Vapotherm Vapotherm Vapotherm O2 Flow Rate 20.00 20.00 20.00 90.00 90.00 FiO2 90 16 03/19/22 03/19/22 03/19/22 03/19/22 04:00 04:00 05:00 06:00 Pulse 90 84 89 Resp 22 B/P (MAP) 108/74 100/60 103/64 Pulse Ox 90 90 92 90 O2 Delivery Vapotherm Vapotherm Vapotherm Vapotherm O2 Flow Rate 20.00 20.00 20.00 20.00 90.00 90.00 90.00 FiO2 90 03/19/22 03/19/22 03/19/22 07:00 07:00 07:32 Temp 36.6 Pulse 105 81 B/P (MAP) 111/73 Pulse Ox 90 O2 Delivery Vapotherm O2 Flow Rate 20.00 90.00 03/19/22 00:00 Intake Total 800 ml Output Total 2325 ml Balance -1525 ml Constitutional: AAO x 3, well-developed, well-nourished Respiratory: No accessory muscle use, No respiratory distress; chest expansion is symmetric, chest is bilaterally symmetric, other (diminished lower lobes bilat) Cardiovascular: irregularly irregular; No JVD, No edema; tachycardia, S1 and S2 Gastrointestional: No tender; soft, round; No distended; audible bowel sounds Extremities: no lower extremity edema bilateral Neurologic/Psychiatric: grossly intact (moves all extremities) Skin: No rash on exposed areas, No ulcerations on exposed areas Results/Procedures: Labs Laboratory Tests 03/19/22 03:39: White Blood Count 6.7, Red Blood Count 3.98, Hemoglobin 11.4L, Hematocrit 37, Mean Corpuscular Volume 93, Mean Corpuscular Hemoglobin 29, Mean Corpuscular Hemoglobin Concent 31L, Red Cell Distribution Width 15.3H, Platelet Count 242, Mean Platelet Volume 9.2, Immature Granulocyte % (Auto) 0, Neutrophils (%) (Auto) 96H, Lymphocytes (%) (Auto) 3L, Monocytes (%) (Auto) 1, Eosinophils (%) (Auto) 0, Basophils (%) (Auto) 0, Neutrophils # (Auto) 6.4, Lymphocytes # (Auto) 0.2L, Monocytes # (Auto) 0.1, Eosinophils # (Auto) 0.0, Basophils # (Auto) 0.0, Immature Granulocyte # (Auto) 0.0, Neutrophils % (Manual) 94, Lymphocytes % (Manual) 6, Monocytes % (Manual) 0, Eosinophils % (Manual) 0, Band Neutrophils 0, Poikilocytosis SLIGHT, Basophilic Stippling SLIGHT, Anisocytosis SLIGHT, Elliptocytes SLIGHT, Sodium Level 138, Potassium Level 3.6, Chloride Level 96L, Carbon Dioxide Level 25, Anion Gap 17H, Blood Urea Nitrogen 26H, Creatinine 1.03, Estimat Glomerular Filtration Rate 54, BUN/Creatinine Ratio 25, Glucose Level 194H, Calcium Level 8.8, Corrected Calcium 9.4, Phosphorus Level 3.4, Magnesium Level 2.1, Total Bilirubin 0.7, Aspartate Amino Transf (AST/SGOT) 28, Alanine Aminotransferase (ALT/SGPT) 66H, Alkaline Phosphatase 108, Total Protein 5.7L, Albumin 3.3 Microbiology 03/16/22 MRSA Screen - Final, Complete MRSA not isolated A/P: Assessment: A-fib with RVR - diagnosed on EKG of 09-22-21 in the ED, age unknown - Xarelto for stroke prophylaxis - rate improved, but not well controlled - not a suitable candidate for BB d/t somewhat low BP - add Digoxin Pneumonia - management per medical services 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 - Echo on 09/23/21: LVEF 45-50%, mod to sev biatrial enlargement, mod to severe MR & TR, pulm htn with PASP approx 70 mmHg - Increase Lasix HTN - controlled - somewhat low BP - asymptomatic HLD - statin tx GI - GERD COPD - managed by PCP 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 Chronic back pain - h/o extensive back surgeries in 2014 following a fall Chronic, bilat leg swelling due to venous insuff - controlled with daytime use of compression stocking Plan: Acute on chronic systolic CHF - treat with diuretics - give additional Lasix today - requiring increasing oxygen demand - CXR shows pleural effusion - medical services advising thoracentesis A-fib with RVR - HR not well controlled despite increase dose of Cardizem - d/t somewhat low BP not a suitable candidate for BB tx - start Digoxin Continue Xarelto for stroke prophylaxis Monitor lab closely Replace electrolytes as indicated Spoke with Dr. Leonard this morning EVANGELISTA REDD Mar 18, 2022 08:29
[2022-03-18] MEDS ORDERED: FUROSEMIDE 40 MG/4 ML INJ (LASIX) IVP ONE (08:30)
[2022-03-18] MEDS ORDERED: DIGOXIN 0.25 MG/ML (LANOXIN) 2 ML AMP IV NR ×2 (08:48→11:00)
[2022-03-18] MEDS ORDERED: AZITHROMYCIN INJECTION 250 MG in NS (IVPB) 250 ML IV SCH (09:00)
--- NOTE | 2022-03-18 09:24 | Progress Note ---
Subjective Subjective Date Seen by Provider: Mar 18, 2022 Time Seen by Provider: 08:20 Pt had a rough night last night, increased shortness of breath, and was placed on vapotherm. She was upset and frustrated at being on vapotherm because "it runs down my face" when her nose gets wet from the high flow oxygen which is humidified. She continues to complain about pain in her neck/upper back. Review of Systems General: No Chills; Fatigue Pulmonary: Dyspnea, Cough Cardiovascular: No: Chest Pain, Palpitations Gastrointestinal: No: Nausea Musculoskeletal: neck pain Neurological: Weakness; No: Confusion All Other Systems Reviewed All Other Systems Reviewed: Yes Objective Exam Vital Signs Vital Signs Date Time Temp Pulse Resp B/P (MAP) Pulse Ox O2 Delivery O2 Flow Rate FiO2 03/18/22 07:18 90 Vapotherm 20.00 90 03/18/22 07:00 92 03/18/22 06:00 89 16 96/68 90 Vapotherm 20.00 90.00 03/18/22 05:00 86 18 99/71 95 Vapotherm 20.00 90.00 03/18/22 04:00 90 Vapotherm 20.00 90 03/18/22 04:00 92 18 110/84 94 Vapotherm 20.00 90.00 03/18/22 03:00 86 15 106/82 91 Vapotherm 20.00 90.00 03/18/22 02:32 93 Vapotherm 20.00 90 03/18/22 02:00 86 14 97/76 93 Vapotherm 20.00 90.00 03/18/22 01:00 99 19 117/91 90 Vapotherm 20.00 90.00 03/18/22 01:00 110 03/18/22 00:00 101 18 94/78 90 Vapotherm 20.00 90.00 03/17/22 23:59 89 Vapotherm 20.00 90 03/17/22 23:44 Vapotherm 20.00 90.00 03/17/22 23:34 82 High Flow N/C 12.00 03/17/22 23:00 111 17 99/62 91 High Flow N/C 12.00 03/17/22 22:36 36.7 03/17/22 22:23 92 High Flow N/C 12.00 03/17/22 22:00 96 18 91/67 91 High Flow N/C 12.00 03/17/22 21:00 91 15 97/65 92 High Flow N/C 12.00 03/17/22 20:06 36.7 03/17/22 20:00 101 16 94/64 90 High Flow N/C 12.00 03/17/22 20:00 90 High Flow N/C 12.00 03/17/22 19:45 100 22 105/86 High Flow N/C 12.00 03/17/22 19:00 92 High Flow N/C 10.00 03/17/22 19:00 92 03/17/22 18:00 123 19 100/67 Nasal Cannula 10.00 03/17/22 17:00 112 15 102/70 91 Nasal Cannula 10.00 03/17/22 16:22 Nasal Cannula 10.00 03/17/22 16:00 137 16 112/76 91 Nasal Cannula 10.00 03/17/22 15:48 36.6 03/17/22 15:00 124 15 110/79 92 Nasal Cannula 10.00 03/17/22 14:39 92 Nasal Cannula 10.00 03/17/22 14:00 125 16 107/77 91 Nasal Cannula 10.00 03/17/22 13:00 133 16 111/83 93 Nasal Cannula 10.00 03/17/22 12:41 120 03/17/22 12:40 Nasal Cannula 10.00 03/17/22 12:15 125 38 99/80 89 Nasal Cannula 10.00 03/17/22 12:00 125 26 85/59 90 Nasal Cannula 10.00 03/17/22 11:00 134 18 115/93 92 Nasal Cannula 10.00 03/17/22 10:00 102 16 122/65 94 Nasal Cannula 10.00 I & O 03/18/22 07:00 Intake Total 1480 ml Output Total 1735 ml Balance -255 ml General Appearance: Mild Distress, Thin Eyes: Bilateral Eye PERRL, Bilateral Eye EOMI HEENT: PERRL/EOMI, Pharynx Normal Neck: Full Range of Motion, Supple, Other (ttp over right upper neck, upper shoulder and upper back region) Respiratory: Chest Non Tender, Crackles (in bases bilaterally), Decreased Breath Sounds, Wheezing Cardiovascular: Irregularly Irregular, Tachycardia Gastrointestinal: Normal Bowel Sounds, No Organomegaly, No Pulsatile Mass, Non Tender, Soft Rectal: Deferred Back: Other (tender to palpation over upper neck, trapezius muscle on right) Extremity: Normal Capillary Refill, Normal Inspection, Normal Range of Motion, Non Tender, No Calf Tenderness, No Pedal Edema Neurologic/Psychiatric: Alert, Oriented x3, No Motor/Sensory Deficits, 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 Skin: Normal Color, Warm/Dry Lymphatic: No Adenopathy Results Lab Laboratory Tests 03/18/22 04:00: White Blood Count 8.5, Red Blood Count 4.26, Hemoglobin 12.0, Hematocrit 40, Mean Corpuscular Volume 94, Mean Corpuscular Hemoglobin 28, Mean Corpuscular Hemoglobin Concent 30L, Red Cell Distribution Width 15.7H, Platelet Count 280, Mean Platelet Volume 9.6, Immature Granulocyte % (Auto) 1, Neutrophils (%) (Auto) 73, Lymphocytes (%) (Auto) 13, Monocytes (%) (Auto) 8, Eosinophils (%) (Auto) 5, Basophils (%) (Auto) 0, Neutrophils # (Auto) 6.3, Lymphocytes # (Auto) 1.1, Monocytes # (Auto) 0.7, Eosinophils # (Auto) 0.4H, Basophils # (Auto) 0.0, Immature Granulocyte # (Auto) 0.0, Sodium Level 138, Potassium Level 4.3, Chloride Level 100, Carbon Dioxide Level 25, Anion Gap 13, Blood Urea Nitrogen 27H, Creatinine 1.00, Estimat Glomerular Filtration Rate 56, BUN/Creatinine Ratio 27, Glucose Level 115H, Calcium Level 8.6, Corrected Calcium 9.1, Phosphorus Level 4.5, Magnesium Level 2.1, Total Bilirubin 0.8, Aspartate Amino Transf (AST/SGOT) 33, Alanine Aminotransferase (ALT/SGPT) 75H, Alkaline Phosphatase 110, Total Protein 5.7L, Albumin 3.4 Microbiology 03/16/22 MRSA Screen - Final, Complete MRSA not isolated Assessment/Plan Assessment/Plan Admission Dx Acute on chronic atrial fibrillation, rate uncontrolled Chronic NOAC anticoagulation Pneumonia Chronic COPD with exacerbation Chronic oxygen dependence Medication noncompliance Hypertension Esophageal reflux Urge incontinence Hypokalemia Elevated liver enzymes Assessment and Plan Acute on chronic atrial fibrillation, rate uncontrolled Chronic NOAC anticoagulation Pneumonia Chronic COPD with exacerbation Chronic oxygen dependence Medication noncompliance Hypertension Esophageal reflux Urge incontinence Hypokalemia Elevated liver enzymes Acute on chronic atrial fibrillation, rate uncontrolled - pt is on Chronic NOAC anticoagulation with Xarelto - Pt on cardizem drip on admission - Consult to Dr. Dill - resume home regimen Pneumonia with Chronic COPD with exacerbation, Chronic oxygen dependence - pt to start on Rocephin and Azithromycin - MAT protocol - oxygen started, increased up to vapotherm, will continue for now. - add iv steroids Medication noncompliance - pt inadvertently left her medications at home while on a trip. Hypertension - resume home regimen - monitor bp Esophageal reflux - resumed PPI therapy Urge incontinence - hold home medications - pt has shaikh in place Hypokalemia - replenish through icu protocols Elevated liver enzymes - improved with hydration - suspect shock from her rapid afib. Right upper back and shoulder pain - - prn tylenol and pain medication, use voltaren gel topically GI prophylaxis with PPI DVT prophylaxis with NOAC and scd's Admission Dx Acute on chronic atrial fibrillation, rate uncontrolled Chronic NOAC anticoagulation Pneumonia Chronic COPD with exacerbation Chronic oxygen dependence Medication noncompliance Hypertension Esophageal reflux Urge incontinence Hypokalemia Elevated liver enzymes Clinical Quality Measures Admission Status Admission Dx Acute on chronic atrial fibrillation, rate uncontrolled Chronic NOAC anticoagulation Pneumonia Chronic COPD with exacerbation Chronic oxygen dependence Medication noncompliance Hypertension Esophageal reflux Urge incontinence Hypokalemia Elevated liver enzymes ALTAGRACIA GILL MD Mar 18, 2022 09:24
[2022-03-18] MEDS ORDERED: polyethylene glycoL POWDER 17 GM (MIRALAX) PACK PO ONE (09:30)
[2022-03-18] MEDS: ENOXAPARIN 40 MG/0.4 ML (LOVENOX) SYR SC SCH (09:51)
[2022-03-18] MEDS: methylPREDNISolone 125 MG (Solu-MEDROL) VIAL IVP SCH ×4 (09:51→23:15)
[2022-03-18] MEDS: SENNA W/DOCUSATE (SENOKOT S) TABLET PO SCH ×2 (09:51→19:58)
[2022-03-18] MEDS: DICLOFENAC 1% GEL 100 GM (VOLTAREN) TUBE TOP SCH ×4 (09:52→19:59)
[2022-03-18] MEDS: AZITHROMYCIN INJECTION 250 MG in NS (IVPB) 250 ML IV SCH (10:23)
--- NOTE | 2022-03-18 11:06 | Tele-ICU Progress Note ---
Subjective Date Seen by a Provider: Mar 18, 2022 Time Seen by a Provider: 11:06 Subjective/Events-last exam Tele-ICU Physician , Progress Note ) Available chart/ vitals / labs / Images reviewed Video assessment done using teleICU camera, rest of exam as per RN Discussed with RN , EXAM PER RN Events overnight : Increasing SOB overnight, Requiring Vapo-therm Afebrile FiO2 - VT 20 L 90% I/O = neg Drips: Pressors: , hemodynamically stable Consultants: Hospital course: (03/16) 81F Admitted with Acute CHF exac and Afib RVR. Hx COPD on 4L home O2 03/18- Increasing SOB overnight, Requiring Vapo-therm A/P A-fib with RVR - cardizem as per cards - Xarelto - replace K Acute resp failure ( on 10 L NC 03/17 - 03/18- Increasing SOB overnight, Requiring Vapo-therm VT 20 L 90% - LASIX to increase diuresis givenn PULM HTN - on IV steroid s - follow effusion size LEFT plural effusion - new comparing to 09/2021 - monitor , might need tap - follow closely with diuresis - XARELTO ON HOLD - ? 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 Discussed with RN to reach out if any questions or concerns A total of 33 minutes of critical care time was devoted to this patient today, required to treat and/or prevent further deterioration of critical care condition ( as above) . Sepsis Event Evaluation Height, Weight, BMI Height: '" Weight: lbs. oz. kg; 20.77 BMI Method: Exam Exam Patient acknowledged, consented, and participated in this virtual visit which was conducted using real time audio/video Vital Signs Date Time Temp Pulse Resp B/P (MAP) Pulse Ox O2 Delivery O2 Flow Rate FiO2 03/18/22 10:48 93 Vapotherm 20.00 90 03/18/22 10:00 111 26 99/89 91 Vapotherm 20.00 90.00 03/18/22 09:00 102 16 105/62 95 Vapotherm 20.00 90.00 03/18/22 08:00 114 18 100/69 93 Vapotherm 20.00 90.00 03/18/22 07:18 90 Vapotherm 20.00 90 03/18/22 07:00 92 03/18/22 07:00 81 13 98/60 91 Vapotherm 20.00 90.00 03/18/22 06:00 89 16 96/68 90 Vapotherm 20.00 90.00 03/18/22 05:00 86 18 99/71 95 Vapotherm 20.00 90.00 03/18/22 04:00 90 Vapotherm 20.00 90 03/18/22 04:00 92 18 110/84 94 Vapotherm 20.00 90.00 03/18/22 03:00 86 15 106/82 91 Vapotherm 20.00 90.00 03/18/22 02:32 93 Vapotherm 20.00 90 03/18/22 02:00 86 14 97/76 93 Vapotherm 20.00 90.00 03/18/22 01:00 99 19 117/91 90 Vapotherm 20.00 90.00 03/18/22 01:00 110 03/18/22 00:00 101 18 94/78 90 Vapotherm 20.00 90.00 03/17/22 23:59 89 Vapotherm 20.00 90 03/17/22 23:44 Vapotherm 20.00 90.00 03/17/22 23:34 82 High Flow N/C 12.00 03/17/22 23:00 111 17 99/62 91 High Flow N/C 12.00 03/17/22 22:36 36.7 03/17/22 22:23 92 High Flow N/C 12.00 03/17/22 22:00 96 18 91/67 91 High Flow N/C 12.00 03/17/22 21:00 91 15 97/65 92 High Flow N/C 12.00 03/17/22 20:06 36.7 03/17/22 20:00 101 16 94/64 90 High Flow N/C 12.00 03/17/22 20:00 90 High Flow N/C 12.00 03/17/22 19:45 100 22 105/86 High Flow N/C 12.00 03/17/22 19:00 92 High Flow N/C 10.00 03/17/22 19:00 92 03/17/22 18:00 123 19 100/67 Nasal Cannula 10.00 03/17/22 17:00 112 15 102/70 91 Nasal Cannula 10.00 03/17/22 16:22 Nasal Cannula 10.00 03/17/22 16:00 137 16 112/76 91 Nasal Cannula 10.00 03/17/22 15:48 36.6 03/17/22 15:00 124 15 110/79 92 Nasal Cannula 10.00 03/17/22 14:39 92 Nasal Cannula 10.00 03/17/22 14:00 125 16 107/77 91 Nasal Cannula 10.00 03/17/22 13:00 133 16 111/83 93 Nasal Cannula 10.00 03/17/22 12:41 120 03/17/22 12:40 Nasal Cannula 10.00 03/17/22 12:15 125 38 99/80 89 Nasal Cannula 10.00 03/17/22 12:00 125 26 85/59 90 Nasal Cannula 10.00 I & O 03/18/22 07:00 Intake Total 1480 ml Output Total 1735 ml Balance -255 ml Height & Weight Height: '" Weight: lbs. oz. kg; 20.77 BMI Method: General Appearance: Mild Distress, Thin HEENT: PERRL/EOMI, Pharynx Normal Neck: Full Range of Motion, Supple, Other (ttp over right upper neck, upper shoulder and upper back region) Respiratory: Chest Non Tender, Crackles (in bases bilaterally), Decreased Breath Sounds, Wheezing Cardiovascular: Irregularly Irregular, Tachycardia Capillary Refill: Less Than 3 Seconds Extremity: Normal Capillary Refill, Normal Inspection, Normal Range of Motion, Non Tender, No Calf Tenderness, No Pedal Edema Neurologic/Psychiatric: Alert, Oriented x3, No Motor/Sensory Deficits, 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 Skin: Normal Color, Warm/Dry Lymphatic: No Adenopathy Results Lab Laboratory Tests 03/16/22 14:34 5/31/22 04:24 03/18/22 04:00 Assessment/Plan Assessment/Plan ` NELDA ESPINOZA MD Mar 18, 2022 11:06
--- NOTE | 2022-03-18 14:10 | Progress Note - Cardiology ---
Cardiology SOAP Progress Note Subjective: Gen malaise and weakness present Shortness of breath better Feeling of palp at times No cp No n/v/d Objective: I&O/Vital Signs 03/18/22 03/18/22 03/18/22 03/18/22 02:32 03:00 04:00 04:00 Pulse 86 92 Resp 15 18 B/P (MAP) 106/82 110/84 Pulse Ox 93 91 94 90 O2 Delivery Vapotherm Vapotherm Vapotherm Vapotherm O2 Flow Rate 20.00 20.00 20.00 20.00 90.00 90.00 FiO2 90 90 03/18/22 03/18/22 03/18/22 03/18/22 05:00 06:00 07:00 07:00 Pulse 86 89 81 92 Resp 18 16 13 B/P (MAP) 99/71 96/68 98/60 Pulse Ox 95 90 91 O2 Delivery Vapotherm Vapotherm Vapotherm O2 Flow Rate 20.00 20.00 20.00 90.00 90.00 90.00 03/18/22 03/18/22 03/18/22 03/18/22 07:18 07:48 08:00 09:00 Pulse 114 102 Resp 18 16 B/P (MAP) 100/69 105/62 Pulse Ox 90 90 93 95 O2 Delivery Vapotherm Vapotherm Vapotherm Vapotherm O2 Flow Rate 20.00 20.00 20.00 20.00 90.00 90.00 FiO2 90 90 03/18/22 03/18/22 03/18/22 03/18/22 10:00 10:48 11:00 12:00 Pulse 111 99 123 Resp 26 20 25 B/P (MAP) 99/89 113/76 111/85 Pulse Ox 91 93 93 90 O2 Delivery Vapotherm Vapotherm Vapotherm Vapotherm O2 Flow Rate 20.00 20.00 20.00 20.00 90.00 90.00 90.00 FiO2 90 03/18/22 03/18/22 03/18/22 12:26 13:00 13:00 Pulse 111 124 Resp 23 B/P (MAP) 112/67 Pulse Ox 90 90 O2 Delivery Vapotherm Vapotherm O2 Flow Rate 20.00 20.00 90.00 FiO2 90 03/18/22 00:00 Intake Total 1270 ml Output Total 1275 ml Balance -5 ml Constitutional: AAO x 3, well-developed, well-nourished Respiratory: No accessory muscle use, No respiratory distress; chest expansion is symmetric, chest is bilaterally symmetric, other (diminished lower lobes bilat) Cardiovascular: irregularly irregular; No JVD, No edema; tachycardia, S1 and S2 Gastrointestional: No tender; soft, round; No distended; audible bowel sounds Extremities: no lower extremity edema bilateral Neurologic/Psychiatric: grossly intact (moves all extremities) Skin: No rash on exposed areas, No ulcerations on exposed areas Results/Procedures: Labs Laboratory Tests 03/18/22 04:00: White Blood Count 8.5, Red Blood Count 4.26, Hemoglobin 12.0, Hematocrit 40, Mean Corpuscular Volume 94, Mean Corpuscular Hemoglobin 28, Mean Corpuscular Hemoglobin Concent 30L, Red Cell Distribution Width 15.7H, Platelet Count 280, Mean Platelet Volume 9.6, Immature Granulocyte % (Auto) 1, Neutrophils (%) (Auto) 73, Lymphocytes (%) (Auto) 13, Monocytes (%) (Auto) 8, Eosinophils (%) (Auto) 5, Basophils (%) (Auto) 0, Neutrophils # (Auto) 6.3, Lymphocytes # (Auto) 1.1, Monocytes # (Auto) 0.7, Eosinophils # (Auto) 0.4H, Basophils # (Auto) 0.0, Immature Granulocyte # (Auto) 0.0, Sodium Level 138, Potassium Level 4.3, Chloride Level 100, Carbon Dioxide Level 25, Anion Gap 13, Blood Urea Nitrogen 27H, Creatinine 1.00, Estimat Glomerular Filtration Rate 56, BUN/Creatinine Ratio 27, Glucose Level 115H, Calcium Level 8.6, Corrected Calcium 9.1, Phosphorus Level 4.5, Magnesium Level 2.1, Total Bilirubin 0.8, Aspartate Amino Transf (AST/SGOT) 33, Alanine Aminotransferase (ALT/SGPT) 75H, Alkaline Phosp hatase 110, Total Protein 5.7L, Albumin 3.4 Microbiology 03/16/22 MRSA Screen - Final, Complete MRSA not isolated Laboratory Tests 03/16/22 14:34 03/17/22 04:24 03/18/22 04:00 A/P: Assessment: A-fib with RVR - diagnosed on EKG of 12-6-21 in the ED, age unknown - Xarelto for stroke prophylaxis - rate improved, but not well controlled - not a suitable candidate for BB d/t somewhat low BP - add Digoxin Pneumonia - management per medical services 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 - Echo on 09/23/21: LVEF 45-50%, mod to sev biatrial enlargement, mod to severe MR & TR, pulm htn with PASP approx 70 mmHg - Increase Lasix HTN - controlled - somewhat low BP - asymptomatic HLD - statin tx GI - GERD COPD - managed by PCP 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 Chronic back pain - h/o extensive back surgeries in 2014 following a fall Chronic, bilat leg swelling due to venous insuff - controlled with daytime use of compression stocking Plan: Acute on chronic systolic CHF - treat with diuretics - give additional Lasix today - requiring increasing oxygen demand - CXR shows pleural effusion - medical services advising thoracentesis A-fib with RVR - HR not well controlled despite increase dose of Cardizem - d/t somewhat low BP not a suitable candidate for BB tx - start digoxin - heart rate expected to improve as pneumonia improves Continue Xarelto for stroke prophylaxis Monitor lab closely Replace electrolytes as indicated Spoke with Dr. Leonard this morning EKATERINA CALLES MD FACP FAC CCDS Mar 18, 2022 14:10
[2022-03-18] MEDS: dilTIAZem DRIP PRE-MIX 125 ML IV SCH (17:28)
[2022-03-18] MEDS: AtorvaSTATin TABLET 10 MG TABLET PO SCH (19:59)
[2022-03-19] MEDS: RT-ALBUTEROL/IPRATROPIUM 3 ML (DUONEB) VIAL INH SCH ×6 (03:06→22:34)
[2022-03-19 03:49] LABS: BASOPHILS % (AUTO) 0 % (0-10); EOSINOPHILS % (AUTO) 0 % (0-10); HEMATOCRIT 37 % (35-52); HEMOGLOBIN 11.4 g/dL (11.5-16.0); LYMPHOCYTES # (AUTO) 0.2 10^3/uL (1.0-4.0); LYMPHOCYTES % (AUTO) 3 % (12-44); MEAN CORPUSCULAR HEMOGLOBIN 29 pg (25-34); MEAN CORPUSCULAR HGB CONC 31 g/dL (32-36); MEAN CORPUSCULAR VOLUME 93 fL (80-99); MEAN PLATELET VOLUME 9.2 fL (9.0-12.2); MONOCYTES # (AUTO) 0.1 10^3/uL (0.0-1.0); MONOCYTES % (AUTO) 1 % (0-12); NEUTROPHILS # (AUTO) 6.4 10^3/uL (1.8-7.8); NEUTROPHILS % (AUTO) 96 % (42-75); PLATELET COUNT 242 10^3/uL (130-400); WHITE BLOOD COUNT 6.7 10^3/uL (4.3-11.0)
[2022-03-19 04:06] LABS: ALBUMIN 3.3 GM/DL (3.2-4.5)
[2022-03-19 04:07] LABS: POTASSIUM 3.6 MMOL/L (3.6-5.0)
[2022-03-19 04:08] LABS: CALCIUM 8.8 MG/DL (8.5-10.1)
[2022-03-19 04:09] LABS: TOTAL PROTEIN 5.7 GM/DL (6.4-8.2)
[2022-03-19 04:11] LABS: BILIRUBIN,TOTAL 0.7 MG/DL (0.1-1.0)
[2022-03-19 04:12] LABS: PHOSPHORUS 3.4 MG/DL (2.3-4.7)
[2022-03-19 04:13] LABS: CREATININE SERUM 1.03 MG/DL (0.60-1.30)
[2022-03-19 04:15] LABS: MAGNESIUM 2.1 MG/DL (1.6-2.4)
[2022-03-19 04:26] LABS: ANISOCYTOSIS SLIGHT; BAND NEUTROPHILS 0 %; ELLIPT/OVALOCYTES SLIGHT; EOSINOPHILS % (MANUAL) 0 %; LYMPHOCYTES % (MANUAL) 6 %; MONOCYTES % (MANUAL) 0 %; NEUTROPHILS % (MANUAL) 94 %; POIKILOCYTOSIS SLIGHT
--- NOTE | 2022-03-19 05:03 | Diagnostic Imaging Report ---
Indication: Left pleural effusion Portable chest 3:35 AM Comparison previous day There is pulmonary vascular congestion. There is increased density at both lung bases. There is left pleural effusion. IMPRESSION: Left pleural effusion appears slightly smaller compared to previous day. There is increased density at the right lung base. There appears to be bilateral basilar infiltrate and/or atelectasis. Dictated by: Dictated on workstation # [id number]
[2022-03-19] MEDS: FUROSEMIDE 40 MG/4 ML INJ (LASIX) IV SCH (06:26)
[2022-03-19] MEDS: methylPREDNISolone 125 MG (Solu-MEDROL) VIAL IVP SCH ×4 (06:26→23:42)
[2022-03-19] MEDS: CATHETER FLUSH 10 ML SYR IVP SCH ×3 (06:26→23:42)
--- NOTE | 2022-03-19 08:12 | Progress Note - Cardiology ---
Cardiology SO Progress Note Objective: I&O/Vital Signs 03/22/22 03/22/22 03/22/22 03/22/22 20:33 20:37 21:00 22:00 Pulse 70 73 81 75 Resp 23 19 20 23 B/P (MAP) 108/61 112/62 Pulse Ox 97 99 99 99 O2 Delivery NIV Bilevel NIV Bilevel O2 Flow Rate 100.00 90.00 100.00 100.00 03/22/22 03/22/22 03/23/22 03/23/22 22:39 23:00 00:00 00:00 Pulse 73 76 71 Resp 21 19 19 B/P (MAP) 103/68 101/63 Pulse Ox 99 98 98 97 O2 Delivery NIV Bilevel NIV Bilevel NIV Bilevel O2 Flow Rate 80.00 100.00 100.00 FiO2 80 03/23/22 03/23/22 03/23/22 03/23/22 01:00 01:00 01:42 02:00 Pulse 71 71 73 75 Resp 20 21 14 B/P (MAP) 110/60 102/74 Pulse Ox 98 99 98 O2 Delivery NIV Bilevel NIV Bilevel O2 Flow Rate 100.00 80.00 100.00 03/23/22 03/23/22 03/23/22 03/23/22 03:00 04:00 04:00 05:00 Pulse 63 61 69 Resp 18 22 B/P (MAP) 101/64 109/70 108/56 Pulse Ox 98 97 98 97 O2 Delivery NIV Bilevel NIV Bilevel NIV Bilevel NIV Bilevel O2 Flow Rate 100.00 100.00 100.00 FiO2 80 03/23/22 03/23/22 06:00 07:27 Pulse 74 73 Resp 20 18 B/P (MAP) 106/67 Pulse Ox 99 99 O2 Delivery NIV Bilevel O2 Flow Rate 100.00 80.00 03/23/22 00:00 Intake Total 1075 ml Output Total 2375 ml Balance -1300 ml Constitutional: AAO x 3, well-developed, well-nourished Respiratory: No accessory muscle use, No respiratory distress; chest expansion is symmetric, chest is bilaterally symmetric, other (diminished lower lobes bilat) Cardiovascular: irregularly irregular; No JVD, No edema; tachycardia, S1 and S2 Gastrointestional: No tender; soft, round; No distended; audible bowel sounds Extremities: no lower extremity edema bilateral Neurologic/Psychiatric: grossly intact (moves all extremities) Skin: No rash on exposed areas, No ulcerations on exposed areas Results/Procedures: Labs Laboratory Tests 03/22/22 18:22: Blood Gas Puncture Site NA, Blood Gas Patient Temperature 36.8, Arterial Blood pH 7.40, Arterial Blood Partial Pressure CO2 50H, Arterial Blood Partial Pressure O2 56L, Arterial Blood HCO3 30H, Arterial Blood Total CO2 31.4H, Arterial Blood Oxygen Saturation 88L, Arterial Blood Base Excess 5.2H, Pedro Test NA, Blood Gas Ventilator Setting NO, Blood Gas Inspired Oxygen 12 L 03/22/22 18:45: Ammonia 35H 03/22/22 20:00: Lactic Acid Level 0.74 03/23/22 04:10: White Blood Count 7.9, Red Blood Count 3.85, Hemoglobin 10.9L, Hematocrit 35, Mean Corpuscular Volume 91, Mean Corpuscular Hemoglobin 28, Mean Corpuscular Hemoglobin Concent 31L, Red Cell Distribution Width 14.7H, Platelet Count 184, Mean Platelet Volume 9.5, Immature Granulocyte % (Auto) 1, Neutrophils (%) (Auto) 80H, Lymphocytes (%) (Auto) 10L, Monocytes (%) (Auto) 5, Eosinophils (%) (Auto) 5, Basophils (%) (Auto) 0, Neutrophils # (Auto) 6.3, Lymphocytes # (Auto) 0.8L, Monocytes # (Auto) 0.4, Eosinophils # (Auto) 0.4H, Basophils # (Auto) 0.0, Immature Granulocyte # (Auto) 0.0, Sodium Level 137, Potassium Level 3.8, Chloride Level 100, Carbon Dioxide Level 27, Anion Gap 10, Blood Urea Nitrogen 46H, Creatinine 0.73, Estimat Glomerular Filtration Rate 82, BUN/Creatinine Ratio 63, Glucose Level 93, Calcium Level 8.2L, Corrected Calcium 9.1, Phosphorus Level 2.9, Magnesium Level 2.0, Total Bilirubin 1.6H, Aspartate Amino Transf (AST/SGOT) 102H, Alanine Aminotransferase (ALT/SGPT) 228H, Alkaline Phosphatase 113, Total Protein 4.9L, Albumin 2.9L Microbiology 03/19/22 Gram Stain - Final, Resulted 03/19/22 Anaerobic Culture, Resulted Pending 03/19/22 Body Fluid Culture - Final, Resulted No growth 03/19/22 Fungal Culture 1 - Preliminary, Resulted Culture In Progress 03/16/22 MRSA Screen - Final, Complete MRSA not isolated Procedures NAME: [facility]AL [facility] REC#: [id number] PT STATUS: ADM IN : 1940 PHYSICIAN: ALTAGRACIA GILL MD ADMIT DATE: 03/16/22/ICU Signed Date of Exam:03/19/22 CHEST 1 VIEW, AP/PA ONLY Indication: Left pleural effusion Portable chest 3:35 AM Comparison previous day There is pulmonary vascular congestion. There is increased density at both lung bases. There is left pleural effusion. IMPRESSION: Left pleural effusion appears slightly smaller compared to previous day. There is increased density at the right lung base. There appears to be bilateral basilar infiltrate and/or atelectasis. 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 - Echo on 09/23/21: LVEF 45-50%, mod to sev biatrial enlargement, mod to severe MR & TR, pulm htn with PASP approx 70 mmHg - Continue Lasix - Thoracentesis today HTN - controlled - somewhat low BP - asymptomatic HLD - statin tx GI - GERD COPD - managed by PCP 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 Chronic back pain - h/o extensive back surgeries in 2015 following a fall Chronic, bilat leg swelling due to venous insuff - controlled with daytime use of compression stocking Plan: Acute on chronic systolic CHF - treat with diuretics - give additional Lasix today - requiring increasing oxygen demand - CXR shows pleural effusion - thoracentesis today A-fib with RVR - HR not well controlled despite increase dose of Cardizem - d/t somewhat low BP not a suitable candidate for BB tx - start digoxin - heart rate expected to improve as pneumonia improves Continue Xarelto for stroke prophylaxis Monitor lab closely Replace electrolytes as indicated EVANGELISTA REDDP Mar 19, 2022 08:12
[2022-03-19] MEDS: cefTRIAXone 1 GM PRE-MIX 50 ML IV SCH (08:18)
[2022-03-19] MEDS: AZITHROMYCIN INJECTION 250 MG in NS (IVPB) 250 ML IV SCH (08:18)
[2022-03-19] MEDS: KCL 10 MEQ TAB (MICRO K) PO SCH ×2 (08:19→17:16)
[2022-03-19] MEDS: SENNA W/DOCUSATE (SENOKOT S) TABLET PO SCH ×2 (08:19→20:12)
[2022-03-19] MEDS: DIGOXIN 0.125 MG (LANOXIN) TAB PO SCH (08:19)
[2022-03-19] MEDS: PANTOPRAZOLE 40 MG (PROTONIX) TAB PO SCH (08:19)
[2022-03-19] MEDS: ENOXAPARIN 40 MG/0.4 ML (LOVENOX) SYR SC SCH (08:19)
[2022-03-19] MEDS: ASPIRIN 81 MG CHEW (CHILDREN'S ASA) PO SCH (08:19)
[2022-03-19] MEDS: DICLOFENAC 1% GEL 100 GM (VOLTAREN) TUBE TOP SCH ×4 (08:20→20:12)
--- NOTE | 2022-03-19 08:47 | Progress Note ---
Subjective Subjective Date Seen by Provider: Mar 19, 2022 Time Seen by Provider: 08:20 PT REPORTS THAT HER UPPER NECK AND BACK PAIN IS BETTER ON THE STEROIDS. SHE IS STILL FRUSTRATED WITH THE VAPOTHERM, BUT FEELS BETTER FROM A PULMONARY STANDPOINT. PT DENIES CHEST PAIN, ABDOMINAL PAIN, NAUSEA. Review of Systems General: No Chills; Fatigue; No Malaise, No Appetite Pulmonary: Dyspnea, Cough Cardiovascular: No: Chest Pain, Palpitations Gastrointestinal: No: Nausea Musculoskeletal: neck pain Neurological: Weakness; No: Confusion All Other Systems Reviewed All Other Systems Reviewed: Yes Objective Exam Vital Signs Vital Signs Date Time Temp Pulse Resp B/P (MAP) Pulse Ox O2 Delivery O2 Flow Rate FiO2 03/19/22 08:00 82 12 115/52 92 Vapotherm 20.00 90.00 03/19/22 07:55 90 Vapotherm 20.00 90 03/19/22 07:32 36.6 03/19/22 07:00 81 111/73 90 Vapotherm 20.00 90.00 03/19/22 07:00 105 03/19/22 06:00 89 103/64 90 Vapotherm 20.00 90.00 03/19/22 05:00 84 22 100/60 92 Vapotherm 20.00 90.00 03/19/22 04:00 90 Vapotherm 20.00 90 03/19/22 04:00 90 108/74 90 Vapotherm 20.00 90.00 03/19/22 03:51 36.7 92 90 16 03/19/22 03:07 92 Vapotherm 20.00 90 03/19/22 03:00 84 93/59 92 Vapotherm 20.00 90.00 03/19/22 02:00 96 91/54 90 Vapotherm 20.00 90.00 03/19/22 01:00 90 03/19/22 01:00 88 109/60 91 Vapotherm 20.00 90.00 03/19/22 00:00 36.6 03/19/22 00:00 92 85/50 91 Vapotherm 20.00 90.00 03/18/22 23:59 92 Vapotherm 20.00 03/18/22 23:00 92 97/60 94 Vapotherm 20.00 90.00 03/18/22 22:43 90 Vapotherm 20.00 90 03/18/22 22:00 90 90/44 93 Vapotherm 20.00 90.00 03/18/22 21:00 85 14 108/63 92 Vapotherm 20.00 90.00 03/18/22 20:00 92 Vapotherm 20.00 03/18/22 20:00 36.6 03/18/22 20:00 101 17 94/68 92 Vapotherm 20.00 90.00 03/18/22 19:41 36.5 03/18/22 19:00 89 03/18/22 19:00 89 15 95/72 92 Vapotherm 20.00 90.00 03/18/22 18:57 92 Vapotherm 20.00 90 03/18/22 18:00 98 21 106/56 94 Vapotherm 20.00 90.00 03/18/22 17:00 125 21 102/80 94 Vapotherm 20.00 90.00 03/18/22 16:15 98 Vapotherm 20.00 90 03/18/22 16:00 124 23 88/81 94 Vapotherm 20.00 90.00 03/18/22 16:00 36.5 03/18/22 15:00 129 25 115/95 91 Vapotherm 20.00 90.00 03/18/22 14:50 91 Vapotherm 20.00 90 03/18/22 14:00 122 17 95/61 90 Vapotherm 20.00 90.00 03/18/22 13:00 124 23 112/67 90 Vapotherm 20.00 90.00 03/18/22 13:00 111 03/18/22 12:26 90 Vapotherm 20.00 90 03/18/22 12:00 123 25 111/85 90 Vapotherm 20.00 90.00 03/18/22 11:00 99 20 113/76 93 Vapotherm 20.00 90.00 03/18/22 10:48 93 Vapotherm 20.00 90 03/18/22 10:00 111 26 99/89 91 Vapotherm 20.00 90.00 03/18/22 09:00 102 16 105/62 95 Vapotherm 20.00 90.00 I & O 03/19/22 07:00 Intake Total 1450 ml Output Total 4575 ml Balance -3125 ml General Appearance: No Apparent Distress, Thin Eyes: Bilateral Eye PERRL, Bilateral Eye EOMI HEENT: PERRL/EOMI, Pharynx Normal Neck: Full Range of Motion, Supple, Other (ttp over right upper neck, upper shoulder and upper back region) Respiratory: Chest Non Tender, Crackles (in bases bilaterally), Decreased Breath Sounds (LEFT LOWER LUNG FIELD), Wheezing Cardiovascular: Irregularly Irregular, Tachycardia Gastrointestinal: Normal Bowel Sounds, No Organomegaly, No Pulsatile Mass, Non Tender, Soft Rectal: Deferred Back: Other (tender to palpation over upper neck, trapezius muscle on right) Extremity: Normal Capillary Refill, Normal Range of Motion, Non Tender, No Calf Tenderness, No Pedal Edema Neurologic/Psychiatric: Alert, Oriented x3, No Motor/Sensory Deficits, 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 Skin: Normal Color, Warm/Dry Lymphatic: No Adenopathy Results Lab Laboratory Tests 03/19/22 03:39: White Blood Count 6.7, Red Blood Count 3.98, Hemoglobin 11.4L, Hematocrit 37, Mean Corpuscular Volume 93, Mean Corpuscular Hemoglobin 29, Mean Corpuscular Hemoglobin Concent 31L, Red Cell Distribution Width 15.3H, Platelet Count 242, Mean Platelet Volume 9.2, Immature Granulocyte % (Auto) 0, Neutrophils (%) (Auto) 96H, Lymphocytes (%) (Auto) 3L, Monocytes (%) (Auto) 1, Eosinophils (%) (Auto) 0, Basophils (%) (Auto) 0, Neutrophils # (Auto) 6.4, Lymphocytes # (Auto) 0.2L, Monocytes # (Auto) 0.1, Eosinophils # (Auto) 0.0, Basophils # (Auto) 0.0, Immature Granulocyte # (Auto) 0.0, Neutrophils % (Manual) 94, Lymphocytes % (Manual) 6, Monocytes % (Manual) 0, Eosinophils % (Manual) 0, Band Neutrophils 0, Poikilocytosis SLIGHT, Basophilic Stippling SLIGHT, Anisocytosis SLIGHT, Elliptocytes SLIGHT, Sodium Level 138, Potassium Level 3.6, Chloride Level 96L, Carbon Dioxide Level 25, Anion Gap 17H, Blood Urea Nitrogen 26H, Creatinine 1.03, Estimat Glomerular Filtration Rate 54, BUN/Creatinine Ratio 25, Glucose Level 194H, Calcium Level 8.8, Corrected Calcium 9.4, Phosphorus Level 3.4, Magnesium Level 2.1, Total Bilirubin 0.7, Aspartate Amino Transf (AST/SGOT) 28, Alanine Aminotransferase (ALT/SGPT) 66H, Alkaline Phosphatase 108, Total Protein 5.7L, Albumin 3.3 Microbiology 03/16/22 MRSA Screen - Final, Complete MRSA not isolated Assessment/Plan Assessment/Plan Admission Dx Acute on chronic atrial fibrillation, rate uncontrolled Chronic NOAC anticoagulation Pneumonia Chronic COPD with exacerbation Chronic oxygen dependence Medication noncompliance Hypertension Esophageal reflux Urge incontinence Hypokalemia Elevated liver enzymes Assessment and Plan Acute on chronic atrial fibrillation, rate uncontrolled Chronic NOAC anticoagulation Pneumonia Chronic COPD with exacerbation Chronic oxygen dependence Medication noncompliance Hypertension Esophageal reflux Urge incontinence Hypokalemia Elevated liver enzymes Left pleural effusion Acute on chronic atrial fibrillation, rate uncontrolled - pt is on Chronic NOAC anticoagulation with Xarelto - Pt on cardizem - Consult to Dr. Dill - resumed home regimen Pneumonia with Chronic COPD with exacerbation, Chronic oxygen dependence, Left pleural effusion - pt on Rocephin and Azithromycin - MAT protocol - oxygen started, increased up to vapotherm, will continue for now. - added iv steroids - thoracentesis today - discussed with pt and dr. goldberg - radiologist will perform the procedure, fluid to be sent for culture and cytology Medication noncompliance - pt inadvertently left her medications at home while on a trip. Hypertension - resume home regimen - monitor bp Esophageal reflux - resumed PPI therapy Urge incontinence - hold home medications - pt has shaikh in place Hypokalemia - replenish through icu protocols Elevated liver enzymes - improved with hydration - suspect shock from her rapid afib. Right upper back and shoulder pain - - prn tylenol and pain medication, use voltaren gel topically GI prophylaxis with PPI DVT prophylaxis with NOAC and scd's Admission Dx Acute on chronic atrial fibrillation, rate uncontrolled Chronic NOAC anticoagulation Pneumonia Chronic COPD with exacerbation Chronic oxygen dependence Medication noncompliance Hypertension Esophageal reflux Urge incontinence Hypokalemia Elevated liver enzymes Clinical Quality Measures Admission Status Admission Dx Acute on chronic atrial fibrillation, rate uncontrolled Chronic NOAC anticoagulation Pneumonia Chronic COPD with exacerbation Chronic oxygen dependence Medication noncompliance Hypertension Esophageal reflux Urge incontinence Hypokalemia Elevated liver enzymes ALTAGRACIA GILL MD Mar 19, 2022 08:46
--- NOTE | 2022-03-19 09:32 | Diagnostic Imaging Report ---
INDICATION: Pleural effusion. Sonographic interrogation of the left posterior thorax was performed. There appears to be a large left pleural effusion. The left posterior thorax was prepped and draped in the usual sterile fashion. A small amount of 1% lidocaine was utilized for local anesthesia. A thoracentesis catheter was placed into the posterior pleural space on the left. A total of 1 L of fluid was removed. Catheter was removed and hemostasis was obtained using manual compression. Patient tolerated the procedure well. The procedure was performed at the patient's bedside. IMPRESSION: Successful ultrasound-guided left-sided thoracentesis obtaining 1 L of fluid. Dictated by: Dictated on workstation # [id number]
--- NOTE | 2022-03-19 11:42 | Tele-ICU Progress Note ---
Subjective Date Seen by a Provider: Mar 19, 2022 Time Seen by a Provider: 11:42 Subjective/Events-last exam Tele-ICU Physician , Progress Note ) Available chart/ vitals / labs / Images reviewed Video assessment done using teleICU camera, rest of exam as per RN Discussed with RN , EXAM PER RN Events overnight : Increasing SOB overnight, Requiring Vapo-therm Afebrile FiO2 - VT 20 L 90% I/O = neg Drips: Pressors: , hemodynamically stable Consultants: Hospital course: (03/16) 81F Admitted with Acute CHF exac and Afib RVR. 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 Discussed with RN to reach out if any questions or concerns A total of 33 minutes of critical care time was devoted to this patient today, required to treat and/or prevent further deterioration of critical care condition ( as above) . Sepsis Event Evaluation Height, Weight, BMI Height: '" Weight: lbs. oz. kg; 20.77 BMI Method: Exam Exam Patient acknowledged, consented, and participated in this virtual visit which was conducted using real time audio/video Vital Signs Date Time Temp Pulse Resp B/P (MAP) Pulse Ox O2 Delivery O2 Flow Rate FiO2 03/19/22 11:00 99 22 111/70 93 Vapotherm 20.00 90.00 03/19/22 10:39 93 Vapotherm 20.00 90 03/19/22 10:00 105 16 110/69 93 Vapotherm 20.00 90.00 03/19/22 09:00 101 9 111/98 89 Vapotherm 20.00 90.00 03/19/22 08:00 82 12 115/52 92 Vapotherm 20.00 90.00 03/19/22 07:55 90 Vapotherm 20.00 90 03/19/22 07:32 36.6 03/19/22 07:00 81 111/73 90 Vapotherm 20.00 90.00 03/19/22 07:00 105 03/19/22 06:00 89 103/64 90 Vapotherm 20.00 90.00 03/19/22 05:00 84 22 100/60 92 Vapotherm 20.00 90.00 03/19/22 04:00 90 Vapotherm 20.00 90 03/19/22 04:00 90 108/74 90 Vapotherm 20.00 90.00 03/19/22 03:51 36.7 92 90 16 03/19/22 03:07 92 Vapotherm 20.00 90 03/19/22 03:00 84 93/59 92 Vapotherm 20.00 90.00 03/19/22 02:00 96 91/54 90 Vapotherm 20.00 90.00 03/19/22 01:00 90 03/19/22 01:00 88 109/60 91 Vapotherm 20.00 90.00 03/19/22 00:00 36.6 03/19/22 00:00 92 85/50 91 Vapotherm 20.00 90.00 03/18/22 23:59 92 Vapotherm 20.00 03/18/22 23:00 92 97/60 94 Vapotherm 20.00 90.00 03/18/22 22:43 90 Vapotherm 20.00 90 03/18/22 22:00 90 90/44 93 Vapotherm 20.00 90.00 03/18/22 21:00 85 14 108/63 92 Vapotherm 20.00 90.00 03/18/22 20:00 92 Vapotherm 20.00 03/18/22 20:00 36.6 03/18/22 20:00 101 17 94/68 92 Vapotherm 20.00 90.00 03/18/22 19:41 36.5 03/18/22 19:00 89 03/18/22 19:00 89 15 95/72 92 Vapotherm 20.00 90.00 03/18/22 18:57 92 Vapotherm 20.00 90 03/18/22 18:00 98 21 106/56 94 Vapotherm 20.00 90.00 03/18/22 17:00 125 21 102/80 94 Vapotherm 20.00 90.00 03/18/22 16:15 98 Vapotherm 20.00 90 03/18/22 16:00 124 23 88/81 94 Vapotherm 20.00 90.00 03/18/22 16:00 36.5 03/18/22 15:00 129 25 115/95 91 Vapotherm 20.00 90.00 03/18/22 14:50 91 Vapotherm 20.00 90 03/18/22 14:00 122 17 95/61 90 Vapotherm 20.00 90.00 03/18/22 13:00 124 23 112/67 90 Vapotherm 20.00 90.00 03/18/22 13:00 111 03/18/22 12:26 90 Vapotherm 20.00 90 03/18/22 12:00 123 25 111/85 90 Vapotherm 20.00 90.00 I & O 03/19/22 07:00 Intake Total 1450 ml Output Total 4575 ml Balance -3125 ml Height & Weight Height: '" Weight: lbs. oz. kg; 20.77 BMI Method: General Appearance: Mild Distress, Thin HEENT: PERRL/EOMI, Pharynx Normal Neck: Full Range of Motion, Supple, Other (ttp over right upper neck, upper shoulder and upper back region) Respiratory: Chest Non Tender, Crackles (in bases bilaterally), Decreased Breath Sounds, Wheezing Cardiovascular: Irregularly Irregular, Tachycardia Capillary Refill: Less Than 3 Seconds Extremity: Normal Capillary Refill, Normal Inspection, Normal Range of Motion, Non Tender, No Calf Tenderness, No Pedal Edema Neurologic/Psychiatric: Alert, Oriented x3, No Motor/Sensory Deficits, 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 Skin: Normal Color, Warm/Dry Lymphatic: No Adenopathy Results Lab Laboratory Tests 03/18/22 04:00 03/19/22 03:39 Assessment/Plan Assessment/Plan ` NELDA ESPINOZA MD Mar 19, 2022 11:42
[2022-03-19 14:11] LABS: INR 1.2 (0.8-1.4)
--- NOTE | 2022-03-19 16:14 | Diagnostic Imaging Report ---
INDICATION: Pleural effusion. TECHNIQUE: AP view of the chest is obtained with comparison made to study of earlier in the day. FINDINGS: There has been significant reduction in pleural effusion. Right basilar atelectasis and/or pneumonitis persists. No pneumothorax or other acute complication is seen. Surgical findings are seen in the thoracolumbar spine with multiple old left rib fractures. IMPRESSION: No evidence of pneumothorax or other complication post thoracentesis. Dictated by: Dictated on workstation # [id number]
[2022-03-19 16:23] LABS: BODY FLUID PH 6.7; BODY FLUID SOURCE PLEURAL; GLUCOSE,BODY FLUID 195 MG/DL; TOTAL PROTEIN,BODY FLUID 1.1 G/DL
[2022-03-19 16:24] LABS: ALBUMIN,BODY FLUID 0.8 G/DL
[2022-03-19 16:31] LABS: LDH,BODY FLUID 57 U/L
[2022-03-19] MEDS: dilTIAZem DRIP PRE-MIX 125 ML IV SCH (17:17)
--- NOTE | 2022-03-19 17:23 | Progress Note - Cardiology ---
Cardiology SOAP Progress Note Subjective: Feels better than before No n/v/d No focal weakness Gen weakness present No shortness of breath or palp or syncope or cp Objective: I&O/Vital Signs 03/19/22 03/19/22 03/19/22 03/19/22 06:00 07:00 07:00 07:32 Temp 36.6 Pulse 89 105 81 B/P (MAP) 103/64 111/73 Pulse Ox 90 90 O2 Delivery Vapotherm Vapotherm O2 Flow Rate 20.00 20.00 90.00 90.00 03/19/22 03/19/22 03/19/22 03/19/22 07:55 08:00 08:00 09:00 Pulse 82 101 Resp 12 9 B/P (MAP) 115/52 111/98 Pulse Ox 90 97 92 89 O2 Delivery Vapotherm Vapotherm Vapotherm Vapotherm O2 Flow Rate 20.00 20.00 20.00 20.00 90.00 90.00 FiO2 90 90 03/19/22 03/19/22 03/19/22 03/19/22 10:00 10:39 11:00 12:00 Temp 36.5 Pulse 105 99 Resp 16 22 B/P (MAP) 110/69 111/70 Pulse Ox 93 93 93 O2 Delivery Vapotherm Vapotherm Vapotherm O2 Flow Rate 20.00 20.00 20.00 90.00 90.00 FiO2 90 03/19/22 03/19/22 03/19/22 03/19/22 12:00 12:00 13:00 13:00 Pulse 106 109 118 Resp 9 22 B/P (MAP) 107/79 106/71 Pulse Ox 93 91 90 O2 Delivery Vapotherm Vapotherm Vapotherm O2 Flow Rate 20.00 20.00 20.00 90.00 90.00 FiO2 90 03/19/22 03/19/22 03/19/22 03/19/22 14:00 15:00 15:35 16:00 Pulse 125 128 111 Resp 17 12 9 B/P (MAP) 107/70 115/83 101/79 Pulse Ox 95 97 99 96 O2 Delivery Vapotherm Vapotherm Vapotherm Vapotherm O2 Flow Rate 20.00 20.00 20.00 20.00 90.00 90.00 90.00 FiO2 85 03/19/22 00:00 Intake Total 800 ml Output Total 2325 ml Balance -1525 ml Constitutional: AAO x 3, well-developed, well-nourished Respiratory: No accessory muscle use, No respiratory distress; chest expansion is symmetric, chest is bilaterally symmetric, other (diminished lower lobes bilat) Cardiovascular: irregularly irregular; No JVD, No edema; tachycardia, S1 and S2 Gastrointestional: No tender; soft, round; No distended; audible bowel sounds Extremities: no lower extremity edema bilateral Neurologic/Psychiatric: grossly intact (moves all extremities) Skin: No rash on exposed areas, No ulcerations on exposed areas Results/Procedures: Labs Laboratory Tests 03/19/22 03:39: White Blood Count 6.7, Red Blood Count 3.98, Hemoglobin 11.4L, Hematocrit 37, Mean Corpuscular Volume 93, Mean Corpuscular Hemoglobin 29, Mean Corpuscular Hemoglobin Concent 31L, Red Cell Distribution Width 15.3H, Platelet Count 242, Mean Platelet Volume 9.2, Immature Granulocyte % (Auto) 0, Neutrophils (%) (Auto) 96H, Lymphocytes (%) (Auto) 3L, Monocytes (%) (Auto) 1, Eosinophils (%) (Auto) 0, Basophils (%) (Auto) 0, Neutrophils # (Auto) 6.4, Lymphocytes # (Auto) 0.2L, Monocytes # (Auto) 0.1, Eosinophils # (Auto) 0.0, Basophils # (Auto) 0.0, Immature Granulocyte # (Auto) 0.0, Neutrophils % (Manual) 94, Lymphocytes % (Manual) 6, Monocytes % (Manual) 0, Eosinophils % (Manual) 0, Band Neutrophils 0, Poikilocytosis SLIGHT, Basophilic Stippling SLIGHT, Anisocytosis SLIGHT, Elliptocytes SLIGHT, Sodium Level 138, Potassium Level 3.6, Chloride Level 96L, Carbon Dioxide Level 25, Anion Gap 17H, Blood Urea Nitrogen 26H, Creatinine 1.03, Estimat Glomerular Filtration Rate 54, BUN/Creatinine Ratio 25, Glucose Level 194H, Calcium Level 8.8, Corrected Calcium 9.4, Phosphorus Level 3.4, Magnesium Level 2.1, Total Bilirubin 0.7, Aspartate Amino Transf (AST/SGOT) 28, Alanine Aminotransferase (ALT/SGPT) 66H, Alkaline Phosphatase 108, Lactate Dehydrogenase 216, Total Protein 5.7L, Albumin 3.3 03/19/22 13:47: Prothrombin Time 16.0H, INR Comment 1.2 03/19/22 13:50: Body Fluid Source PLEURAL, Body Fluid pH 6.7, Body Fluid Glucose 195, Body Fluid Total Protein 1.1, Body Fluid Albumin 0.8, Body Fluid Lactate Dehydrogenase 57 Microbiology 03/16/22 MRSA Screen - Final, Complete MRSA not isolated Laboratory Tests 03/18/22 04:00 03/19/22 03:39 A/P: Assessment: A-fib with RVR - diagnosed on EKG of 09-22-21 in the ED, age unknown - Xarelto for stroke prophylaxis - treat rate with dilt and dig Pneumonia - management per medical services 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 - Echo on 09/23/21: LVEF 45-50%, mod to sev biatrial enlargement, mod to severe MR & TR, pulm htn with PASP approx 70 mmHg - Continue Lasix - Thoracentesis today HTN - controlled - somewhat low BP - asymptomatic HLD - statin tx GI - GERD COPD - managed by PCP 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 Chronic back pain - h/o extensive back surgeries in 2014 following a fall Chronic, bilat leg swelling due to venous insuff - controlled with daytime use of compression stocking Plan: Acute on chronic systolic CHF - treat with diuretics - give additional Lasix today - requiring increasing oxygen demand - CXR shows pleural effusion - thoracentesis today A-fib with RVR - continue dilt and dig for rate control - heart rate expected to improve as pneumonia improves - continue Xarelto for stroke prophylaxis Replace electrolytes as indicated and monitor labs EKATERINA CALLES MD FACP FAC CCDS Mar 19, 2022 17:23
[2022-03-19 18:13] LABS: BODY FLUID APPEARENCE CLEAR; BODY FLUID COLOR PALE YELLOW; BODY FLUID WBC TOTAL COUNT 115 /uL
[2022-03-19 18:14] LABS: BF OTHER CELLS 0 %; BODY FLUID RBC COUNT 296.25 /uL; LYMPHOCYTES,BODY FLUID 23 %
[2022-03-19] MEDS: AtorvaSTATin TABLET 10 MG TABLET PO SCH (20:11)
[2022-03-20] MEDS: RT-ALBUTEROL/IPRATROPIUM 3 ML (DUONEB) VIAL INH SCH ×6 (02:46→22:41)
[2022-03-20 05:21] LABS: BASOPHILS % (AUTO) 0 % (0-10); EOSINOPHILS % (AUTO) 0 % (0-10); HEMATOCRIT 37 % (35-52); HEMOGLOBIN 11.6 g/dL (11.5-16.0); LYMPHOCYTES # (AUTO) 0.3 10^3/uL (1.0-4.0); LYMPHOCYTES % (AUTO) 2 % (12-44); MEAN CORPUSCULAR HEMOGLOBIN 29 pg (25-34); MEAN CORPUSCULAR HGB CONC 31 g/dL (32-36); MEAN CORPUSCULAR VOLUME 92 fL (80-99); MEAN PLATELET VOLUME 9.5 fL (9.0-12.2); MONOCYTES # (AUTO) 0.2 10^3/uL (0.0-1.0); MONOCYTES % (AUTO) 1 % (0-12); NEUTROPHILS # (AUTO) 15.4 10^3/uL (1.8-7.8); NEUTROPHILS % (AUTO) 96 % (42-75); PLATELET COUNT 256 10^3/uL (130-400)
[2022-03-20 05:34] LABS: ALBUMIN 3.4 GM/DL (3.2-4.5); POTASSIUM 3.7 MMOL/L (3.6-5.0)
[2022-03-20 05:36] LABS: CALCIUM 8.9 MG/DL (8.5-10.1)
[2022-03-20 05:37] LABS: TOTAL PROTEIN 5.7 GM/DL (6.4-8.2)
[2022-03-20 05:38] LABS: BILIRUBIN,TOTAL 0.5 MG/DL (0.1-1.0)
[2022-03-20 05:40] LABS: PHOSPHORUS 2.7 MG/DL (2.3-4.7)
[2022-03-20 05:41] LABS: CREATININE SERUM 0.97 MG/DL (0.60-1.30)
[2022-03-20 05:44] LABS: MAGNESIUM 2.2 MG/DL (1.6-2.4)
[2022-03-20] MEDS: methylPREDNISolone 125 MG (Solu-MEDROL) VIAL IVP SCH (06:06)
[2022-03-20] MEDS: FUROSEMIDE 40 MG/4 ML INJ (LASIX) IV SCH (06:06)
[2022-03-20] MEDS: CATHETER FLUSH 10 ML SYR IVP SCH ×3 (06:07→20:12)
--- NOTE | 2022-03-20 07:48 | Diagnostic Imaging Report ---
INDICATION: Pneumonia, COPD, ICU care. COMPARISON: 03/19/2022. TECHNIQUE: Single radiograph of the chest dated 03/20/2022. FINDINGS: The cardiac silhouette is enlarged, though similar to the prior examination. Small right basilar pleural-parenchymal opacity is present, worsened since the prior examination. The left lung appears stable. No pneumothorax. Post surgical changes within the thoracolumbar spine. Chronic rib fractures. IMPRESSION: Worsening small right basilar pleural-parenchymal opacity, related to a combination of pleural fluid with adjacent atelectasis and/or infiltrate. Persistent cardiomegaly. Additional stable findings as above. Dictated by: Dictated on workstation # [id number]
[2022-03-20] MEDS: AZITHROMYCIN INJECTION 250 MG in NS (IVPB) 250 ML IV SCH (08:12)
[2022-03-20] MEDS: SENNA W/DOCUSATE (SENOKOT S) TABLET PO SCH ×2 (08:13→20:05)
[2022-03-20] MEDS: PANTOPRAZOLE 40 MG (PROTONIX) TAB PO SCH (08:13)
[2022-03-20] MEDS: KCL 10 MEQ TAB (MICRO K) PO SCH ×2 (08:13→18:00)
[2022-03-20] MEDS: cefTRIAXone 1 GM PRE-MIX 50 ML IV SCH (08:13)
[2022-03-20] MEDS: DIGOXIN 0.125 MG (LANOXIN) TAB PO SCH (08:13)
[2022-03-20] MEDS: ASPIRIN 81 MG CHEW (CHILDREN'S ASA) PO SCH (08:13)
[2022-03-20] MEDS: DICLOFENAC 1% GEL 100 GM (VOLTAREN) TUBE TOP SCH ×5 (09:30→20:08)
--- NOTE | 2022-03-20 09:37 | Tele-ICU Progress Note ---
Subjective Date Seen by a Provider: Mar 20, 2022 Time Seen by a Provider: 09:37 Subjective/Events-last exam Tele-ICU Physician , Progress Note ) Available chart/ vitals / labs / Images reviewed Video assessment done using teleICU camera, rest of exam as per RN Discussed with RN , EXAM PER RN Events overnight : Increasing SOB overnight, Requiring Vapo-therm Afebrile FiO2 - VT 20 L 90% I/O = neg Drips: Pressors: , hemodynamically stable Consultants: Hospital course: (03/16) 81F Admitted with Acute CHF exac and Afib RVR. Hx COPD on 4L home O2 03/18- Increasing SOB overnight, Requiring Vapo-therm /2 - VT 20 L 90 % - THORA 1 L LEFT /3 - 7 L A/P A-fib with RVR - cardizem as per cards - Xarelto ON HOLD - replace K Acute resp failure ( on 10 L NC 03/17 - 03/18- Increasing SOB overnight, Requiring Vapo-therm VT 20 L 90% - LASIX to increase diuresis givenn PULM HTN - UO IS GREAT - on IV steroid - s/p THORA 1 L LEFT /3 - on 7 L NC today LEFT plural effusion - new comparing to 09/2021 - monitor , might need tap - follow closely with diuresis - XARELTO ON HOLD almost 48 h for tap - to resume as per cardiology -s/p THORA 1 L LEFT /= TRANSUDATE ( s/p tap 09/29/2021 - path negative ) 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 Chronic back pain Chronic, bilat leg swelling due to venous insuff Lines : (Central Line Necessity Reviewed) Coe: + OG: Nutrition: Analgesia: Anxiety/ delirium VTE Prophylaxis: xarelto Stress Ulcer Prophylaxis: na Plans in collaboration with bedside consultants and IM MDs. Discussed with RN to reach out if any questions or concerns A total of 33 minutes of critical care time was devoted to this patient today, required to treat and/or prevent further deterioration of critical care condition ( as above) . Sepsis Event Evaluation Height, Weight, BMI Height: '" Weight: lbs. oz. kg; 20.77 BMI Method: Exam Exam Patient acknowledged, consented, and participated in this virtual visit which was conducted using real time audio/video Vital Signs Date Time Temp Pulse Resp B/P (MAP) Pulse Ox O2 Delivery O2 Flow Rate FiO2 03/20/22 09:00 90 14 105/70 93 High Flow N/C 7.00 03/20/22 08:00 36.7 03/20/22 08:00 100 24 97/67 93 High Flow N/C 7.00 03/20/22 07:06 92 High Flow N/C 6.00 03/20/22 07:00 92 03/20/22 07:00 104 19 113/75 91 High Flow N/C 7.00 03/20/22 06:00 96 16 101/55 97 High Flow N/C 7.00 03/20/22 05:00 91 11 96/54 96 High Flow N/C 7.00 03/20/22 04:25 96 High Flow N/C 7.00 03/20/22 04:00 99 17 109/60 94 High Flow N/C 7.00 03/20/22 04:00 36.5 03/20/22 03:00 90 22 109/63 93 High Flow N/C 7.00 03/20/22 02:47 95 High Flow N/C 6.00 03/20/22 02:00 92 20 105/64 94 High Flow N/C 7.00 03/20/22 01:00 88 37 102/72 92 High Flow N/C 7.00 03/20/22 01:00 88 03/20/22 00:00 96 High Flow N/C 7.00 03/20/22 00:00 36.6 03/20/22 00:00 93 27 100/60 95 High Flow N/C 7.00 03/19/22 23:00 101 31 101/60 98 High Flow N/C 7.00 03/19/22 22:34 99 High Flow N/C 6.00 03/19/22 22:00 93 93/49 95 High Flow N/C 7.00 03/19/22 21:30 93 24 94/53 95 High Flow N/C 7.00 03/19/22 21:00 108 28 107/67 89 High Flow N/C 6.00 03/19/22 20:00 112 9 110/81 93 High Flow N/C 6.00 03/19/22 20:00 93 High Flow N/C 6.00 03/19/22 20:00 36.4 03/19/22 19:45 99 12 88 High Flow N/C 7.00 03/19/22 19:35 99 High Flow N/C 6.00 03/19/22 19:00 90 16 105/61 94 High Flow N/C 6.00 03/19/22 19:00 90 03/19/22 18:00 105 16 121/80 91 High Flow N/C 6.00 03/19/22 17:00 117 16 109/69 93 High Flow N/C 6.00 03/19/22 16:00 94 High Flow N/C 6.00 03/19/22 16:00 111 9 101/79 96 Vapotherm 20.00 90.00 03/19/22 15:35 99 Vapotherm 20.00 85 03/19/22 15:00 128 12 115/83 97 Vapotherm 20.00 90.00 03/19/22 14:00 125 17 107/70 95 Vapotherm 20.00 90.00 03/19/22 13:00 118 22 106/71 90 Vapotherm 20.00 90.00 03/19/22 13:00 109 03/19/22 12:00 106 9 107/79 91 Vapotherm 20.00 90.00 03/19/22 12:00 93 Vapotherm 20.00 85 03/19/22 12:00 36.5 03/19/22 11:00 99 22 111/70 93 Vapotherm 20.00 90.00 03/19/22 10:39 93 Vapotherm 20.00 90 03/19/22 10:00 105 16 110/69 93 Vapotherm 20.00 90.00 I & O 03/20/22 07:00 Intake Total 2040 ml Output Total 2260 ml Balance -220 ml Height & Weight Height: '" Weight: lbs. oz. kg; 20.77 BMI Method: General Appearance: No Apparent Distress, Thin HEENT: PERRL/EOMI, Pharynx Normal Neck: Full Range of Motion, Supple, Other (ttp over right upper neck, upper shoulder and upper back region) Respiratory: Chest Non Tender, Crackles (in bases bilaterally), Decreased Breath Sounds (LEFT LOWER LUNG FIELD), Wheezing Cardiovascular: Irregularly Irregular, Tachycardia Capillary Refill: Less Than 3 Seconds Extremity: Normal Capillary Refill, Normal Range of Motion, Non Tender, No Calf Tenderness, No Pedal Edema Neurologic/Psychiatric: Alert, Oriented x3, No Motor/Sensory Deficits, 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 Skin: Normal Color, Warm/Dry Lymphatic: No Adenopathy Results Lab Laboratory Tests 03/19/22 03:39 03/20/22 03:00 03/20/22 04:14 Assessment/Plan Assessment/Plan 1 NELDA ESPINOZA MD Mar 20, 2022 09:37
--- NOTE | 2022-03-20 10:32 | Progress Note ---
Subjective Subjective Date Seen by Provider: Mar 20, 2022 Time Seen by Provider: 10:20 Pt reports that she would like to go home today if possible, she denies chest pain, she does have shortness of breath, but that is better. She denies abdominal pain, nausea, dizziness. She reports insomnia Review of Systems General: No Chills; Fatigue; No Malaise, No Appetite Pulmonary: Dyspnea, Cough Cardiovascular: No: Chest Pain, Palpitations Gastrointestinal: No: Nausea, Vomiting, Abdominal Pain Genitourinary: Other (shaikh in place) Musculoskeletal: neck pain Neurological: Weakness; No: Confusion All Other Systems Reviewed All Other Systems Reviewed: Yes Objective Exam Vital Signs Vital Signs Date Time Temp Pulse Resp B/P (MAP) Pulse Ox O2 Delivery O2 Flow Rate FiO2 03/20/22 10:00 89 16 103/69 94 High Flow N/C 7.00 03/20/22 09:00 90 14 105/70 93 High Flow N/C 7.00 03/20/22 08:00 36.7 03/20/22 08:00 100 24 97/67 93 High Flow N/C 7.00 03/20/22 07:06 92 High Flow N/C 6.00 03/20/22 07:00 92 03/20/22 07:00 104 19 113/75 91 High Flow N/C 7.00 03/20/22 06:00 96 16 101/55 97 High Flow N/C 7.00 03/20/22 05:00 91 11 96/54 96 High Flow N/C 7.00 03/20/22 04:25 96 High Flow N/C 7.00 03/20/22 04:00 99 17 109/60 94 High Flow N/C 7.00 03/20/22 04:00 36.5 03/20/22 03:00 90 22 109/63 93 High Flow N/C 7.00 03/20/22 02:47 95 High Flow N/C 6.00 03/20/22 02:00 92 20 105/64 94 High Flow N/C 7.00 03/20/22 01:00 88 37 102/72 92 High Flow N/C 7.00 03/20/22 01:00 88 03/20/22 00:00 96 High Flow N/C 7.00 03/20/22 00:00 36.6 03/20/22 00:00 93 27 100/60 95 High Flow N/C 7.00 03/19/22 23:00 101 31 101/60 98 High Flow N/C 7.00 03/19/22 22:34 99 High Flow N/C 6.00 03/19/22 22:00 93 93/49 95 High Flow N/C 7.00 03/19/22 21:30 93 24 94/53 95 High Flow N/C 7.00 03/19/22 21:00 108 28 107/67 89 High Flow N/C 6.00 03/19/22 20:00 112 9 110/81 93 High Flow N/C 6.00 03/19/22 20:00 93 High Flow N/C 6.00 03/19/22 20:00 36.4 03/19/22 19:45 99 12 88 High Flow N/C 7.00 03/19/22 19:35 99 High Flow N/C 6.00 03/19/22 19:00 90 16 105/61 94 High Flow N/C 6.00 03/19/22 19:00 90 03/19/22 18:00 105 16 121/80 91 High Flow N/C 6.00 03/19/22 17:00 117 16 109/69 93 High Flow N/C 6.00 03/19/22 16:00 94 High Flow N/C 6.00 03/19/22 16:00 111 9 101/79 96 Vapotherm 20.00 90.00 03/19/22 15:35 99 Vapotherm 20.00 85 03/19/22 15:00 128 12 115/83 97 Vapotherm 20.00 90.00 03/19/22 14:00 125 17 107/70 95 Vapotherm 20.00 90.00 03/19/22 13:00 118 22 106/71 90 Vapotherm 20.00 90.00 03/19/22 13:00 109 03/19/22 12:00 106 9 107/79 91 Vapotherm 20.00 90.00 03/19/22 12:00 93 Vapotherm 20.00 85 03/19/22 12:00 36.5 03/19/22 11:00 99 22 111/70 93 Vapotherm 20.00 90.00 03/19/22 10:39 93 Vapotherm 20.00 90 I & O 03/20/22 07:00 Intake Total 2040 ml Output Total 2260 ml Balance -220 ml General Appearance: No Apparent Distress, Thin Eyes: Bilateral Eye PERRL, Bilateral Eye EOMI HEENT: PERRL/EOMI, Pharynx Normal Neck: Full Range of Motion, Supple, Other (ttp over right upper neck, upper shoulder and upper back region) Respiratory: Chest Non Tender, Crackles (faint crackles bilateral bases), Wheezing Cardiovascular: Irregularly Irregular, Tachycardia Gastrointestinal: Normal Bowel Sounds, No Organomegaly, No Pulsatile Mass, Non Tender, Soft Rectal: Deferred Back: Other (tender to palpation over upper neck, trapezius muscle on right) Extremity: Normal Capillary Refill, Normal Range of Motion, Non Tender, No Calf Tenderness, No Pedal Edema Neurologic/Psychiatric: Alert, Oriented x3, No Motor/Sensory Deficits, 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 Skin: Normal Color, Warm/Dry Lymphatic: No Adenopathy Results Lab Laboratory Tests 03/19/22 13:47: Prothrombin Time 16.0H, INR Comment 1.2 03/19/22 13:50: Body Fluid Source PLEURAL, Body Fluid Color PALE YELLOW, Body Fluid Appearance CLEAR, Body Fluid pH 6.7, Body Fluid WBC 115, Body Fluid RBC 296.25, Body Fluid Polynuclear WBCs 20, Body Fluid Mononuclear WBCs 57, Body Fluid Lymphocytes 23, Body Fluid Eosinophils 0, Body Fluid Other Cells 0, Body Fluid Glucose 195, Body Fluid Total Protein 1.1, Body Fluid Albumin 0.8, Body Fluid Lactate Dehydrogenase 57 03/20/22 03:00: Sodium Level 137, Potassium Level 3.7, Chloride Level 96L, Carbon Dioxide Level 27, Anion Gap 14, Blood Urea Nitrogen 30H, Creatinine 0.97, Estimat Glomerular F iltration Rate 58, BUN/Creatinine Ratio 31, Glucose Level 195H, Calcium Level 8.9, Corrected Calcium 9.4, Phosphorus Level 2.7, Magnesium Level 2.2, Total Bilirubin 0.5, Aspartate Amino Transf (AST/SGOT) 40H, Alanine Aminotransferase (ALT/SGPT) 68H, Alkaline Phosphatase 104, Total Protein 5.7L, Albumin 3.4 03/20/22 04:14: White Blood Count 16.0H, Red Blood Count 4.02, Hemoglobin 11.6, Hematocrit 37, Mean Corpuscular Volume 92, Mean Corpuscular Hemoglobin 29, Mean Corpuscular Hemoglobin Concent 31L, Red Cell Distribution Width 15.7H, Platelet Count 256, Mean Platelet Volume 9.5, Immature Granulocyte % (Auto) 1, Neutrophils (%) (Auto) 96H, Lymphocytes (%) (Auto) 2L, Monocytes (%) (Auto) 1, Eosinophils (%) (Auto) 0, Basophils (%) (Auto) 0, Neutrophils # (Auto) 15.4H, Lymphocytes # (Auto) 0.3L, Monocytes # (Auto) 0.2, Eosinophils # (Auto) 0.0, Basophils # (Auto) 0.0, Immature Granulocyte # (Auto) 0.1 Microbiology 03/19/22 Gram Stain, Resulted Pending 03/19/22 Anaerobic Culture, Resulted Pending 03/19/22 Body Fluid Culture - Preliminary, Resulted No growth 03/19/22 Fungal Culture 1 - Preliminary, Resulted Culture In Progress 03/16/22 MRSA Screen - Final, Complete MRSA not isolated Assessment/Plan Assessment/Plan Admission Dx Acute on chronic atrial fibrillation, rate uncontrolled Chronic NOAC anticoagulation Pneumonia Chronic COPD with exacerbation Chronic oxygen dependence Medication noncompliance Hypertension Esophageal reflux Urge incontinence Hypokalemia Elevated liver enzymes Assessment and Plan Acute on chronic atrial fibrillation, rate uncontrolled Chronic NOAC anticoagulation Pneumonia Chronic COPD with exacerbation Chronic oxygen dependence Medication noncompliance Hypertension Esophageal reflux Urge incontinence Hypokalemia Elevated liver enzymes Left pleural effusion Acute on chronic atrial fibrillation, rate uncontrolled - pt is on Chronic NOAC anticoagulation with Xarelto - Pt on cardizem - Consult to Dr. Dill - resumed home regimen Pneumonia with Chronic COPD with exacerbation, Chronic oxygen dependence, Left pleural effusion - pt on Rocephin and Azithromycin - MAT protocol - oxygen down to 7 LPM for now, will have pt tapered down as able - added iv steroids, will change to oral steroids today - thoracentesis on 03/19/22 - fluid was sent for culture and cytology Medication noncompliance - pt inadvertently left her medications at home while on a trip. Hypertension - resumed home regimen - monitor bp Esophageal reflux - resumed PPI therapy Urge incontinence - dc shaikh Hypokalemia - replenish through icu protocols Elevated liver enzymes - improved with hydration - suspect shock from her rapid afib. Right upper back and shoulder pain - - prn tylenol and pain medication, use voltaren gel topically GI prophylaxis with PPI DVT prophylaxis with NOAC and scd's Admission Dx Acute on chronic atrial fibrillation, rate uncontrolled Chronic NOAC anticoagulation Pneumonia Chronic COPD with exacerbation Chronic oxygen dependence Medication noncompliance Hypertension Esophageal reflux Urge incontinence Hypokalemia Elevated liver enzymes Clinical Quality Measures Admission Status Admission Dx Acute on chronic atrial fibrillation, rate uncontrolled Chronic NOAC anticoagulation Pneumonia Chronic COPD with exacerbation Chronic oxygen dependence Medication noncompliance Hypertension Esophageal reflux Urge incontinence Hypokalemia Elevated liver enzymes ALTAGRACIA GILL MD Mar 20, 2022 10:32
--- NOTE | 2022-03-20 10:54 | Physician Query Clarification ---
Physician Query-General Query to Physician: The medical record reflects the following clinical scenario: The patient, in the setting of History/Risk factors, HTN, At. Fib, EF per echo 45-50T in 2020, Clinical Findings BNP 361, pulmonary effusion requiring, thoracentesis, 2+ edema non pitting, on admission Treatment ER: Diltiazem bolus and drip ,Lasix IV, Cardiology consult Question: Do you agree with the impression of Acute on Chronic Systolic and Diastolic CHF per Dr. Anoop Dill and Dr. Kristin Jama? 1. Yes; will document Acute on Chronic Systolic and Diastolic CHF, present on admission in the Progress Notes 2. No; will continue current documentation in the Progress Notes 3. Other; will document explanation of clinical findings 4. Clinically undetermined; no explanation for clinical findings Please clarify and document your clinical opinion in the Progress Notes and Discharge Summary including the definitive and/or presumptive diagnosis, (suspected or probable), related to the above clinical findings. Please include clinical findings supporting your diagnosis. In responding to this query, please exercise your independent professional judgment. The purpose of this communication is to more accurately reflect the complexity of your patients condition. The fact that a question is asked does not imply that any particular answer is desired or expected. Thank you for timely response to this clarification. Delores Tam MSN, RN Clinical Nurse Special ist [phone] [email or web address] PHYSICIAN RESPONSE: Based on the clinical findings in the record, please respond to the query above on this document as an addendum. Physician Response: Physician Response YES WILL DOCUMENT ACUTE ON CHRONIC SYSTOLIC HEART FAILURE ON ADMISSION If you have questions please contact: Registered Nurse Nursery: Ext: Thank you for your time and cooperation. Clinical Supervisor Beam Department/Registered Nurse Nursery This is a permanent part of the medical record DELORES TAM Mar 20, 2022 10:54 ALTAGRACIA GILL MD Mar 20, 2022 12:52
[2022-03-20] MEDS: HYDROcodone/APAP 5 MG/325 MG (LORTAB) TAB PO PRN (12:21)
[2022-03-20] MEDS ORDERED: DIGO125T18 PO (12:30)
[2022-03-20] MEDS ORDERED: PRD20T PO (12:30)
[2022-03-20] MEDS ORDERED: CEFD300C3 PO (12:30)
[2022-03-20] MEDS ORDERED: AZIT250T12 PO (12:30)
[2022-03-20] MEDS ORDERED: DILT180C85 PO (12:30)
[2022-03-20] MEDS ORDERED: MIRT-96 PO (12:30)
[2022-03-20] MEDS ORDERED: predniSONE 20 MG TAB PO ONE (12:45)
--- NOTE | 2022-03-20 14:13 | Progress Note - Cardiology ---
Cardiology SOAP Progress Note Subjective: No cp or palp or syncope Gen malaise present but improving No shortness of breath at rest Feels better after thoracentesis No n/v/d Objective: I&O/Vital Signs 03/20/22 03/20/22 03/20/22 03/20/22 02:47 03:00 04:00 04:00 Temp 36.5 Pulse 90 99 Resp 22 17 B/P (MAP) 109/63 109/60 Pulse Ox 95 93 94 O2 Delivery High Flow N/C High Flow N/C High Flow N/C O2 Flow Rate 6.00 7.00 7.00 03/20/22 03/20/22 03/20/22 03/20/22 04:25 05:00 06:00 07:00 Pulse 91 96 104 Resp 11 16 19 B/P (MAP) 96/54 101/55 113/75 Pulse Ox 96 96 97 91 O2 Delivery High Flow N/C High Flow N/C High Flow N/C High Flow N/C O2 Flow Rate 7.00 7.00 7.00 7.00 03/20/22 03/20/22 03/20/22 03/20/22 07:00 07:06 08:00 08:00 Pulse 92 100 Resp 24 B/P (MAP) 97/67 Pulse Ox 92 93 94 O2 Delivery High Flow N/C High Flow N/C High Flow N/C O2 Flow Rate 6.00 7.00 6.00 03/20/22 03/20/22 03/20/22 03/20/22 08:00 09:00 10:00 10:37 Temp 36.7 Pulse 90 89 Resp 14 16 B/P (MAP) 105/70 103/69 Pulse Ox 93 94 92 O2 Delivery High Flow N/C High Flow N/C High Flow N/C O2 Flow Rate 7.00 7.00 6.00 03/20/22 03/20/22 03/20/22 03/20/22 11:00 11:58 12:00 12:32 Temp 36.3 Pulse 84 96 111 Resp 21 12 B/P (MAP) 104/62 118/59 Pulse Ox 92 90 O2 Delivery High Flow N/C High Flow N/C O2 Flow Rate 7.00 7.00 03/20/22 13:00 Pulse 89 Resp 28 B/P (MAP) 108/71 Pulse Ox 90 O2 Delivery High Flow N/C O2 Flow Rate 7.00 03/20/22 00:00 Intake Total 1050 ml Output Total 1260 ml Balance -210 ml Constitutional: AAO x 3, well-developed, well-nourished Respiratory: No accessory muscle use, No respiratory distress; chest expansion is symmetric, chest is bilaterally symmetric, other (diminished lower lobes bilat) Cardiovascular: irregularly irregular; No JVD, No edema; tachycardia, S1 and S2 Gastrointestional: No tender; soft, round; No distended; audible bowel sounds Extremities: no lower extremity edema bilateral Neurologic/Psychiatric: grossly intact (moves all extremities) Skin: No rash on exposed areas, No ulcerations on exposed areas Results/Procedures: Labs Laboratory Tests 03/20/22 03:00: Sodium Level 137, Potassium Level 3.7, Chloride Level 96L, Carbon Dioxide Level 27, Anion Gap 14, Blood Urea Nitrogen 30H, Creatinine 0.97, Estimat Glomerular Filtration Rate 58, BUN/Creatinine Ratio 31, Glucose Level 195H, Calcium Level 8.9, Corrected Calcium 9.4, Phosphorus Level 2.7, Magnesium Level 2.2, Total Bilirubin 0.5, Aspartate Amino Transf (AST/SGOT) 40H, Alanine Aminotransferase (ALT/SGPT) 68H, Alkaline Phosphatase 104, Total Protein 5.7L, Albumin 3.4 03/20/22 03:39: 03/20/22 04:14: White Blood Count 16.0H, Red Blood Count 4.02, Hemoglobin 11.6, Hematocrit 37, Mean Corpuscular Volume 92, Mean Corpuscular Hemoglobin 29, Mean Corpuscular Hemoglobin Concent 31L, Red Cell Distribution Width 15.7H, Platelet Count 256, Mean Platelet Volume 9.5, Immature Granulocyte % (Auto) 1, Neutrophils (%) (Auto) 96H, Lymphocytes (%) (Auto) 2L, Monocytes (%) (Auto) 1, Eosinophils (%) (Auto) 0, Basophils (%) (Auto) 0, Neutrophils # (Auto) 15.4H, Lymphocytes # (A uto) 0.3L, Monocytes # (Auto) 0.2, Eosinophils # (Auto) 0.0, Basophils # (Auto) 0.0, Immature Granulocyte # (Auto) 0.1 Microbiology 03/19/22 Gram Stain - Final, Resulted 03/19/22 Anaerobic Culture, Resulted Pending 03/19/22 Body Fluid Culture - Preliminary, Resulted No growth 03/19/22 Fungal Culture 1 - Preliminary, Resulted Culture In Progress 03/16/22 MRSA Screen - Final, Complete MRSA not isolated A/P: Assessment: A-fib with RVR - diagnosed on EKG of 09-22-21 in the ED, age unknown - Xarelto for stroke prophylaxis - treat rate with dilt and dig Pneumonia - management per medical services - s/p L thoracentesis on 03/19/22 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 - Echo on 09/23/21: LVEF 45-50%, mod to sev biatrial enlargement, mod to severe MR & TR, pulm htn with PASP approx 70 mmHg - Continue Lasix HTN - controlled - somewhat low BP - asymptomatic HLD - statin tx GI - GERD COPD - managed by PCP 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
--- NOTE | 2022-03-20 15:11 | Physical Therapy Evaluation ---
PT Evaluation-General Medical Diagnosis Admission Date March 16, 2022 at 16:05 Medical Diagnosis: A-Fib Onset Date: Mar 18, 2022 Therapy Diagnosis Therapy Diagnosis: Gait deficit, strength deficit Precautions Precautions/Isolations: Fall Prevention, Standard Precautions Weight Bear Status Right Lower Extremity: Right Full Weight Bearing Left Lower Extremity: Left Full Weight Bearing Referral Physician: Dr. Leonard Reason for Referral: Evaluation/Treatment Medical History Pertinent Medical History: Atrial Fib, COPD Reviewed History: Yes Social History Home: Multilevel Current Living Status: Alone Entry Into Home: Stairs With Railing PT Steps Into Home: 3 PT Steps Inside Home: 14 Prior Prior Level of Function SCALE: Activities may be completed with or without assistive devices. 4-Gznhueztdf-itkjmbl completes the activity by him/herself with no assistance from a helper. 5-Set-up or Clean-up Assistance-helper sets up or cleans up; patient completes activity. [place] assists only prior to or following the activity. 4-Supervision or Touching Assistance-helper provides verbal cues and/or touching/steadying and/or contact guard assistance as patient completes activity. Assistance may be provided throughout the activity or intermittently. 3-Partial/Moderate Assistance-helper does LESS THAN HALF the effort. [place] lifts, holds or supports trunk or limbs, but provides less than half the effort. 2-Substantial/Maximal Assistance-helper does MORE THAN HALF the effort. [place] lifts or holds trunk or limbs and provides more than half the effort. 1-Ypetcmhix-pxhejk does ALL the effort. Patient does none of the effort to complete the activity. Or, the assistance of 2 or more helpers is required for the patient to complete the activity. If activity was not attempted, code reason: 7-Patient Refused. 9-Not Applicable-not attempted and the patient did not perform the activity before the current illness, exacerbation or injury. 10-Not Attempted due to Environmental Limitations-(lack of equipment, weather restraints, etc.). 88-Not Attempted due to Medical Conditions or Safety Concerns. Bed Mobility: 6 Transfers (B,C,W/C): 6 Gait: 6 Stairs: 6 Indoor Mobility (Ambulation): Independent Stairs: Independent Prior Devices Use: Walker PT Evaluation-Current Subjective Patient lying supine in bed upon PT arrival, agreeable to treatment. Patient rates pain in neck at 10/10. Reports she wears 4 L O2 at baseline. Objective Patient Orientation: Person, Place, Time, Situation Attachments: Oxygen, Coe Catheter, IV ROM/Strength ROM Lower Extremities WFLs bilaterally all planes Strength Lower Extremities 3+/5 bilaterally all planes Sensory Vision: Functional Hearing: Functional Sensation Right Lower Extremit: Intact Sensation Left Lower Extremity: Intact Transfers Roll Left to Right (QC): 4 Sit to Lying (QC): 4 Lying to Sitting/Side of Bed(Q: 4 Sit to Stand (QC): 4 Gait Does the Patient Walk?: No and Walking Goal IS indicated Mode of Locomotion: Walk Anticipated Mode of Locomotion: Walk Balance Sitting Static: Good Sitting Dynamic: Good Standing Static: Fair Standing Dynamic: Fair Assessment/Needs Patient performs all observed bed mobility and transfers with CGA/SBA. Patient O2 levels around 90% lying supine in bed . Upon sitting at edge of bed sats decline to 84%, however increase to 87%. When answering questions patients O2 continues to decline to 84%. Patient performs sit to stand and right lateral stepping with CGA. Patient in bed post treatment with all needs met, nursing notified, call light in hand. Rehab Potential: Fair PT Storm Chaser Goals Storm Chaser Goals PT Residential Goals Time Frame: Apr 10, 2022 Roll Left & Right (QC): 6 Lying-Sitting on Side/Bed(QC): 6 Sit to Stand (QC): 6 Chair/Dmt-ik-Rxxex Xfer(QC): 6 Toilet Transfer (QC): 6 Does the Patient Walk: Yes Walk 10 feet (QC): 5 Walk 50ft with 2 Turns (QC): 5 Walk 150 ft (QC): 5 1 Step (curb) (QC): 4 4 Steps (QC): 4 12 Steps (QC): 4 PT Plan Problem List Problem List: Activity Tolerance, Functional Strength, Safety, Balance, Gait, Transfer, Bed Mobility, ROM Treatment/Plan Treatment Plan: Continue Plan of Care Treatment Plan: Bed Mobility, Education, Functional Activity Laura, Functional Strength, Group Therapy, Gait, Safety, Therapeutic Exercise, Transfers Treatment Duration: May 15, 2022 Frequency: 6 times per week Estimated Hrs Per Day: .25 hour per day Patient and/or Family Agrees t: Yes Safety Risks/Education Patient Education: Transfer Techniques Teaching Recipient: Patient Teaching Methods: Demonstration, Discussion Response to Teaching: Verbalize Understanding, Return Demonstration Time/GCodes Time In: 1426 Time Out: 1440 Total Billed Treatment Time: 14 Total Billed Treatment Visit, JUAN ANTONIO Guevara PT Mar 20, 2022 15:11
[2022-03-20] MEDS: RIVAROXABAN 20 MG TABLET (XARELTO) PO SCH (18:00)
[2022-03-20] MEDS: dilTIAZem DRIP PRE-MIX 125 ML IV SCH (18:01)
[2022-03-20] MEDS: AtorvaSTATin TABLET 10 MG TABLET PO SCH (20:05)
[2022-03-21] MEDS: RT-ALBUTEROL/IPRATROPIUM 3 ML (DUONEB) VIAL INH SCH ×6 (03:05→23:42)
[2022-03-21 04:56] LABS: BASOPHILS % (AUTO) 0 % (0-10); EOSINOPHILS % (AUTO) 0 % (0-10); HEMATOCRIT 38 % (35-52); HEMOGLOBIN 11.6 g/dL (11.5-16.0); LYMPHOCYTES # (AUTO) 0.4 10^3/uL (1.0-4.0); LYMPHOCYTES % (AUTO) 3 % (12-44); MEAN CORPUSCULAR HEMOGLOBIN 29 pg (25-34); MEAN CORPUSCULAR HGB CONC 31 g/dL (32-36); MEAN CORPUSCULAR VOLUME 93 fL (80-99); MEAN PLATELET VOLUME 9.6 fL (9.0-12.2); MONOCYTES # (AUTO) 0.3 10^3/uL (0.0-1.0); MONOCYTES % (AUTO) 2 % (0-12); NEUTROPHILS # (AUTO) 13.2 10^3/uL (1.8-7.8); NEUTROPHILS % (AUTO) 95 % (42-75); PLATELET COUNT 218 10^3/uL (130-400); WHITE BLOOD COUNT 13.9 10^3/uL (4.3-11.0)
[2022-03-21 05:18] LABS: ALBUMIN 3.3 GM/DL (3.2-4.5); POTASSIUM 3.6 MMOL/L (3.6-5.0)
[2022-03-21 05:20] LABS: CALCIUM 8.6 MG/DL (8.5-10.1)
[2022-03-21 05:21] LABS: TOTAL PROTEIN 5.6 GM/DL (6.4-8.2)
[2022-03-21 05:23] LABS: BILIRUBIN,TOTAL 0.5 MG/DL (0.1-1.0)
[2022-03-21 05:24] LABS: CREATININE SERUM 0.77 MG/DL (0.60-1.30); PHOSPHORUS 2.8 MG/DL (2.3-4.7)
[2022-03-21 05:28] LABS: MAGNESIUM 2.1 MG/DL (1.6-2.4)
[2022-03-21] MEDS: POTASSIUM CL 10MEQ/50ML IVPB 50 ML IV SCH (05:34)
[2022-03-21] MEDS: MAGNESIUM 1 GM/100 ML IVPB 100 ML IV SCH (05:34)
[2022-03-21] MEDS: KCL 20 MEQ TAB (K-DUR) PO SCH (05:35)
[2022-03-21] MEDS ORDERED: KCL 20 MEQ TAB (K-DUR) PO ONE (05:45)
[2022-03-21] MEDS: CATHETER FLUSH 10 ML SYR IVP SCH ×3 (06:06→22:35)
[2022-03-21] MEDS: FUROSEMIDE 40 MG/4 ML INJ (LASIX) IV SCH (06:06)
[2022-03-21] MEDS ORDERED: AZITHROMYCIN INJECTION 500 MG/5 ML VIAL ONE (08:49)
[2022-03-21] MEDS: DIGOXIN 0.125 MG (LANOXIN) TAB PO SCH (08:56)
[2022-03-21] MEDS: KCL 10 MEQ TAB (MICRO K) PO SCH ×2 (08:56→17:28)
[2022-03-21] MEDS: SENNA W/DOCUSATE (SENOKOT S) TABLET PO SCH ×2 (08:56→20:28)
[2022-03-21] MEDS: ASPIRIN 81 MG CHEW (CHILDREN'S ASA) PO SCH (08:56)
[2022-03-21] MEDS: PANTOPRAZOLE 40 MG (PROTONIX) TAB PO SCH (08:57)
[2022-03-21] MEDS: DICLOFENAC 1% GEL 100 GM (VOLTAREN) TUBE TOP SCH ×4 (08:57→20:28)
[2022-03-21] MEDS: cefTRIAXone 1 GM PRE-MIX 50 ML IV SCH ×2 (08:58→10:25)
[2022-03-21] MEDS: AZITHROMYCIN INJECTION 250 MG in NS (IVPB) 250 ML IV SCH ×2 (09:07→10:25)
--- NOTE | 2022-03-21 09:25 | Tele-ICU Progress Note ---
Subjective Date Seen by a Provider: Mar 21, 2022 Time Seen by a Provider: 06:50 Subjective/Events-last exam This virtual visit was conducted using real time audio/video. Thank you for asking us to see this patient for respiratory insufficiency due to acute CHF exac., afib/RVR Recent events: I liter thoracentesis 03/19/22 PMH: COPD/ 4 L home O2, afib/RVR, HTN., HL. PE: VSS. HR 97-112 irreg. O2 sat 92% on 8 LPM NC. HEENT: No obvious masses, adenopathy or JVD. Chest: Dimished BS with crackles on auscultation. CV: Irreg. S1 S2 No murmur or added sounds. Abd: Non-tender. Bowel sounds Y. : Unremarkable. Coe Y. ANALOG DEVICE DESIGNER/psychiatric: Grossly intact. No obvious focal findings. Extremities: 1-2+ edema. Capillary refill < 3 seconds. Skin: unremarkable. Results: Elevated BUN 40,BG 168. WCC 13.9, decreased. Available chart/ vitals / labs / images reviewed. Video assessment done using teleICU camera, rest of exam as per RN. A/P: Respiratory insufficiency: Continue present management with NC, PRN BDs. Pred d/cd 03/20/22 Monitor for increasing oxygenation needs and/or need for intubation. Critical Care: critically ill patient. Cont. Lasix, dilt., dig., PPI, abx, asa, statin, Xarelto. Discussed with FLY Reid. Asked RN to reach out to eICU if any questions or concerns later. Time spent with patient/coordination of care with other health professionals (mins): 25 Sepsis Event Evaluation Height, Weight, BMI Height: '" Weight: lbs. oz. kg; 28.52 BMI Method: Exam Exam Patient acknowledged, consented, and participated in this virtual visit which was conducted using real time audio/video Vital Signs Date Time Temp Pulse Resp B/P (MAP) Pulse Ox O2 Delivery O2 Flow Rate FiO2 03/21/22 08:00 92 21 112/79 93 High Flow N/C 8.00 03/21/22 07:52 92 High Flow N/C 8.00 03/21/22 07:49 92 High Flow N/C 8.00 03/21/22 07:00 92 03/21/22 06:00 92 High Flow N/C 8.00 03/21/22 04:00 36.5 03/21/22 04:00 95 16 113/66 95 High Flow N/C 10.00 03/21/22 04:00 95 High Flow N/C 10.00 03/21/22 03:05 93 High Flow N/C 6.00 03/21/22 01:37 95 High Flow N/C 10.00 03/21/22 01:00 102 03/21/22 00:25 87 High Flow N/C 8.00 03/21/22 00:00 36.6 03/21/22 00:00 97 18 105/66 96 High Flow N/C 7.00 03/20/22 23:59 95 High Flow N/C 7.00 03/20/22 22:41 94 High Flow N/C 6.00 03/20/22 20:00 95 High Flow N/C 6.00 03/20/22 20:00 94 15 122/79 93 High Flow N/C 7.00 03/20/22 19:54 36.8 03/20/22 19:12 91 High Flow N/C 6.00 03/20/22 19:00 102 03/20/22 16:00 98 21 112/67 90 High Flow N/C 7.00 03/20/22 16:00 37.0 03/20/22 16:00 97 High Flow N/C 6.00 03/20/22 15:00 109 16 108/66 93 High Flow N/C 7.00 03/20/22 14:44 92 High Flow N/C 6.00 03/20/22 14:00 99 15 107/71 93 High Flow N/C 7.00 03/20/22 13:00 89 28 108/71 90 High Flow N/C 7.00 03/20/22 12:32 111 03/20/22 12:00 97 High Flow N/C 6.00 03/20/22 12:00 96 12 118/59 90 High Flow N/C 7.00 03/20/22 11:58 36.3 03/20/22 11:00 84 21 104/62 92 High Flow N/C 7.00 03/20/22 10:37 92 High Flow N/C 6.00 03/20/22 10:00 89 16 103/69 94 High Flow N/C 7.00 I & O 03/21/22 07:00 Intake Total 1930 ml Output Total 1825 ml Balance 105 ml Height & Weight Height: '" Weight: lbs. oz. kg; 28.52 BMI Method: General Appearance: No Apparent Distress, Thin HEENT: PERRL/EOMI, Pharynx Normal Neck: Full Range of Motion, Supple, Other (ttp over right upper neck, upper shoulder and upper back region) Respiratory: Chest Non Tender, Crackles (faint crackles bilateral bases), Wheezing Cardiovascular: Irregularly Irregular, Tachycardia Capillary Refill: Less Than 3 Seconds Extremity: Normal Capillary Refill, Normal Range of Motion, Non Tender, No Calf Tenderness, No Pedal Edema Neurologic/Psychiatric: Alert, Oriented x3, No Motor/Sensory Deficits, 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 Skin: Normal Color, Warm/Dry Lymphatic: No Adenopathy Results Lab Laboratory Tests 03/20/22 03:00 03/20/22 04:14 03/21/22 04:21 Assessment/Plan Assessment/Plan See free text. Critical Care: Critically Ill Patient SUDHEER WILHELM MD Mar 21, 2022 09:25
[2022-03-21] MEDS ORDERED: AZITHROMYCIN 250 MG TAB (ZITHROMAX) PO ONE (09:45)
[2022-03-21] MEDS: CEPHALEXIN 250 MG (KEFLEX) CAP PO SCH ×2 (10:44→20:27)
--- NOTE | 2022-03-21 11:22 | Physical Therapy Daily Note ---
PT Daily Note-Current Subjective Patient lying supine in bed upon PT arrival, agreeable to treatment. Patient rates neck pain at 7/10 currently. Reports she is upset that her O2 was increased last night. She states "I'm fine on 4 L and I don't want it changed." "My oxygen goes down at night and when I'm talking, If I then so be it." Mental Status Patient Orientation: Person, Place, Time, Situation Transfers SCALE: Activities may be completed with or without assistive devices. 8-Tfjnvisbwl-oetyehn completes the activity by him/herself with no assistance from a helper. 5-Set-up or Clean-up Assistance-helper sets up or cleans up; patient completes activity. [place] assists only prior to or following the activity. 4-Supervision or Touching Assistance-helper provides verbal cues and/or touching/steadying and/or contact guard assistance as patient completes activity. Assistance may be provided throughout the activity or intermittently. 3-Partial/Moderate Assistance-helper does LESS THAN HALF the effort. [place] lifts, holds or supports trunk or limbs, but provides less than half the effort. 2-Substantial/Maximal Assistance-helper does MORE THAN HALF the effort. [place] lifts or holds trunk or limbs and provides more than half the effort. 7-Yiwyujhcd-iqeyja does ALL the effort. Patient does none of the effort to complete the activity. Or, the assistance of 2 or more helpers is required for the patient to complete the activity. If activity was not attempted, code reason: 7-Patient Refused. 9-Not Applicable-not attempted and the patient did not perform the activity before the current illness, exacerbation or injury. 10-Not Attempted due to Environmental Limitations-(lack of equipment, weather restraints, etc.). 88-Not Attempted due to Medical Conditions or Safety Concerns. Roll Left & Right (QC): 4 Sit to Lying (QC): 4 Lying to Sitting/Side of Bed(Q: 4 Sit to Stand (QC): 4 Chair/Nms-kr-Chbng Xfer(QC): 4 Weight Bearing Right Lower Extremity: Right Full Weight Bearing Left Lower Extremity: Left Full Weight Bearing Gait Training Does the Patient Walk?: Yes Distance: 3 Gait Persons Needed: 1 Gait Assistive Device: FWW Exercises Seated Therapy Exercises: Ankle pumps, Long arc quads, Hip flexion, Hamstring Curls, Hip abd/add Seated Reps: 20 Assessment Current Status: Fair Progress Patient tolerated treatment better this date. O2 levels continue to decrease with activity and talking, however only to 86%, however return to 90% quickly. Patient performs all observed bed mobility and transfers with SBA. She performs LE therapeutic exercise as listed above while in the chair. Patient in chair post treatment with all needs met, call light in hand, and nurse notified. PT Nailhead Operator Goals Nailhead Operator Goals PT Nursing Home Goals Time Frame: Apr 10, 2022 Roll Left & Right (QC): 6 Lying-Sitting on Side/Bed(QC): 6 Sit to Stand (QC): 6 Chair/Huw-tj-Wfndb Xfer(QC): 6 Toilet Transfer (QC): 6 Does the Patient Walk: Yes Walk 10 feet (QC): 5 Walk 50ft with 2 Turns (QC): 5 Walk 150 ft (QC): 5 1 Step (curb) (QC): 4 4 Steps (QC): 4 12 Steps (QC): 4 PT Plan Treatment/Plan Treatment Plan: Continue Plan of Care Treatment Plan: Bed Mobility, Education, Functional Activity Laura, Functional Strength, Group Therapy, Gait, Safety, Therapeutic Exercise, Transfers Treatment Duration: May 15, 2022 Frequency: 6 times per week Estimated Hrs Per Day: .25 hour per day Patient and/or Family Agrees t: Yes Safety Risks/Education Patient Education: Transfer Techniques Teaching Recipient: Patient Teaching Methods: Demonstration, Discussion Response to Teaching: Verbalize Understanding, Return Demonstration Time/GCodes Time In: 820 Time Out: 937 Total Billed Treatment Time: 17 Total Billed Treatment Visit, Ex JUAN ANTONIO REHMAN PT Mar 21, 2022 11:22
--- NOTE | 2022-03-21 11:43 | Progress Note - Hospitalist ---
Subjective HPI/CC On Admission Date Seen by Provider: Mar 21, 2022 Subjective/Events-last exam She reports feeling well. She is insistent that she is discharging home today. We discussed her increased oxygen requirement and her oxygen saturation of 91% almost 8 L/min. She states she is normally low and has no problems with this at home. I discussed the risk of her discharging home before she is medically appropriate and she expressed understanding. She states she has a pulse oximeter at home and will return if she gets worse. She states she is willing to give us through the rest of the day and if not she is insistent upon leaving. I informed her twice that she would be leaving AGAINST MEDICAL ADVICE should she choose to discharge later today and she acknowledges the risk and states she is leaving tonight regardless. Objective Exam Vital Signs Vital Signs Date Time Temp Pulse Resp B/P (MAP) Pulse Ox O2 Delivery O2 Flow Rate FiO2 03/21/22 10:46 93 High Flow N/C 4.00 03/21/22 08:45 36.4 03/21/22 08:00 92 21 112/79 03/19/22 15:35 85 Capillary Refill : Less Than 3 Seconds General Appearance: No Apparent Distress, Chronically ill Respiratory: Lungs Clear Cardiovascular: Regular Rate, Rhythm, No Murmur Neurologic/Psychiatric: Alert, Oriented x3 Results/Procedures Lab Laboratory Tests 03/21/22 04:21 Patient resulted labs reviewed. Assessment/Plan Assessment and Plan Assess & Plan/Chief Complaint Acute on chronic atrial fibrillation, now controlled - pt is on Chronic NOAC anticoagulation with Xarelto - Consult Cardiology - Continue home regimen Pneumonia with Chronic COPD with exacerbation, Chronic oxygen dependence, Left pleural effusion - pt on Rocephin and Azithromycin- lost IV access so switched to oral azithro and Keflex to complete course today - MAT protocol - oxygen at 8lpm LPM currently and satting 91%, see above conversation - Continue steroids - thoracentesis on 03/19/22 - fluid was sent for culture and cytology Medication noncompliance - pt inadvertently left her medications at home while on a trip. Hypertension - Continue home regimen - monitor bp, currently wellc ontrolled Esophageal reflux - Continue PPI therapy Hypokalemia- resolved - replenish through icu protocols Elevated liver enzymes -Up slightly today, trend Right upper back and shoulder pain - - prn tylenol and pain medication - use voltaren gel topically GI prophylaxis with PPI DVT prophylaxis with NOAC and scd's Critical Care Critically Ill Patient UNIQUE MCINTOSH MD Mar 21, 2022 11:43
--- NOTE | 2022-03-21 12:57 | Cardiology Progress Note ---
Subjective Date Seen by Provider: Mar 21, 2022 Time Seen by Provider: 12:54 Subjective/Events-last exam Patient was seen at bedside, sitting down comfortably She was frustrated with being in the hospital. Still tachycardic. Still having some cough. Review of Systems General: No Chills, No Night Sweats, No Fatigue, No Malaise, No Appetite, No Other HEENT: No Head Aches, No Visual Changes, No Eye Pain, No Ear Pain, No Dysphasia, No Sinus Congestion, No Post Nasal Drip, No Sore Throat, No Other Pulmonary: Dyspnea, Cough; No Pleuritic Chest Pain, No Other Cardiovascular: Palpitations; No: Chest Pain, Orthopnea, Paroxysmal Noc. Dyspnea, Edema, Lt Headedness, Other Objective-Cardiology Exam Last Set of Vital Signs Vital Signs 03/19/22 03/21/22 03/21/22 03/21/22 15:35 08:45 12:00 12:38 Temp 36.4 Pulse 116 Resp 19 B/P (MAP) 118/79 Pulse Ox 94 O2 Delivery High Flow N/C O2 Flow Rate 4.00 FiO2 85 I&O Intake and Output 03/20/22 23:59 Intake Total 2180 ml Output Total 1900 ml Balance 280 ml Intake Oral 2180 ml Output Urine Total 1900 ml General: Alert, Oriented X3, Cooperative HEENT: Atraumatic, PERRLA Neck: Supple, No JVD, No Thyromegaly Lungs: Normal Air Movement, Other (Bilateral rhonchi) Heart: Normal S1, Normal S2, No Murmurs, Other (Atrial fibrillation with rapid ventricular response) Abdomen: Normal Bowel Sounds, Soft, No Tenderness, No Hepatosplenomegaly, No Masses Extremities: No Clubbing, No Cyanosis, Normal Pulses, No Tenderness/Swelling, Other (Mild edema) Skin: No Rashes, No Breakdown, No Significant Lesion Neuro: Normal Gait, Normal Speech, Strength at 5/5 X4 Ext, Normal Tone, Sensation Intact Psych/Mental Status: Mental Status NL, Mood NL Results Lab Laboratory Tests 03/21/22 04:21 A/P-Cardiology Admission Diagnosis Paroxysmal atrial fibrillation Tachycardia Pneumonia COPD Assessment/Plan Paroxysmal atrial fibrillation with rapid ventricular response. Still borderline tachycardic with a heart rate around 100-1 40 while sitting down. Maintained on diltiazem CD360 and digoxin I will add Lopressor 25 mg twice daily and evaluate tolerance and response. [id number] score 4, maintained on Xarelto Pneumonia, status post left thoracentesis on March 19, 2022. Receiving antibiotic and reporting improvement Congestive heart failure, acute on chronic left ventricular diastolic dysfunction Last echo was done in September 2021 reporting ejection fraction 45 to 50% with bilateral atrial enlargement, moderate to severe mitral and tricuspid regurgitation and severe pulmonary hypertension with PA pressure 70 mmHg COPD, maintained and managed by primary care physician Hypertension, tolerating current medication well. Continue to monitor Hyperlipidemia maintained on statin History of tobaccoism, stopped smoking about 10 years ago Chronic back pain. Had back surgery in 2015 Bilateral lower extremities edema with chronic venous insufficiency using compression socks. TAMARA BARRON MD Mar 21, 2022 12:57
[2022-03-21] MEDS: meTOprolol TARTRATE 25 MG (LOPRESSOR) TABLET PO SCH ×2 (13:14→20:27)
[2022-03-21] MEDS: dilTIAZem DRIP PRE-MIX 125 ML IV SCH (14:24)
[2022-03-21] MEDS: RIVAROXABAN 20 MG TABLET (XARELTO) PO SCH (17:28)
[2022-03-21] MEDS: HYDROcodone/APAP 5 MG/325 MG (LORTAB) TAB PO PRN (19:50)
[2022-03-21] MEDS: AtorvaSTATin TABLET 10 MG TABLET PO SCH (20:27)
[2022-03-22] MEDS: HYDROcodone/APAP 5 MG/325 MG (LORTAB) TAB PO PRN (01:49)
[2022-03-22] MEDS: RT-ALBUTEROL/IPRATROPIUM 3 ML (DUONEB) VIAL INH SCH ×6 (02:55→22:39)
[2022-03-22 05:03] LABS: BASOPHILS % (AUTO) 0 % (0-10); EOSINOPHILS # (AUTO) 0.2 10^3/uL (0.0-0.3); EOSINOPHILS % (AUTO) 2 % (0-10); HEMATOCRIT 41 % (35-52); HEMOGLOBIN 12.5 g/dL (11.5-16.0); LYMPHOCYTES # (AUTO) 1.5 10^3/uL (1.0-4.0); LYMPHOCYTES % (AUTO) 10 % (12-44); MEAN CORPUSCULAR HEMOGLOBIN 28 pg (25-34); MEAN CORPUSCULAR HGB CONC 30 g/dL (32-36); MEAN CORPUSCULAR VOLUME 94 fL (80-99); MEAN PLATELET VOLUME 9.5 fL (9.0-12.2); MONOCYTES # (AUTO) 0.9 10^3/uL (0.0-1.0); MONOCYTES % (AUTO) 6 % (0-12); NEUTROPHILS # (AUTO) 12.5 10^3/uL (1.8-7.8); NEUTROPHILS % (AUTO) 82 % (42-75); PLATELET COUNT 275 10^3/uL (130-400); WHITE BLOOD COUNT 15.4 10^3/uL (4.3-11.0)
[2022-03-22 05:07] LABS: ALBUMIN 3.4 GM/DL (3.2-4.5); POTASSIUM 5.1 MMOL/L (3.6-5.0)
[2022-03-22 05:08] LABS: CALCIUM 8.6 MG/DL (8.5-10.1)
[2022-03-22 05:10] LABS: TOTAL PROTEIN 5.9 GM/DL (6.4-8.2)
[2022-03-22 05:11] LABS: BILIRUBIN,TOTAL 0.8 MG/DL (0.1-1.0)
[2022-03-22 05:13] LABS: CREATININE SERUM 0.84 MG/DL (0.60-1.30); PHOSPHORUS 2.9 MG/DL (2.3-4.7)
[2022-03-22] MEDS: POTASSIUM CL 10MEQ/50ML IVPB 50 ML IV SCH (05:13)
[2022-03-22] MEDS: KCL 20 MEQ TAB (K-DUR) PO SCH (05:13)
[2022-03-22] MEDS: ALPRAZolam 0.25 MG (XANAX) TAB PO PRN (05:14)
[2022-03-22 05:16] LABS: MAGNESIUM 2.1 MG/DL (1.6-2.4)
[2022-03-22] MEDS: MAGNESIUM 1 GM/100 ML IVPB 100 ML IV SCH (05:19)
[2022-03-22] MEDS: CATHETER FLUSH 10 ML SYR IVP SCH ×2 (05:19→13:53)
[2022-03-22] MEDS: AZITHROMYCIN INJECTION 250 MG in NS (IVPB) 250 ML IV SCH (08:03)
[2022-03-22] MEDS: CEPHALEXIN 250 MG (KEFLEX) CAP PO SCH (08:04)
[2022-03-22] MEDS: DIGOXIN 0.125 MG (LANOXIN) TAB PO SCH (08:04)
[2022-03-22] MEDS: ASPIRIN 81 MG CHEW (CHILDREN'S ASA) PO SCH (08:04)
[2022-03-22] MEDS: PANTOPRAZOLE 40 MG (PROTONIX) TAB PO SCH (08:05)
[2022-03-22] MEDS: SENNA W/DOCUSATE (SENOKOT S) TABLET PO SCH ×2 (08:05→20:15)
[2022-03-22] MEDS: DICLOFENAC 1% GEL 100 GM (VOLTAREN) TUBE TOP SCH ×4 (08:05→20:14)
[2022-03-22] MEDS ORDERED: meTOprolol TARTRATE 50 MG (LOPRESSOR) TAB PO SCH (09:00)
[2022-03-22] MEDS: FUROSEMIDE 40 MG/4 ML INJ (LASIX) IV SCH (09:24)
[2022-03-22] MEDS: KCL 10 MEQ TAB (MICRO K) PO SCH ×2 (09:24→17:03)
--- NOTE | 2022-03-22 10:47 | Diagnostic Imaging Report ---
EXAMINATION: Chest 1 view HISTORY: Hypoxia COMPARISON: 04/16/2022 FINDINGS: There are increasing bibasilar opacities. No pleural effusion or pneumothorax. Heart size is normal. IMPRESSION: 1. Increasing bibasilar airspace opacities concerning for worsening pneumonia. Dictated by: Dictated on workstation # [id number]
[2022-03-22] MEDS ORDERED: VANCOMYCIN INJECTION 0.1 MG in NS (IVPB) 250 ML IV SCH (12:15)
--- NOTE | 2022-03-22 12:19 | Cardiology Progress Note ---
Subjective Date Seen by Provider: Mar 22, 2022 Time Seen by Provider: 12:17 Subjective/Events-last exam Patient was seen at bedside, complaining of worsening shortness of breath Generalized weakness and fatigue. Did not sleep well last night due to worsening dyspnea Review of Systems General: No Chills, No Night Sweats; Fatigue, Malaise; No Appetite, No Other HEENT: No Head Aches, No Visual Changes, No Eye Pain, No Ear Pain, No Dysphasia, No Sinus Congestion, No Post Nasal Drip, No Sore Throat, No Other Pulmonary: Dyspnea; No Cough, No Pleuritic Chest Pain, No Other Cardiovascular: No: Chest Pain, Palpitations, Orthopnea, Paroxysmal Noc. Dyspnea, Edema, Lt Headedness, Other Objective-Cardiology Exam Last Set of Vital Signs Vital Signs 03/19/22 03/22/22 15:35 11:29 Temp 36.0 Pulse 75 Resp 20 B/P (MAP) 114/78 Pulse Ox 93 O2 Delivery High Flow N/C O2 Flow Rate 10.00 FiO2 85 I&O Intake and Output 03/22/22 00:00 Intake Total 1690 ml Output Total 2925 ml Balance -1235 ml Intake Oral 1690 ml Output Urine Total 2925 ml # Bowel Movements 1 General: Alert, Oriented X3, Cooperative HEENT: Atraumatic, PERRLA Neck: Supple, No JVD, No Thyromegaly Lungs: Other (Diminished air sounds, bilateral rhonchi) Heart: Normal S1, Normal S2, No Murmurs, Other (Atrial fibrillation) Abdomen: Normal Bowel Sounds, Soft, No Tenderness, No Hepatosplenomegaly, No Masses Extremities: No Clubbing, No Cyanosis, Normal Pulses, No Tenderness/Swelling, Other (Mild edema) Skin: No Rashes, No Breakdown, No Significant Lesion Neuro: Normal Gait, Normal Speech, Strength at 5/5 X4 Ext, Normal Tone, Sensation Intact Psych/Mental Status: Mental Status NL, Mood NL Results Lab Laboratory Tests 03/22/22 04:06 A/P-Cardiology Admission Diagnosis Paroxysmal atrial fibrillation Tachycardia Pneumonia COPD Assessment/Plan Acute respiratory failure, worsening shortness of breath requiring more oxygen Chest x-ray showed worsening pulmonary infiltrate. Receiving antibiotic I am concerned about congestive heart failure, patient did not receive her morning dose of IV Lasix. I will give her the dose now. Paroxysmal atrial fibrillation with rapid ventricular response. Still borderline tachycardic with a heart rate around 100-1 40 while sitting down. Maintained on diltiazem CD360 and digoxin I tried adding Lopressor and increasing the dose to achieve adequate heart rate control, patient is becoming more hypotensive. I will stop metoprolol again and monitor tolerance and response Elevated liver enzymes, worsening today Unknown underlying cause, probably passive hepatic congestion I will evaluate ultrasound of the liver. [id number] score 4, maintained on Xarelto Pneumonia, status post left thoracentesis on March 19, 2022. Receiving antibiotic and reporting improvement Congestive heart failure, acute on chronic left ventricular diastolic dysfunction Last echo was done in September 2021 reporting ejection fraction 45 to 50% with bilateral atrial enlargement, moderate to severe mitral and tricuspid regurgitation and severe pulmonary hypertension with PA pressure 70 mmHg COPD, maintained and managed by primary care physician Hypertension, tolerating current medication well. Continue to monitor Hyperlipidemia maintained on statin History of tobaccoism, stopped smoking about 10 years ago Chronic back pain. Had back surgery in 2015 Bilateral lower extremities edema with chronic venous insufficiency using compression socks. TAMARA BARRON MD Mar 22, 2022 12:19
--- NOTE | 2022-03-22 12:19 | Progress Note - Hospitalist ---
Subjective HPI/CC On Admission Date Seen by Provider: Mar 22, 2022 Subjective/Events-last exam Pt reports not feeling as well today. Discussed increasing oxygen requirement and the need to stay in the hospital another night and this time she is agreeable. Repeat CXR ordered. Objective Exam Vital Signs Vital Signs Date Time Temp Pulse Resp B/P (MAP) Pulse Ox O2 Delivery O2 Flow Rate FiO2 03/22/22 11:29 36.0 75 20 114/78 93 High Flow N/C 10.00 03/19/22 15:35 85 Capillary Refill : Less Than 3 Seconds General Appearance: No Apparent Distress, Chronically ill Respiratory: No Accessory Muscle Use; No Crackles; Decreased Breath Sounds (in bases) Cardiovascular: Regular Rate, Rhythm, No Murmur Gastrointestinal: Normal Bowel Sounds, Soft Neurologic/Psychiatric: Alert, Oriented x3 Results/Procedures Lab Laboratory Tests 03/22/22 04:06 Patient resulted labs reviewed. Assessment/Plan Assessment and Plan Assess & Plan/Chief Complaint Acute on chronic atrial fibrillation, now controlled - pt is on Chronic NOAC anticoagulation with Xarelto - Consult Cardiology - Continue home regimen Pneumonia with Chronic COPD with exacerbation, Chronic oxygen dependence, Left pleural effusion - pt continued to refuse IV access overnight, oral abx ordered - MAT protocol - oxygen at 10lpm LPM currently and satting 91%, - CXR ordered - Continue steroids - thoracentesis on 03/19/22 - fluid was sent for culture and cytology Pending CXR may need anything thoracentesis Medication noncompliance - pt has refused many medications here, had roughly 24 hours without all of her ordered meds as she refused IV access Hypertension - Continue home regimen - monitor bp, currently well controlled Esophageal reflux - Continue PPI therapy Hyperkalemia new today, Lasix ordered Elevated liver enzymes -Up further today, liver usg ordered Right upper back and shoulder pain - - prn tylenol and pain medication - use voltaren gel topically GI prophylaxis with PPI DVT prophylaxis with NOAC and scd's Critical Care Critically Ill Patient UNIQUE MCINTOSH MD Mar 22, 2022 12:19
[2022-03-22 12:21] VITALS: BP 114/78
[2022-03-22] MEDS ORDERED: FUROSEMIDE 40 MG/4 ML INJ (LASIX) IVP ONE (12:30)
[2022-03-22] MEDS: CEFEPIME INJECTION 1,000 MG in NS (IVPB) 50 ML IV SCH ×2 (12:50→20:13)
[2022-03-22] MEDS ORDERED: VANCOMYCIN 1250 MG/NS 250 ML IVPB IV NR ×2 (13:00)
[2022-03-22] MEDS: dilTIAZem DRIP PRE-MIX 125 ML IV SCH (13:54)
[2022-03-22] MEDS: RIVAROXABAN 20 MG TABLET (XARELTO) PO SCH (17:06)
[2022-03-22 18:28] LABS: ABG BASE EXCESS 5.2 MMOL/L (-2.5-2.5); ABG OXYGEN SATURATION 88 % (94-100); ABG PCO2 50 MMHG (35-45); ABG PO2 56 MMHG (79-93); ABG TCO2 31.4 MMOL/L (21.0-31.0); INSPIRED O2 12 L; PATIENT TEMP 36.8; VENTILATOR NO
[2022-03-22 20:37] VITALS: BP 95/59
[2022-03-22 22:39] VITALS: BP 113/62
[2022-03-23] MEDS: CATHETER FLUSH 10 ML SYR IVP SCH ×4 (00:53→21:14)
[2022-03-23 01:42] VITALS: BP 113/62
[2022-03-23] MEDS: RT-ALBUTEROL/IPRATROPIUM 3 ML (DUONEB) VIAL INH SCH ×6 (01:42→23:05)
[2022-03-23] MEDS: CEFEPIME INJECTION 1,000 MG in NS (IVPB) 50 ML IV SCH ×3 (04:22→19:44)
[2022-03-23 04:29] LABS: BASOPHILS % (AUTO) 0 % (0-10); EOSINOPHILS # (AUTO) 0.4 10^3/uL (0.0-0.3); EOSINOPHILS % (AUTO) 5 % (0-10); HEMATOCRIT 35 % (35-52); HEMOGLOBIN 10.9 g/dL (11.5-16.0); LYMPHOCYTES # (AUTO) 0.8 10^3/uL (1.0-4.0); LYMPHOCYTES % (AUTO) 10 % (12-44); MEAN CORPUSCULAR HEMOGLOBIN 28 pg (25-34); MEAN CORPUSCULAR HGB CONC 31 g/dL (32-36); MEAN CORPUSCULAR VOLUME 91 fL (80-99); MEAN PLATELET VOLUME 9.5 fL (9.0-12.2); MONOCYTES # (AUTO) 0.4 10^3/uL (0.0-1.0); MONOCYTES % (AUTO) 5 % (0-12); NEUTROPHILS # (AUTO) 6.3 10^3/uL (1.8-7.8); NEUTROPHILS % (AUTO) 80 % (42-75); PLATELET COUNT 184 10^3/uL (130-400); WHITE BLOOD COUNT 7.9 10^3/uL (4.3-11.0)
[2022-03-23 04:36] LABS: ALBUMIN 2.9 GM/DL (3.2-4.5); POTASSIUM 3.8 MMOL/L (3.6-5.0)
[2022-03-23 04:38] LABS: CALCIUM 8.2 MG/DL (8.5-10.1)
[2022-03-23 04:39] LABS: TOTAL PROTEIN 4.9 GM/DL (6.4-8.2)
[2022-03-23 04:41] LABS: BILIRUBIN,TOTAL 1.6 MG/DL (0.1-1.0)
[2022-03-23 04:42] LABS: PHOSPHORUS 2.9 MG/DL (2.3-4.7)
[2022-03-23 04:43] LABS: CREATININE SERUM 0.73 MG/DL (0.60-1.30)
[2022-03-23] MEDS: KCL 20 MEQ TAB (K-DUR) PO SCH (04:49)
[2022-03-23] MEDS: POTASSIUM CL 10MEQ/50ML IVPB 50 ML IV SCH (04:49)
[2022-03-23] MEDS: MAGNESIUM 1 GM/100 ML IVPB 100 ML IV SCH (04:49)
[2022-03-23] MEDS: FUROSEMIDE 40 MG/4 ML INJ (LASIX) IV SCH (05:52)
[2022-03-23 07:27] VITALS: BP 108/75
[2022-03-23] MEDS: SENNA W/DOCUSATE (SENOKOT S) TABLET PO SCH ×2 (07:30→21:00)
--- NOTE | 2022-03-23 08:22 | Progress Note - Cardiology ---
Cardiology SOAP Progress Note Objective: I&O/Vital Signs 03/23/22 03/23/22 03/23/22 03/23/22 20:00 20:00 21:00 22:00 Pulse 94 87 77 Resp 13 18 20 B/P (MAP) 98/60 98/56 101/54 Pulse Ox 93 97 97 91 O2 Delivery Vapotherm Vapotherm Vapotherm Vapotherm O2 Flow Rate 40.00 40.00 40.00 40.00 100.00 100.00 100.00 FiO2 100 03/23/22 03/23/22 03/23/22 03/24/22 23:00 23:05 23:39 00:00 Temp 36.6 Pulse 82 Resp 17 B/P (MAP) 104/60 Pulse Ox 93 95 93 O2 Delivery Vapotherm Vapotherm Vapotherm O2 Flow Rate 40.00 40.00 40.00 100.00 FiO2 100 100 03/24/22 03/24/22 03/24/22 03/24/22 00:00 01:00 01:00 02:00 Pulse 101 94 94 97 Resp 17 B/P (MAP) 103/65 108/55 106/65 Pulse Ox 97 99 98 O2 Delivery Vapotherm Vapotherm Vapotherm O2 Flow Rate 40.00 40.00 40.00 100.00 100.00 100.00 03/24/22 03/24/22 03/24/22 03/24/22 02:42 03:00 03:15 03:50 Temp 36.4 Pulse 97 Resp 13 B/P (MAP) 118/72 Pulse Ox 98 93 93 O2 Delivery Vapotherm Vapotherm Vapotherm O2 Flow Rate 40.00 40.00 40.00 100.00 FiO2 85 85 03/24/22 03/24/22 03/24/22 03/24/22 04:00 05:00 06:00 06:48 Pulse 99 96 108 83 Resp 16 19 39 18 B/P (MAP) 78/65 118/62 106/62 Pulse Ox 92 91 94 95 O2 Delivery Vapotherm Vapotherm Vapotherm Vapotherm O2 Flow Rate 40.00 40.00 40.00 40.00 100.00 100.00 100.00 100.00 03/24/22 03/24/22 03/24/22 06:52 07:00 07:00 Pulse 89 91 Resp 12 B/P (MAP) 119/63 Pulse Ox 98 95 O2 Delivery Vapotherm Vapotherm O2 Flow Rate 40.00 40.00 100.00 FiO2 85 03/24/22 00:00 Intake Total 1662.5 ml Output Total 700 ml Balance 962.5 ml Constitutional: AAO x 3, well-developed, well-nourished Respiratory: No accessory muscle use, No respiratory distress; chest expansion is symmetric, chest is bilaterally symmetric, other (diminished lower lobes bilat) Cardiovascular: irregularly irregular; No JVD, No edema; tachycardia, S1 and S2 Gastrointestional: No tender; soft, round; No distended; audible bowel sounds Extremities: no lower extremity edema bilateral Neurologic/Psychiatric: grossly intact (moves all extremities) Skin: No rash on exposed areas, No ulcerations on exposed areas Results/Procedures: Labs Laboratory Tests 03/24/22 03:10: White Blood Count 6.8, Red Blood Count 3.90, Hemoglobin 11.2L, Hematocrit 35, Mean Corpuscular Volume 90, Mean Corpuscular Hemoglobin 29, Mean Corpuscular Hemoglobin Concent 32, Red Cell Distribution Width 14.5, Platelet Count 171, Mean Platelet Volume 9.5, Immature Granulocyte % (Auto) 0, Neutrophils (%) (Auto) 96H, Lymphocytes (%) (Auto) 3L, Monocytes (%) (Auto) 1, Eosinophils (%) (Auto) 0, Basophils (%) (Auto) 0, Neutrophils # (Auto) 6.5, Lymphocytes # (Auto) 0.2L, Monocytes # (Auto) 0.1, Eosinophils # (Auto) 0.0, Basophils # (Auto) 0.0, Immature Granulocyte # (Auto) 0.0, Sodium Level 136, Potassium Level 3.6, Chloride Level 96L, Carbon Dioxide Level 26, Anion Gap 14, Blood Urea Nitrogen 31H, Creatinine 0.79, Estimat Glomerular Filtration Rate 74, BUN/Creatinine Ratio 39, Glucose Level 241H, Calcium Level 8.4L, Corrected Calcium 9.1, Phosphorus Level 2.5, Magnesium Level 2.1, Total Bilirubin 1.0, Aspartate Amino Transf (AST/SGOT) 51H, Alanine Aminotransferase (ALT/SGPT) 183H, Alkaline Phosphatase 113, Total Protein 5.3L, Albumin 3.1L, Digoxin Level 0.55L Microbiology 03/22/22 Blood Culture - Preliminary, Resulted No growth 03/19/22 Gram Stain - Final, Resulted 03/19/22 Anaerobic Culture - Final, Resulted No anaerobes isolated 03/19/22 Body Fluid Culture - Final, Resulted No growth 03/19/22 Fungal Culture 1 - Preliminary, Resulted 03/16/22 MRSA Screen - Final, Complete MRSA not isolated Procedures NAME: JESSE MONREAL [facility] REC#: [id number] PT STATUS: ADM IN : 1940 PHYSICIAN: UNIQUE MCINTOSH MD ADMIT DATE: 03/16/22/[facility] Signed Date of Exam:03/22/22 CHEST 1 VIEW, AP/PA ONLY EXAMINATION: Chest 1 view HISTORY: Hypoxia COMPARISON: 04/16/2022 FINDINGS: There are increasing bibasilar opacities. No pleural effusion or pneumothorax. Heart size is normal. IMPRESSION: 1. Increasing bibasilar airspace opacities concerning for worsening pneumonia. 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 - Echo on 09/23/21: LVEF 45-50%, mod to sev biatrial enlargement, mod to severe MR & TR, pulm htn with PASP approx 70 mmHg - Continue Lasix HTN - controlled - somewhat low BP - asymptomatic HLD - statin tx GI - GERD COPD - managed by PCP 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
[2022-03-23] MEDS: ASPIRIN 81 MG CHEW (CHILDREN'S ASA) PO SCH (08:27)
[2022-03-23] MEDS: DICLOFENAC 1% GEL 100 GM (VOLTAREN) TUBE TOP SCH ×4 (08:27→21:13)
[2022-03-23] MEDS: DIGOXIN 0.125 MG (LANOXIN) TAB PO SCH (08:27)
[2022-03-23] MEDS: PANTOPRAZOLE 40 MG (PROTONIX) TAB PO SCH (08:28)
[2022-03-23] MEDS: KCL 10 MEQ TAB (MICRO K) PO SCH ×2 (08:28→17:04)
--- NOTE | 2022-03-23 08:31 | Diagnostic Imaging Report ---
PROCEDURE: US Hepatic (Liver). TECHNIQUE: Multiple real-time grayscale images were obtained over the right upper quadrant in various projections. INDICATION: Elevated liver enzymes. FINDINGS: Liver is normal size approximately 14 cm. Portal vein is patent and shows normal direction of flow. No discrete liver mass is detected. The gallbladder is surgically absent. No biliary ductal dilatation is seen. Pancreas unremarkable. Aorta is nonaneurysmal. IVC is patent. Right kidney does contain a 2.7 x 2.9 x 3.0 cyst in lower pole. There does appear to be some mild right-sided hydronephrosis. There is no ascites. However, there does appear to be a moderate right-sided pleural effusion. IMPRESSION: 1. Status post cholecystectomy. 2. Right renal cyst and mild right hydronephrosis. 3. Moderate right pleural effusion. Dictated by: Dictated on workstation # [id number]
[2022-03-23] MEDS: HYDROcodone/APAP 5 MG/325 MG (LORTAB) TAB PO PRN ×2 (08:34→21:21)
--- NOTE | 2022-03-23 08:51 | Physical Therapy Progress Note ---
Therapy Progress Note Patient was transferred to ICU from cardiac overflow. Will need new orders to eval when appropriate since patient now needs a higher level of care. KHOA CHANDLER PT Mar 23, 2022 08:51
--- NOTE | 2022-03-23 09:14 | Progress Note ---
Subjective Subjective Date Seen by Provider: Mar 23, 2022 Time Seen by Provider: 08:20 pt reports that she had a rough weekend, had severe shortness of breath sat/sun, and was sent back up to the icu on bipap, felt better after the iv lasix was restarted (she had refused the iv to be replaced, her dtr talked her into restarting the iv) pt is upset/tearful about [place] ([facility], [facility]) Review of Systems General: No Chills, No Night Sweats; Fatigue, Malaise; No Appetite, No Other HEENT: No Head Aches, No Visual Changes, No Eye Pain, No Ear Pain, No Dysphasia, No Sinus Congestion, No Post Nasal Drip, No Sore Throat, No Other Pulmonary: Dyspnea; No Cough, No Pleuritic Chest Pain, No Other Cardiovascular: No: Chest Pain, Palpitations, Orthopnea, Paroxysmal Noc. Dyspnea, Edema, Lt Headedness, Other Gastrointestinal: No: Nausea, Vomiting, Abdominal Pain Genitourinary: Other (shaikh in place) Musculoskeletal: neck pain Neurological: Weakness; No: Confusion All Other Systems Reviewed All Other Systems Reviewed: Yes Objective Exam Vital Signs Vital Signs Date Time Temp Pulse Resp B/P (MAP) Pulse Ox O2 Delivery O2 Flow Rate FiO2 03/23/22 08:22 Vapotherm 40.00 100.00 03/23/22 08:00 94 Vapotherm 40.00 100 03/23/22 08:00 80 12 108/60 96 NIV Bilevel 100.00 03/23/22 07:27 73 18 99 80.00 03/23/22 07:25 76 03/23/22 07:00 74 18 112/59 98 NIV Bilevel 100.00 03/23/22 06:00 74 20 106/67 99 NIV Bilevel 100.00 03/23/22 05:00 69 22 108/56 97 NIV Bilevel 100.00 03/23/22 04:00 61 22 109/70 98 NIV Bilevel 100.00 03/23/22 04:00 97 NIV Bilevel 80 03/23/22 03:00 63 18 101/64 98 NIV Bilevel 100.00 03/23/22 02:00 75 14 102/74 98 NIV Bilevel 100.00 03/23/22 01:42 73 21 99 80.00 03/23/22 01:00 71 20 110/60 98 NIV Bilevel 100.00 03/23/22 01:00 71 03/23/22 00:00 97 NIV Bilevel 80 03/23/22 00:00 71 19 101/63 98 NIV Bilevel 100.00 03/22/22 23:00 76 19 103/68 98 NIV Bilevel 100.00 03/22/22 22:39 73 21 99 80.00 03/22/22 22:00 75 23 112/62 99 NIV Bilevel 100.00 03/22/22 21:00 81 20 108/61 99 NIV Bilevel 100.00 03/22/22 20:37 73 19 99 90.00 03/22/22 20:33 70 23 97 100.00 03/22/22 20:00 36.1 03/22/22 20:00 74 19 101/68 99 NIV Bilevel 100.00 03/22/22 20:00 99 NIV Bilevel 100 03/22/22 19:49 NIV Bilevel 100 03/22/22 19:15 75 20 117/73 97 NIV Bilevel 100.00 03/22/22 19:01 103/83 90 NIV Bilevel 100.00 03/22/22 19:00 75 03/22/22 18:51 88 Vapotherm 40.00 100.00 03/22/22 18:38 89 Vapotherm 25.00 100 03/22/22 18:35 91 Vapotherm 20.00 100.00 03/22/22 18:32 116/83 03/22/22 18:15 High Flow N/C 12.00 03/22/22 16:15 90 High Flow N/C 10.00 03/22/22 16:00 36.5 80 20 103/70 91 High Flow N/C 10.00 03/22/22 14:03 92 High Flow N/C 10.00 03/22/22 12:45 78 03/22/22 12:21 36.0 75 93 03/22/22 11:40 90 High Flow N/C 10.00 03/22/22 11:29 36.0 75 20 114/78 93 High Flow N/C 10.00 I & O 03/23/22 07:00 Intake Total 1660 ml Output Total 2900 ml Balance -1240 ml General Appearance: Chronically ill, Mild Distress Eyes: Bilateral Eye PERRL, Bilateral Eye EOMI HEENT: PERRL/EOMI, Pharynx Normal Neck: Full Range of Motion, Supple, Other (ttp over right upper neck, upper shoulder and upper back region) Respiratory: No Accessory Muscle Use; No Crackles; Decreased Breath Sounds (in bases) Cardiovascular: Regular Rate, Rhythm, No Murmur Gastrointestinal: Normal Bowel Sounds, Soft Rectal: Deferred Back: Other (tender to palpation over upper neck, trapezius muscle on right) Extremity: Normal Capillary Refill, Normal Range of Motion, Non Tender, No Calf Tenderness, No Pedal Edema Neurologic/Psychiatric: Alert, Oriented x3 Skin: Normal Color, Warm/Dry Lymphatic: No Adenopathy Results Lab Laboratory Tests 03/22/22 18:22: Blood Gas Puncture Site NA, Blood Gas Patient Temperature 36.8, Arterial Blood pH 7.40, Arterial Blood Partial Pressure CO2 50H, Arterial Blood Partial Pressure O2 56L, Arterial Blood HCO3 30H, Arterial Blood Total CO2 31.4H, Arterial Blood Oxygen Saturation 88L, Arterial Blood Base Excess 5.2H, Pedro Test NA, Blood Gas Ventilator Setting NO, Blood Gas Inspired Oxygen 12 L 03/22/22 18:45: Ammonia 35H 03/22/22 20:00: Lactic Acid Level 0.74 03/23/22 04:10: White Blood Count 7.9, Red Blood Count 3.85, Hemoglobin 10.9L, Hematocrit 35, Mean Corpuscular Volume 91, Mean Corpuscular Hemoglobin 28, Mean Corpuscular He moglobin Concent 31L, Red Cell Distribution Width 14.7H, Platelet Count 184, Mean Platelet Volume 9.5, Immature Granulocyte % (Auto) 1, Neutrophils (%) (Auto) 80H, Lymphocytes (%) (Auto) 10L, Monocytes (%) (Auto) 5, Eosinophils (%) (Auto) 5, Basophils (%) (Auto) 0, Neutrophils # (Auto) 6.3, Lymphocytes # (Auto) 0.8L, Monocytes # (Auto) 0.4, Eosinophils # (Auto) 0.4H, Basophils # (Auto) 0.0, Immature Granulocyte # (Auto) 0.0, Sodium Level 137, Potassium Level 3.8, Chloride Level 100, Carbon Dioxide Level 27, Anion Gap 10, Blood Urea Nitrogen 46H, Creatinine 0.73, Estimat Glomerular Filtration Rate 82, BUN/Creatinine Ratio 63, Glucose Level 93, Calcium Level 8.2L, Corrected Calcium 9.1, Phosphorus Level 2.9, Magnesium Level 2.0, Total Bilirubin 1.6H, Aspartate Amino Transf (AST/SGOT) 102H, Alanine Aminotransferase (ALT/SGPT) 228H, Alkaline Phosphatase 113, Total Protein 4.9L, Albumin 2.9L Microbiology 03/19/22 Gram Stain - Final, Resulted 03/19/22 Anaerobic Culture, Resulted Pending 03/19/22 Body Fluid Culture - Final, Resulted No growth 03/19/22 Fungal Culture 1 - Preliminary, Resulted Culture In Progress 03/16/22 MRSA Screen - Final, Complete MRSA not isolated Assessment/Plan Assessment/Plan Admission Dx Acute on chronic atrial fibrillation, rate uncontrolled Chronic NOAC anticoagulation Pneumonia Chronic COPD with exacerbation Chronic oxygen dependence Medication noncompliance Hypertension Esophageal reflux Urge incontinence Hypokalemia Elevated liver enzymes Assessment and Plan Acute on chronic atrial fibrillation, rate uncontrolled Chronic NOAC anticoagulation Pneumonia Chronic COPD with exacerbation Chronic oxygen dependence Medication noncompliance Hypertension Esophageal reflux Urge incontinence Hypokalemia Elevated liver enzymes Left pleural effusion Acute on chronic atrial fibrillation, rate uncontrolled - pt is on Chronic NOAC anticoagulation with Xarelto - Pt on cardizem - Consult to Dr. Dill - resumed home regimen Pneumonia with Chronic COPD with exacerbation, Chronic oxygen dependence, Left pleural effusion - pt on Rocephin and Azithromycin - MAT protocol - oxygen requirement increased acutely over the weekend - pt was on bipap and switched to vapotherm - continue to wean - restarted iv steroids today - thoracentesis on 03/19/22 - fluid was sent for culture and cytology - negative thus far Medication noncompliance - pt inadvertently left her medications at home while on a trip. Hypertension - resumed home regimen - monitor bp Esophageal reflux - resumed PPI therapy Hypokalemia - replenish through icu protocols Elevated liver enzymes - worsened over the weekend - liver ultrasound negative Right upper back and shoulder pain - - prn tylenol and pain medication, use voltaren gel topically discussed with Perla today - her mom is quite ill, i would recommend that her kids from the [place], [place] come down here to visit her instead of [place] going up to them. GI prophylaxis with PPI DVT prophylaxis with NOAC and scd's Admission Dx Acute on chronic atrial fibrillation, rate uncontrolled Chronic NOAC anticoagulation Pneumonia Chronic COPD with exacerbation Chronic oxygen dependence Medication noncompliance Hypertension Esophageal reflux Urge incontinence Hypokalemia Elevated liver enzymes Clinical Quality Measures Admission Status Admission Dx Acute on chronic atrial fibrillation, rate uncontrolled Chronic NOAC anticoagulation Pneumonia Chronic COPD with exacerbation Chronic oxygen dependence Medication noncompliance Hypertension Esophageal reflux Urge incontinence Hypokalemia Elevated liver enzymes ALTAGRACIA GILL MD Mar 23, 2022 09:14
[2022-03-23] MEDS ORDERED: methylPREDNISolone 40 MG/ML (Solu-MEDROL) VIAL IV ONE (09:15)
--- NOTE | 2022-03-23 11:03 | Tele-ICU Progress Note ---
Subjective Date Seen by a Provider: Mar 23, 2022 Time Seen by a Provider: 11:02 Subjective/Events-last exam Tele-ICU Physician , Progress Note ) Available chart/ vitals / labs / Images reviewed Video assessment done using teleICU camera, rest of exam as per RN Discussed with RN , EXAM PER RN Events overnight : Increasing SOB overnight, Requiring Vapo-therm Afebrile FiO2 - VT 100% 40 L I/O = neg Drips: Pressors: , hemodynamically stable Consultants: Hospital course: (03/16) 81F Admitted with Acute CHF exac and Afib RVR. Hx COPD on 4L home O2 03/18- Increasing SOB overnight, Requiring Vapo-therm / - VT 20 L 90 % - THORA 1 L LEFT 03/20 - 7 L NC (03/22) READMITTED ICU, BIPAP 100%, SEPSIS SCREENED + 03/23 - VT 100% 40 L A/P A-fib with RVR - cardizem as per cards - Xarelto ON HOLD - replace K Acute resp failure ( on 10 L NC 03/17 - 03/18- Increasing SOB overnight, Requiring Vapo-therm VT 20 L 90% - LASIX to increase diuresis givenn PULM HTN - UO IS GREAT - on IV steroid - s/p THORA 1 L LEFT /3 - on 7 L NC today LEFT plural effusion ( s/p tap 09/29/2021 - path negative ) -s/p THORA 1 L LEFT 03/20= TRANSUDATE - IMPROVED Fio2 to 7 l after tap --> increasing again , not large volume now 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 Discussed with RN to reach out if any questions or concerns A total of 33 minutes of critical care time was devoted to this patient today, required to treat and/or prevent further deterioration of critical care condition ( as above) . Sepsis Event Evaluation Height, Weight, BMI Height: '" Weight: lbs. oz. kg; 28.13 BMI Method: Focused Exam Lactate Level 03/22/22 20:00: Lactic Acid Level 0.74 Exam Exam Patient acknowledged, consented, and participated in this virtual visit which was conducted using real time audio/video Vital Signs Date Time Temp Pulse Resp B/P (MAP) Pulse Ox O2 Delivery O2 Flow Rate FiO2 03/23/22 10:26 97 Vapotherm 40.00 100 03/23/22 09:00 80 16 115/108 99 Vapotherm 40.00 100.00 03/23/22 08:22 Vapotherm 40.00 100.00 03/23/22 08:00 94 Vapotherm 40.00 100 03/23/22 08:00 80 12 108/60 96 NIV Bilevel 100.00 03/23/22 07:27 73 18 99 80.00 03/23/22 07:25 76 03/23/22 07:00 74 18 112/59 98 NIV Bilevel 100.00 03/23/22 06:00 74 20 106/67 99 NIV Bilevel 100.00 03/23/22 05:00 69 22 108/56 97 NIV Bilevel 100.00 03/23/22 04:00 61 22 109/70 98 NIV Bilevel 100.00 03/23/22 04:00 97 NIV Bilevel 80 03/23/22 03:00 63 18 101/64 98 NIV Bilevel 100.00 03/23/22 02:00 75 14 102/74 98 NIV Bilevel 100.00 03/23/22 01:42 73 21 99 80.00 03/23/22 01:00 71 20 110/60 98 NIV Bilevel 100.00 03/23/22 01:00 71 03/23/22 00:00 97 NIV Bilevel 80 03/23/22 00:00 71 19 101/63 98 NIV Bilevel 100.00 03/22/22 23:00 76 19 103/68 98 NIV Bilevel 100.00 03/22/22 22:39 73 21 99 80.00 03/22/22 22:00 75 23 112/62 99 NIV Bilevel 100.00 03/22/22 21:00 81 20 108/61 99 NIV Bilevel 100.00 03/22/22 20:37 73 19 99 90.00 03/22/22 20:33 70 23 97 100.00 03/22/22 20:00 36.1 03/22/22 20:00 74 19 101/68 99 NIV Bilevel 100.00 03/22/22 20:00 99 NIV Bilevel 100 03/22/22 19:49 NIV Bilevel 100 03/22/22 19:15 75 20 117/73 97 NIV Bilevel 100.00 03/22/22 19:01 103/83 90 NIV Bilevel 100.00 03/22/22 19:00 75 03/22/22 18:51 88 Vapotherm 40.00 100.00 03/22/22 18:38 89 Vapotherm 25.00 100 03/22/22 18:35 91 Vapotherm 20.00 100.00 03/22/22 18:32 116/83 03/22/22 18:15 High Flow N/C 12.00 03/22/22 16:15 90 High Flow N/C 10.00 03/22/22 16:00 36.5 80 20 103/70 91 High Flow N/C 10.00 03/22/22 14:03 92 High Flow N/C 10.00 03/22/22 12:45 78 03/22/22 12:21 36.0 75 93 03/22/22 11:40 90 High Flow N/C 10.00 03/22/22 11:29 36.0 75 20 114/78 93 High Flow N/C 10.00 I & O 03/23/22 07:00 Intake Total 1660 ml Output Total 2900 ml Balance -1240 ml Height & Weight Height: '" Weight: lbs. oz. kg; 28.13 BMI Method: General Appearance: No Apparent Distress, Chronically ill HEENT: PERRL/EOMI, Pharynx Normal Neck: Full Range of Motion, Supple, Other (ttp over right upper neck, upper shoulder and upper back region) Respiratory: No Accessory Muscle Use; No Crackles; Decreased Breath Sounds (in bases) Cardiovascular: Regular Rate, Rhythm, No Murmur Capillary Refill: Less Than 3 Seconds Extremity: Normal Capillary Refill, Normal Range of Motion, Non Tender, No Calf Tenderness, No Pedal Edema Neurologic/Psychiatric: Alert, Oriented x3 Skin: Normal Color, Warm/Dry Lymphatic: No Adenopathy Results Lab Laboratory Tests 03/22/22 04:06 03/23/22 04:10 Assessment/Plan Assessment/Plan ` NELDA ESPINOZA MD Mar 23, 2022 11:03
[2022-03-23] MEDS: dilTIAZem DRIP PRE-MIX 125 ML IV SCH (12:45)
[2022-03-23] MEDS ORDERED: VANCOMYCIN 1 GM/NS 250 ML IVPB IV SCH ×2 (13:00)
[2022-03-23] MEDS: RIVAROXABAN 20 MG TABLET (XARELTO) PO SCH (17:04)
[2022-03-23] MEDS: methylPREDNISolone 40 MG/ML (Solu-MEDROL) VIAL IV SCH ×2 (17:04→21:13)
--- NOTE | 2022-03-23 17:39 | Progress Note - Cardiology ---
Cardiology SOAP Progress Note Objective: I&O/Vital Signs 03/23/22 03/23/22 03/23/22 03/23/22 06:00 07:00 07:25 07:27 Pulse 74 74 76 73 Resp 20 18 18 B/P (MAP) 106/67 112/59 Pulse Ox 99 98 99 O2 Delivery NIV Bilevel NIV Bilevel O2 Flow Rate 100.00 100.00 80.00 03/23/22 03/23/22 03/23/22 03/23/22 08:00 08:00 08:22 09:00 Pulse 80 80 Resp 12 16 B/P (MAP) 108/60 115/108 Pulse Ox 96 94 99 O2 Delivery NIV Bilevel Vapotherm Vapotherm Vapotherm O2 Flow Rate 100.00 40.00 40.00 40.00 100.00 100.00 FiO2 100 03/23/22 03/23/22 03/23/22 03/23/22 10:00 10:26 11:00 12:00 Pulse 72 69 Resp 16 12 B/P (MAP) 103/65 102/67 Pulse Ox 98 97 95 94 O2 Delivery Vapotherm Vapotherm Vapotherm Vapotherm O2 Flow Rate 40.00 40.00 40.00 40.00 100.00 100.00 FiO2 100 100 03/23/22 03/23/22 03/23/22 03/23/22 12:00 13:00 13:21 14:00 Temp 36.0 Pulse 79 77 67 71 Resp 12 15 17 B/P (MAP) 106/73 95/55 86/47 Pulse Ox 94 96 95 O2 Delivery Vapotherm Vapotherm Vapotherm O2 Flow Rate 40.00 40.00 40.00 100.00 100.00 100.00 03/23/22 03/23/22 03/23/22 03/23/22 14:28 15:00 16:00 16:00 Pulse 66 61 Resp 19 23 B/P (MAP) 96/67 99/59 Pulse Ox 94 92 96 95 O2 Delivery Vapotherm Vapotherm Vapotherm Vapotherm O2 Flow Rate 40.00 40.00 40.00 40.00 100.00 100.00 FiO2 100 100 03/23/22 03/23/22 16:00 17:00 Temp 36.5 Pulse 74 Resp 16 B/P (MAP) 92/54 Pulse Ox 98 O2 Delivery Vapotherm O2 Flow Rate 40.00 100.00 03/23/22 00:00 Intake Total 1075 ml Output Total 2375 ml Balance -1300 ml Constitutional: AAO x 3, well-developed, well-nourished Respiratory: No accessory muscle use, No respiratory distress; chest expansion is symmetric, chest is bilaterally symmetric, other (diminished lower lobes bilat) Cardiovascular: irregularly irregular; No JVD, No edema; tachycardia, S1 and S2 Gastrointestional: No tender; soft, round; No distended; audible bowel sounds Extremities: no lower extremity edema bilateral Neurologic/Psychiatric: grossly intact (moves all extremities) Skin: No rash on exposed areas, No ulcerations on exposed areas Results/Procedures: Labs Laboratory Tests 03/22/22 18:22: Blood Gas Puncture Site NA, Blood Gas Patient Temperature 36.8, Arterial Blood pH 7.40, Arterial Blood Partial Pressure CO2 50H, Arterial Blood Partial Pressure O2 56L, Arterial Blood HCO3 30H, Arterial Blood Total CO2 31.4H, Arterial Blood Oxygen Saturation 88L, Arterial Blood Base Excess 5.2H, Pedro Test NA, Blood Gas Ventilator Setting NO, Blood Gas Inspired Oxygen 12 L 03/22/22 18:45: Ammonia 35H 03/22/22 20:00: Lactic Acid Level 0.74 03/23/22 04:10: White Blood Count 7.9, Red Blood Count 3.85, Hemoglobin 10.9L, Hematocrit 35, Mean Corpuscular Volume 91, Mean Corpuscular Hemoglobin 28, Mean Corpuscular Hemoglobin Concent 31L, Red Cell Distribution Width 14.7H, Platelet Count 184, Mean Platelet Volume 9.5, Immature Granulocyte % (Auto) 1, Neutrophils (%) (Auto ) 80H, Lymphocytes (%) (Auto) 10L, Monocytes (%) (Auto) 5, Eosinophils (%) (Auto) 5, Basophils (%) (Auto) 0, Neutrophils # (Auto) 6.3, Lymphocytes # (Auto) 0.8L, Monocytes # (Auto) 0.4, Eosinophils # (Auto) 0.4H, Basophils # (Auto) 0.0, Immature Granulocyte # (Auto) 0.0, Sodium Level 137, Potassium Level 3.8, Chloride Level 100, Carbon Dioxide Level 27, Anion Gap 10, Blood Urea Nitrogen 46H, Creatinine 0.73, Estimat Glomerular Filtration Rate 82, BUN/Creatinine Ratio 63, Glucose Level 93, Calcium Level 8.2L, Corrected Calcium 9.1, Phosphorus Level 2.9, Magnesium Level 2.0, Total Bilirubin 1.6H, Aspartate Amino Transf (AST/SGOT) 102H, Alanine Aminotransferase (ALT/SGPT) 228H, Alkaline Phosphatase 113, Total Protein 4.9L, Albumin 2.9L Microbiology 03/22/22 Blood Culture - Preliminary, Resulted No growth 03/19/22 Gram Stain - Final, Resulted 03/19/22 Anaerobic Culture - Final, Resulted No anaerobes isolated 03/19/22 Body Fluid Culture - Final, Resulted No growth 03/19/22 Fungal Culture 1 - Preliminary, Resulted 03/16/22 MRSA Screen - Final, Complete MRSA not isolated A/P: Assessment: A-fib with RVR - diagnosed on EKG of 09-22-21 in the ED, age unknown - Xarelto for stroke prophylaxis - treat rate with dilt and digoxin - rate improved Pneumonia - management per medical services - s/p L thoracentesis on 03/19/22 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 - Echo on 09/23/21: LVEF 45-50%, mod to sev biatrial enlargement, mod to severe MR & TR, pulm htn with PASP approx 70 mmHg - Continue Lasix HTN - controlled - somewhat low BP - asymptomatic HLD - statin tx GI - GERD COPD - managed by PCP 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
[2022-03-24] MEDS: RT-ALBUTEROL/IPRATROPIUM 3 ML (DUONEB) VIAL INH SCH ×6 (02:42→21:55)
[2022-03-24] MEDS: CEFEPIME INJECTION 1,000 MG in NS (IVPB) 50 ML IV SCH ×3 (03:12→19:28)
[2022-03-24] MEDS: methylPREDNISolone 40 MG/ML (Solu-MEDROL) VIAL IV SCH ×4 (03:12→20:16)
[2022-03-24 03:16] LABS: BASOPHILS % (AUTO) 0 % (0-10); EOSINOPHILS % (AUTO) 0 % (0-10); HEMATOCRIT 35 % (35-52); HEMOGLOBIN 11.2 g/dL (11.5-16.0); LYMPHOCYTES # (AUTO) 0.2 10^3/uL (1.0-4.0); LYMPHOCYTES % (AUTO) 3 % (12-44); MEAN CORPUSCULAR HEMOGLOBIN 29 pg (25-34); MEAN CORPUSCULAR HGB CONC 32 g/dL (32-36); MEAN CORPUSCULAR VOLUME 90 fL (80-99); MEAN PLATELET VOLUME 9.5 fL (9.0-12.2); MONOCYTES # (AUTO) 0.1 10^3/uL (0.0-1.0); MONOCYTES % (AUTO) 1 % (0-12); NEUTROPHILS # (AUTO) 6.5 10^3/uL (1.8-7.8); NEUTROPHILS % (AUTO) 96 % (42-75); PLATELET COUNT 171 10^3/uL (130-400); WHITE BLOOD COUNT 6.8 10^3/uL (4.3-11.0)
[2022-03-24 03:35] LABS: ALBUMIN 3.1 GM/DL (3.2-4.5)
[2022-03-24 03:36] LABS: POTASSIUM 3.6 MMOL/L (3.6-5.0)
[2022-03-24 03:37] LABS: CALCIUM 8.4 MG/DL (8.5-10.1)
[2022-03-24 03:38] LABS: TOTAL PROTEIN 5.3 GM/DL (6.4-8.2)
[2022-03-24 03:41] LABS: PHOSPHORUS 2.5 MG/DL (2.3-4.7)
[2022-03-24 03:42] LABS: CREATININE SERUM 0.79 MG/DL (0.60-1.30)
[2022-03-24 03:45] LABS: MAGNESIUM 2.1 MG/DL (1.6-2.4)
[2022-03-24] MEDS: MAGNESIUM 1 GM/100 ML IVPB 100 ML IV SCH (04:42)
[2022-03-24] MEDS: POTASSIUM CL 10MEQ/50ML IVPB 50 ML IV SCH (04:42)
[2022-03-24] MEDS: KCL 20 MEQ TAB (K-DUR) PO SCH ×2 (05:07→20:16)
[2022-03-24] MEDS: FUROSEMIDE 40 MG/4 ML INJ (LASIX) IV SCH (05:35)
[2022-03-24] MEDS: CATHETER FLUSH 10 ML SYR IVP SCH ×3 (05:35→20:17)
--- NOTE | 2022-03-24 06:54 | Diagnostic Imaging Report ---
INDICATION: Pleural effusion. TECHNIQUE: Single view chest 4:50 AM. CORRELATION STUDY: 03/22/2022 FINDINGS: Heart size and mediastinum are enlarged and prominent. Vasculature is overall improved and decreased in congestion from prior. Bibasilar opacities, combination of effusions along with atelectasis, infiltrate and/or edema do persist but also appearing improved. Old healed left rib fracture deformities. Partial visualization of thoracolumbar spinal fixation hardware. IMPRESSION: 1. Overall less severity vascular congestion from prior. 2. Continued but improvement in the combination of effusion along with atelectasis, infiltrate or edema at both lung bases, left greater than right. Dictated by: Dictated on workstation # [id number]
--- NOTE | 2022-03-24 08:11 | Progress Note ---
Subjective Subjective Date Seen by Provider: Mar 24, 2022 Time Seen by Provider: 08:00 PT REPORTS THAT SHE IS FEELING A LITTLE BETTER TODAY - SHE CONTINUES WITH SHORTNESS OF BREATH. SHE IS FRUSTRATED ABOUT HER BACKSLIDE AND IS WONDERING WHAT THE NEXT STEPS ARE FOR HER. Review of Systems General: No Chills, No Night Sweats; Fatigue, Malaise; No Appetite, No Other HEENT: No Head Aches, No Visual Changes, No Eye Pain, No Ear Pain, No Dysphasia, No Sinus Congestion, No Post Nasal Drip, No Sore Throat, No Other Pulmonary: Dyspnea; No Cough, No Pleuritic Chest Pain, No Other Cardiovascular: Orthopnea; No: Chest Pain, Palpitations, Paroxysmal Noc. Dyspnea, Edema, Lt Headedness, Other Gastrointestinal: No: Nausea, Vomiting, Abdominal Pain Genitourinary: Other (shaikh in place) Musculoskeletal: neck pain Neurological: Weakness; No: Confusion All Other Systems Reviewed All Other Systems Reviewed: Yes Objective Exam Vital Signs Vital Signs Date Time Temp Pulse Resp B/P (MAP) Pulse Ox O2 Delivery O2 Flow Rate FiO2 03/24/22 07:00 91 12 119/63 95 Vapotherm 40.00 100.00 03/24/22 07:00 89 03/24/22 06:52 98 Vapotherm 40.00 85 03/24/22 06:48 83 18 106/62 95 Vapotherm 40.00 100.00 03/24/22 06:00 108 39 94 Vapotherm 40.00 100.00 03/24/22 05:00 96 19 118/62 91 Vapotherm 40.00 100.00 03/24/22 04:00 99 16 78/65 92 Vapotherm 40.00 100.00 03/24/22 03:50 36.4 03/24/22 03:15 93 Vapotherm 40.00 85 03/24/22 03:00 97 13 118/72 93 Vapotherm 40.00 100.00 03/24/22 02:42 98 Vapotherm 40.00 85 03/24/22 02:00 97 106/65 98 Vapotherm 40.00 100.00 03/24/22 01:00 94 108/55 99 Vapotherm 40.00 100.00 03/24/22 01:00 94 03/24/22 00:00 101 17 103/65 97 Vapotherm 40.00 100.00 03/24/22 00:00 93 Vapotherm 40.00 100 03/23/22 23:39 36.6 03/23/22 23:05 95 Vapotherm 40.00 100 03/23/22 23:00 82 17 104/60 93 Vapotherm 40.00 100.00 03/23/22 22:00 77 20 101/54 91 Vapotherm 40.00 100.00 03/23/22 21:00 87 18 98/56 97 Vapotherm 40.00 100.00 03/23/22 20:00 94 13 98/60 97 Vapotherm 40.00 100.00 03/23/22 20:00 93 Vapotherm 40.00 100 03/23/22 19:33 36.5 03/23/22 19:00 93 Vapotherm 40.00 100 03/23/22 19:00 78 11 95/56 93 Vapotherm 40.00 100.00 03/23/22 19:00 78 03/23/22 18:00 80 26 95/57 94 Vapotherm 40.00 100.00 03/23/22 17:00 74 16 92/54 98 Vapotherm 40.00 100.00 03/23/22 16:00 36.5 03/23/22 16:00 95 Vapotherm 40.00 100 03/23/22 16:00 61 23 99/59 96 Vapotherm 40.00 100.00 03/23/22 15:00 66 19 96/67 92 Vapotherm 40.00 100.00 03/23/22 14:28 94 Vapotherm 40.00 100 03/23/22 14:00 71 17 86/47 95 Vapotherm 40.00 100.00 03/23/22 13:21 67 03/23/22 13:00 77 15 95/55 96 Vapotherm 40.00 100.00 03/23/22 12:00 36.0 79 12 106/73 94 Vapotherm 40.00 100.00 03/23/22 12:00 94 Vapotherm 40.00 100 03/23/22 11:00 69 12 102/67 95 Vapotherm 40.00 100.00 03/23/22 10:26 97 Vapotherm 40.00 100 03/23/22 10:00 72 16 103/65 98 Vapotherm 40.00 100.00 03/23/22 09:00 80 16 115/108 99 Vapotherm 40.00 100.00 03/23/22 08:22 Vapotherm 40.00 100.00 I & O 03/24/22 07:00 Intake Total 2462.5 ml Output Total 4800 ml Balance -2337.5 ml General Appearance: Chronically ill, Thin Eyes: Bilateral Eye PERRL, Bilateral Eye EOMI HEENT: PERRL/EOMI, Pharynx Normal Neck: Full Range of Motion, Supple, Other (ttp over right upper neck, upper shoulder and upper back region) Respiratory: No Accessory Muscle Use; No Crackles; Decreased Breath Sounds (IMPROVED AIR MOVEMENT THROUGHOUT, BUT STILL DECREASED IN BASES) Cardiovascular: Regular Rate, Rhythm, No Murmur Gastrointestinal: Normal Bowel Sounds, Soft Rectal: Deferred Back: Other (tender to palpation over upper neck, trapezius muscle on right) Extremity: Normal Capillary Refill, Normal Range of Motion, Non Tender, No Calf Tenderness, No Pedal Edema Neurologic/Psychiatric: Alert, Oriented x3 Skin: Normal Color, Warm/Dry Lymphatic: No Adenopathy Results Lab Laboratory Tests 03/24/22 03:10: White Blood Count 6.8, Red Blood Count 3.90, Hemoglobin 11.2L, Hematocrit 35, M keya Corpuscular Volume 90, Mean Corpuscular Hemoglobin 29, Mean Corpuscular Hemoglobin Concent 32, Red Cell Distribution Width 14.5, Platelet Count 171, Mean Platelet Volume 9.5, Immature Granulocyte % (Auto) 0, Neutrophils (%) (Auto) 96H, Lymphocytes (%) (Auto) 3L, Monocytes (%) (Auto) 1, Eosinophils (%) (Auto) 0, Basophils (%) (Auto) 0, Neutrophils # (Auto) 6.5, Lymphocytes # (Auto) 0.2L, Monocytes # (Auto) 0.1, Eosinophils # (Auto) 0.0, Basophils # (Auto) 0.0, Immature Granulocyte # (Auto) 0.0, Sodium Level 136, Potassium Level 3.6, Chloride Level 96L, Carbon Dioxide Level 26, Anion Gap 14, Blood Urea Nitrogen 31H, Creatinine 0.79, Estimat Glomerular Filtration Rate 74, BUN/Creatinine Ratio 39, Glucose Level 241H, Calcium Level 8.4L, Corrected Calcium 9.1, Phosphorus Level 2.5, Magnesium Level 2.1, Total Bilirubin 1.0, Aspartate Amino Transf (AST/SGOT) 51H, Alanine Aminotransferase (ALT/SGPT) 183H, Alkaline Phosphatase 113, Total Protein 5.3L, Albumin 3.1L, Digoxin Level 0.55L Microbiology 03/22/22 Blood Culture - Preliminary, Resulted No growth 03/19/22 Gram Stain - Final, Resulted 03/19/22 Anaerobic Culture - Final, Resulted No anaerobes isolated 03/19/22 Body Fluid Culture - Final, Resulted No growth 03/19/22 Fungal Culture 1 - Preliminary, Resulted 03/16/22 MRSA Screen - Final, Complete MRSA not isolated Assessment/Plan Assessment/Plan Admission Dx Acute on chronic atrial fibrillation, rate uncontrolled Chronic NOAC anticoagulation Pneumonia Chronic COPD with exacerbation Chronic oxygen dependence Medication noncompliance Hypertension Esophageal reflux Urge incontinence Hypokalemia Elevated liver enzymes Assessment and Plan Acute on chronic atrial fibrillation, rate uncontrolled Chronic NOAC anticoagulation Pneumonia Chronic COPD with exacerbation Chronic oxygen dependence Medication noncompliance Hypertension Esophageal reflux Urge incontinence Hypokalemia Elevated liver enzymes Left pleural effusion Acute on chronic atrial fibrillation, rate uncontrolled - pt is on Chronic NOAC anticoagulation with Xarelto - Pt on cardizem - Consult to Dr. Dill - resumed home regimen Pneumonia with Chronic COPD with exacerbation, Chronic oxygen dependence, Left pleural effusion - pt on Cefepime and vancomycin - MAT protocol - oxygen up again - pt on vapotherm - restarted iv steroids on 03/23/22 - thoracentesis on 03/19/22 - fluid was sent for culture and cytology - negative thus far - discussed with EICU and Cardiology - due to her valvular disease and last echo from Aug - will repeat ECHO with bubble protocol, and Dr. Dill will increase lasix. Hypotension at this time - defer to Dr. Dill as he adjusts her meds for Afib, her BP will need to be closely monitored. - resumed home regimen - monitor bp Esophageal reflux - resumed PPI therapy Hypokalemia - replenish through icu protocols Elevated liver enzymes - improved with hydration - suspect shock from her rapid afib. - liver US negative Right upper back and shoulder pain - - prn tylenol and pain medication, use voltaren gel topically GI prophylaxis with PPI DVT prophylaxis hold xarelto, started lovenox due to possible repeat thoracentesis - continue with scd's Admission Dx Acute on chronic atrial fibrillation, rate uncontrolled Chronic NOAC anticoagulation Pneumonia Chronic COPD with exacerbation Chronic oxygen dependence Medication noncompliance Hypertension Esophageal reflux Urge incontinence Hypokalemia Elevated liver enzymes Clinical Quality Measures Admission Status Admission Dx Acute on chronic atrial fibrillation, rate uncontrolled Chronic NOAC anticoagulation Pneumonia Chronic COPD with exacerbation Chronic oxygen dependence Medication noncompliance Hypertension Esophageal reflux Urge incontinence Hypokalemia Elevated liver enzymes ALTAGRACIA GILL MD Mar 24, 2022 08:11
[2022-03-24] MEDS: KCL 10 MEQ TAB (MICRO K) PO SCH (08:38)
[2022-03-24] MEDS: ASPIRIN 81 MG CHEW (CHILDREN'S ASA) PO SCH (08:38)
[2022-03-24] MEDS: DIGOXIN 0.125 MG (LANOXIN) TAB PO SCH (08:38)
[2022-03-24] MEDS: SENNA W/DOCUSATE (SENOKOT S) TABLET PO SCH ×2 (08:38→20:16)
[2022-03-24] MEDS: PANTOPRAZOLE 40 MG (PROTONIX) TAB PO SCH (08:38)
[2022-03-24] MEDS: DICLOFENAC 1% GEL 100 GM (VOLTAREN) TUBE TOP SCH ×4 (08:39→20:16)
--- NOTE | 2022-03-24 09:35 | Progress Note - Cardiology ---
Cardiology SOAP Progress Note Subjective: Sitting up in bed HR varies from 80's to low 100's Continues to feel SOB with only minimal improvement No c/o CP, palpitations Occ minimally productive cough Objective: I&O/Vital Signs 03/24/22 03/24/22 03/24/22 03/24/22 21:00 21:55 22:00 23:00 Pulse 78 79 86 Resp 15 19 17 B/P (MAP) 115/59 108/64 109/63 Pulse Ox 98 100 99 97 O2 Delivery High Flow N/C High Flow N/C High Flow N/C High Flow N/C O2 Flow Rate 10.00 10.00 10.00 10.00 03/24/22 03/25/22 03/25/22 03/25/22 23:03 00:00 00:00 01:00 Temp 36.4 Pulse 86 88 Resp 17 B/P (MAP) 108/63 Pulse Ox 96 97 O2 Delivery High Flow N/C High Flow N/C O2 Flow Rate 10.00 6.00 03/25/22 03/25/22 03/25/22 03/25/22 01:00 02:00 02:18 03:00 Pulse 88 86 91 Resp 20 18 17 B/P (MAP) 110/68 113/70 111/67 Pulse Ox 97 97 92 93 O2 Delivery High Flow N/C High Flow N/C High Flow N/C High Flow N/C O2 Flow Rate 6.00 6.00 6.00 6.00 03/25/22 03/25/22 03/25/22 03/25/22 03:22 03:55 04:00 05:00 Temp 36.4 Pulse 80 78 Resp 21 17 B/P (MAP) 107/61 103/60 Pulse Ox 94 93 96 O2 Delivery High Flow N/C High Flow N/C High Flow N/C O2 Flow Rate 8.00 6.00 6.00 03/25/22 03/25/22 03/25/22 03/25/22 06:00 07:00 07:00 07:32 Temp 36.8 Pulse 87 86 78 Resp 18 18 B/P (MAP) 118/66 131/75 Pulse Ox 94 93 O2 Delivery High Flow N/C High Flow N/C O2 Flow Rate 6.00 6.00 03/24/22 23:59 Intake Total 1275 ml Output Total 1825 ml Balance -550 ml Constitutional: AAO x 3, well-developed, well-nourished Respiratory: No accessory muscle use, No respiratory distress; chest expansion is symmetric, chest is bilaterally symmetric, other (diminished lower lobes bilat) Cardiovascular: irregularly irregular; No JVD, No edema; tachycardia, S1 and S2 Gastrointestional: No tender; soft, round; No distended; audible bowel sounds Extremities: no lower extremity edema bilateral Neurologic/Psychiatric: grossly intact (moves all extremities) Skin: No rash on exposed areas, No ulcerations on exposed areas Results/Procedures: Labs Laboratory Tests 03/24/22 12:15: Vancomycin Level Trough 7.1L 03/25/22 04:17: White Blood Count 13.4H, Red Blood Count 3.82, Hemoglobin 11.0L, Hematocrit 35, Mean Corpuscular Volume 92, Mean Corpuscular Hemoglobin 29, Mean Corpuscular Hemoglobin Concent 31L, Red Cell Distribution Width 14.7H, Platelet Count 194, Mean Platelet Volume 9.8, Immature Granulocyte % (Auto) 1, Neutrophils (%) (Auto) 96H, Lymphocytes (%) (Auto) 2L, Monocytes (%) (Auto) 2, Eosinophils (%) (Auto) 0, Basophils (%) (Auto) 0, Neutrophils # (Auto) 12.9H, Lymphocytes # (Auto) 0.2L, Monocytes # (Auto) 0.2, Eosinophils # (Auto) 0.0, Basophils # (Auto) 0.0, Immature Granulocyte # (Auto) 0.1, Sodium Level 137, Potassium Level 3.9, Chloride Level 98, Carbon Dioxide Level 26, Anion Gap 13, Blood Urea Nitrogen 32H, Creatinine 0.98, Estimat Glomerular Filtration Rate 57, BUN/Creatinine Ratio 33, Glucose Level 314H, Calcium Level 8.4L, Corrected Calcium 9.0, Phosphorus Level 2.0L, Magnesium Level 2.0, Total Bilirubin 0.7, Aspartate Amino Transf (AST/SGOT) 56H, Alanine Aminotransferase (ALT/SGPT) 166H, Alkaline Phosphatase 113, Total Protein 5.5L, Albumin 3.2 Microbiology 03/22/22 Blood Culture - Preliminary, Resulted No growth 03/19/22 Gram Stain - Final, Resulted 03/19/22 Anaerobic Culture - Final, Resulted No anaerobes isolated 03/19/22 Body Fluid Culture - Final, Resulted No growth 03/19/22 Fungal Culture 1 - Preliminary, Resulted 03/16/22 MRSA Screen - Final, Complete MRSA not isolated Procedures NAME: JESSE MONREAL [facility] REC#: [id number] PT STATUS: ADM IN : 1940 PHYSICIAN: ALTAGRACIA GILL MD ADMIT DATE: 03/16/22/ICU Signed Date of Exam:03/24/22 CHEST 1 VIEW, AP/PA ONLY INDICATION: Pleural effusion. TECHNIQUE: Single view chest 4:50 AM. CORRELATION STUDY: 03/22/2022 FINDINGS: Heart size and mediastinum are enlarged and prominent. Vasculature is overall improved and decreased in congestion from prior. Bibasilar opacities, combination of effusions along with atelectasis, infiltrate and/or edema do persist but also appearing improved. Old healed left rib fracture deformities. Partial visualization of thoracolumbar spinal fixation hardware. IMPRESSION: 1. Overall less severity vascular congestion from prior. 2. Continued but improvement in the combination of effusion along with atelectasis, infiltrate or edema at both lung bases, left greater than right. 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 - Echo on 09/23/21: LVEF 45-50%, mod to sev biatrial enlargement, mod to severe MR & TR, pulm htn with PASP approx 70 mmHg - Continue Lasix HTN - controlled - somewhat low BP - asymptomatic HLD - statin tx GI - GERD COPD - managed by PCP 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
[2022-03-24] MEDS ORDERED: DIGOXIN 0.25 MG/ML (LANOXIN) 2 ML AMP IV ONE (09:45)
--- NOTE | 2022-03-24 10:31 | Progress Note - Cardiology ---
Cardiology SOAP Progress Note Subjective: Gen weakness and malaise No shortness of breath at rest Denies palp or cp or syncope Objective: I&O/Vital Signs 03/23/22 03/23/22 03/23/22 03/24/22 23:00 23:05 23:39 00:00 Temp 36.6 Pulse 82 Resp 17 B/P (MAP) 104/60 Pulse Ox 93 95 93 O2 Delivery Vapotherm Vapotherm Vapotherm O2 Flow Rate 40.00 40.00 40.00 100.00 FiO2 100 100 03/24/22 03/24/22 03/24/22 03/24/22 00:00 01:00 01:00 02:00 Pulse 101 94 94 97 Resp 17 B/P (MAP) 103/65 108/55 106/65 Pulse Ox 97 99 98 O2 Delivery Vapotherm Vapotherm Vapotherm O2 Flow Rate 40.00 40.00 40.00 100.00 100.00 100.00 03/24/22 03/24/22 03/24/22 03/24/22 02:42 03:00 03:15 03:50 Temp 36.4 Pulse 97 Resp 13 B/P (MAP) 118/72 Pulse Ox 98 93 93 O2 Delivery Vapotherm Vapotherm Vapotherm O2 Flow Rate 40.00 40.00 40.00 100.00 FiO2 85 85 03/24/22 03/24/22 03/24/22 03/24/22 04:00 05:00 06:00 06:48 Pulse 99 96 108 83 Resp 16 19 39 18 B/P (MAP) 78/65 118/62 106/62 Pulse Ox 92 91 94 95 O2 Delivery Vapotherm Vapotherm Vapotherm Vapotherm O2 Flow Rate 40.00 40.00 40.00 40.00 100.00 100.00 100.00 100.00 03/24/22 03/24/22 03/24/22 03/24/22 06:52 07:00 07:00 08:00 Pulse 89 91 93 Resp 12 18 B/P (MAP) 119/63 108/63 Pulse Ox 98 95 95 O2 Delivery Vapotherm Vapotherm Vapotherm O2 Flow Rate 40.00 40.00 40.00 100.00 100.00 FiO2 85 03/24/22 03/24/22 03/24/22 08:00 09:00 10:00 Temp 36.8 Pulse 84 89 Resp 21 20 B/P (MAP) 117/62 106/74 Pulse Ox 99 97 O2 Delivery Vapotherm Vapotherm O2 Flow Rate 40.00 40.00 100.00 100.00 03/24/22 00:00 Intake Total 1662.5 ml Output Total 700 ml Balance 962.5 ml Constitutional: AAO x 3, well-developed, well-nourished Respiratory: No accessory muscle use, No respiratory distress; chest expansion is symmetric, chest is bilaterally symmetric, other (diminished lower lobes bilat) Cardiovascular: irregularly irregular; No JVD, No edema; tachycardia, S1 and S2 Gastrointestional: No tender; soft, round; No distended; audible bowel sounds Extremities: no lower extremity edema bilateral Neurologic/Psychiatric: grossly intact (moves all extremities) Skin: No rash on exposed areas, No ulcerations on exposed areas Results/Procedures: Labs Laboratory Tests 03/24/22 03:10: White Blood Count 6.8, Red Blood Count 3.90, Hemoglobin 11.2L, Hematocrit 35, Mean Corpuscular Volume 90, Mean Corpuscular Hemoglobin 29, Mean Corpuscular Hemoglobin Concent 32, Red Cell Distribution Width 14.5, Platelet Count 171, Mean Platelet Volume 9.5, Immature Granulocyte % (Auto) 0, Neutrophils (%) (Auto) 96H, Lymphocytes (%) (Auto) 3L, Monocytes (%) (Auto) 1, Eosinophils (%) (Auto) 0, Basophils (%) (Auto) 0, Neutrophils # (Auto) 6.5, Lymphocytes # (Auto) 0.2L, Monocytes # (Auto) 0.1, Eosinophils # (Auto) 0.0, Basophils # (Auto) 0.0, Immature Granulocyte # (Auto) 0.0, Sodium Level 136, Potassium Level 3.6, Chloride Level 96L, Carbon Dioxide Level 26, Anion Gap 14, Blood Urea Nitrogen 31H, Creatinine 0.79, Estimat Glomerular Filtration Rate 74, BUN/Creatinine Ratio 39, Glucose Level 241H, Calcium Level 8.4L, Corrected Calcium 9.1, Phosphorus Level 2.5, Magnesium Level 2.1, Total Bilirubin 1.0, Aspartate Amino Transf (AST/SGOT) 51H, Alanine Aminotransferase (ALT/SGPT) 183H, Alkaline Phosphatase 113, Total Protein 5.3L, Albumin 3.1L, Digoxin Level 0.55L Microbiology 03/22/22 Blood Culture - Preliminary, Resulted No growth 03/19/22 Gram Stain - Final, Resulted 03/19/22 Anaerobic Culture - Final, Resulted No anaerobes isolated 03/19/22 Body Fluid Culture - Final, Resulted No growth 03/19/22 Fungal Culture 1 - Preliminary, Resulted 03/16/22 MRSA Screen - Final, Complete MRSA not isolated Laboratory Tests 03/23/22 04:10 03/24/22 03:10 A/P: Assessment: A-fib with RVR - diagnosed on EKG of 09-22-21 in the ED, age unknown - Xarelto for stroke prophylaxis - treat rate with dilt and digoxin - rate improving Pneumonia - management per medical services - s/p L thoracentesis on 03/19/22 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 - Echo on 09/23/21: LVEF 45-50%, mod to sev biatrial enlargement, mod to severe MR & TR, pulm htn with PASP approx 70 mmHg - Continue Lasix HTN - controlled - somewhat low BP - asymptomatic HLD - statin tx GI - GERD COPD - managed by PCP 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
--- NOTE | 2022-03-24 11:58 | Tele-ICU Progress Note ---
Subjective Date Seen by a Provider: Mar 24, 2022 Time Seen by a Provider: 11:58 Subjective/Events-last exam Tele-ICU Physician , Progress Note ) Available chart/ vitals / labs / Images reviewed Video assessment done using teleICU camera, rest of exam as per RN Discussed with RN , EXAM PER RN Events overnight : Increasing SOB overnight, Requiring Vapo-therm Afebrile FiO2 - VT 100% 40 L I/O = neg Drips: Pressors: , hemodynamically stable Consultants: Hospital course: (03/16) 81F Admitted with Acute CHF exac and Afib RVR. Hx COPD on 4L home O2 03/18- Increasing SOB overnight, Requiring Vapo-therm / - VT 20 L 90 % - THORA 1 L LEFT 03/20 - 7 L NC (03/22) READMITTED ICU, BIPAP 100%, SEPSIS SCREENED + 03/23 - VT 100% 40 L A/P Acute resp failure ( on 10 L NC 03/17 - 03/18- Increasing SOB overnight, Requiring Vapo-therm VT 20 L 90% - LASIX to increase diuresis givenn PULM HTN - UO IS GREAT - on IV steroid - s/p THORA 1 L LEFT 03/20 A-fib with RVR - cardizem as per cards - Xarelto - TO KEEP ON LOVENOX WHILE INMPATIENT FOR POSSIBLE NEEDED INTERVENTIONS ? 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 group 3 or/and group 2 , or/and group 5 , also presense of severe valvular dz - sugget repeat ECHO ( with bubbles to r/o shunt given severe hypoxia ) and readress for potential additional investigations/ Tx Possible PNA - on ABX - follow , VANCO added 03/23 -DO NOT THINK PNA IS WORSENING ELEV transaminases - possible due to venous conjestion - US liver 03/23- no signif finding COPD - on 4L home O2- - br-dilators, steroids IV mild right hydronephrosis on US - cr WNL Chronic back pain Chronic, bilat leg swelling due to venous insuff Lines : (Central Line Necessity Reviewed) Coe: + OG: Nutrition: Analgesia: Anxiety/ delirium VTE Prophylaxis: xarelto Stress Ulcer Prophylaxis: na Plans in collaboration with bedside consultants and IM MDs. , discussed with Dr Leonard Discussed with RN to reach out if any questions or concerns A total of 33 minutes of critical care time was devoted to this patient today, required to treat and/or prevent further deterioration of critical care condition ( as above) . Sepsis Event Evaluation Height, Weight, BMI Height: '" Weight: lbs. oz. kg; 27.65 BMI Method: Focused Exam Lactate Level 03/22/22 20:00: Lactic Acid Level 0.74 Exam Exam Patient acknowledged, consented, and participated in this virtual visit which was conducted using real time audio/video Vital Signs Date Time Temp Pulse Resp B/P (MAP) Pulse Ox O2 Delivery O2 Flow Rate FiO2 03/24/22 11:00 107 10 112/65 91 Vapotherm 40.00 100.00 03/24/22 10:34 90 Vapotherm 30.00 70 03/24/22 10:00 89 20 106/74 97 Vapotherm 40.00 100.00 03/24/22 09:00 84 21 117/62 99 Vapotherm 40.00 100.00 03/24/22 08:00 36.8 03/24/22 08:00 93 18 108/63 95 Vapotherm 40.00 100.00 03/24/22 07:00 91 12 119/63 95 Vapotherm 40.00 100.00 03/24/22 07:00 89 03/24/22 06:52 98 Vapotherm 40.00 85 03/24/22 06:48 83 18 106/62 95 Vapotherm 40.00 100.00 03/24/22 06:00 108 39 94 Vapotherm 40.00 100.00 03/24/22 05:00 96 19 118/62 91 Vapotherm 40.00 100.00 03/24/22 04:00 99 16 78/65 92 Vapotherm 40.00 100.00 03/24/22 03:50 36.4 03/24/22 03:15 93 Vapotherm 40.00 85 03/24/22 03:00 97 13 118/72 93 Vapotherm 40.00 100.00 03/24/22 02:42 98 Vapotherm 40.00 85 03/24/22 02:00 97 106/65 98 Vapotherm 40.00 100.00 03/24/22 01:00 94 108/55 99 Vapotherm 40.00 100.00 03/24/22 01:00 94 03/24/22 00:00 101 17 103/65 97 Vapotherm 40.00 100.00 03/24/22 00:00 93 Vapotherm 40.00 100 03/23/22 23:39 36.6 03/23/22 23:05 95 Vapotherm 40.00 100 03/23/22 23:00 82 17 104/60 93 Vapotherm 40.00 100.00 03/23/22 22:00 77 20 101/54 91 Vapotherm 40.00 100.00 03/23/22 21:00 87 18 98/56 97 Vapotherm 40.00 100.00 03/23/22 20:00 94 13 98/60 97 Vapotherm 40.00 100.00 03/23/22 20:00 93 Vapotherm 40.00 100 03/23/22 19:33 36.5 03/23/22 19:00 93 Vapotherm 40.00 100 03/23/22 19:00 78 11 95/56 93 Vapotherm 40.00 100.00 03/23/22 19:00 78 03/23/22 18:00 80 26 95/57 94 Vapotherm 40.00 100.00 03/23/22 17:00 74 16 92/54 98 Vapotherm 40.00 100.00 03/23/22 16:00 36.5 03/23/22 16:00 95 Vapotherm 40.00 100 03/23/22 16:00 61 23 99/59 96 Vapotherm 40.00 100.00 03/23/22 15:00 66 19 96/67 92 Vapotherm 40.00 100.00 03/23/22 14:28 94 Vapotherm 40.00 100 03/23/22 14:00 71 17 86/47 95 Vapotherm 40.00 100.00 03/23/22 13:21 67 03/23/22 13:00 77 15 95/55 96 Vapotherm 40.00 100.00 03/23/22 12:00 36.0 79 12 106/73 94 Vapotherm 40.00 100.00 03/23/22 12:00 94 Vapotherm 40.00 100 I & O 03/24/22 07:00 Intake Total 2462.5 ml Output Total 4800 ml Balance -2337.5 ml Height & Weight Height: '" Weight: lbs. oz. kg; 27.65 BMI Method: General Appearance: Chronically ill, Mild Distress HEENT: PERRL/EOMI, Pharynx Normal Neck: Full Range of Motion, Supple, Other (ttp over right upper neck, upper shoulder and upper back region) Respiratory: No Accessory Muscle Use; No Crackles; Decreased Breath Sounds (in bases) Cardiovascular: Regular Rate, Rhythm, No Murmur Capillary Refill: Less Than 3 Seconds Extremity: Normal Capillary Refill, Normal Range of Motion, Non Tender, No Calf Tenderness, No Pedal Edema Neurologic/Psychiatric: Alert, Oriented x3 Skin: Normal Color, Warm/Dry Lymphatic: No Adenopathy Results Lab Laboratory Tests 03/23/22 04:10 03/24/22 03:10 Assessment/Plan Assessment/Plan ` NELDA ESPINOZA MD Mar 24, 2022 11:58
[2022-03-24] MEDS ORDERED: TROUGH ORDER-PHARMACY XX NR (12:00)
[2022-03-24] MEDS: VANCOMYCIN 1 GM/NS 250 ML IVPB IV SCH ×4 (14:03→23:55)
[2022-03-24] MEDS: ENOXAPARIN 40 MG/0.4 ML (LOVENOX) SYR SC SCH (16:58)
[2022-03-24] MEDS: FUROSEMIDE 40 MG/4 ML INJ (LASIX) IVP SCH (16:58)
[2022-03-24] MEDS: dilTIAZem DRIP PRE-MIX 125 ML IV SCH (16:59)
[2022-03-25] MEDS: RT-ALBUTEROL/IPRATROPIUM 3 ML (DUONEB) VIAL INH SCH ×6 (02:17→21:51)
[2022-03-25] MEDS: methylPREDNISolone 40 MG/ML (Solu-MEDROL) VIAL IV SCH ×4 (03:26→22:12)
[2022-03-25] MEDS: CEFEPIME INJECTION 1,000 MG in NS (IVPB) 50 ML IV SCH ×3 (03:26→20:01)
[2022-03-25 04:34] LABS: BASOPHILS % (AUTO) 0 % (0-10); EOSINOPHILS % (AUTO) 0 % (0-10); HEMATOCRIT 35 % (35-52); LYMPHOCYTES # (AUTO) 0.2 10^3/uL (1.0-4.0); LYMPHOCYTES % (AUTO) 2 % (12-44); MEAN CORPUSCULAR HEMOGLOBIN 29 pg (25-34); MEAN CORPUSCULAR HGB CONC 31 g/dL (32-36); MEAN CORPUSCULAR VOLUME 92 fL (80-99); MEAN PLATELET VOLUME 9.8 fL (9.0-12.2); MONOCYTES # (AUTO) 0.2 10^3/uL (0.0-1.0); MONOCYTES % (AUTO) 2 % (0-12); NEUTROPHILS # (AUTO) 12.9 10^3/uL (1.8-7.8); NEUTROPHILS % (AUTO) 96 % (42-75); PLATELET COUNT 194 10^3/uL (130-400); WHITE BLOOD COUNT 13.4 10^3/uL (4.3-11.0)
[2022-03-25 04:43] LABS: ALBUMIN 3.2 GM/DL (3.2-4.5); POTASSIUM 3.9 MMOL/L (3.6-5.0)
[2022-03-25 04:44] LABS: CALCIUM 8.4 MG/DL (8.5-10.1)
[2022-03-25 04:45] LABS: TOTAL PROTEIN 5.5 GM/DL (6.4-8.2)
[2022-03-25 04:47] LABS: BILIRUBIN,TOTAL 0.7 MG/DL (0.1-1.0)
[2022-03-25 04:49] LABS: CREATININE SERUM 0.98 MG/DL (0.60-1.30)
[2022-03-25] MEDS: POTASSIUM CL 10MEQ/50ML IVPB 50 ML IV SCH (05:51)
[2022-03-25] MEDS: KCL 20 MEQ TAB (K-DUR) PO SCH ×3 (05:51→20:00)
[2022-03-25] MEDS: MAGNESIUM 1 GM/100 ML IVPB 100 ML IV SCH (05:51)
[2022-03-25] MEDS: FUROSEMIDE 40 MG/4 ML INJ (LASIX) IVP SCH ×2 (05:51→16:51)
[2022-03-25] MEDS: CATHETER FLUSH 10 ML SYR IVP SCH ×3 (05:52→22:12)
[2022-03-25] MEDS: SENNA W/DOCUSATE (SENOKOT S) TABLET PO SCH ×2 (08:04→20:00)
[2022-03-25] MEDS: DIGOXIN 0.125 MG (LANOXIN) TAB PO SCH (08:05)
[2022-03-25] MEDS: DICLOFENAC 1% GEL 100 GM (VOLTAREN) TUBE TOP SCH ×4 (08:05→20:01)
[2022-03-25] MEDS: ASPIRIN 81 MG CHEW (CHILDREN'S ASA) PO SCH (08:05)
[2022-03-25] MEDS: PANTOPRAZOLE 40 MG (PROTONIX) TAB PO SCH (08:05)
--- NOTE | 2022-03-25 08:19 | Progress Note ---
Subjective Subjective Date Seen by Provider: Mar 25, 2022 Time Seen by Provider: 08:19 PT AND HER DTR HAD A CONVERSATION WITH JAYLON FROM [facility] YESTERDAY - THE DTR WANTS TO DISCUSS HOSPICE, BUT DOES NOT WANT HOSPICE BROUGHT UP TO HER MOM IF THE HOSPICE STAFF COMES UP SHE DOES NOT WANT THEM TO TELL HER THAT THEY ARE FROM HOSPICE. THE PATIENT IS NOT INTERESTED IN HALFWAY PLACEMENT PER HER DISCUSSION WITH JAYLON. Review of Systems General: No Chills, No Night Sweats; Fatigue, Malaise; No Appetite, No Other HEENT: No Head Aches, No Visual Changes, No Eye Pain, No Ear Pain, No Dysphasia, No Sinus Congestion, No Post Nasal Drip, No Sore Throat, No Other Pulmonary: Dyspnea; No Cough, No Pleuritic Chest Pain, No Other Cardiovascular: Orthopnea; No: Chest Pain, Palpitations, Paroxysmal Noc. Dyspnea, Edema, Lt Headedness, Other Gastrointestinal: No: Nausea, Vomiting, Abdominal Pain Genitourinary: Other (shaikh in place) Musculoskeletal: neck pain Neurological: Weakness; No: Confusion All Other Systems Reviewed All Other Systems Reviewed: Yes Objective Exam Vital Signs Vital Signs Date Time Temp Pulse Resp B/P (MAP) Pulse Ox O2 Delivery O2 Flow Rate FiO2 03/25/22 07:32 36.8 03/25/22 07:00 78 03/25/22 07:00 86 18 131/75 93 High Flow N/C 6.00 03/25/22 06:00 87 18 118/66 94 High Flow N/C 6.00 03/25/22 05:00 78 17 103/60 96 High Flow N/C 6.00 03/25/22 04:00 80 21 107/61 93 High Flow N/C 6.00 03/25/22 03:55 36.4 03/25/22 03:22 94 High Flow N/C 8.00 03/25/22 03:00 91 17 111/67 93 High Flow N/C 6.00 03/25/22 02:18 92 High Flow N/C 6.00 03/25/22 02:00 86 18 113/70 97 High Flow N/C 6.00 03/25/22 01:00 88 20 110/68 97 High Flow N/C 6.00 03/25/22 01:00 88 03/25/22 00:00 86 17 108/63 97 High Flow N/C 6.00 03/25/22 00:00 36.4 03/24/22 23:03 96 High Flow N/C 10.00 03/24/22 23:00 86 17 109/63 97 High Flow N/C 10.00 03/24/22 22:00 79 19 108/64 99 High Flow N/C 10.00 03/24/22 21:55 100 High Flow N/C 10.00 03/24/22 21:00 78 15 115/59 98 High Flow N/C 10.00 03/24/22 20:00 92 20 109/56 92 High Flow N/C 10.00 03/24/22 20:00 94 High Flow N/C 10.00 03/24/22 19:34 36.6 03/24/22 19:00 76 21 112/57 92 High Flow N/C 10.00 03/24/22 19:00 86 03/24/22 18:37 91 High Flow N/C 8.00 03/24/22 18:00 86 26 119/58 93 Vapotherm 40.00 100.00 03/24/22 17:00 83 21 118/67 94 Vapotherm 40.00 100.00 03/24/22 16:00 85 21 114/66 93 Vapotherm 40.00 100.00 03/24/22 16:00 93 High Flow N/C 10.00 03/24/22 15:56 36.6 03/24/22 15:00 92 18 117/75 90 Vapotherm 40.00 100.00 03/24/22 14:50 96 High Flow N/C 8.00 03/24/22 14:00 106 23 117/64 95 Vapotherm 40.00 100.00 03/24/22 13:00 89 16 115/64 94 Vapotherm 40.00 100.00 03/24/22 12:45 89 03/24/22 12:00 97 25 104/61 94 Vapotherm 40.00 100.00 03/24/22 12:00 36.8 97 21 104/61 99 Vapotherm 40.00 100.00 03/24/22 12:00 94 High Flow N/C 10.00 03/24/22 11:00 107 10 112/65 91 Vapotherm 40.00 100.00 03/24/22 10:34 90 Vapotherm 30.00 70 03/24/22 10:00 89 20 106/74 97 Vapotherm 40.00 100.00 03/24/22 09:00 84 21 117/62 99 Vapotherm 40.00 100.00 I & O 03/25/22 07:00 Intake Total 2575 ml Output Total 2925 ml Balance -350 ml General Appearance: Chronically ill, Thin Eyes: Bilateral Eye PERRL, Bilateral Eye EOMI HEENT: PERRL/EOMI, Pharynx Normal Neck: Full Range of Motion, Supple, Other (ttp over right upper neck, upper shoulder and upper back region) Respiratory: No Accessory Muscle Use; No Crackles; Decreased Breath Sounds (IMPROVED AIR MOVEMENT THROUGHOUT, BUT STILL DECREASED IN BASES) Cardiovascular: Regular Rate, Rhythm, No Murmur Gastrointestinal: Normal Bowel Sounds, Soft Rectal: Deferred Back: Other (tender to palpation over upper neck, trapezius muscle on right) Extremity: Normal Capillary Refill, Normal Range of Motion, Non Tender, No Calf Tenderness, No Pedal Edema Neurologic/Psychiatric: Alert, Oriented x3 Skin: Normal Color, Warm/Dry Lymphatic: No Adenopathy Results Lab Laboratory Tests 03/24/22 12:15: Vancomycin Level Trough 7.1L 03/25/22 04:17: White Blood Count 13.4H, Red Blood Count 3.82, Hemoglobin 11.0L, Hematocrit 35, Mean Corpuscular Volume 92, Mean Corpuscular Hemoglobin 29, Mean Corpuscular Hemoglobin Concent 31L, Red Cell Distribution Width 14.7H, Platelet Count 194, Mean Platelet Volume 9.8, Immature Granulocyte % (Auto) 1, Neutrophils (%) (Auto) 96H, Lymphocytes (%) (Auto) 2L, Monocytes (%) (Auto) 2, Eosinophils (%) (Auto) 0, Basophils (%) (Auto) 0, Neutrophils # (Auto) 12.9H, Lymphocytes # (Auto) 0.2L, Monocytes # (Auto) 0.2, Eosinophils # (Auto) 0.0, Basophils # (Auto) 0.0, Immature Granulocyte # (Auto) 0.1, Sodium Level 137, Potassium Level 3.9, Chloride Level 98, Carbon Dioxide Level 26, Anion Gap 13, Blood Urea Nitrogen 32H, Creatinine 0.98, Estimat Glomerular Filtration Rate 57, BUN/Creatinine Ratio 33, Glucose Level 314H, Calcium Level 8.4L, Corrected Calcium 9.0, Phosphorus Level 2.0L, Magnesium Level 2.0, Total Bilirubin 0.7, Aspartate Amino Transf (AST/SGOT) 56H, Alanine Aminotransferase (ALT/SGPT) 166H, Alkaline Phosphatase 113, Total Protein 5.5L, Albumin 3.2 Microbiology 03/22/22 Blood Culture - Preliminary, Resulted No growth 03/19/22 Gram Stain - Final, Resulted 03/19/22 Anaerobic Culture - Final, Resulted No anaerobes isolated 03/19/22 Body Fluid Culture - Final, Resulted No growth 03/19/22 Fungal Culture 1 - Preliminary, Resulted 03/16/22 MRSA Screen - Final, Complete MRSA not isolated Assessment/Plan Assessment/Plan Admission Dx Acute on chronic atrial fibrillation, rate uncontrolled Chronic NOAC anticoagulation Pneumonia Chronic COPD with exacerbation Chronic oxygen dependence Medication noncompliance Hypertension Esophageal reflux Urge incontinence Hypokalemia Elevated liver enzymes Assessment and Plan Acute on chronic atrial fibrillation, rate uncontrolled Chronic NOAC anticoagulation Pneumonia Chronic COPD with exacerbation Chronic oxygen dependence Medication noncompliance Hypertension Esophageal reflux Urge incontinence Hypokalemia Elevated liver enzymes Left pleural effusion Acute on chronic atrial fibrillation, rate uncontrolled - pt is on Chronic NOAC anticoagulation with Xarelto - Pt on cardizem - Consult to Dr. Dill - resumed home regimen Pneumonia with Chronic COPD with exacerbation, Chronic oxygen dependence, Left pleural effusion - pt on Cefepime and vancomycin - MAT protocol - oxygen up again - pt on vapotherm - restarted iv steroids on 03/23/22 - thoracentesis on 03/19/22 - fluid was sent for culture and cytology - negative thus far - discussed with EICU and Cardiology - due to her valvular disease and last echo from Aug - will repeat ECHO with bubble protocol, and Dr. Dill will increase lasix. Hypotension at this time - defer to Dr. Dill as he adjusts her meds for Afib, her BP will need to be closely monitored. - resumed home regimen - monitor bp Esophageal reflux - resumed PPI therapy Hypokalemia - replenish through icu protocols Elevated liver enzymes - improved with hydration - suspect shock from her rapid afib. - liver US negative Right upper back and shoulder pain - - prn tylenol and pain medication, use voltaren gel topically GI prophylaxis with PPI DVT prophylaxis hold xarelto, started lovenox due to possible repeat thoracentesis - continue with scd's Admission Dx Acute on chronic atrial fibrillation, rate uncontrolled Chronic NOAC anticoagulation Pneumonia Chronic COPD with exacerbation Chronic oxygen dependence Medication noncompliance Hypertension Esophageal reflux Urge incontinence Hypokalemia Elevated liver enzymes Clinical Quality Measures Admission Status Admission Dx Acute on chronic atrial fibrillation, rate uncontrolled Chronic NOAC anticoagulation Pneumonia Chronic COPD with exacerbation Chronic oxygen dependence Medication noncompliance Hypertension Esophageal reflux Urge incontinence Hypokalemia Elevated liver enzymes ALTAGRACIA GILL MD Mar 25, 2022 08:19
--- NOTE | 2022-03-25 08:21 | Progress Note - Cardiology ---
Cardiology SOAP Progress Note Subjective: Sitting up in bed Feels breathing has improved this morning - off Vapotherm No c/o CP or palpitations Objective: I&O/Vital Signs 03/25/22 03/26/22 03/26/22 03/26/22 21:51 00:07 01:00 02:20 Temp 36.7 Pulse 88 100 Resp 16 B/P (MAP) 112/64 Pulse Ox 92 94 90 O2 Delivery High Flow N/C High Flow N/C High Flow N/C O2 Flow Rate 5.00 5.00 5.00 03/26/22 03/26/22 03/26/22 03/26/22 03:33 07:00 07:01 07:06 Temp 36.6 36.6 Pulse 95 87 82 Resp 16 B/P (MAP) 115/56 Pulse Ox 93 93 93 O2 Delivery High Flow N/C High Flow N/C O2 Flow Rate 5.00 6.00 03/26/22 03/26/22 07:15 08:08 Temp 36.5 Pulse 82 Resp 20 B/P (MAP) 126/59 (81) Pulse Ox 93 O2 Delivery High Flow N/C Nasal Cannula O2 Flow Rate 4.00 4.00 03/26/22 00:00 Intake Total 1760 ml Output Total 1800 ml Balance -40 ml Constitutional: AAO x 3, well-developed, well-nourished Respiratory: No accessory muscle use, No respiratory distress; chest expansion is symmetric, chest is bilaterally symmetric, other (diminished lower lobes bilat) Cardiovascular: irregularly irregular; No JVD, No edema; S1 and S2 Gastrointestional: No tender; soft, round; No distended; audible bowel sounds Extremities: no lower extremity edema bilateral Neurologic/Psychiatric: grossly intact (moves all extremities) Skin: No rash on exposed areas, No ulcerations on exposed areas Results/Procedures: Labs Laboratory Tests 03/25/22 11:58: Vancomycin Level Trough 18.3 03/26/22 03:10: White Blood Count 10.5, Red Blood Count 3.96, Hemoglobin 11.2L, Hematocrit 36, Mean Corpuscular Volume 91, Mean Corpuscular Hemoglobin 28, Mean Corpuscular Hemoglobin Concent 31L, Red Cell Distribution Width 14.9H, Platelet Count 207, Mean Platelet Volume 9.2, Immature Granulocyte % (Auto) 1, Neutrophils (%) (Auto) 95H, Lymphocytes (%) (Auto) 3L, Monocytes (%) (Auto) 2, Eosinophils (%) (Auto) 0, Basophils (%) (Auto) 0, Neutrophils # (Auto) 10.0H, Lymphocytes # (Au to) 0.3L, Monocytes # (Auto) 0.2, Eosinophils # (Auto) 0.0, Basophils # (Auto) 0.0, Immature Granulocyte # (Auto) 0.1, Sodium Level 137, Potassium Level 3.4L, Chloride Level 93L, Carbon Dioxide Level 29, Anion Gap 15H, Blood Urea Nitrogen 33H, Creatinine 1.03, Estimat Glomerular Filtration Rate 54, BUN/Creatinine Ratio 32, Glucose Level 291H, Calcium Level 8.4L, Corrected Calcium 9.0, Phosphorus Level 1.9L, Magnesium Level 1.9, Total Bilirubin 0.6, Aspartate Amino Transf (AST/SGOT) 57H, Alanine Aminotransferase (ALT/SGPT) 175H, Alkaline Phosphatase 112, Total Protein 5.6L, Albumin 3.3 Microbiology 03/22/22 Blood Culture - Preliminary, Resulted No growth 03/19/22 Gram Stain - Final, Resulted 03/19/22 Anaerobic Culture - Final, Resulted No anaerobes isolated 03/19/22 Body Fluid Culture - Final, Resulted No growth 03/19/22 Fungal Culture 1 - Preliminary, Resulted 03/16/22 MRSA Screen - Final, Complete MRSA not isolated A/P: Assessment: A-fib with RVR - diagnosed on EKG of 09-22-21 in the ED, age unknown - Xarelto for stroke prophylaxis - treat rate with dilt and digoxin - rate improved - HR 80's this morning Pneumonia - management per medical services - s/p L thoracentesis on 03/19/22 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 - Echo on 09/23/21: LVEF 45-50%, mod to sev biatrial enlargement, mod to severe MR & TR, pulm htn with PASP approx 70 mmHg - Continue Lasix HTN - controlled - somewhat low BP - asymptomatic HLD - statin tx GI - GERD COPD - managed by PCP 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
--- NOTE | 2022-03-25 08:55 | Tele-ICU Progress Note ---
Subjective Date Seen by a Provider: Mar 25, 2022 Time Seen by a Provider: 07:15 Subjective/Events-last exam This virtual visit was conducted using real time audio/video. Thank you for asking us to see this patient for respiratory insufficiency due to acute CHF exac., afib/RVR, COPD. Recent events: I liter thoracentesis 03/19/22 PMH: COPD/ 4 L home O2, afib/RVR, HTN., HL. PE: VSS.78-80 irreg. O2 sat 97% on 6 LPM NC. HEENT: No obvious masses, adenopathy or JVD. Chest: Dimished BS with crackles on auscultation. CV: Irreg. S1 S2 No murmur or added sounds. Abd: Non-tender. Bowel sounds Y. : Unremarkable. Coe Y. 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 No obvious focal findings. Extremities: 1-2+ edema. Capillary refill < 3 seconds. Skin: unremarkable. Results: Elevated BUN 40 WCC 13.4, decreased. Decreased Hb 11.0 Available chart/ vitals / labs / images reviewed. Video assessment done using teleICU camera, rest of exam as per RN. A/P: Respiratory insufficiency: Continue present management with NC, PRN BDs, medrol Monitor for increasing oxygenation needs and/or need for intubation. Critical Care: critically ill patient. Cont. Lasix, dilt., dig., PPI, abx, asa, statin, marycarmen. Discussed with FLY Arthur. Asked RN to reach out to eICU if any questions or concerns later. Time spent with patient/coordination of care with other health professionals (mins): 24 Sepsis Event Evaluation Height, Weight, BMI Height: '" Weight: lbs. oz. kg; 26.83 BMI Method: Focused Exam Lactate Level 03/22/22 20:00: Lactic Acid Level 0.74 Exam Exam Patient acknowledged, consented, and participated in this virtual visit which was conducted using real time audio/video Vital Signs Date Time Temp Pulse Resp B/P (MAP) Pulse Ox O2 Delivery O2 Flow Rate FiO2 03/25/22 07:32 36.8 03/25/22 07:00 78 03/25/22 07:00 86 18 131/75 93 High Flow N/C 6.00 03/25/22 06:00 87 18 118/66 94 High Flow N/C 6.00 03/25/22 05:00 78 17 103/60 96 High Flow N/C 6.00 03/25/22 04:00 80 21 107/61 93 High Flow N/C 6.00 03/25/22 03:55 36.4 03/25/22 03:22 94 High Flow N/C 8.00 03/25/22 03:00 91 17 111/67 93 High Flow N/C 6.00 03/25/22 02:18 92 High Flow N/C 6.00 03/25/22 02:00 86 18 113/70 97 High Flow N/C 6.00 03/25/22 01:00 88 20 110/68 97 High Flow N/C 6.00 03/25/22 01:00 88 03/25/22 00:00 86 17 108/63 97 High Flow N/C 6.00 03/25/22 00:00 36.4 03/24/22 23:03 96 High Flow N/C 10.00 03/24/22 23:00 86 17 109/63 97 High Flow N/C 10.00 03/24/22 22:00 79 19 108/64 99 High Flow N/C 10.00 03/24/22 21:55 100 High Flow N/C 10.00 03/24/22 21:00 78 15 115/59 98 High Flow N/C 10.00 03/24/22 20:00 92 20 109/56 92 High Flow N/C 10.00 03/24/22 20:00 94 High Flow N/C 10.00 03/24/22 19:34 36.6 03/24/22 19:00 76 21 112/57 92 High Flow N/C 10.00 03/24/22 19:00 86 03/24/22 18:37 91 High Flow N/C 8.00 03/24/22 18:00 86 26 119/58 93 Vapotherm 40.00 100.00 03/24/22 17:00 83 21 118/67 94 Vapotherm 40.00 100.00 03/24/22 16:00 85 21 114/66 93 Vapotherm 40.00 100.00 03/24/22 16:00 93 High Flow N/C 10.00 03/24/22 15:56 36.6 03/24/22 15:00 92 18 117/75 90 Vapotherm 40.00 100.00 03/24/22 14:50 96 High Flow N/C 8.00 03/24/22 14:00 106 23 117/64 95 Vapotherm 40.00 100.00 03/24/22 13:00 89 16 115/64 94 Vapotherm 40.00 100.00 03/24/22 12:45 89 03/24/22 12:00 97 25 104/61 94 Vapotherm 40.00 100.00 03/24/22 12:00 36.8 97 21 104/61 99 Vapotherm 40.00 100.00 03/24/22 12:00 94 High Flow N/C 10.00 03/24/22 11:00 107 10 112/65 91 Vapotherm 40.00 100.00 03/24/22 10:34 90 Vapotherm 30.00 70 03/24/22 10:00 89 20 106/74 97 Vapotherm 40.00 100.00 03/24/22 09:00 84 21 117/62 99 Vapotherm 40.00 100.00 I & O 03/25/22 07:00 Intake Total 2575 ml Output Total 2925 ml Balance -350 ml Height & Weight Height: '" Weight: lbs. oz. kg; 26.83 BMI Method: General Appearance: Chronically ill, Thin HEENT: PERRL/EOMI, Pharynx Normal Neck: Full Range of Motion, Supple, Other (ttp over right upper neck, upper shoulder and upper back region) Respiratory: No Accessory Muscle Use; No Crackles; Decreased Breath Sounds (IMPROVED AIR MOVEMENT THROUGHOUT, BUT STILL DECREASED IN BASES) Cardiovascular: Regular Rate, Rhythm, No Murmur Capillary Refill: Less Than 3 Seconds Extremity: Normal Capillary Refill, Normal Range of Motion, Non Tender, No Calf Tenderness, No Pedal Edema Neurologic/Psychiatric: Alert, Oriented x3 Skin: Normal Color, Warm/Dry Lymphatic: No Adenopathy Results Lab Laboratory Tests 03/24/22 03:10 03/25/22 04:17 Assessment/Plan Assessment/Plan See free text. Critical Care: Critically Ill Patient SUDHEER WILHELM MD Mar 25, 2022 08:55
[2022-03-25] MEDS ORDERED: TROUGH ORDER-PHARMACY XX NR (12:00)
[2022-03-25] MEDS: VANCOMYCIN 1 GM/NS 250 ML IVPB IV SCH ×2 (13:08)
--- NOTE | 2022-03-25 14:53 | Physical Therapy Evaluation ---
PT Evaluation-General Medical Diagnosis Admission Date March 16, 2022 at 16:05 Medical Diagnosis: A-Fib Onset Date: Mar 18, 2022 Therapy Diagnosis Therapy Diagnosis: impaired mobility Precautions Precautions/Isolations: Fall Prevention, Standard Precautions, Pressure Ulcer Weight Bear Status Right Lower Extremity: Right Full Weight Bearing Left Lower Extremity: Left Full Weight Bearing Referral Physician: Dr. 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 9-Dwnuqavixh-hksplqt completes the activity by him/herself with no assistance from a helper. 5-Set-up or Clean-up Assistance-helper sets up or cleans up; patient completes activity. [place] assists only prior to or following the activity. 4-Supervision or Touching Assistance-helper provides verbal cues and/or touching/steadying and/or contact guard assistance as patient completes activi ty. Assistance may be provided throughout the activity or intermittently. 3-Partial/Moderate Assistance-helper does LESS THAN HALF the effort. [place] lifts, holds or supports trunk or limbs, but provides less than half the effort. 2-Substantial/Maximal Assistance-helper does MORE THAN HALF the effort. [place] lifts or holds trunk or limbs and provides more than half the effort. 2-Unjcdcvxq-mejyzc does ALL the effort. Patient does none of the effort to complete the activity. Or, the assistance of 2 or more helpers is required for the patient to complete the activity. If activity was not attempted, code reason: 7-Patient Refused. 9-Not Applicable-not attempted and the patient did not perform the activity before the current illness, exacerbation or injury. 10-Not Attempted due to Environmental Limitations-(lack of equipment, weather restraints, etc.). 88-Not Attempted due to Medical Conditions or Safety Concerns. Bed Mobility: 6 Transfers (B,C,W/C): 6 Gait: 6 Stairs: 6 Indoor Mobility (Ambulation): Independent Stairs: Independent Prior Devices Use: Walker PT Evaluation-Current Subjective Patient in bed pre tx, agrees to PT, has no complaints of pain at rest. Pt/Family Goals Patient in bed post tx with nurse call, phone, tray, all needs met. Objective Patient Orientation: Person, Place, Situation Attachments: Oxygen, Coe Catheter, IV ROM/Strength ROM Lower Extremities WNL Strength Lower Extremities LLE (hip flexion 3/5, knee flexion 4+/5, knee extension 4+/5, dorsiflexion 4+/5), RLE (hip flexion 3/5, knee flexion 4+/5, knee extension 4+/5, dorsiflexion 4+/5) Sensory Vision: Functional Hearing: Functional Sensation Right Lower Extremit: Intact Sensation Left Lower Extremity: Intact Transfers Roll Left to Right (QC): 6 Sit to Lying (QC): 6 Lying to Sitting/Side of Bed(Q: 6 Sit to Stand (QC): 4 CGA for sit to stand Gait Does the Patient Walk?: Yes Mode of Locomotion: Walk Anticipated Mode of Locomotion: Walk Walk 10 feet (QC): 4 Distance: 20' Gait Assistive Device: None Comments/Gait Description Patient ambulated to the window in her room and back for a total of about 20', her O2 after that short walk was 83%, after sitting her O2 went back up to 90% after about 15 seconds Balance Sitting Static: Normal Sitting Dynamic: Normal Standing Static: Good Standing Dynamic: Good Treatment BLE supine exercises x20 (AP, HS) Assessment/Needs Patient in bed post tx with nurse call, phone, tray, all needs met. Patient has impaired mobility, her O2 drops with ambulation. 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 Time Frame: Apr 01, 2022 Roll Left & Right (QC): 6 Sit to Lying (QC): 6 Lying-Sitting on Side/Bed(QC): 6 Sit to Stand (QC): 6 Chair/Euv-nz-Ylzwg Xfer(QC): 6 Does the Patient Walk: Yes Walk 10 feet (QC): 5 Walk 50ft with 2 Turns (QC): 5 Walk 150 ft (QC): 5 PT Plan Problem List Problem List: Activity Tolerance, Functional Strength, Safety, Balance, Gait, Transfer, Bed Mobility, ROM Treatment/Plan Treatment Plan: Continue Plan of Care Treatment Plan: Bed Mobility, Education, Functional Activity Laura, Functional Strength, Group Therapy, Gait, Safety, Therapeutic Exercise, Transfers Treatment Duration: May 15, 2022 Frequency: 6 times per week Estimated Hrs Per Day: .25 hour per day Patient and/or Family Agrees t: Yes Safety Risks/Education Patient Education: Gait Training, Transfer Techniques, Correct Positioning, Safety Issues Teaching Recipient: Patient Teaching Methods: Demonstration, Discussion Response to Teaching: Reinforcement Needed Discharge Recommendations Plan Patient will perform bed mobility and transfer training, balance and endurance training, functional strengthening, stair training, gait training, and education, to improve functional mobility and independence at home Therapy Discharge Recommendati: Scheduled Assistance, Home & Family, Post Acute PT Time/GCodes Time In: 1408 Time Out: 1418 Total Billed Treatment Time: 10 Total Billed Treatment 1 visit KHOA RODRÍGUEZ PT Mar 25, 2022 14:53
--- NOTE | 2022-03-25 15:32 | Progress Note - Cardiology ---
Cardiology SOAP Progress Note Subjective: No cp or palp or syncope Shortness of breath is better No n/v/d Gen weakness and malaise are present Objective: I&O/Vital Signs 03/25/22 03/25/22 03/25/22 03/25/22 03:55 04:00 05:00 06:00 Temp 36.4 Pulse 80 78 87 Resp 21 17 18 B/P (MAP) 107/61 103/60 118/66 Pulse Ox 93 96 94 O2 Delivery High Flow N/C High Flow N/C High Flow N/C O2 Flow Rate 6.00 6.00 6.00 03/25/22 03/25/22 03/25/22 03/25/22 07:00 07:00 07:32 08:00 Temp 36.8 Pulse 86 78 76 Resp 18 20 B/P (MAP) 131/75 120/75 Pulse Ox 93 93 O2 Delivery High Flow N/C High Flow N/C O2 Flow Rate 6.00 6.00 03/25/22 03/25/22 03/25/22 03/25/22 08:00 09:00 10:00 10:28 Pulse 84 74 Resp 20 16 B/P (MAP) 106/53 111/71 Pulse Ox 96 91 96 95 O2 Delivery High Flow N/C High Flow N/C High Flow N/C High Flow N/C O2 Flow Rate 6.00 6.00 6.00 5.00 03/25/22 03/25/22 03/25/22 03/25/22 11:00 11:58 14:40 15:11 Temp 37.1 36.6 Pulse 91 95 92 Resp 16 16 16 B/P (MAP) 124/65 120/60 105/59 Pulse Ox 94 92 92 91 O2 Delivery High Flow N/C High Flow N/C High Flow N/C High Flow N/C O2 Flow Rate 6.00 5.00 5.00 5.00 03/24/22 23:59 Intake Total 1275 ml Output Total 1825 ml Balance -550 ml Constitutional: AAO x 3, well-developed, well-nourished Respiratory: No accessory muscle use, No respiratory distress; chest expansion is symmetric, chest is bilaterally symmetric, other (diminished lower lobes bilat) Cardiovascular: irregularly irregular; No JVD, No edema; S1 and S2 Gastrointestional: No tender; soft, round; No distended; audible bowel sounds Extremities: no lower extremity edema bilateral Neurologic/Psychiatric: grossly intact (moves all extremities) Skin: No rash on exposed areas, No ulcerations on exposed areas Results/Procedures: Labs Laboratory Tests 03/25/22 04:17: White Blood Count 13.4H, Red Blood Count 3.82, Hemoglobin 11.0L, Hematocrit 35, Mean Corpuscular Volume 92, Mean Corpuscular Hemoglobin 29, Mean Corpuscular Hemoglobin Concent 31L, Red Cell Distribution Width 14.7H, Platelet Count 194, Mean Platelet Volume 9.8, Immature Granulocyte % (Auto) 1, Neutrophils (%) (Auto) 96H, Lymphocytes (%) (Auto) 2L, Monocytes (%) (Auto) 2, Eosinophils (%) (Auto) 0, Basophils (%) (Auto) 0, Neutrophils # (Auto) 12.9H, Lymphocytes # (Auto) 0.2L, Monocytes # (Auto) 0.2, Eosinophils # (Auto) 0.0, Basophils # (Auto) 0.0, Immature Granulocyte # (Auto) 0.1, Sodium Level 137, Potassium Level 3.9, Chloride Level 98, Carbon Dioxide Level 26, Anion Gap 13, Blood Urea Nitrogen 32H, Creatinine 0.98, Estimat Glomerular Filtration Rate 57, BUN/Creatinine Ratio 33, Glucose Level 314H, Calcium Level 8.4L, Corrected Calcium 9.0, Phosphorus Level 2.0L, Magnesium Level 2.0, Total Bilirubin 0.7, Aspartate Amino Transf (AST/SGOT) 56H, Alanine Aminotransferase (ALT/SGPT) 166H, Alkaline Phosphatase 113, Total Protein 5.5L, Albumin 3.2 03/25/22 11:58: Vancomycin Level Trough 18.3 Microbiology 03/22/22 Blood Culture - Preliminary, Resulted No growth 03/19/22 Gram Stain - Final, Resulted 03/19/22 Anaerobic Culture - Final, Resulted No anaerobes isolated 03/19/22 Body Fluid Culture - Final, Resulted No growth 03/19/22 Fungal Culture 1 - Preliminary, Resulted 03/16/22 MRSA Screen - Final, Complete MRSA not isolated A/P: Assessment: A-fib with RVR - diagnosed on EKG of 12--21 in the ED, age unknown - Xarelto for stroke prophylaxis - treat rate with dilt and digoxin - rate improved - HR 80's this morning Pneumonia - management per medical services - s/p L thoracentesis on 03/19/22 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 - Echo on 09/23/21: LVEF 45-50%, mod to sev biatrial enlargement, mod to severe MR & TR, pulm htn with PASP approx 70 mmHg - Echo on 03/24/22: LVEF 50-55%, grade 3 diastolic dysfunction, mod to sev biatrial enlargement, mod to severe MR, mod TR, PASP 50-55 mmHg - Furosemide increased and spironolactone added on 03/24/22 HTN - controlled - somewhat low BP - asymptomatic HLD - statin tx GI - GERD COPD - managed by PCP 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
[2022-03-25] MEDS: ENOXAPARIN 40 MG/0.4 ML (LOVENOX) SYR SC SCH (16:50)
[2022-03-26] MEDS: VANCOMYCIN 1 GM/NS 250 ML IVPB IV SCH ×4 (00:33→12:55)
[2022-03-26] MEDS: RT-ALBUTEROL/IPRATROPIUM 3 ML (DUONEB) VIAL INH SCH ×4 (02:20→21:48)
[2022-03-26 03:19] LABS: BASOPHILS % (AUTO) 0 % (0-10); EOSINOPHILS % (AUTO) 0 % (0-10); HEMATOCRIT 36 % (35-52); HEMOGLOBIN 11.2 g/dL (11.5-16.0); LYMPHOCYTES # (AUTO) 0.3 10^3/uL (1.0-4.0); LYMPHOCYTES % (AUTO) 3 % (12-44); MEAN CORPUSCULAR HEMOGLOBIN 28 pg (25-34); MEAN CORPUSCULAR HGB CONC 31 g/dL (32-36); MEAN CORPUSCULAR VOLUME 91 fL (80-99); MEAN PLATELET VOLUME 9.2 fL (9.0-12.2); MONOCYTES # (AUTO) 0.2 10^3/uL (0.0-1.0); MONOCYTES % (AUTO) 2 % (0-12); NEUTROPHILS % (AUTO) 95 % (42-75); PLATELET COUNT 207 10^3/uL (130-400); WHITE BLOOD COUNT 10.5 10^3/uL (4.3-11.0)
[2022-03-26 03:37] LABS: ALBUMIN 3.3 GM/DL (3.2-4.5); POTASSIUM 3.4 MMOL/L (3.6-5.0)
[2022-03-26] MEDS: CEFEPIME INJECTION 1,000 MG in NS (IVPB) 50 ML IV SCH ×3 (03:37→20:22)
[2022-03-26] MEDS: methylPREDNISolone 40 MG/ML (Solu-MEDROL) VIAL IV SCH (03:37)
[2022-03-26 03:38] LABS: CALCIUM 8.4 MG/DL (8.5-10.1)
[2022-03-26 03:39] LABS: TOTAL PROTEIN 5.6 GM/DL (6.4-8.2)
[2022-03-26 03:41] LABS: BILIRUBIN,TOTAL 0.6 MG/DL (0.1-1.0)
[2022-03-26 03:43] LABS: CREATININE SERUM 1.03 MG/DL (0.60-1.30); PHOSPHORUS 1.9 MG/DL (2.3-4.7)
[2022-03-26 03:46] LABS: MAGNESIUM 1.9 MG/DL (1.6-2.4)
[2022-03-26] MEDS: KCL 20 MEQ TAB (K-DUR) PO SCH ×3 (05:10→20:22)
[2022-03-26] MEDS: FUROSEMIDE 40 MG/4 ML INJ (LASIX) IVP SCH (06:14)
[2022-03-26] MEDS: CATHETER FLUSH 10 ML SYR IVP SCH ×3 (06:14→20:30)
[2022-03-26 07:06] VITALS: BP 115/56
[2022-03-26] MEDS ORDERED: KCL 20 MEQ TAB (K-DUR) PO ONE (08:00)
[2022-03-26 08:08] VITALS: BP 126/59
[2022-03-26] MEDS: ASPIRIN 81 MG CHEW (CHILDREN'S ASA) PO SCH (08:46)
[2022-03-26] MEDS: SENNA W/DOCUSATE (SENOKOT S) TABLET PO SCH ×2 (08:46→20:23)
[2022-03-26] MEDS: PANTOPRAZOLE 40 MG (PROTONIX) TAB PO SCH (08:46)
[2022-03-26] MEDS: DIGOXIN 0.125 MG (LANOXIN) TAB PO SCH (08:47)
[2022-03-26] MEDS: DICLOFENAC 1% GEL 100 GM (VOLTAREN) TUBE TOP SCH ×4 (08:49→20:22)
--- NOTE | 2022-03-26 09:05 | Progress Note - Cardiology ---
Cardiology SOAP Progress Note Subjective: Sitting up in bed Wants to go home today Feels her SOB is better today No c/o palpitations, syncope or near syncope Objective: I&O/Vital Signs 03/27/22 03/27/22 03/27/22 03/27/22 00:02 01:09 02:23 04:09 Temp 36.5 36.4 Pulse 93 89 92 Resp 20 16 B/P (MAP) 122/61 (81) 115/51 (72) Pulse Ox 100 92 94 O2 Delivery Nasal Cannula High Flow N/C Nasal Cannula O2 Flow Rate 4.00 4.00 4.00 03/27/22 03/27/22 03/27/22 07:00 07:21 08:00 Temp 36.3 Pulse 104 94 Resp 20 B/P (MAP) 119/60 (79) Pulse Ox 97 96 O2 Delivery High Flow N/C Nasal Cannula O2 Flow Rate 4.00 4.00 03/27/22 00:00 Intake Total 1460 ml Output Total 2000 ml Balance -540 ml Constitutional: AAO x 3, well-developed, well-nourished Respiratory: No accessory muscle use, No respiratory distress; chest expansion is symmetric, chest is bilaterally symmetric, other (diminished lower lobes bilat) Cardiovascular: irregularly irregular; No JVD, No edema; S1 and S2 Gastrointestional: No tender; soft, round; No distended; audible bowel sounds Extremities: no lower extremity edema bilateral Neurologic/Psychiatric: grossly intact (moves all extremities) Skin: No rash on exposed areas, No ulcerations on exposed areas Results/Procedures: Labs Laboratory Tests 03/27/22 05:35: White Blood Count 9.7, Red Blood Count 3.68L, Hemoglobin 10.3L, Hematocrit 33L, Mean Corpuscular Volume 91, Mean Corpuscular Hemoglobin 28, Mean Corpuscular Hemoglobin Concent 31L, Red Cell Distribution Width 14.6H, Platelet Count 214, Mean Platelet Volume 9.7, Immature Granulocyte % (Auto) 1, Neutrophils (%) (Auto) 86H, Lymphocytes (%) (Auto) 5L, Monocytes (%) (Auto) 7, Eosinophils (%) (Auto) 0, Basophils (%) (Auto) 0, Neutrophils # (Auto) 8.4H, Lymphocytes # (Auto) 0.5L, Monocytes # (Auto) 0.7, Eosinophils # (Auto) 0.0, Basophils # (Auto) 0.0, Immature Granulocyte # (Auto) 0.1, Neutrophils % (Manual) 93, Lymphocytes % (Manual) 3, Monocytes % (Manual) 3, Eosinophils % (Manual) 1, Toxic Granulation 1+, Clumped Platelets , Poikilocytosis SLIGHT, Helmet Cells SLIGHT, Elliptocytes SLIGHT, Schistocytes SLIGHT, Sodium Level 140, Potassium Level 3.6, Chloride Level 98, Carbon Dioxide Level 31, Anion Gap 11, Blood Urea Nitrogen 37H, Creatinine 0.84, Estimat Glomerular Filtration Rate 69, BUN/Creati nine Ratio 44, Glucose Level 212H, Calcium Level 8.3L, Corrected Calcium 8.9, Magnesium Level 1.9, Total Bilirubin 0.5, Aspartate Amino Transf (AST/SGOT) 76H, Alanine Aminotransferase (ALT/SGPT) 202H, Alkaline Phosphatase 105, Total Protein 5.1L, Albumin 3.2, Digoxin Level 0.64L Microbiology 03/22/22 Blood Culture - Preliminary, Resulted No growth 03/19/22 Gram Stain - Final, Resulted 03/19/22 Anaerobic Culture - Final, Resulted No anaerobes isolated 03/19/22 Body Fluid Culture - Final, Resulted No growth 03/19/22 Fungal Culture 1 - Preliminary, Resulted 03/16/22 MRSA Screen - Final, Complete MRSA not isolated A/P: Assessment: A-fib with RVR - diagnosed on EKG of 09-22-21 in the ED, age unknown - Xarelto for stroke prophylaxis - treat rate with dilt and digoxin - rate improved - HR controlled Pneumonia - management per medical services - s/p L thoracentesis on 03/19/22 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 - Echo on 09/23/21: LVEF 45-50%, mod to sev biatrial enlargement, mod to severe MR & TR, pulm htn with PASP approx 70 mmHg - Echo on 03/24/22: LVEF 50-55%, grade 3 diastolic dysfunction, mod to sev biatrial enlargement, mod to severe MR, mod TR, PASP 50-55 mmHg - Furosemide increased and spironolactone added on 03/24/22 HTN - controlled - somewhat low BP - asymptomatic HLD - statin tx GI - GERD COPD - managed by PCP 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
[2022-03-26] MEDS ORDERED: predniSONE 20 MG TAB PO ONE (09:30)
--- NOTE | 2022-03-26 09:30 | Progress Note ---
Subjective Subjective Pt reports that she is feeling much better today - she would like to go home tomorrow (wednesday). Review of Systems General: No Chills, No Night Sweats; Fatigue, Malaise; No Appetite, No Other HEENT: No Head Aches, No Visual Changes, No Eye Pain, No Ear Pain, No Dysphasia, No Sinus Congestion, No Post Nasal Drip, No Sore Throat, No Other Pulmonary: Dyspnea; No Cough, No Pleuritic Chest Pain, No Other Cardiovascular: Orthopnea; No: Chest Pain, Palpitations, Paroxysmal Noc. Dyspnea, Edema, Lt Headedness, Other Gastrointestinal: No: Nausea, Vomiting, Abdominal Pain Genitourinary: Other (shaikh in place) Musculoskeletal: neck pain Neurological: Weakness; No: Confusion All Other Systems Reviewed All Other Systems Reviewed: Yes Objective Exam Vital Signs Vital Signs Date Time Temp Pulse Resp B/P (MAP) Pulse Ox O2 Delivery O2 Flow Rate FiO2 03/26/22 08:08 36.5 82 20 126/59 (81) 93 Nasal Cannula 4.00 03/26/22 07:15 High Flow N/C 4.00 03/26/22 07:06 36.6 82 93 03/26/22 07:01 93 High Flow N/C 6.03/26/22 07:00 87 03/26/22 03:33 36.6 95 16 115/56 93 High Flow N/C 5.00 03/26/22 02:20 90 High Flow N/C 5.00 03/26/22 01:00 100 03/26/22 00:07 36.7 88 16 112/64 94 High Flow N/C 5.00 03/25/22 21:51 92 High Flow N/C 5.00 03/25/22 20:30 91 High Flow N/C 5.00 03/25/22 19:06 36.6 98 16 108/53 91 High Flow N/C 5.00 03/25/22 18:55 95 03/25/22 18:17 90 High Flow N/C 5.00 03/25/22 15:11 36.6 92 16 105/59 91 High Flow N/C 5.00 03/25/22 14:40 92 High Flow N/C 5.00 03/25/22 11:58 37.1 95 16 120/60 92 High Flow N/C 5.00 03/25/22 11:00 91 16 124/65 94 High Flow N/C 6.00 03/25/22 10:28 95 High Flow N/C 5.00 03/25/22 10:00 74 16 111/71 96 High Flow N/C 6.00 I & O 03/26/22 07:00 Intake Total 2880 ml Output Total 4050 ml Balance -1170 ml General Appearance: Chronically ill, Thin Eyes: Bilateral Eye PERRL, Bilateral Eye EOMI HEENT: PERRL/EOMI, Pharynx Normal Neck: Full Range of Motion, Supple, Other (ttp over right upper neck, upper shoulder and upper back region) Respiratory: No Accessory Muscle Use; No Crackles; Decreased Breath Sounds (IMPROVED AIR MOVEMENT THROUGHOUT, BUT STILL DECREASED IN BASES) Cardiovascular: Regular Rate, Rhythm, No Murmur Gastrointestinal: Normal Bowel Sounds, Soft Rectal: Deferred Back: Other (tender to palpation over upper neck, trapezius muscle on right) Extremity: Normal Capillary Refill, Normal Range of Motion, Non Tender, No Calf Tenderness, No Pedal Edema Neurologic/Psychiatric: Alert, Oriented x3 Skin: Normal Color, Warm/Dry Lymphatic: No Adenopathy Results Lab Laboratory Tests 03/25/22 11:58: Vancomycin Level Trough 18.3 03/26/22 03:10: White Blood Count 10.5, Red Blood Count 3.96, Hemoglobin 11.2L, Hematocrit 36, Mean Corpuscular Volume 91, Mean Corpuscular Hemoglobin 28, Mean Corpuscular Hemoglobin Concent 31L, Red Cell Distribution Width 14.9H, Platelet Count 207, Mean Platelet Volume 9.2, Immature Granulocyte % (Auto) 1, Neutrophils (%) (Auto) 95H, Lymphocytes (%) (Auto) 3L, Monocytes (%) (Auto) 2, Eosinophils (%) (Auto) 0, Basophils (%) (Auto) 0, Neutrophils # (Auto) 10.0H, Lymphocytes # (Auto) 0.3L, Monocytes # (Auto) 0.2, Eosinophils # (Auto) 0.0, Basophils # (Auto) 0.0, Immature Granulocyte # (Auto) 0.1, Sodium Level 137, Potassium Level 3.4L, Chloride Level 93L, Carbon Dioxide Level 29, Anion Gap 15H, Blood Urea Nitrogen 33H, Creatinine 1.03, Estimat Glomerular Filtration Rate 54, BUN/Creatinine Ratio 32, Glucose Level 291H, Calcium Level 8.4L, Corrected Calcium 9.0, Phosphorus Level 1.9L, Magnesium Level 1.9, Total Bilirubin 0.6, Aspartate Amino Transf (AST/SGOT) 57H, Alanine Aminotransferase (ALT/SGPT) 175H, Alkaline Phosphatase 112, Total Protein 5.6L, Albumin 3.3 Microbiology 03/22/22 Blood Culture - Preliminary, Resulted No growth 03/19/22 Gram Stain - Final, Resulted 03/19/22 Anaerobic Culture - Final, Resulted No anaerobes isolated 03/19/22 Body Fluid Culture - Final, Resulted No growth 03/19/22 Fungal Culture 1 - Preliminary, Resulted 03/16/22 MRSA Screen - Final, Complete MRSA not isolated Assessment/Plan Assessment/Plan Admission Dx Acute on chronic atrial fibrillation, rate uncontrolled Chronic NOAC anticoagulation Pneumonia Chronic COPD with exacerbation Chronic oxygen dependence Medication noncompliance Hypertension Esophageal reflux Urge incontinence Hypokalemia Elevated liver enzymes Assessment and Plan Acute on chronic atrial fibrillation, rate uncontrolled Chronic NOAC anticoagulation Pneumonia Chronic COPD with exacerbation Chronic oxygen dependence Medication noncompliance Hypertension Esophageal reflux Urge incontinence Hypokalemia Elevated liver enzymes Left pleural effusion Acute on chronic atrial fibrillation, rate uncontrolled - pt is on Chronic NOAC anticoagulation with Xarelto - Pt on cardizem - Consult to Dr. Dill - resumed home regimen Pneumonia with Chronic COPD with exacerbation, Chronic oxygen dependence, Left pleural effusion - pt on Cefepime and vancomycin - MAT protocol - oxygen up again - pt on vapotherm - restarted iv steroids on 03/23/22 - thoracentesis on 03/19/22 - fluid was sent for culture and cytology - negative thus far - discussed with EICU and Cardiology - due to her valvular disease and last echo from Aug - will repeat ECHO with bubble protocol, and Dr. Dill will increase lasix. Hypotension at this time - defer to Dr. Dill as he adjusts her meds for Afib, her BP will need to be closely monitored. - resumed home regimen - monitor bp Esophageal reflux - resumed PPI therapy Hypokalemia - replenish through icu protocols Elevated liver enzymes - improved with hydration - suspect shock from her rapid afib. - liver US negative Right upper back and shoulder pain - - prn tylenol and pain medication, use voltaren gel topically GI prophylaxis with PPI DVT prophylaxis hold xarelto, started lovenox due to possible repeat thoracentesis - continue with scd's Admission Dx Acute on chronic atrial fibrillation, rate uncontrolled Chronic NOAC anticoagulation Pneumonia Chronic COPD with exacerbation Chronic oxygen dependence Medication noncompliance Hypertension Esophageal reflux Urge incontinence Hypokalemia Elevated liver enzymes Clinical Quality Measures Admission Status Admission Dx Acute on chronic atrial fibrillation, rate uncontrolled Chronic NOAC anticoagulation Pneumonia Chronic COPD with exacerbation Chronic oxygen dependence Medication noncompliance Hypertension Esophageal reflux Urge incontinence Hypokalemia Elevated liver enzymes ALTAGRACIA GILL MD Mar 26, 2022 09:30
--- NOTE | 2022-03-26 10:19 | Physical Therapy Daily Note ---
PT Daily Note-Current Subjective Patient in bed pre tx, agrees to PT, has no complaints of pain. Appearance Patient in recliner post tx with nurse call, phone, tray, all needs met. Mental Status Patient Orientation: Person, Place, Situation Attachments: Oxygen, Coe Catheter Transfers SCALE: Activities may be completed with or without assistive devices. 6-Bkooviefav-sfhytzs completes the activity by him/herself with no assistance from a helper. 5-Set-up or Clean-up Assistance-helper sets up or cleans up; patient completes activity. [place] assists only prior to or following the activity. 4-Supervision or Touching Assistance-helper provides verbal cues and/or touching/steadying and/or contact guard assistance as patient completes activi ty. Assistance may be provided throughout the activity or intermittently. 3-Partial/Moderate Assistance-helper does LESS THAN HALF the effort. [place] lifts, holds or supports trunk or limbs, but provides less than half the effort. 2-Substantial/Maximal Assistance-helper does MORE THAN HALF the effort. [place] lifts or holds trunk or limbs and provides more than half the effort. 9-Atscjbzev-glgiin does ALL the effort. Patient does none of the effort to complete the activity. Or, the assistance of 2 or more helpers is required for the patient to complete the activity. If activity was not attempted, code reason: 7-Patient Refused. 9-Not Applicable-not attempted and the patient did not perform the activity before the current illness, exacerbation or injury. 10-Not Attempted due to Environmental Limitations-(lack of equipment, weather restraints, etc.). 88-Not Attempted due to Medical Conditions or Safety Concerns. Roll Left & Right (QC): 6 Lying to Sitting/Side of Bed(Q: 6 Sit to Stand (QC): 4 Chair/Ucy-wi-Eaowh Xfer(QC): 4 Weight Bearing Right Lower Extremity: Right Full Weight Bearing Left Lower Extremity: Left Full Weight Bearing Gait Training Distance: 120' Walk 10 feet (QC): 4 Walk 50 ft with 2 Turns(QC): 4 Gait Assistive Device: None slow ambulation, no LOB, CGA Exercises Seated Therapy Exercises: Ankle pumps, Long arc quads Seated Reps: 20 Treatments bed mobility and transfers, ambulation, LE ROM Assessment Current Status: Fair Progress improving endurance PT Residential Goals Residential Goals PT Cigarette Inspector Goals Time Frame: Apr 01, 2022 Roll Left & Right (QC): 6 Sit to Lying (QC): 6 Lying-Sitting on Side/Bed(QC): 6 Sit to Stand (QC): 6 Chair/Uiq-hx-Tyulo Xfer(QC): 6 Does the Patient Walk: Yes Walk 10 feet (QC): 5 Walk 50ft with 2 Turns (QC): 5 Walk 150 ft (QC): 5 PT Plan Problem List Problem List: Activity Tolerance, Functional Strength, Safety, Balance, Gait, Transfer Treatment/Plan Treatment Plan: Continue Plan of Care Treatment Plan: Bed Mobility, Education, Functional Activity Laura, Functional Strength, Group Therapy, Gait, Safety, Therapeutic Exercise, Transfers Treatment Duration: May 15, 2022 Frequency: 6 times per week Estimated Hrs Per Day: .25 hour per day Patient and/or Family Agrees t: Yes Safety Risks/Education Patient Education: Gait Training, Transfer Techniques, Correct Positioning, Safety Issues Teaching Recipient: Patient Teaching Methods: Demonstration, Discussion Response to Teaching: Reinforcement Needed Time/GCodes Time In: 926 Time Out: 937 Total Billed Treatment Time: 11 Total Billed Treatment 1 visit GT 11' KHOA CHANDLER PT Mar 26, 2022 10:19
--- NOTE | 2022-03-26 11:04 | Diagnostic Imaging Report ---
INDICATION: Pleural effusion. TIME OF EXAM: 10:43 AM Correlation is made with prior chest from 03/17/2022. FINDINGS: Heart size is normal. There is small left effusion, reduced in size when compared with prior exam. There may be trace pleural fluid on the right as well. There is some consolidation and air broncho-grams in the left lung base. No pneumothorax is seen. Spinal hardware lower thoracic and upper lumbar spine is again noted. IMPRESSION: There has been some reduction in left pleural effusion when compared with examination from 03/17/2022. Dictated by: Dictated on workstation # [id number]
[2022-03-26 12:02] VITALS: BP 99/54
--- NOTE | 2022-03-26 12:14 | Progress Note - Cardiology ---
Cardiology SOAP Progress Note Subjective: No cp or palp or syncope No shortness of breath at rest No n/v/d Wishes to go home Objective: I&O/Vital Signs 03/26/22 03/26/22 03/26/22 03/26/22 01:00 02:20 03:33 07:00 Temp 36.6 Pulse 100 95 87 Resp 16 B/P (MAP) 115/56 Pulse Ox 90 93 O2 Delivery High Flow N/C High Flow N/C O2 Flow Rate 5.00 5.00 03/26/22 03/26/22 03/26/22 03/26/22 07:01 07:06 07:15 08:00 Temp 36.6 Pulse 82 Pulse Ox 93 93 93 O2 Delivery High Flow N/C High Flow N/C Nasal Cannula O2 Flow Rate 6.00 4.00 4.00 03/26/22 03/26/22 08:08 12:02 Temp 36.5 36.0 Pulse 82 82 Resp 20 18 B/P (MAP) 126/59 (81) 99/54 (69) Pulse Ox 93 98 O2 Delivery Nasal Cannula Nasal Cannula O2 Flow Rate 4.00 4.00 03/25/22 23:59 Intake Total 1760 ml Output Total 1800 ml Balance -40 ml Constitutional: AAO x 3, well-developed, well-nourished Respiratory: No accessory muscle use, No respiratory distress; chest expansion is symmetric, chest is bilaterally symmetric, other (diminished lower lobes bilat) Cardiovascular: irregularly irregular; No JVD, No edema; S1 and S2 Gastrointestional: No tender; soft, round; No distended; audible bowel sounds Extremities: no lower extremity edema bilateral Neurologic/Psychiatric: grossly intact (moves all extremities) Skin: No rash on exposed areas, No ulcerations on exposed areas Results/Procedures: Labs Laboratory Tests 03/26/22 03:10: White Blood Count 10.5, Red Blood Count 3.96, Hemoglobin 11.2L, Hematocrit 36, Mean Corpuscular Volume 91, Mean Corpuscular Hemoglobin 28, Mean Corpuscular Hemoglobin Concent 31L, Red Cell Distribution Width 14.9H, Platelet Count 207, Mean Platelet Volume 9.2, Immature Granulocyte % (Auto) 1, Neutrophils (%) (Auto) 95H, Lymphocytes (%) (Auto) 3L, Monocytes (%) (Auto) 2, Eosinophils (%) (Auto) 0, Basophils (%) (Auto) 0, Neutrophils # (Auto) 10.0H, Lymphocytes # (Auto) 0.3L, Monocytes # (Auto) 0.2, Eosinophils # (Auto) 0.0, Basophils # (Auto) 0.0, Immature Granulocyte # (Auto) 0.1, Sodium Level 137, Potassium Level 3.4L, Chloride Level 93L, Carbon Dioxide Level 29, Anion Gap 15H, Blood Urea Nitrogen 33H, Creatinine 1.03, Estimat Glomerular Filtration Rate 54, BUN/Creatinine Ratio 32, Glucose Level 291H, Calcium Level 8.4L, Corrected Calcium 9.0, Phosphorus Level 1.9L, Magnesium Level 1.9, Total Bilirubin 0.6, Aspartate Amino Transf (AST/SGOT) 57H, Alanine Aminotransferase (ALT/SGPT) 175H, Alkaline Phosphatase 112, Total Protein 5.6L, Albumin 3.3 Microbiology 03/22/22 Blood Culture - Preliminary, Resulted No growth 03/19/22 Gram Stain - Final, Resulted 03/19/22 Anaerobic Culture - Final, Resulted No anaerobes isolated 03/19/22 Body Fluid Culture - Final, Resulted No growth 03/19/22 Fungal Culture 1 - Preliminary, Resulted 03/16/22 MRSA Screen - Final, Complete MRSA not isolated Laboratory Tests 03/25/22 04:17 03/26/22 03:10 A/P: Assessment: A-fib with RVR - diagnosed on EKG of 09-22-21 in the ED, age unknown - Xarelto for stroke prophylaxis - treat rate with dilt and digoxin - rate improved - HR controlled Pneumonia - management per medical services - s/p L thoracentesis on 03/19/22 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 - Echo on 09/23/21: LVEF 45-50%, mod to sev biatrial enlargement, mod to severe MR & TR, pulm htn with PASP approx 70 mmHg - Echo on 03/24/22: LVEF 50-55%, grade 3 diastolic dysfunction, mod to sev biatrial enlargement, mod to severe MR, mod TR, PASP 50-55 mmHg - Furosemide increased and spironolactone added on 03/24/22 HTN - controlled - somewhat low BP - asymptomatic HLD - statin tx GI - GERD COPD - managed by PCP 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
[2022-03-26 15:56] VITALS: BP 108/66
[2022-03-26] MEDS: ENOXAPARIN 40 MG/0.4 ML (LOVENOX) SYR SC SCH (16:55)
[2022-03-26] MEDS: FUROSEMIDE 40 MG (LASIX) TAB PO SCH (16:55)
[2022-03-26 20:08] VITALS: BP 110/66
[2022-03-27 00:02] VITALS: BP 122/61
[2022-03-27] MEDS: RT-ALBUTEROL/IPRATROPIUM 3 ML (DUONEB) VIAL INH SCH ×2 (02:23→07:16)
[2022-03-27] MEDS: CEFEPIME INJECTION 1,000 MG in NS (IVPB) 50 ML IV SCH (03:31)
[2022-03-27 04:09] VITALS: BP 115/51
[2022-03-27 06:07] LABS: BASOPHILS % (AUTO) 0 % (0-10); EOSINOPHILS % (AUTO) 0 % (0-10); HEMATOCRIT 33 % (35-52); HEMOGLOBIN 10.3 g/dL (11.5-16.0); LYMPHOCYTES # (AUTO) 0.5 10^3/uL (1.0-4.0); LYMPHOCYTES % (AUTO) 5 % (12-44); MEAN CORPUSCULAR HEMOGLOBIN 28 pg (25-34); MEAN CORPUSCULAR HGB CONC 31 g/dL (32-36); MEAN CORPUSCULAR VOLUME 91 fL (80-99); MEAN PLATELET VOLUME 9.7 fL (9.0-12.2); MONOCYTES # (AUTO) 0.7 10^3/uL (0.0-1.0); MONOCYTES % (AUTO) 7 % (0-12); NEUTROPHILS # (AUTO) 8.4 10^3/uL (1.8-7.8); NEUTROPHILS % (AUTO) 86 % (42-75); PLATELET COUNT 214 10^3/uL (130-400); WHITE BLOOD COUNT 9.7 10^3/uL (4.3-11.0)
[2022-03-27] MEDS: FUROSEMIDE 40 MG (LASIX) TAB PO SCH (06:09)
[2022-03-27] MEDS: CATHETER FLUSH 10 ML SYR IVP SCH (06:09)
[2022-03-27 06:17] LABS: ALBUMIN 3.2 GM/DL (3.2-4.5); POTASSIUM 3.6 MMOL/L (3.6-5.0)
[2022-03-27 06:18] LABS: CALCIUM 8.3 MG/DL (8.5-10.1)
[2022-03-27 06:19] LABS: TOTAL PROTEIN 5.1 GM/DL (6.4-8.2)
[2022-03-27 06:21] LABS: BILIRUBIN,TOTAL 0.5 MG/DL (0.1-1.0)
[2022-03-27 06:23] LABS: CREATININE SERUM 0.84 MG/DL (0.60-1.30)
[2022-03-27 06:26] LABS: MAGNESIUM 1.9 MG/DL (1.6-2.4)
[2022-03-27] MEDS: KCL 20 MEQ TAB (K-DUR) PO SCH ×2 (06:37→09:06)
[2022-03-27 06:42] LABS: EOSINOPHILS % (MANUAL) 1 %; LYMPHOCYTES % (MANUAL) 3 %; MONOCYTES % (MANUAL) 3 %; NEUTROPHILS % (MANUAL) 93 %; POIKILOCYTOSIS SLIGHT
[2022-03-27 06:43] LABS: ELLIPT/OVALOCYTES SLIGHT; HELMET/BITE CELLS SLIGHT; SCHISTOCYTES SLIGHT; TOXIC GRANULATION/VACUOLAZATIO 1+
[2022-03-27] MEDS ORDERED: predniSONE 20 MG TAB PO SCH (07:00)
[2022-03-27 08:00] VITALS: BP 119/60
--- NOTE | 2022-03-27 08:11 | Discharge Summary ---
Diagnosis/Chief Complaint Date of Admission March 16, 2022 at 16:05 Date of Discharge Reason Hospital Visit PT IS AN 81 Y/O FEMALE WHO IS KNOWN TO ME FROM CLINIC A NEW PATIENT. She reports that the only reason she came into the ER was for neck and upper back pain on the right - she was requesting a shot to her shoulder/neck region. 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 She reports that she started taking her meds when she got back home, but realized she made a mistake in not taking her meds due to feeling short of breath and having a rapid heart beat. She denies chest pain, abdominal pain, nausea, dizziness. Discharge Summary Discharge Physical Examination Allergies: Coded Allergies: bacitracin (Verified Allergy, Severe, 09/22/21) morphine (Verified Allergy, Severe, 09/22/21) nickel (Verified Allergy, Severe, 09/22/21) Vitals & I&Os Vital Signs Date Time Temp Pulse Resp B/P (MAP) Pulse Ox O2 Delivery O2 Flow Rate FiO2 03/27/22 07:21 97 High Flow N/C 4.00 03/27/22 07:00 104 03/27/22 04:09 36.4 16 115/51 (72) 03/24/22 10:34 70 Hospital Course Pending Labs Laboratory Tests 03/27/22 05:35: White Blood Count 9.7, Red Blood Count 3.68, Hemoglobin 10.3, Hematocrit 33, Mean Corpuscular Volume 91, Mean Corpuscular Hemoglobin 28, Mean Corpuscular Hemoglobin Concent 31, Red Cell Distribution Width 14.6, Platelet Count 214, Mean Platelet Volume 9.7, Immature Granulocyte % (Auto) 1, Neutrophils (%) (Auto) 86, Lymphocytes (%) (Auto) 5, Monocytes (%) (Auto) 7, Eosinophils (%) (Auto) 0, Basophils (%) (Auto) 0, Neutrophils # (Auto) 8.4, Lymphocytes # (Auto) 0.5, Monocytes # (Auto) 0.7, Eosinophils # (Auto) 0.0, Basophils # (Auto) 0.0, Immature Granulocyte # (Auto) 0.1, Neutrophils % (Manual) 93, Lymphocytes % (Manual) 3, Monocytes % (Manual) 3, Eosinophils % (Manual) 1, Toxic Granulation 1+, Clumped Platelets , Poikilocytosis SLIGHT, Helmet Cells SLIGHT, Elliptocytes SLIGHT, Schistocytes SLIGHT, Sodium Level 140, Potassium Level 3.6, Chloride Level 98, Carbon Dioxide Level 31, Anion Gap 11, Blood Urea Nitrogen 37, Creatinine 0.84, Estimat Glomerular Filtration Rate 69, BUN/Creatinine Ratio 44, Glucose Level 212, Calcium Level 8.3, Corrected Calcium 8.9, Magnesium Level 1.9, Total Bilirubin 0.5, Aspartate Amino Transf (AST/SGOT) 76, Alanine Aminotransferase (ALT/SGPT) 202, Alkaline Phosphatase 105, Total Protein 5.1, Albumin 3.2, Digoxin Level 0.64 Discharge Instructions to patient/family Please see electronic discharge instructions given to patient. Discharge Medications Reviewed and agree with Discharge Medication list on patient's Discharge Instruction sheet ALTAGRACIA GILL MD Mar 27, 2022 08:11
[2022-03-27] MEDS ORDERED: FURO40TA4 PO (08:21)
[2022-03-27] MEDS ORDERED: PRD20T PO (08:21)
[2022-03-27] MEDS ORDERED: POTA-169 PO (08:21)
--- NOTE | 2022-03-27 08:24 | D/C HH Face to Face Order ---
D/C Face to Face Orders Reconcile Patient Problems Problems Reviewed?: Yes Instructions for Patient IF PT AGREES TO HOME HEALTH , CONTACT AGENCY OF HER CHOICE Patient Instructions/FollowUp: [facility] [address] CALLES NEEDS APPT WITH PULMONARY REHAB IN THERAPY DEPARTMENT TO START AFTER HOME HEALTH IS DONE Physician to follow Patient: [facility] Discharge Diet for Home: Low Sodium Diet Patient Problems: Acute on chronic atrial fibrillation, rate uncontrolled Chronic NOAC anticoagulation Pneumonia Chronic COPD with exacerbation Chronic oxygen dependence Medication noncompliance Hypertension Esophageal reflux Urge incontinence Hypokalemia Elevated liver enzymes Left pleural effusion Goals for Patient: INCREASED STRENGTH, DECREASED SHORTNESS OF BREATH Patient Data-Allergies,Ht & Wt Patient Allergies: Coded Allergies: bacitracin (Verified Allergy, Severe, 09/22/21) morphine (Verified Allergy, Severe, 09/22/21) nickel (Verified Allergy, Severe, 09/22/21) Home Health Need/Face to Face Date of Face to Face: Mar 27, 2022 Clinical Findings: Generalized weakness and fatigue, Instability, Muscle weakness, Shortness of breath I have seen Pt [id number]: Yes Discharged To: Home Diagnosis/Conditions: Acute on chronic atrial fibrillation, rate uncontrolled Chronic NOAC anticoagulation Pneumonia Chronic COPD with exacerbation Chronic oxygen dependence Medication noncompliance Hypertension Esophageal reflux Urge incontinence Hypokalemia Elevated liver enzymes Left pleural effusion Patient is Homebound due to: Muscle weakness, Shortness of breath/distress Homebound Status Due to the above stated illness, injury or surgical procedure (medical condition or diagnosis) and associated clinical findings, the patient is homebound because of his/her inability to leave home except with aid of a supportive device and/or person AND leaving the home requires a considerable and taxing effort or is medically contraindicated. Pt req the following assistanc: [facility] Nursing Orders Home Health Services Order: Nursing Services, [employer] [facility]-Evaluate & John at, Physical Therapy-Evaluate & Treat CBC, CMP, MAG ON 03/30/22 AND 04/06/22 Home Health Infusion Therapy Line Start Date: March 16, 2022 Therapy Orders Therapy Orders: PT to assess for OT Therapy Specific Orders: Teach enviro modifications/safety, Increase strength/endurance Certify Stmt I certify that this patient is under my care and that I, a nurse practitioner or a physician; a lab assistant working with me, had a face to face encounter that - meets the physician face to face encounter requirements with this patient as dated. ALTAGRACIA GILL MD Mar 27, 2022 08:24
[2022-03-27] MEDS ORDERED: KCL 20 MEQ TAB (K-DUR) PO NR (09:00)
[2022-03-27] MEDS: PANTOPRAZOLE 40 MG (PROTONIX) TAB PO SCH (09:05)
[2022-03-27] MEDS: DIGOXIN 0.125 MG (LANOXIN) TAB PO SCH (09:05)
[2022-03-27] MEDS: ASPIRIN 81 MG CHEW (CHILDREN'S ASA) PO SCH (09:05)
[2022-03-27] MEDS: SENNA W/DOCUSATE (SENOKOT S) TABLET PO SCH (09:05)
[2022-03-27] MEDS: DICLOFENAC 1% GEL 100 GM (VOLTAREN) TUBE TOP SCH (09:07)
--- NOTE | 2022-03-27 10:36 | Progress Note - Cardiology ---
Cardiology SOAP Progress Note Subjective: Sitting up in recliner at the bedside States she feels good and wants to go home Feels SOB is at baseline No c/o CP or palpitations Objective: I&O/Vital Signs 03/27/22 03/27/22 03/27/22 03/27/22 00:02 01:09 02:23 04:09 Temp 36.5 36.4 Pulse 93 89 92 Resp 20 16 B/P (MAP) 122/61 (81) 115/51 (72) Pulse Ox 100 92 94 O2 Delivery Nasal Cannula High Flow N/C Nasal Cannula O2 Flow Rate 4.00 4.00 4.00 03/27/22 03/27/22 03/27/22 07:00 07:21 08:00 Temp 36.3 Pulse 104 94 Resp 20 B/P (MAP) 119/60 (79) Pulse Ox 97 96 O2 Delivery High Flow N/C Nasal Cannula O2 Flow Rate 4.00 4.00 03/27/22 00:00 Intake Total 1460 ml Output Total 2000 ml Balance -540 ml Constitutional: AAO x 3, well-developed, well-nourished Respiratory: No accessory muscle use, No respiratory distress; chest expansion is symmetric, chest is bilaterally symmetric, other (diminished lower lobes bilat) Cardiovascular: irregularly irregular; No JVD, No edema; S1 and S2 Gastrointestional: No tender; soft, round; No distended; audible bowel sounds Extremities: no lower extremity edema bilateral Neurologic/Psychiatric: grossly intact (moves all extremities) Skin: No rash on exposed areas, No ulcerations on exposed areas Results/Procedures: Labs Laboratory Tests 03/27/22 05:35: White Blood Count 9.7, Red Blood Count 3.68L, Hemoglobin 10.3L, Hematocrit 33L, Mean Corpuscular Volume 91, Mean Corpuscular Hemoglobin 28, Mean Corpuscular Hemoglobin Concent 31L, Red Cell Distribution Width 14.6H, Platelet Count 214, Mean Platelet Volume 9.7, Immature Granulocyte % (Auto) 1, Neutrophils (%) (Auto) 86H, Lymphocytes (%) (Auto) 5L, Monocytes (%) (Auto) 7, Eosinophils (%) (Auto) 0, Basophils (%) (Auto) 0, Neutrophils # (Auto) 8.4H, Lymphocytes # (Auto) 0.5L, Monocytes # (Auto) 0.7, Eosinophils # (Auto) 0.0, Basophils # (Auto) 0.0, Immature Granulocyte # (Auto) 0.1, Neutrophils % (Manual) 93, Lymphocytes % (Manual) 3, Monocytes % (Manual) 3, Eosinophils % (Manual) 1, Toxic Granulation 1+, Clumped Platelets , Poikilocytosis SLIGHT, Helmet Cells SLIGHT, Elliptocytes SLIGHT, Schistocytes SLIGHT, Sodium Level 140, Potassium Level 3.6, Chloride Level 98, Carbon Dioxide Level 31, Anion Gap 11, Blood Urea Nitrogen 37H, Creatinine 0.84, Estimat Glomerular Filtration Rate 69, BUN/Creatinine Ratio 44, Glucose Level 212H, Calcium Level 8.3L, Corrected Calcium 8.9, Magnesium Level 1.9, Total Bilirubin 0.5, Aspartate Amino Transf (AST/SGOT) 76H, Alanine Aminotransferase (ALT/SGPT) 202H, Alkaline Phosphatase 105, Total Protein 5.1L, Albumin 3.2, Digoxin Level 0.64L Microbiology 03/22/22 Blood Culture - Preliminary, Resulted No growth 03/19/22 Gram Stain - Final, Resulted 03/19/22 Anaerobic Culture - Final, Resulted No anaerobes isolated 03/19/22 Body Fluid Culture - Final, Resulted No growth 03/19/22 Fungal Culture 1 - Preliminary, Resulted 03/16/22 MRSA Screen - Final, Complete MRSA not isolated Laboratory Tests 03/26/22 03:10 03/27/22 05:35 A/P: Assessment: A-fib with RVR - diagnosed on EKG of 09-22-21 in the ED, age unknown - Xarelto for stroke prophylaxis - treat rate with dilt and digoxin - rate improved - HR controlled Pneumonia - management per medical services - s/p L thoracentesis on 03/19/22 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 - Echo on 09/23/21: LVEF 45-50%, mod to sev biatrial enlargement, mod to severe MR & TR, pulm htn with PASP approx 70 mmHg - Echo on 03/24/22: LVEF 50-55%, grade 3 diastolic dysfunction, mod to sev biatrial enlargement, mod to severe MR, mod TR, PASP 50-55 mmHg - Furosemide increased and spironolactone added on 03/24/22 HTN - controlled - somewhat low BP - asymptomatic HLD - statin tx GI - GERD COPD - managed by PCP 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 Leonard this morning EVANGELISTA REDD Mar 27, 2022 10:36
[2022-03-27 11:46] VITALS: BP 119/60
== END 2022-03-27 11:55 | disposition home or self-care (01) | DRG 193 ==
LOC: ER 14:10 → ICU 16:05 → CSD 03-21 16:52 → ICU 03-22 18:29 → 4TH 03-25 11:40
PROVIDERS: ADMIT Family Medicine; ATTEND Family Medicine
PROC: 0W9B3ZZ Drainage of Left Pleural Cavity, Percutaneous Approach (ICD-10-PCS; principal; 2022-03-19)
PROC: 5A0945A Assistance with Respiratory Ventilation, 24-96 Consecutive Hours, High Flow/Velocity Cannula (ICD-10-PCS; 2022-03-19)
PROC: 5A09357 Assistance with Respiratory Ventilation, Less than 24 Consecutive Hours, Continuous Positive Airway Pressure (ICD-10-PCS; 2022-03-22)
DX: J18.9 Pneumonia, unspecified organism (principal); J96.01 Acute respiratory failure with hypoxia; I50.43 Acute on chronic combined systolic (congestive) and diastolic (congestive) heart failure; I48.20 Chronic atrial fibrillation, unspecified; J44.1 Chronic obstructive pulmonary disease with (acute) exacerbation; J44.0 Chronic obstructive pulmonary disease with (acute) lower respiratory infection; J90 Pleural effusion, not elsewhere classified; Z79.01 Long term (current) use of anticoagulants; Z99.81 Dependence on supplemental oxygen; Z91.14 Patient's other noncompliance with medication regimen; I11.0 Hypertensive heart disease with heart failure; K21.9 Gastro-esophageal reflux disease without esophagitis; R32 Unspecified urinary incontinence; E87.6 Hypokalemia; M54.89 Other dorsalgia; M25.511 Pain in right shoulder; E78.00 Pure hypercholesterolemia, unspecified; M19.90 Unspecified osteoarthritis, unspecified site; Z87.891 Personal history of nicotine dependence; Z79.82 Long term (current) use of aspirin; Z79.899 Other long term (current) drug therapy; G89.29 Other chronic pain; M54.9 Dorsalgia, unspecified; I27.20 Pulmonary hypertension, unspecified; I87.2 Venous insufficiency (chronic) (peripheral)
CPT/HCPCS: 36415; 51702; 71045; 71046; 76705; 76942; 80053; 80061; 80162; 80202; 81000; 82042; 82140; 82728; 82805; 82945; 83540; 83550; 83605; 83615; 83735; 83874; 83880; 83986; 84100; 84145; 84157; 84484; 85007; 85025; 85027; 85610; 85730; 87040; 87070; 87075; 87081; 87101; 87205; 89051; 93005; 93041; 93306; 94640; 94660; 94760; 94761; 96374; 96375

== ENCOUNTER 2022-03-31 12:54 | Emergency (ER) | payer MEDICARE, OTHER ==
[~2022-03-31] VITALS: Ht 160 cm; Wt 58.0 kg
[~2022-03-31 12:54] MED LIST changes: +ALBU18HF2 PO; +AZIT250T12 PO; +CEFD300C3 PO; +CHOL500050 PO; +DIGO125T18 PO; +DILT180C85 PO; +IPRA3AMP31; +MIRT-96 PO; +PANT40TA52 PO; +POTA-169 PO; +POTA10TA PO; +REVE175V PO; +VITA400C64 PO
--- NOTE | 2022-03-31 13:13 | ED Hip Pain/Injury ---
General Chief Complaint: Hip/Pelvic Problems Stated Complaint: HIP PAIN Nursing Triage Note: PATIENT DISCHARGED FROM HOSPITAL TWO DAYS PNEUMONIA, TODAY ATTEMPTED TO MOVE FROM SITTING POSITION, STATES PAIN IN RT HIP, UNABLE TO WALK, RT LEG WENT NUMB Source: patient Exam Limitations: no limitations (ELIZ CONDON APRN) History of Present Illness Date Seen by Provider: Mar 31, 2022 Time Seen by Provider: 13:07 Initial Comments This is a well-appearing 81-year-old female who presented to the ER for complaints of right hip pain. States that she was sitting in her recliner when she attempted to get up however she had a sharp pain in her groin region of her right hip. States that it felt like her right upper thigh had went numb. Was also unable to walk initially after the injury. She was recently discharged from the hospital 2 days ago for pneumonia however she is not having any respiratory complaints at this time States that she typically wears oxygen at home at 4 L via nasal cannula. She denies any falls or trauma to the area. When she is lying she has no pain. States that her pain is only present whenever she attempts to move her leg and it is localized to her inner groin region at this time. She believes she may have injured herself whenever she was having to get up she tried to reach across her body and somewhat "twisted". (ELIZ CONDON ASSISTANT SHIFT SUPERVISOR) Allergies and Home Medications Allergies Coded Allergies: bacitracin (Verified Allergy, Severe, 09/22/21) morphine (Verified Allergy, Severe, 09/22/21) nickel (Verified Allergy, Severe, 09/22/21) Patient Home Medication List Home Medication List Reviewed: Yes (ELIZ CONDON APRN) Albuterol Sulfate (Ventolin Hfa) 90 Mcg Hfa.aer.ad, 1 PUFF PO BID PRN for SHORTNESS OF BREATH, (Reported) Entered as Reported by: CRISTINE JOHNSON on 03/17/22 1004 Aspirin (Aspirin EC) 81 Mg Tablet.dr, 81 MG PO DAILY, (Reported) Entered as Reported by: JUAN FRANCISCO HUA on 09/23/21 1139 Azithromycin (Azithromycin) 250 Mg Tablet, 250 MG PO DAILY Prescribed by: ALTAGRACIA LEONARD on 03/20/22 1230 Calcium Carbonate (Calcium) 600 Mg Tablet, 600 MG PO BID, (Reported) Entered as Reported by: JUAN FRANCISCO HUA on 09/23/21 1139 Cefdinir (Cefdinir) 300 Mg Capsule, 300 MG PO BID Prescribed by: ALTAGRACIA LEONARD on 03/20/22 123 Digoxin (Digox) 125 Mcg (0.125 Mg) Tablet, 0.125 MG PO DAILY Prescribed by: ALTAGRACIA LEONARD on 03/20/22 123 Diltiazem HCl (Diltiazem 24Hr ER) 180 Mg Cap.er.24h, 360 MG PO DAILY Prescribed by: ALTAGRACIA LEONARD on 03/20/22 1230 Furosemide (Furosemide) 40 Mg Tablet, 80 MG PO DAILY@07,17 Prescribed by: ALTAGRACIA LEONARD on 03/27/22 08 Mirtazapine (Remeron) 15 Mg Tablet, 7.5 MG PO HS Prescribed by: ALTAGRACIA LEONARD on 03/20/22 123 Oxybutynin Chloride (Oxybutynin Chloride ER) 10 Mg Tab.er.24, 10 MG PO DAILY, (Reported) Entered as Reported by: JUAN FRANCISCO HUA on 09/23/21 113 Pantoprazole Sodium (Pantoprazole Sodium) 40 Mg Tablet.dr, 40 MG PO DAILY, (Reported) Entered as Reported by: CRISTINE JOHNSON on 03/17/22 100 Potassium Chloride (Klor-Con M20) 20 Meq Tab.er.prt, 20 MEQ PO BID Prescribed by: ALTAGRACIA LEONARD on 03/27/22820 Prednisone (Prednisone) 20 Mg Tab, 20 MG PO UD Prescribed by: ALTAGRACIA LEONARD on 03/27/22820 Revefenacin (Yupelri) 175 Mcg/3 Ml Vial.neb, 1 VIAL PO DAILY, (Reported) Entered as Reported by: CRISTINE JOHNSON on 03/17/22 1037 Rivaroxaban (Xarelto) 20 Mg Tablet, 20 MG PO HS, (Reported) Entered as Reported by: CRISTINE JOHNSON on 03/17/22 1004 Simvastatin (Simvastatin) 20 Mg Tablet, 20 MG PO DAILY, (Reported) Entered as Reported by: JUAN FRANCISCO HUA on 09/23/21 113 Sodium Chloride (Jesus Alberto-128) 15 Ml Drops, 1-2 DROPS OU BID, (Reported) Entered as Reported by: JUAN FRANCISCO HUA on 09/23/21 1139 Review of Systems Constitutional: no symptoms reported EENTM: no symptoms reported Respiratory: dyspnea on exertion (chronic ) Cardiovascular: edema (chronic) Gastrointestinal: no symptoms reported Genitourinary: no symptoms reported Musculoskeletal: see HPI Skin: no symptoms reported Psychiatric/Neurological: No Symptoms Reported (ELIZ CONDON APRN) Past Dkoefuj-Icjapb-Xfrzih Hx Immunizations Up To Date First/Initial COVID19 Vaccinat: 2020 Second COVID19 Vaccination Javier: 2020 (ELIZ CONDON APRN) Past Medical History Surgery/Hospitalization HX: COPD Surgeries: Yes Joint Replacement, Orthopedic Respiratory: Yes COPD Currently Using CPAP: No Currently Using BIPAP: No Cardiac: Yes (Congestive heart failure) Atrial Fibrillation, High Cholesterol, Hypertension Neurological: No Reproductive Disorders: No 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 Sexually Transmitted Disease: No HIV/AIDS: No Genitourinary: No Gastrointestinal: No Gastroesophageal Reflux Musculoskeletal: Yes Arthritis, Fractures Endocrine: No HEENT: No Loss of Vision: Denies Hearing Impairment: Denies Cancer: No (ELIZ CONDON APRN) Family Medical History Heart Disease, COPD, Hypertension (ELIZ CONDON APRN) Physical Exam Vital Signs Vital Signs - First Documented 03/31/22 03/31/22 12:59 14:24 Temp 36.8 Pulse 79 Resp 20 B/P (MAP) 134/72 Pulse Ox 92 O2 Delivery Nasal Cannula O2 Flow Rate 4.00 (OMID YOU MD) Vital Signs Capillary Refill : Less Than 3 Seconds (ELIZ CONDON APRN) Height, Weight, BMI Height: '" Weight: lbs. oz. kg; 22.00 BMI Method: General Appearance: No Apparent Distress, WD/WN HEENT: PERRL/EOMI, Normal ENT Inspection, Pharynx Normal Neck: Full Range of Motion, Normal Inspection, Non Tender Cardiovascular: Regular Rate, Rhythm, No Murmur, Normal Peripheral Pulses Respiratory: Lungs Clear, Normal Breath Sounds, No Accessory Muscle Use, No Respiratory Distress Gastrointestinal: Normal Bowel Sounds, Non Tender, Soft Back: Normal Inspection Extremity: Normal Capillary Refill, Normal Range of Motion, No Calf Tenderness, Swelling (BLE), Other (Right hip, point tenderness over ilofemoral ) Neurologic/Psychiatric: Alert, Oriented x3, No Motor/Sensory Deficits, 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 Skin: Normal Color, Warm/Dry (ELIZ CONDON APRN) Progress/Results/Core Measures Results/Orders Vital Signs/I&O 03/31/22 03/31/22 12:59 14:24 Temp 36.8 Pulse 79 82 Resp 20 18 B/P (MAP) 134/72 Pulse Ox 92 94 O2 Delivery Nasal Cannula Nasal Cannula O2 Flow Rate 4.00 4.00 (OMID YOU MD) Progress Progress Note : Progress Note Patient examined and in no acute distress. She was assisted x1 standby with moving from bed to bedside commode and back to bed, tolerated okay. States that she does feel somewhat better after arriving to the ER. Her imaging is negative for any acute fractures, discussed that this could represent a ligament injury with the location and description of her pain. Where she is pointing at today is in the iliofemoral ligament region. Discussed conservative therapy with RICE and having follow-up with her primary care provider if her symptoms do not res olve, she may require additional imaging such as CT/MRI. Discharge POC reviewed and she is agreeable with plan. (ELIZ CONDON APRN) Diagnostic Imaging Diagonstic Imaging: Xray Comments [facility]. [place], [place] NAME: JESSE MONREAL [facility] REC#: [id number] PT STATUS: REG ER : 1940 PHYSICIAN: ELIZ CONDON APRN ADMIT DATE: 03/31/22/ER Signed Date of Exam:03/31/22 PELVIS WITH RIGHT HIP 2-3VIEWS INDICATION: Hip pain. AP view pelvis and two views of the right hip are obtained. FINDINGS: There are postop changes from right hip arthroplasty. The prosthesis appears to be in good position with normal alignment. There is no acute fracture or dislocation. IMPRESSION: Postop changes from right hip arthroplasty. No acute abnormality is seen. Dictated by: Dictated on workstation # [id number] Dict: 03/31/22 1335 Trans: 03/31/22 1511 [id number] Interpreted by: FIORDALIZA HAINES MD Electronically signed by: FIORDALIZA HAINES MD 03/31/22 1513 (ELIZ CONDON APRN) Departure Impression Primary Impression: Iliofemoral ligament sprain of hip Disposition: HOME, SELF-CARE Condition: Improved Departure-Patient Inst. Decision time for Depature: 14:01 (ELIZ CONDON ASSISTANT SHIFT SUPERVISOR) Referrals: ALTAGRACIA LEONARD MD (PCP/Family) Primary Care Physician Patient Instructions: Acute Pain, Adult Add. Discharge Instructions: Plan: 1. Rest. Follow up with Dr. Leonard if symptoms persist. 2. Rest: You need to stop further activity that stresses the injured joint. This allows time for it to recover. 3. Ice: Applying an ice pack provides short-term pain relief to an injured area and works to limit swelling. 4. Elevation: Raising the affected body part helps to control blood flow and reduces swelling at the site. It is most effective when the injured area is raised above the level of the heart. 5. Return to ER for any new, concerning, or worsening symptoms. All discharge instructions reviewed with patient and/or family. Voiced understanding. ATTENDING PHYSICIAN NOTE: I was physically present as attending physician in the emergency department during the care of this patient, but I was not directly involved in the decision making or delivery of care for this patient. (OMID YOU MD) Copy Copies To 1: ALTAGRACIA LEONARD MD, STORMY D APRN Mar 31, 2022 13:13 OMID YOU MD Apr 02, 2022 21:08
--- NOTE | 2022-03-31 13:37 | Diagnostic Imaging Report ---
INDICATION: Hip pain. AP view pelvis and two views of the right hip are obtained. FINDINGS: There are postop changes from right hip arthroplasty. The prosthesis appears to be in good position with normal alignment. There is no acute fracture or dislocation. IMPRESSION: Postop changes from right hip arthroplasty. No acute abnormality is seen. Dictated by: Dictated on workstation # [id number]
[2022-03-31] MEDS ORDERED: KETOROLAC 30 MG/ML VIAL ONE (14:14)
[2022-03-31] MEDS ORDERED: KETOROLAC 15 MG/ML VIAL IVP ONE (14:15)
[2022-03-31 14:24] VITALS: BP 134/72
[2022-03-31] MEDS ORDERED: KETOROLAC 30 MG/ML VIAL IVP ONE (14:30)
== END 2022-03-31 15:25 | disposition home or self-care (01) ==
LOC: EDUNIT# 12:54 → ER 12:55
DX: S73.111A Iliofemoral ligament sprain of right hip, initial encounter (principal); J44.9 Chronic obstructive pulmonary disease, unspecified; Z99.81 Dependence on supplemental oxygen; X58.XXXA Exposure to other specified factors, initial encounter

== ENCOUNTER → 2022-04-24 | Outpatient (CLI) | payer MEDICARE, OTHER ==
--- NOTE | 2022-04-24 15:06 | Diagnostic Imaging Report ---
PROCEDURE: CT pelvis without contrast. TECHNIQUE: Multiple contiguous axial images were obtained through the pelvis without the use of intravenous contrast. Sagittal and coronal reformations were performed. Auto Exposure Controls were utilized during the CT exam to meet ALARA standards for radiation dose reduction. INDICATION: Multiple recent falls. Right hip pain. History of right hip replacement. COMPARISON: Radiographs from 03/31/2022. FINDINGS: Bones appear diffusely osteopenic. There is a right total hip arthroplasty. Alignment appears normal. There is no loosening seen. No fracture is seen about the right hip. There are severe degenerative changes in the left hip joint. There is deformity of the right superior-inferior pubic rami from remote trauma. No acute fracture is seen in the imaged pelvis. There is enthesopathy of the iliac spines, bilaterally, and of the greater trochanters, bilaterally. There are moderate degenerative changes in the sacroiliac joints, bilaterally. There is marked facet arthropathy in the lower lumbar spine. No focal muscular atrophy is seen. There is moderate stool in the colon. No free fluid is seen. IMPRESSION: 1. Right hip arthroplasty with no hardware complication seen. 2. Mild posttraumatic deformity of the right pubis. No acute fracture is seen in the pelvis. 3. Severe degenerative changes in the left hip. Dictated by: Dictated on workstation # [id number]
--- NOTE | 2022-04-24 15:43 | Diagnostic Imaging Report ---
PROCEDURE: CT lumbar spine without contrast. TECHNIQUE: Multiple contiguous axial images were obtained through the lumbar spine without the use of intravenous contrast. Sagittal and coronal reformations were then performed. Auto Exposure Controls were utilized during the CT exam to meet ALARA standards for radiation dose reduction. INDICATION: Low back pain. Prior thoracolumbar fusion. COMPARISON: None. FINDINGS: There are five lumbar-type vertebral bodies for the purposes of this report. Normal alignment. Posterior instrumentation is partially visualized but extends from at least T10 through L2. There is no pedicle screw on the left at the T12 level. Hardware components are intact. No evidence of loosening. Height loss of the T12 vertebral body of approximately 10-20% without retropulsion or posterior element involvement. No acute appearing fracture lines are seen. Annular disc bulging and ligamentous hypertrophy result in egsylwji-jq-joebia spinal canal stenosis at L4-L5. No other high-grade spinal canal stenosis is seen by noncontrast CT. Visualized pelvis is intact. Mild degenerative changes in the sacroiliac joints. Moderate atherosclerotic calcifications. Cholecystectomy. Left pleural effusion. IMPRESSION: 1. Posterior instrumentation extending superiorly from L2 to at least T10, partially visualized. No evidence of hardware failure. 2. 10-20% height loss of the T12 vertebral body is most likely chronic but age indeterminate. This could be further investigated with MRI if clinically warranted. 3. Spondylotic changes likely result in high-grade spinal canal stenosis at L4-L5. This could also be better evaluated with MRI. 4. Left pleural effusion is partially visualized. Dictated by: Dictated on workstation # [id number]
== END ==
LOC: RAD 04-21 12:45
PROVIDERS: ATTEND Family Medicine
DX: M17.11 Unilateral primary osteoarthritis, right knee (principal); Z96.641 Presence of right artificial hip joint
CPT/HCPCS: 72131; 72192

== ENCOUNTER → 2022-07-22 | Outpatient (CLI) | payer MEDICARE | LOC: RAD 14:42 | PROVIDERS: ATTEND Family Medicine | DX: Z12.31 Encounter for screening mammogram for malignant neoplasm of breast (principal) | CPT/HCPCS: 77063; 77067 ==

== ENCOUNTER 2022-08-06 12:53 | Outpatient (RCR) | payer MEDICARE ==
[2022-07-30 13:39] VITALS: BP 130/72
[~2022-08-06] VITALS: Wt 58.0 kg
[~2022-08-06 12:53] MED LIST changes: +FERRIC CARBOXYMALTOSE INJ 750 MG in NS (IVPB) 250 ML IV SCH
[2022-08-06 13:00] VITALS: BP 120/70
== END 2022-08-17 | disposition home or self-care (01) ==
LOC: SDC 12:53
PROVIDERS: ATTEND Family Medicine
DX: D50.9 Iron deficiency anemia, unspecified (principal)
CPT/HCPCS: 96365

== ENCOUNTER → 2022-08-25 | Outpatient (CLI) | payer MEDICARE ==
[~2022-08-25] MED LIST changes: -FERRIC CARBOXYMALTOSE INJ 750 MG in NS (IVPB) 250 ML IV SCH
== END ==
LOC: CARD 12:00
PROVIDERS: ATTEND Nurse Practitioner Family
DX: I51.7 Cardiomegaly (principal); I34.0 Nonrheumatic mitral (valve) insufficiency; I36.1 Nonrheumatic tricuspid (valve) insufficiency; J90 Pleural effusion, not elsewhere classified
CPT/HCPCS: 93225; 93226; C8929; 93306